=== PATIENT | female | born 1940 | race Caucasian/White ===

== ENCOUNTER 2016-05-04 08:08 | Inpatient (IN) | payer MEDICARE, OTHER ==
[~2016-05-04] VITALS: Ht 144.8 cm; Wt 52.2 kg
[2016-05-04] VITALS (53 sets, daily range): BP systolic 83–153; BP diastolic 35–79; PULSE 70–95; RESP 11–23; TEMP 98–99.8; Ht 144.8 cm; Wt 52.2 kg
[2016-05-04] MEDS ORDERED: SOD CHLORIDE 0.9% 1,000 ML IV STA (08:15)
[2016-05-04] MEDS ORDERED: morphine 4 MG/ML VIAL IV STA (08:15)
[2016-05-04] MEDS ORDERED: ONDANSETRON 4 MG INJ IV STA (08:15)
[2016-05-04 08:22] LABS: ADD SCAN DIFF NO
[2016-05-04] MEDS ORDERED: ASPIRIN 81 MG TAB PO ONE (08:30)
[2016-05-04] MEDS ORDERED: TICAGRELOR 90 MG TABLET PO ONE (08:30)
[2016-05-04] MEDS ORDERED: HEPARIN 1000 UNITS/ML 10 ML INJ IV STA (08:30)
[2016-05-04] MEDS ORDERED: NITROGLYCERIN (SL) 0.4 MG TAB SL ONE (08:30)
[2016-05-04 08:31] LABS: BASOPHIL # 0.1 10^3/ul (0.0-0.1); BASOPHILS % 0.5 % (0.0-2.0); EOSINOPHILS # 0.2 10^3/ul (0.0-0.5); EOSINOPHILS % 1.4 % (0.0-7.0); HEMATOCRIT 44.6 % (37.0-47.0); HEMOGLOBIN 15.4 g/dl (12.0-16.0); LYMPHOCYTES # 3.8 10^3/ul (0.8-2.9); LYMPHOCYTES % 35.8 % (15.0-51.0); MEAN CORPUSCULAR HEMOGLOBIN 31.2 pg (29.0-33.0); MEAN CORPUSCULAR HGB CONC 34.5 g/dl (32.0-37.0); MEAN CORPUSCULAR VOLUME 90.3 fl (82.0-101.0); MEAN PLATELET VOLUME 10.1 fl (7.4-10.4); MONOCYTE # 0.8 10^3/ul (0.3-0.9); MONOCYTES % 7.8 % (0.0-11.0); NEUTROPHIL # 5.7 10^3/ul (1.6-7.5); NEUTROPHILS % 54.2 % (39.0-77.0); PLATELET COUNT 287 10^3/UL (140-415); RED BLOOD COUNT 4.94 10^6/ul (4.20-5.40); RED CELL DISTRIBUTION WIDTH 12.5 % (11.5-14.5); WHITE BLOOD COUNT 10.6 10^3/ul (4.8-10.8)
[2016-05-04 08:35] LABS: ALBUMIN 4.6 g/dl (3.3-4.9)
[2016-05-04 08:36] LABS: INR 0.89; POTASSIUM 4.1 mmol/L (3.5-5.1); PT RATIO 0.9
[2016-05-04 08:37] LABS: CREATININE 0.76 mg/dl (0.44-1.00)
[2016-05-04 08:38] LABS: ALBUMIN/GLOBULIN RATIO 1.15; BILIRUBIN,INDIRECT 0.3 mg/dl (0-1.1); BILIRUBIN,TOTAL 0.3 mg/dl (0.2-1.3); CALCIUM 9.8 mg/dl (8.4-10.2); TOTAL PROTEIN 8.6 g/dl (6.1-8.1)
[2016-05-04 08:53] LABS: TROPONIN-I 0.286 ng/ml (0.00-0.12)
[2016-05-04] MEDS ORDERED: LIDOCAINE 1% (MDV) 20 ML INJ ONE (08:56)
[2016-05-04] MEDS ORDERED: IODIXANOL LOCM 100 ML BTL ONE (08:56)
[2016-05-04] MEDS ORDERED: HEPARIN 1000 UNITS/ML 10 ML INJ ONE (08:56)
[2016-05-04] MEDS ORDERED: MIDAZOLAM 1 MG/ML 2 ML INJ ONE (08:56)
[2016-05-04] MEDS ORDERED: IODIXANOL LOCM 50 ML BTL ONE (08:56)
--- NOTE | 2016-05-04 09:02 | CONS ---
Date/Time of Note Date/Time of Note DATE: 05/04/16 TIME: 08:59 Assessment/Plan Assessment/Plan Chief Complaint/Hosp Course Impression: STEMI Abnormal EKG Chest pain Hyperlipidemia Recommendation/plan: proceed emergently with cardiac cath; further recs pending results of angiogram. Problems: Consultation Date/Type/Reason Admit Date/Time Date of Consultation: May 04, 2016 Reason for Consultation STEMI Hx of Present Illness The patient is a 75 y/o F who presents with chest pain; found to have inferior STEMI; patient taken emergently to cardiac laboratory monitor per [facility]I protocol. History of hyperlipidemia. Not taking any medications. Social History Smoking Status: Never smoker Exam/Review of Systems Vital Signs Vitals Vital Signs Date Time Temp Pulse Resp B/P Pulse Ox O2 Delivery O2 Flow Rate FiO2 05/04/16 08:23 90 18 172/93 99 Nasal Cannula 2.0 05/04/16 08:17 98.5 Exam Constitutional: alert, oriented, well developed Psych: nl mood/affect, no complaints Head: atraumatic, normocephalic Eyes: EOMI, PERRL, nl conjunctiva, nl lids, nl sclera ENMT: nl external ears & nose, nl lips & teeth, nl nasal mucosa & septum Neck: non-tender, supple Respiratory: clear to auscultation, normal air movement Cardiovascular: nl pulses, regular rate and rhythm Gastrointestinal: nl liver, spleen, non-tender, soft Musculoskeletal: nl extremities to inspection, nl gait and stance Extremities: normal pulses Neurological: TWISTER IN II-XII intact, nl mental status, nl speech, nl strength Skin: nl turgor, No rash or lesions Lymph: nl lymph nodes Results Result Diagram: 05/04/16 0816 05/04/16 0816 Results 24 hrs Laboratory Tests Test 05/04/16 08:16 Alanine Aminotransferase (ALT/SGPT) 43 Albumin 4.6 Albumin/Globulin Ratio 1.15 Alkaline Phosphatase 113 Anion Gap 20 H Aspartate Amino Transf (AST/SGOT) 28 Basophils # 0.1 Basophils % 0.5 Blood Urea Nitrogen 21 H Calcium Level 9.8 Carbon Dioxide Level 24 Chloride Level 102 Creatinine 0.76 Direct Bilirubin 0.00 Eosinophils # 0.2 Eosinophils % 1.4 Globulin 4.00 H Glucose Level 254 H Hematocrit 44.6 Hemoglobin 15.4 INR International Normalized Ratio 0.89 Indirect Bilirubin 0.3 Lipase 138 Lymphocytes # 3.8 H Lymphocytes % 35.8 Mean Corpuscular Hemoglobin 31.2 Mean Corpuscular Hemoglobin Concent 34.5 Mean Corpuscular Volume 90.3 Mean Platelet Volume 10.1 Monocytes # 0.8 Monocytes % 7.8 Neutrophils # 5.7 Neutrophils % 54.2 Nucleated Red Blood Cells # 0.0 Nucleated Red Blood Cells % 0.0 Platelet Count 287 Potassium Level 4.1 Prothrombin Time 12.0 L Prothrombin Time Ratio 0.9 Red Blood Count 4.94 Red Cell Distribution Width 12.5 Sodium Level 142 Total Bilirubin 0.3 Total Protein 8.6 H Troponin I 0.286 *H White Blood Count 10.6 KELSISAMIRADAMON May 04, 2016 09:01
[2016-05-04] MEDS ORDERED: NITROGLYCERIN (IC) 100 MCG/ML INJ ONE (09:04)
[2016-05-04] MEDS ORDERED: VERAPAMIL 5 MG INJ ONE (09:04)
[2016-05-04] MEDS ORDERED: FENTAnyl 50 MCG/ML VIAL ONE (09:06)
[2016-05-04] MEDS ORDERED: SOD CHLORIDE 0.9% 500 ML ONE (09:06)
[2016-05-04] MEDS ORDERED: ONDANSETRON 4 MG INJ ONE (09:08)
[2016-05-04] MEDS ORDERED: HEPARIN 25000 UNITS/250 ML 250 ML ONE (09:26)
[2016-05-04] MEDS ORDERED: NITROGLYCERIN 50 MG/D5W (PMX) 250 ML ONE (09:26)
[2016-05-04] MEDS ORDERED: NACL 0.9% 3 ML SYG IV SCH (10:00)
[2016-05-04] MEDS ORDERED: ONDANSETRON 4 MG INJ IV PRN (10:00)
[2016-05-04] MEDS ORDERED: HYDROCODONE/APAP (5/325) TAB PO PRN (10:00)
[2016-05-04] MEDS ORDERED: BISACODYL 10 MG SUPP PR PRN (10:00)
[2016-05-04] MEDS ORDERED: ACETAMINOPHEN 325 MG TAB PO PRN (10:00)
[2016-05-04] MEDS ORDERED: NITROGLYCERIN (SL) 0.4 MG TAB SL PRN (10:00)
[2016-05-04] MEDS ORDERED: DOCUSATE SODIUM 100 MG CAP PO PRN (10:00)
[2016-05-04] MEDS ORDERED: MAGNESIUM HYDROXIDE 30ML CUP PO PRN (10:00)
--- NOTE | 2016-05-04 10:02 | EN ---
Date/Time of Note Date/Time of Note DATE: 05/04/16 TIME: 09:46 Event Note Cardiology Cardiology Event Note DATE OF PROCEDURE: 05/04/16 ON SITE COORDINATOR: Carlos Dolan MD PROCEDURES PERFORMED: 1. Left heart catheterization. 2. Intra-aortic balloon pump placement PREINTERVENTION DIAGNOSIS: 1. Acute ST elevation myocardial infarction. POSTINTERVENTION DIAGNOSES: 1. 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 SEDATION: Conscious sedation with fentanyl 50 mcg IV and Versed 1 mg IV. DESCRIPTION OF PROCEDURE: The patient placed on mill washer, pulse oximetry and supplemental oxygen as necessary. The right groin [] was prepped and draped in a sterile fashion and infiltrated with 1% lidocaine. Via the Seldinger technique, the right femoral artery was accessed. A 6-Honduran sheath was inserted and through this the right coronary catheter and left coronary catheter and pigtail were advanced into the right coronary artery and left coronary artery and the left ventricle. IABP was placed after exchange and upsize of R femoral sheath to 8 greenlandic. Placement confirmed by fluoroscopy and hemodynamics. CATHETERIZATION FINDINGS: 1. Left main: 90-95% distal disease 2. LAD: ostial to proximal long segment 90% disease 3. Ramus: medium caliber vessel with proximal 80% disease 4. Obtuse Marginal: no significant disease 3. Circumflex: ostial 95% disease 4. RCA: Proximal 95% stenosis with bridging collaterals TOTAL CONTRAST: 15cc FLUOROSCOPY TIME: 2.6 minutes. COMPLICATIONS: None. 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 RECOMMENDATIONS: 1. Continue IABP 2. Continue IV heparin 3. Continue IV Nitroglycerin 4. ASA 81mg daily 5. Lipitor 80mg daily 6. Coreg 3.125mg BID 7. Lisinopril 2.5mg daily 8. CABG Evaluation. Patient received Ticagrelor in ER. Discussed case with Dr. Kruse, will wait for Ticagrelor washout so long as patient clinically stable. CARLOS DOLAN May 04, 2016 10:02
[2016-05-04] MEDS ORDERED: LISINOPRIL 5 MG TAB PO ONE (10:30)
[2016-05-04] MEDS ORDERED: ATORVASTATIN 80 MG TAB PO ONE (10:30)
[2016-05-04] MEDS ORDERED: HEPARIN 1000 UNITS/ML 10 ML INJ IV ONE (11:30)
[2016-05-04] MEDS ORDERED: HEPARIN 25000 UNITS/250 ML 250 ML IV SCH (11:30)
[2016-05-04] MEDS ORDERED: HEPARIN 1000 UNITS/ML 10 ML INJ IV PRN (12:00)
[2016-05-04 12:05] LABS: TROPONIN-I 3.8 ng/ml (0.00-0.12)
[2016-05-04] MEDS: HEPARIN 25000 UNITS/250 ML 250 ML IV SCH ×2 (12:21→19:22)
[2016-05-04] MEDS: NITROGLYCERIN 50 MG/D5W (PMX) 250 ML IV SCH ×2 (12:22→17:23)
--- NOTE | 2016-05-04 13:57 | HP ---
DATE OF ADMISSION: 05/04/2016 CHIEF COMPLAINT: Chest pain. HISTORY OF PRESENT ILLNESS: A 75-year-old female with past medical history of high cholesterol, who was brought in by family because she was having worsening chest pain. The chest pain first began a bout 8 days ago. It had been "knocking the wind out of her." The patient also had been feeling hea vy pressures. She was able to tolerate it for the last 7 days, but this morning the chest pain idris me worse and she was feeling more fatigued, decreased ambulation, so she asked family to bring her i nto the ER. They were going to take her to her primary care doctor to get her cholesterol checked, but then the symptoms became more severe so they decided to bring her into the emergency room today. When she came in, she was found to have acute inferior ST elevation myocardial infarction and was admitted in to the [facility], where there she was found with multivessel coronary artery disease incl uding 90% to 95% distal left main blockage, LAD ostial to proximal long segment 90% blockage, and ra mus medium caliber vessel with about 80% blockage, and also the circumflex ostial by 95% blockage, a nd RCA had proximal 95% stenosis as well with bridging collaterals. The patient is now in the [facility] on a heparin drip, on a nitro drip and also is on intra-aortic balloon pump as well. The recommendations are for coronary artery bypass grafting surgery in the next couple of days. PAST MEDICAL HISTORY: As stated above. ALLERGIES: NO KNOWN DRUG ALLERGIES. HOME MEDICATIONS: Unknown. PAST SURGICAL HISTORY: None. SOCIAL HISTORY: Negative for smoking, drinking, or IV drug abuse. FAMILY HISTORY: Unknown. PHYSICAL EXAMINATION: VITAL SIGNS: Temperature max 98.5, pulse is 85 to 90, respirations 18 to 20, blood pressure is 172 to 180 systolic/93 to 105 diastolic, saturating at 99% on 2 liters nasal cannula. GENERAL: The patient is lying in bed. Multiple family members are at the bedside. She is alert, b ut weak. HEENT: Pupils are equal, round, react to light. Extraocular muscles intact. NECK: Supple, no thyromegaly. LUNGS: Distant breath sounds bilaterally, no wheezes. CARDIOVASCULAR: S1 and S2 are heard. No rubs or gallops. ABDOMEN: Soft, nontender, nondistended. Normal bowel sounds. No rebound or guarding. MUSCULOSKELETAL: No lower extremity edema bilaterally noted. NEUROLOGIC: No signs of any focal deficits. LABORATORY DATA: CBC shows a WBC 10.6, hemoglobin 15.4, hematocrit 44.6, platelets 287. Sodium 142 , potassium 4.1, chloride 102, CO2 of 24, BUN 21, creatinine 0.76, glucose 254. LFTs are normal. C reatinine kinase is 663, it is elevated. CK-MB is elevated at 39. First troponin 0.286, second tro ponin was 3.8. Lipase is normal. ASSESSMENT AND PLAN: A 75-year-old female with chest pain with inferior ST elevation myocardial inf arction and multivessel coronary artery disease with recommendations for coronary artery bypass berkley t. 1. Chest pain, again secondary to ST elevation myocardial infarction, given the results of the left heart catheterization as mentioned above in the HPI. Per cardiology recommendations, continue nitr o drip, continue heparin drip, continue intra-aortic balloon pump. Monitor vital signs very careful ly and labs in the morning. Follow up TSH, A1c, lipid panel. Per discussion with cardiology team, the patient would benefit from a CABG procedure, so cardiothoracic surgery team will be consulted as well. Continue pain control medications, including [place] and Tylenol. Continue Coreg p.o. blood p ressure medicine as well and nitroglycerin p.r.n. sublingual. 2. Gastrointestinal prophylaxis, proton pump inhibitor. 3. Deep venous thrombosis prophylaxis. She is on heparin drip. We will continue to follow very closely. Dictated By: JOLEEN LAIRD Conf#: [id number] DID#: [id number]
--- NOTE | 2016-05-04 14:10 | ERA ---
ER Documentation Chief Complaint Date/Time DATE: 05/04/16 TIME: 13:56 Chief Complaint STEMI chest pain started this morning HPI 75-year-old woman brought in by EMS from home as code STEMI. Patient had complaints of pressure-like chest pain beginning last night and getting worse this morning. She also complained of dizziness, nausea, shortness of breath. Patient denies previous episodes. She denies palpitations, no cough, no fevers or chills, no calf or leg swelling, no headache or blurry vision. ROS All systems reviewed and are negative except as per history of present illness. Allergies Allergies: Coded Allergies: No Known Allergy (Unverified , 05/04/16) PMhx/Soc Hypertension History of Surgery: No Anesthesia Reaction: No Hx Neurological Disorder: No Hx Respiratory Disorders: No Hx Cardiac Disorders: No Hx Psychiatric Problems: No Hx Alcohol Use: No Hx Substance Use: No Hx Tobacco Use: No Smoking Status: Never smoker FmHx Family History: No diabetes Physical Exam Vitals Vital Signs Date Time Temp Pulse Resp B/P Pulse Ox O2 Delivery O2 Flow Rate FiO2 05/04/16 10:30 98.0 82 15 132/58 100 05/04/16 08:23 90 18 172/93 99 Nasal Cannula 2.0 05/04/16 08:17 98.5 85 20 180/105 99 Physical Exam GENERAL: Well-developed, well-nourished, well-hydrated, in no apparent distress , looks nontoxic in appearance HEENT: Moist mucous membranes, pink conjunctiva, no cervical spine tenderness or step-off deformities, no goiter, no jaundice or icterus, extraocular movements intact without pain. No submandibular induration, and no pharyngeal erythema NEURO: Alert and oriented 3, cranial nerves II through XII intact bilaterally, pupils equal round reactive to light, no focal deficits or facial asymmetry, sensation intact distally Strength 5/5 in upper and lower extremities bilaterally CARDIAC: Regular rate and rhythm, no murmurs rubs or gallops LUNGS: Clear bilaterally no wheezing crackles or stridor ABDOMEN: Soft nontender, no guarding, no rigidity, no rebound, no psoas sign no obturator sign. Normoactive bowel sounds SKIN: Warm and dry to touch, no abrasions, contusions, or hematomas, no lacerations, no ecchymosis, no target lesions, and without ulcers EXTREMITIES: No clubbing cyanosis or edema, calves are bilaterally symmetrical, no Homans sign, no popliteal cord sign. Distal pulses equal and bilateral PSYCH: Normal affect without agitation or irritability Result Diagram: 05/04/1616 05/04/16 0816 Results 24 hrs Laboratory Tests Test 05/04/16 08:16 Alanine Aminotransferase (ALT/SGPT) 43IU/L Albumin 4.6g/dl Albumin/Globulin Ratio 1.15 Alkaline Phosphatase 113IU/L Anion Gap 20 Aspartate Amino Transf (AST/SGOT) 28IU/L Basophils # 0.110^3/ul Basophils % 0.5% Blood Urea Nitrogen 21mg/dl Calcium Level 9.8mg/dl Carbon Dioxide Level 24mmol/L Chloride Level 102mmol/L Creatinine 0.76mg/dl Direct Bilirubin 0.00mg/dl Eosinophils # 0.210^3/ul Eosinophils % 1.4% Globulin 4.00g/dl Glucose Level 254mg/dl Hematocrit 44.6% Hemoglobin 15.4g/dl INR International Normalized Ratio 0.89 Indirect Bilirubin 0.3mg/dl Lipase 138U/L Lymphocytes # 3.810^3/ul Lymphocytes % 35.8% Mean Corpuscular Hemoglobin 31.2pg Mean Corpuscular Hemoglobin Concent 34.5g/dl Mean Corpuscular Volume 90.3fl Mean Platelet Volume 10.1fl Monocytes # 0.810^3/ul Monocytes % 7.8% Neutrophils # 5.710^3/ul Neutrophils % 54.2% Nucleated Red Blood Cells # 0.010^3/ul Nucleated Red Blood Cells % 0.0/100WBC Platelet Count 31535^3/UL Potassium Level 4.1mmol/L Prothrombin Time 12.0Sec Prothrombin Time Ratio 0.9 Red Blood Count 4.9410^6/ul Red Cell Distribution Width 12.5% Sodium Level 142mmol/L Total Bilirubin 0.3mg/dl Total Protein 8.6g/dl Troponin I 0.286ng/ml White Blood Count 10.610^3/ul Current Medications Medications (Trade) Dose Ordered Sig/Arnoldo Route PRN Reason Start Time Stop Time Status Last Admin Dose Admin Aspirin (Aspirin) 162 mg ONCE ONCE PO 05/04/16 08:30 05/04/16 08:31 DC 05/04/16 08:19 Nitroglycerin 1 tab 1 tab ONCE ONCE SL 05/04/16 08:30 05/04/16 08:31 DC 05/04/16 08:19 Sodium Chloride (NS) 1,000 ml @ 1,000 mls/hr Q1H STAT IV 05/04/16 08:15 05/04/16 09:14 DC 05/04/16 08:20 Morphine Sulfate (morphine) 4 mg ONCE STAT IV 05/04/16 08:15 05/04/16 08:17 DC 05/04/16 08:19 Ondansetron HCl (Zofran Inj) 4 mg ONCE STAT IV 05/04/16 08:15 05/04/16 08:17 DC 05/04/16 08:19 Ticagrelor (Brilinta) 180 mg ONCE ONCE PO 05/04/16 08:30 05/04/16 08:32 DC 05/04/16 08:36 Heparin Sodium (Porcine) (Heparin (1000 Units/ml)) 5,000 unit ONCE STAT IV 05/04/16 08:30 05/04/16 08:32 DC 05/04/16 08:36 IV Flush (NS 3 ml) 3 ml PER PROTOCOL IV 05/04/16 10:00 Ondansetron HCl (Zofran Inj) 4 mg Q6H PRN IV NAUSEA AND/OR VOMITING 05/04/16 10:00 Acetaminophen (Tylenol Tab) 650 mg Q6H PRN PO PAIN LEVEL 1-3 OR FEVER 05/04/16 10:00 Acetaminophen (Tylenol Supp) 650 mg Q6H PRN [place] PAIN LEVEL 1-3 OR FEVER 05/04/16 10:00 Acetaminophen/ Hydrocodone Bitart ([place] (5/325)) 1 tab Q6H PRN PO MODERATE PAIN LEVEL 4-6 05/04/16 10:00 Acetaminophen/ Hydrocodone Bitart ([place] (5/325)) 2 tab Q6H PRN PO SEVERE PAIN LEVEL 7-10 05/04/16 10:00 Morphine Sulfate (morphine) 2 mg Q4H PRN IV SEVERE PAIN LEVEL 7-10 05/04/16 10:00 Docusate Sodium (Colace) 100 mg Q12H PRN PO CONSTIPATION 05/04/16 10:00 Magnesium Hydroxide (Milk Of Mag) 30 ml DAILY PRN PO CONSTIPATION 05/04/16 10:00 Bisacodyl (Dulcolax Supp) 10 mg DAILY PRN [place] CONSTIPATION 05/04/16 10:00 Nitroglycerin (Nitroglycerin (Sl Tab) 0.4 Mg) 1 tab Q5M PRN SL CHEST PAIN 05/04/16 10:00 Miscellaneous Information (* Miscellaneous Pharmacy Order) HOLD all METFORMIN ... ONCE XX 05/04/16 10:30 05/06/16 10:29 Carvedilol (Coreg) 6.25 mg ONCE ONCE PO 05/04/16 10:30 05/04/16 10:31 DC 05/04/16 10:56 Lisinopril (Zestril) 5 mg ONCE ONCE PO 05/04/16 10:30 05/04/16 10:31 DC 05/04/16 10:56 Atorvastatin Calcium (Lipitor) 80 mg ONCE ONCE PO 05/04/16 10:30 05/04/16 10:31 DC 05/04/16 10:56 Procedures/MDM IV line was established patient was placed on computer science instructor rhythm strip revealed a sinus rhythm at about 80 bpm with upright P and T waves. Patient was afebrile. Code STEMI was called immediately after reviewing EMS EKG. EKG #1 performed here, read by me revealed a normal sinus rhythm 86 bpm, normal axis, narrow QRS complex with 0.[address] elevations in leads III and aVF as well as lead V3 and V4. I administered 1 L normal saline intravenously, aspirin 162 mg p.o., morphine 4 mg IV 1 and Zofran 4 mg IV, and nitroglycerin 0.4 mg sublingual. After speaking to the senior lead developer I also administered ticagrelor 180 mg p.o. and heparin bolus 5000 units IV One AP view of the chest performed, read by me reveals no acute infiltrates, normal mediastinum, sharp costophrenic and cardiac borders, no air under the diaphragm. Otherwise unremarkable chest x-ray. CBC and electrolytes were normal, liver function tests were normal, troponin was positive at 0.29, troponin #2 equals 3.8. Cardiac Critical Care: Time: 35 minutes, this was time separate from other procedures Treatments/Evaluations: Close monitoring for dangerous arrhythmia and cardiovascular collapse, while treating with advance cardiac medications and techniques. Patient admitted to the intensive care unit under the hospitalist. Departure Diagnosis: Primary Impression: ST elevation myocardial infarction (STEMI) Qualified Code: I21.02 - ST elevation myocardial infarction involving left anterior descending (LAD) coronary artery Condition: Serious MARY BAXTER MD May 04, 2016 14:10
--- NOTE | 2016-05-04 14:22 | RADRPT ---
PROCEDURE: XR Chest. CLINICAL INDICATION: Chest pain. Code STEMI. TECHNIQUE: Single frontal view. COMPARISON: None. FINDINGS: The lungs are clear. The heart size is normal. There is calcification in the aorta consistent with atherosclerosis. The re is a intra-aortic balloon with the superior tip at the level of the superior aortic arch. This s hould be withdrawn approximately 1 cm. There is no pleural effusion. There is no pneumothorax. IMPRESSION: 1. Clear lungs. 2. Atherosclerosis. 3. Intra-aortic balloon which should be withdrawn approximately 1 cm. 4. Otherwise unremarkable study. RPTAT: QQ .Fei Santana MD, MD Date Time Electronically viewed and signed by .Fei Santana MD, MD on 05/04/2016 14:22 .R/
[2016-05-04] MEDS ORDERED: LISINOPRIL 10 MG TAB PO ONE (15:00)
[2016-05-04 16:38] LABS: CK-MB 97.5 ng/ml (0.0-2.4)
[2016-05-04 16:56] LABS: TROPONIN-I 22.2 ng/ml (0.00-0.12)
[2016-05-04] MEDS ORDERED: GLUCOSE GEL 15 GRAM TUBE PO PRN ×2 (18:30)
[2016-05-04] MEDS ORDERED: GLUCOSE GEL 15 GRAM TUBE BUCCAL PRN (18:30)
[2016-05-04] MEDS ORDERED: DEXTROSE 50% 50 ML SYRINGE IV PRN ×2 (18:30)
[2016-05-04] MEDS ORDERED: GLUCAGON 1 MG INJ IM PRN (18:30)
[2016-05-04 18:42] LABS: INR 1.02; PROTIME 13.4 Sec (12.2-14.2)
[2016-05-04] MEDS: LISINOPRIL 10 MG TAB PO SCH (21:05)
[2016-05-04] MEDS: INSULIN ASPART [NOVOLOG] 3 ML PEN SC SCH (21:06)
[2016-05-05] VITALS (96 sets, daily range): BP systolic 54–112; BP diastolic 33–66; PULSE 72–95; RESP 10–30
[2016-05-05] MEDS: HEPARIN 25000 UNITS/250 ML 250 ML IV SCH (01:53)
[2016-05-05] MEDS: ACCUCHECK XX SCH (02:00)
[2016-05-05] MEDS: PANTOPRAZOLE 40 MG INJ IV SCH (05:32)
[2016-05-05] MEDS: morphine 2 MG INJ IV PRN ×2 (06:15→12:11)
--- NOTE | 2016-05-05 07:20 | PN ---
Date/Time of Note Date/Time of Note DATE: 05/05/16 TIME: 07:16 Assessment/Plan VTE Prophylaxis VTE Prophylaxis Intervention: heparin Lines/Catheters IV Catheter Type (from Nrs): Saline Lock Urinary Cath still in place: Yes Reason Cath still needed: terminal illness/intractable pain Assessment/Plan Assessment/Plan IMPRESSION 1. Acute ST elevation myocardial infarction. 2. 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 3. Intra-aortic balloon pump placement 4. Diabetes: A1c: 8.7 5. Hx of Dyslipidemia PLAN Awaiting CT Surgery Evaluation for CABG Cont current medical mgmt Insulin for diabetes Subjective 24 Hr Interval Summary Free Text/Dictation No acute events Overnight Exam/Review of Systems Vital Signs Vitals Vital Signs Date Time Temp Pulse Resp B/P Pulse Ox O2 Delivery O2 Flow Rate FiO2 05/05/16 06:45 83 17 81/42 97 Nasal Cannula 2.0 05/05/16 04:00 100.1 Intake and Output 05/04/16 05/04/16 05/05/16 15:00 23:00 07:00 Intake Total 356.0 ml 425.2 ml 138.0 ml Output Total 146 ml 352 ml 415 ml Balance 210.0 ml 73.2 ml -277.0 ml Exam Constitutional: other (No acute Distress) Head: atraumatic, normocephalic Eyes: EOMI, PERRL Respiratory: clear to auscultation, normal air movement Cardiovascular: nl pulses, regular rate and rhythm Gastrointestinal: non-tender, soft Extremities: normal pulses Results Result Diagram: 05/04/16 0816 05/04/16 0816 Results 24 hrs Laboratory Tests Test 05/04/16 08:16 05/04/16 11:05 05/04/16 11:57 05/04/16 15:40 Alanine Aminotransferase (ALT/SGPT) 43 Albumin 4.6 Albumin/Globulin Ratio 1.15 Alkaline Phosphatase 113 Anion Gap 20 H Aspartate Amino Transf (AST/SGOT) 28 Basophils # 0.1 Basophils % 0.5 Blood Urea Nitrogen 21 H Calcium Level 9.8 Carbon Dioxide Level 24 Chloride Level 102 Creatinine 0.76 Direct Bilirubin 0.00 Eosinophils # 0.2 Eosinophils % 1.4 Globulin 4.00 H Glucose Level 254 H Hematocrit 44.6 Hemoglobin 15.4 INR International Normalized Ratio 0.89 Indirect Bilirubin 0.3 Lipase 138 Lymphocytes # 3.8 H Lymphocytes % 35.8 Mean Corpuscular Hemoglobin 31.2 Mean Corpuscular Hemoglobin Concent 34.5 Mean Corpuscular Volume 90.3 Mean Platelet Volume 10.1 Monocytes # 0.8 Monocytes % 7.8 Neutrophils # 5.7 Neutrophils % 54.2 Nucleated Red Blood Cells # 0.0 Nucleated Red Blood Cells % 0.0 Platelet Count 287 Potassium Level 4.1 Prothrombin Time 12.0 L Prothrombin Time Ratio 0.9 Red Blood Count 4.94 Red Cell Distribution Width 12.5 Sodium Level 142 Total Bilirubin 0.3 Total Protein 8.6 H Troponin I 0.286 *H 3.800 *H 22.200 *H White Blood Count 10.6 Creatine Kinase 663 H 1389 #H Creatine Kinase Index 5.9 7.0 Creatinine Kinase MB (Mass) 39.00 H 97.50 H Activated Partial Thromboplast Time 143.6 *H Test 05/04/16 17:37 05/04/16 18:10 05/04/16 21:00 05/05/16 00:44 Bedside Glucose 170 231 H Activated Partial Thromboplast Time 35.0 72.3 *H INR International Normalized Ratio 1.02 Prothrombin Time 13.4 Prothrombin Time Ratio 1.0 Test 05/05/16 02:01 05/05/16 04:50 Bedside Glucose 193 Activated Partial Thromboplast Time 51.3 H Hemoglobin A1c 8.7 H Medications Medications Current Medications Ondansetron HCl (Zofran Inj) 4 mg Q6H PRN IV NAUSEA AND/OR VOMITING; Start 05/04 at 10:00 Acetaminophen (Tylenol Tab) 650 mg Q6H PRN PO PAIN LEVEL 1-3 OR FEVER; Start at 10:00 Acetaminophen (Tylenol Supp) 650 mg Q6H PRN [place] PAIN LEVEL 1-3 OR FEVER; Start 05/04/16 at 10:00 Acetaminophen/ Hydrocodone Bitart ([place] (5/325)) 1 tab Q6H PRN PO MODERATE PAIN LEVEL 4-6; Start 05/04/16 at 10:00 Acetaminophen/ Hydrocodone Bitart ([place] (5/325)) 2 tab Q6H PRN PO SEVERE PAIN LEVEL 7-10; Start 05/04/16 at 10:00 Morphine Sulfate (morphine) 2 mg Q4H PRN IV SEVERE PAIN LEVEL 7-10 Last administered on 05/05/16 06:15; Admin Dose 2 MG; Start 05/04/16 at 10:00 Docusate Sodium (Colace) 100 mg Q12H PRN PO CONSTIPATION Last administered on 06:14; Admin Dose 100 MG; Start 05/04/16 at 10:00 Magnesium Hydroxide (Milk Of Mag) 30 ml DAILY PRN PO CONSTIPATION; Start at 10:00 Bisacodyl (Dulcolax Supp) 10 mg DAILY PRN [place] CONSTIPATION; Start 05/04/16 at 10: 00 Pantoprazole (Protonix Iv) 40 mg DAILY@06 IV Last administered on 05/05/16 05: 32; Admin Dose 40 MG; Start 05/05/16 at 06:00 Aspirin (Aspirin) 81 mg DAILY PO ; Start 05/06/16 at 09:00 Carvedilol (Coreg) 3.125 mg BID PO Last administered on 05/04/16 21:04; Admin Dose 3.125 MG; Start 05/04/16 at 21:00 Nitroglycerin (Nitroglycerin (Sl Tab) 0.4 Mg) 1 tab Q5M PRN SL CHEST PAIN; Start 05/04/16 at 10:00 Miscellaneous Information HOLD all METFORMIN ... ONCE XX ; Start 05/04/16 at 10: 30; Stop 05/06/16 at 10:29 Nitroglycerin/ Dextrose (Nitroglycerin 50 Mg/D5W (Pmx)) 250 ml @ 15 mls/hr TITRATE IV Last administered on 05/04/16 17:23; Admin Dose 15 MLS/HR; Start 05/04/16 at 11:30 Heparin Sodium (Porcine) (Heparin (1000 Units/ml)) 3,180 unit PRN PRN IV PENDING LAB VALUE Last administered on 05/04/16 19:20; Admin Dose 3,180 UNIT; Start 05/04/16 at 12:00 Lisinopril (Zestril) 10 mg BID PO Last administered on 05/04/16 21:05; Admin Dose 10 MG; Start 05/04/16 at 21:00 Diagnostic Test (Pha) (Accucheck) 1 ea 02 XX ; Start 05/05/16 at 02:00 Miscellaneous Information 1 ea NOTE XX ; Start 05/04/16 at 18:30 Glucose (Glutose) 15 gm Q15M PRN PO DECREASED GLUCOSE; Start 05/04/16 at 18:30 Glucose (Glutose) 22.5 gm Q15M PRN PO DECREASED GLUCOSE; Start 05/04/16 at 18:30 Dextrose (D50w Syringe) 25 ml Q15M PRN IV DECREASED GLUCOSE; Start 05/04/16 at 18:30 Dextrose (D50w Syringe) 50 ml Q15M PRN IV DECREASED GLUCOSE; Start 05/04/16 at 18:30 Glucagon (Glucagen) 1 mg Q15M PRN IM DECREASED GLUCOSE; Start 05/04/16 at 18:30 Glucose (Glutose) 15 gm Q15M PRN [place] DECREASED GLUCOSE; Start 05/04/16 at 18: 30 AVA LARSEN MD May 05, 2016 07:20
[2016-05-05] MEDS: INSULIN ASPART [NOVOLOG] 3 ML PEN SC SCH ×4 (07:46→21:08)
[2016-05-05 08:31] LABS: ALBUMIN 3.2 g/dl (3.3-4.9)
[2016-05-05 08:32] LABS: POTASSIUM 4.1 mmol/L (3.5-5.1)
[2016-05-05 08:34] LABS: ALBUMIN/GLOBULIN RATIO 1.28; BILIRUBIN,INDIRECT 0.4 mg/dl (0-1.1); BILIRUBIN,TOTAL 0.4 mg/dl (0.2-1.3); CREATININE 0.66 mg/dl (0.44-1.00); TOTAL PROTEIN 5.7 g/dl (6.1-8.1)
[2016-05-05 08:35] LABS: CALCIUM 8.8 mg/dl (8.4-10.2); CHOL/HDL RATIO 5.9 RATIO; MAGNESIUM 1.7 mg/dl (1.7-2.5); PHOSPHORUS 4.1 mg/dl (2.5-4.9)
[2016-05-05] MEDS: LISINOPRIL 10 MG TAB PO SCH (08:37)
--- NOTE | 2016-05-05 08:37 | RADRPT ---
Echocardiogram Report Patient Name: EVITA VASQUEZ Gender: Female Date: 1940 Study Date: 04-May-2016 Cooking Instructor: NARDA Location: I Ref. Physician: CHRISTEN SALINAS Quality: Technically Difficult Study Procedures: Transthoracic echocardiogram examination. Indications: STEMI. 2D/M Mode Doppler Measurement Value Normal Range Measurement Value Normal Range IVSd 2D 1.3 0.6 - 1.1 cm AV Peak Bud 1.1 m/sec LA Dimen 2D 3.2 2.3 - 4.0 cm AV Peak PG 4.8 mmHg LVOT Peak Bud 1.0 m/sec MV E Peak Bud 0.4 m/sec MV A Peak Bud 0.7 m/sec MV E/A 0.5 MV Decel Time 203 msec MV Decel [place] 2 MV E/A 0.5 Findings Left Ventricle: Normal left ventricular cavity size. Mild left ventricular systolic dysfunction. Tissue Doppler/Mitral Doppler indices are consistent with impaired relaxation (Stage I diastolic dysfunction). The left ventricular ejection fraction is visually estimated at 50 %. These segments of the LV are akinetic: anterior apex segment, lateral apex segment and inferior apex segment. Right Ventricle: Normal right ventricular size. Normal right ventricular systolic function. Left Atrium: The left atrium is normal in size and appearance. Right Atrium: The right atrium is normal in size and appearance. Atrial Septum: Normal atrial septum. Mitral Valve: Normal appearance and function of the mitral valve with trace physiologic regurgitation. Aortic Valve: Normal appearance and function of the aortic valve as seen from apical images only. No significant aortic stenosis or insufficiency. Tricuspid Valve: Normal appearance of the tricuspid valve. No evidence of tricuspid regurgitation. Pulmonic Valve: The pulmonic valve is not well visualized. Pericardium: Normal pericardium with no significant pericardial effusion. Aorta: The aorta is not well visualized. IVC: Normal inferior vena cava appearance. Pulmonary Artery: Pulmonary artery is not well visualized. Conclusions 1.Techincally very difficult study. 2.Aortic valve not well visualized. 3.Normal left ventricular cavity size. Mild left ventricular systolic dysfunction. Tissue Doppler/Mitral Doppler indices are consistent with impaired relaxation (Stage I diastolic dysfunction). The left ventricular ejection fraction is visually estimated at 50 %. These segments of the LV are akinetic: anterior apex segment, lateral apex segment and inferior apex segment. 4.Normal appearance and function of the mitral valve with trace physiologic regurgitation. 5.Normal appearance of the tricuspid valve. No evidence of tricuspid regurgitation. Electronically Signed By: Carlos Goodwin 05-May-2016 08:35:50 -0800 Patient Name: EVITA VASQUEZ Study Date: 04-May-2016 [id number]
--- NOTE | 2016-05-05 08:46 | CONS ---
Date/Time of Note Date/Time of Note DATE: 05/05/16 TIME: 08:44 Assessment/Plan Assessment/Plan Chief Complaint/Hosp Course Impression: STEMI Multi-vessel coronary artery disease with left main involvement Abnormal EKG Chest pain Hyperlipidemia Recommendation/plan: ASA 81mg daily Lipitor 80mg daily Increase coreg 6.25mg BID Increase lisinopril 20mg BID NTG gtt Heparin gtt Timing of CABG per cardiac surgery (patient received Ticagrelor 05/04/16 as part of Acute [place] protocol) Problems: Consultation Date/Type/Reason Admit Date/Time May 04, 2016 at 10:47 Initial Consult Date 05/04/16 24 HR Interval Summary Free Text/Dictation no chest pain or palpitations IABP with Aug diastolic > 160mmHg Exam/Review of Systems Vital Signs Vitals Vital Signs Date Time Temp Pulse Resp B/P Pulse Ox O2 Delivery O2 Flow Rate FiO2 05/05/16 08:00 Nasal Cannula 2.0 05/05/16 06:45 83 17 81/42 97 05/05/16 04:00 100.1 Intake and Output 05/04/16 05/04/16 05/05/16 15:00 23:00 07:00 Intake Total 356.0 ml 425.2 ml 138.0 ml Output Total 146 ml 352 ml 415 ml Balance 210.0 ml 73.2 ml -277.0 ml Exam Constitutional: alert, oriented, well developed Psych: nl mood/affect, no complaints Head: atraumatic, normocephalic Eyes: EOMI, PERRL, nl conjunctiva, nl lids, nl sclera ENMT: nl external ears & nose, nl lips & teeth, nl nasal mucosa & septum Neck: non-tender, supple Respiratory: clear to auscultation, normal air movement Cardiovascular: nl pulses, regular rate and rhythm Gastrointestinal: nl liver, spleen, non-tender, soft Musculoskeletal: nl extremities to inspection, nl gait and stance Extremities: normal pulses Neurological: [employer]LE[employer]ERK II-XII intact, nl mental status, nl speech, nl strength Skin: nl turgor, No rash or lesions Lymph: nl lymph nodes Results Result Diagram: 05/04/16 0816 05/05/16 0450 Results 24 hrs Laboratory Tests Test 05/04/16 11:05 05/04/16 11:57 05/04/16 15:40 05/04/16 17:37 Creatine Kinase 663 H 1389 #H Creatine Kinase Index 5.9 7.0 Creatinine Kinase MB (Mass) 39.00 H 97.50 H Troponin I 3.800 *H 22.200 *H Activated Partial Thromboplast Time 143.6 *H Bedside Glucose 170 Test 05/04/16 18:10 05/04/16 21:00 05/05/16 00:44 05/05/16 02:01 Activated Partial Thromboplast Time 35.0 72.3 *H INR International Normalized Ratio 1.02 Prothrombin Time 13.4 Prothrombin Time Ratio 1.0 Bedside Glucose 231 H 193 Test 05/05/16 04:50 05/05/16 07:39 Activated Partial Thromboplast Time 51.3 H Alanine Aminotransferase (ALT/SGPT) 52 Albumin 3.2 #L Albumin/Globulin Ratio 1.28 Alkaline Phosphatase 87 Anion Gap 14 Aspartate Amino Transf (AST/SGOT) 125 H Blood Urea Nitrogen 14 Calcium Level 8.8 Carbon Dioxide Level 23 Chloride Level 103 Cholesterol Level 279 H Cholesterol/HDL Ratio 5.9 Creatinine 0.66 Direct Bilirubin 0.00 Free Thyroxine Index Pending Globulin 2.50 Glucose Level 200 HDL Cholesterol 47 Hemoglobin A1c 8.7 H Indirect Bilirubin 0.4 LDL Cholesterol, Calculated 159 Magnesium Level 1.7 Phosphorus Level 4.1 Potassium Level 4.1 Sodium Level 136 Thyroid Stimulating Hormone (TSH) Pending Thyroxine (T4) Pending Total Bilirubin 0.4 Total Protein 5.7 #L Triglycerides Level 364 H Triiodothyronine (T3) Uptake Pending Bedside Glucose 213 Medications Medications Current Medications Ondansetron HCl (Zofran Inj) 4 mg Q6H PRN IV NAUSEA AND/OR VOMITING; Start 05/04 at 10:00 Acetaminophen (Tylenol Tab) 650 mg Q6H PRN PO PAIN LEVEL 1-3 OR FEVER; Start at 10:00 Acetaminophen (Tylenol Supp) 650 mg Q6H PRN [place] PAIN LEVEL 1-3 OR FEVER; Start 05/04/16 at 10:00 Acetaminophen/ Hydrocodone Bitart ([place] (5/325)) 1 tab Q6H PRN PO MODERATE PAIN LEVEL 4-6; Start 05/04/16 at 10:00 Acetaminophen/ Hydrocodone Bitart ([place] (5/325)) 2 tab Q6H PRN PO SEVERE PAIN LEVEL 7-10; Start 05/04/16 at 10:00 Morphine Sulfate (morphine) 2 mg Q4H PRN IV SEVERE PAIN LEVEL 7-10 Last administered on 05/05/16 06:15; Admin Dose 2 MG; Start 05/04/16 at 10:00 Docusate Sodium (Colace) 100 mg Q12H PRN PO CONSTIPATION Last administered on 06:14; Admin Dose 100 MG; Start 05/04/16 at 10:00 Magnesium Hydroxide (Milk Of Mag) 30 ml DAILY PRN PO CONSTIPATION; Start at 10:00 Bisacodyl (Dulcolax Supp) 10 mg DAILY PRN [place] CONSTIPATION; Start 05/04/16 at 10: 00 Pantoprazole (Protonix Iv) 40 mg DAILY@06 IV Last administered on 05/05/16 05: 32; Admin Dose 40 MG; Start 05/05/16 at 06:00 Aspirin (Aspirin) 81 mg DAILY PO ; Start 05/06/16 at 09:00 Carvedilol (Coreg) 3.125 mg BID PO Last administered on 05/05/16 08:38; Admin Dose 3.125 MG; Start 05/04/16 at 21:00 Nitroglycerin (Nitroglycerin (Sl Tab) 0.4 Mg) 1 tab Q5M PRN SL CHEST PAIN; Start 05/04/16 at 10:00 Miscellaneous Information HOLD all METFORMIN ... ONCE XX ; Start 05/04/16 at 10: 30; Stop 05/06/16 at 10:29 Nitroglycerin/ Dextrose (Nitroglycerin 50 Mg/D5W (Pmx)) 250 ml @ 15 mls/hr TITRATE IV Last administered on 05/04/16 17:23; Admin Dose 15 MLS/HR; Start 05/04/16 at 11:30 Heparin Sodium (Porcine) (Heparin (1000 Units/ml)) 3,180 unit PRN PRN IV PENDING LAB VALUE Last administered on 05/04/16 19:20; Admin Dose 3,180 UNIT; Start 05/04/16 at 12:00 Lisinopril (Zestril) 10 mg BID PO Last administered on 05/05/16 08:37; Admin Dose 10 MG; Start 05/04/16 at 21:00 Diagnostic Test (Pha) (Accucheck) 1 ea 02 XX ; Start 05/05/16 at 02:00 Miscellaneous Information 1 ea NOTE XX ; Start 05/04/16 at 18:30 Glucose (Glutose) 15 gm Q15M PRN PO DECREASED GLUCOSE; Start 05/04/16 at 18:30 Glucose (Glutose) 22.5 gm Q15M PRN PO DECREASED GLUCOSE; Start 05/04/16 at 18:30 Dextrose (D50w Syringe) 25 ml Q15M PRN IV DECREASED GLUCOSE; Start 05/04/16 at 18:30 Dextrose (D50w Syringe) 50 ml Q15M PRN IV DECREASED GLUCOSE; Start 05/04/16 at 18:30 Glucagon (Glucagen) 1 mg Q15M PRN IM DECREASED GLUCOSE; Start 05/04/16 at 18:30 Glucose (Glutose) 15 gm Q15M PRN BUCCAL DECREASED GLUCOSE; Start 05/04/16 at 18: 30 DAMON DOLAN 5, 2017 08:46
[2016-05-05 08:49] LABS: T3 UPTAKE 45.8 % (23.5-40.5)
[2016-05-05] MEDS: LISINOPRIL 20 MG TAB PO SCH ×2 (08:59→21:02)
[2016-05-05] MEDS ORDERED: LISINOPRIL 10 MG TAB PO SCH (09:00)
[2016-05-05 09:03] LABS: THYROID STIMULATING HORMONE 2.78 MIU/L (0.465-4.680)
--- NOTE | 2016-05-05 09:58 | RADRPT ---
PROCEDURE: XR Chest. CLINICAL INDICATION: Shortness of breath. TECHNIQUE: Single frontal view. COMPARISON: 05/04/2016. FINDINGS: The lungs are clear. The heart size is normal. There is calcification in the aorta consistent with atherosclerosis. The re is an intra-aortic balloon with the superior tip now in satisfactory position approximately 1 cm inferior to the superior aortic arch. There is no pleural effusion. There is no pneumothorax. IMPRESSION: 1. Clear lungs. 2. Intra-aortic balloon pump in satisfactory position. 3. Otherwise unremarkable study. RPTAT: QQ .Fei Santana MD, MD Date Time Electronically viewed and signed by .Fei Santana MD, MD on 05/05/2016 09:57 .R/
--- NOTE | 2016-05-05 11:53 | PN ---
Date/Time of Note Date/Time of Note DATE: 05/05/16 TIME: 11:51 Assessment/Plan Lines/Catheters IV Catheter Type (from Nrsg): Peripheral IV Michael in Place (from Nrsg): Yes Assessment/Plan Chief Complaint/Hosp Course Impression: STEMI Multi-vessel coronary artery disease with left main involvement Chest pain resolved after IABP Hyperlipidemia Recommendation/plan: ncrease lisinopril 20mg BID CABGTomorrow Risk and benefits explained Ticagrelor 05/04/16 as part of Acute [place] protocol) Problems: Subjective 24 Hr Interval Summary Constitutional: improved Pain Control: mild Exam/Review of Systems Vital Signs Vitals Vital Signs Date Time Temp Pulse Resp B/P Pulse Ox O2 Delivery O2 Flow Rate FiO2 05/05/16 11:30 77 18 82/66 99 05/05/16 11:00 Nasal Cannula 2.0 05/05/16 08:00 98.1 Intake and Output 05/04/16 05/04/16 05/05/16 15:00 23:00 07:00 Intake Total 356.0 ml 425.2 ml 156.0 ml Output Total 146 ml 352 ml 415 ml Balance 210.0 ml 73.2 ml -259.0 ml Exam Neck: non-tender, supple Respiratory: clear to auscultation, normal air movement Cardiovascular: nl pulses, regular rate and rhythm Gastrointestinal: nl liver, spleen, non-tender, soft Results Result Diagram: 05/04/16 0816 05/05/16 0450 BEVERLEY NEGRETE MD May 05, 2016 11:53
[2016-05-05] MEDS: NITROGLYCERIN 50 MG/D5W (PMX) 250 ML IV SCH ×2 (13:10→21:04)
[2016-05-06] VITALS (68 sets, daily range): BP systolic 54–176; BP diastolic 30–90; PULSE 72–111; RESP 11–24; TEMP 98–102.4
[2016-05-06] MEDS: ACCUCHECK XX SCH ×6 (02:00→23:04)
[2016-05-06 06:25] LABS: ADD SCAN DIFF NO
[2016-05-06 06:29] LABS: BASOPHILS % 0.3 % (0.0-2.0); EOSINOPHILS # 0.3 10^3/ul (0.0-0.5); EOSINOPHILS % 2.5 % (0.0-7.0); HEMOGLOBIN 11.2 g/dl (12.0-16.0); LYMPHOCYTES # 3.2 10^3/ul (0.8-2.9); LYMPHOCYTES % 24.8 % (15.0-51.0); MEAN CORPUSCULAR HEMOGLOBIN 30.9 pg (29.0-33.0); MEAN CORPUSCULAR HGB CONC 33.9 g/dl (32.0-37.0); MEAN CORPUSCULAR VOLUME 91.2 fl (82.0-101.0); MONOCYTE # 1.3 10^3/ul (0.3-0.9); MONOCYTES % 9.6 % (0.0-11.0); NEUTROPHIL # 8.1 10^3/ul (1.6-7.5); NEUTROPHILS % 62.1 % (39.0-77.0); PLATELET COUNT 200 10^3/UL (140-415); RED BLOOD COUNT 3.62 10^6/ul (4.20-5.40); RED CELL DISTRIBUTION WIDTH 12.6 % (11.5-14.5)
[2016-05-06] MEDS: PANTOPRAZOLE 40 MG INJ IV SCH (06:42)
[2016-05-06 06:49] LABS: PROTIME 13.2 Sec (12.2-14.2)
[2016-05-06 06:51] LABS: PARTIAL THROMBOPLASTIN TIME 65.9 Sec (25.0-35.0)
[2016-05-06] MEDS ORDERED: DOPamine-D5W 1.6 MG/ML 250 ML ONE (07:00)
[2016-05-06] MEDS ORDERED: NA BICARBONATE 8.4% 50 ML SYG ONE ×2 (07:00→09:36)
[2016-05-06] MEDS ORDERED: NITROGLYCERIN 50 MG/D5W 250 ML BTL ONE (07:00)
--- NOTE | 2016-05-06 07:15 | CONS ---
DATE OF ADMISSION: 05/04/2016 DATE OF CONSULTATION: 05/04/2016 REASON FOR CONSULTATION: Evaluation for coronary artery bypass grafting. Thank you, Dr. Goodwin, for asking me to see this patient. This is a pleasant A 74-year-old female admitted with chest pain with inferior STEMI. Patient was taken emergently to the cardiac catheteri zation lab. The patient was given Brilinta before going to cath lab____ In the emergency room, The procedure was done, which was positive for 3-vessel coronary artery disease, about 85% to 90% stenos is in the distal left main. LAD had about 85% to 90% stenosis. Proximal ramus had an 80% stenosis and the right coronary artery was ____with left to right collaterals. A balloon pump was put in. T he patient was started on nitroglycerin and heparin drip, currently transferred to the intensive car e unit, has not had any chest pain since the catheterization lab procedure. PAST MEDICAL HISTORY: Hypertension, hyperlipidemia, diabetes. PAST SURGICAL HISTORY: None. ALLERGIES: NONE. SOCIAL HISTORY: No smoking, drinking or drug use. PHYSICAL EXAMINATION: GENERAL: The patient is awake and alert, responds appropriately. No chest pain. VITAL SIGNS: Blood pressure is 110/60, pulse is 89 and sinus, respirations 18, saturations 100% on 2 liters of oxygen. HEENT: Normocephalic, atraumatic. PERRLA. NECK: Supple. No JVD, no carotid bruits. CARDIOVASCULAR: Normal S1, S2. LUNGS: Clear. ABDOMEN: Soft. EXTREMITIES: Warm. LABORATORY VALUES: Hemoglobin 15.4, platelet count 267. INR is 0.89, with a PTT of 143 and a creat inine level of 0.76. IMPRESSION: 1. ST elevation myocardial infarction. 2. Status post Brilinta. RECOMMENDATIONS: Will hold off on Brilinta and continue heparin for now. Plan for surgery in 2 to 3 days after the patient's Brilinta has been washed out. Risks, benefits, complications, alternati ve therapies explained to the patient's family. All questions answered. Dictated By: BEVERLEY PAN/ROLF Conf#: [id number] DID#: [id number]
[2016-05-06] MEDS: INSULIN ASPART [NOVOLOG] 3 ML PEN SC SCH ×2 (07:35→11:30)
[2016-05-06 07:44] LABS: CREATININE 0.82 mg/dl (0.44-1.00)
[2016-05-06 07:45] LABS: CALCIUM 8.5 mg/dl (8.4-10.2)
--- NOTE | 2016-05-06 08:40 | HPN ---
Date/Time of Note Date/Time of Note DATE: 05/06/16 TIME: 08:40 Interval H&P Admission Note Pt. seen H&P reviewed: No system changes BEVERLEY NEGRETE MD May 06, 2016 08:40
[2016-05-06] MEDS: LISINOPRIL 20 MG TAB PO SCH ×2 (08:54→21:00)
[2016-05-06] MEDS ORDERED: VANCOMYCIN 1 GM INJ IRR ONE (09:00)
[2016-05-06] MEDS ORDERED: HEPARIN 1000 UNITS/ML 10 ML INJ IRR ONE (09:00)
[2016-05-06] MEDS ORDERED: PAPAVERINE 60 MG INJ IRR ONE (09:00)
[2016-05-06] MEDS ORDERED: ASPIRIN 81 MG TAB PO SCH (09:00)
[2016-05-06] MEDS: INSULIN REGULAR, HUMAN 100 UNIT in SOD CHLORIDE 0.9% 99 ML IV SCH ×2 (09:11)
[2016-05-06] MEDS ORDERED: MIDAZOLAM 5 ML ONE ×3 (09:25→12:11)
[2016-05-06] MEDS ORDERED: PHENYLephrine (100 MCG/ML) 5ML SYG ONE ×3 (09:28→13:40)
[2016-05-06] MEDS ORDERED: ALBUMIN HUMAN 25% 300 ML ONE (09:29)
[2016-05-06] MEDS ORDERED: AMINOCAPROIC ACID 5 GM INJ ONE ×4 (09:30→13:41)
[2016-05-06] MEDS ORDERED: PHENYLephrine 20MG IN 250 ML 250 ML IV SCH (09:30)
[2016-05-06] MEDS ORDERED: EPINEPHrine 4 MG in DEXTROSE 5% 246 ML IV SCH (09:30)
[2016-05-06] MEDS ORDERED: INSULIN REGULAR, HUMAN 100 UNIT in SOD CHLORIDE 0.9% 99 ML IV SCH ×4 (09:30→19:00)
[2016-05-06] MEDS ORDERED: HEPARIN 1000 UNITS/ML 10 ML INJ ONE ×3 (09:31→10:50)
[2016-05-06] MEDS ORDERED: CA CHLORIDE 10% 10 ML SYRINGE ONE (09:31)
[2016-05-06] MEDS ORDERED: LIDOCAINE 100 MG SYRINGE ONE (09:32)
[2016-05-06] MEDS ORDERED: POTASSIUM CHLORIDE 40 MEQ INJ ONE (09:32)
[2016-05-06] MEDS ORDERED: MAGNESIUM SULFATE (MG) 50% 10 ML INJ ONE (09:33)
[2016-05-06] MEDS ORDERED: MANNITOL 25% 150 ML ONE (09:35)
--- NOTE | 2016-05-06 10:34 | PN ---
Date/Time of Note Date/Time of Note DATE: 05/06/16 TIME: 10:28 Assessment/Plan VTE Prophylaxis VTE Prophylaxis Intervention: SCD's Lines/Catheters IV [facility]from [facility] Peripheral IV Urinary Cath still in place: Yes Assessment/Plan Assessment/Plan IMPRESSION 1. Acute ST elevation myocardial infarction s/p emergent Cath. 2. 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 3. Intra-aortic balloon pump placement 4. Uncontrolled Diabetes: A1c: 8.7 5. Dyslipidemia 6. Normocytic anemia 7. Reactive Leucocytosis PLAN CABG planned for today or tomorrow / continue to hold brillinta Continue balloon pump per cardiology / Heparin drip on hold for surgery Appreciate cardiology and CTS input Continue Insulin drip for diabetes Statin therapy when appropriate Cont current medical mgmt and supportive care PROPHYLAXIS: SCDs / heparin / IV protonix CRITICAL CARE TIME: >35 mins Subjective 24 Hr Interval Summary Free Text/Dictation Patient remains stable Nursing reports no acute overnight events. planned for CABG possibly today Exam/Review of Systems Vital Signs Vitals Vital Signs Date Time Temp Pulse Resp B/P Pulse Ox O2 Delivery O2 Flow Rate FiO2 05/06/16 08:30 78 19 146/90 99 05/06/16 08:00 Nasal Cannula 2.0 05/06/16 08:00 98.1 Intake and Output 05/05/16 05/05/16 05/06/16 15:00 23:00 07:00 Intake Total 216 ml 484.0 ml 156 ml Output Total 850 ml 624 ml 513 ml Balance -634 ml -140.0 ml -357 ml Exam Constitutional: other (No acute Distress) Head: atraumatic, normocephalic Eyes: EOMI, PERRL Respiratory: clear to auscultation, normal air movement Cardiovascular: nl pulses, regular rate and rhythm Gastrointestinal: non-tender, soft Extremities: normal pulses Results Result Diagram: 05/06/16 0505 05/06/16 0505 Results 24 hrs Laboratory Tests Test 05/05/16 11:22 05/05/16 15:45 05/05/16 16:30 05/05/16 20:58 Bedside Glucose 269 H 219 275 H Activated Partial Thromboplast Time 60.8 H Test 05/05/16 22:16 05/06/16 03:28 05/06/16 05:05 05/06/16 07:42 Activated Partial Thromboplast Time 53.7 H 65.9 H Bedside Glucose 214 203 Anion Gap 14 Basophils # 0.0 Basophils % 0.3 Blood Urea Nitrogen 16 Calcium Level 8.5 Carbon Dioxide Level 24 Chloride Level 102 Creatinine 0.82 Eosinophils # 0.3 Eosinophils % 2.5 Glucose Level 222 H Hematocrit 33.0 #L Hemoglobin 11.2 #L INR International Normalized Ratio 1.00 Lymphocytes # 3.2 H Lymphocytes % 24.8 Mean Corpuscular Hemoglobin 30.9 Mean Corpuscular Hemoglobin Concent 33.9 Mean Corpuscular Volume 91.2 Mean Platelet Volume 11.0 H Monocytes # 1.3 H Monocytes % 9.6 Neutrophils # 8.1 H Neutrophils % 62.1 Nucleated Red Blood Cells # 0.0 Nucleated Red Blood Cells % 0.0 Platelet Count 200 # Potassium Level 4.0 Prothrombin Time 13.2 Prothrombin Time Ratio 1.0 Red Blood Count 3.62 #L Red Cell Distribution Width 12.6 Sodium Level 136 White Blood Count 13.0 #H Test 05/06/16 08:44 Bedside Glucose 218 Medications Medications Current Medications Ondansetron HCl (Zofran Inj) 4 mg Q6H PRN IV NAUSEA AND/OR VOMITING; Start 05/04 at 10:00 Acetaminophen (Tylenol Tab) 650 mg Q6H PRN PO PAIN LEVEL 1-3 OR FEVER; Start at 10:00 Acetaminophen (Tylenol Supp) 650 mg Q6H PRN [place] PAIN LEVEL 1-3 OR FEVER; Start 05/04/16 at 10:00 Acetaminophen/ Hydrocodone Bitart ([place] (5/325)) 1 tab Q6H PRN PO MODERATE PAIN LEVEL 4-6; Start 05/04/16 at 10:00 Acetaminophen/ Hydrocodone Bitart ([place] (5/325)) 2 tab Q6H PRN PO SEVERE PAIN LEVEL 7-10; Start 05/04/16 at 10:00 Morphine Sulfate (morphine) 2 mg Q4H PRN IV SEVERE PAIN LEVEL 7-10 Last administered on 05/05/16 12:11; Admin Dose 2 MG; Start 05/04/16 at 10:00 Docusate Sodium (Colace) 100 mg Q12H PRN PO CONSTIPATION Last administered on 06:14; Admin Dose 100 MG; Start 05/04/16 at 10:00 Magnesium Hydroxide (Milk Of Mag) 30 ml DAILY PRN PO CONSTIPATION; Start at 10:00 Bisacodyl (Dulcolax Supp) 10 mg DAILY PRN [place] CONSTIPATION; Start 05/04/16 at 10: 00 Pantoprazole (Protonix Iv) 40 mg DAILY@06 IV Last administered on 05/06/16 06: 42; Admin Dose 40 MG; Start 05/05/16 at 06:00 Aspirin (Aspirin) 81 mg DAILY PO ; Start 05/06/16 at 09:00 Nitroglycerin (Nitroglycerin (Sl Tab) 0.4 Mg) 1 tab Q5M PRN SL CHEST PAIN; Start 05/04/16 at 10:00 Miscellaneous Information (* Miscellaneous Pharmacy Order) HOLD all METFORMIN ... ONCE XX ; Start 05/04/16 at 10:30; Stop 05/06/16 at 10:29 Heparin Sodium (Porcine) (Heparin (1000 Units/ml)) 3,180 unit PRN PRN IV PENDING LAB VALUE Last administered on 05/04/16 19:20; Admin Dose 3,180 UNIT; Start 05/04/16 at 12:00 Diagnostic Test (Pha) (Accucheck) 1 ea 02 XX Last administered on 05/06/16 02: 00; Admin Dose 1 EA; Start 05/05/16 at 02:00 Miscellaneous Information 1 ea NOTE XX ; Start 05/04/16 at 18:30 Glucose (Glutose) 15 gm Q15M PRN PO DECREASED GLUCOSE; Start 05/04/16 at 18:30 Glucose (Glutose) 22.5 gm Q15M PRN PO DECREASED GLUCOSE; Start 05/04/16 at 18:30 Dextrose (D50w Syringe) 25 ml Q15M PRN IV DECREASED GLUCOSE; Start 05/04/16 at 18:30 Dextrose (D50w Syringe) 50 ml Q15M PRN IV DECREASED GLUCOSE; Start 05/04/16 at 18:30 Glucagon (Glucagen) 1 mg Q15M PRN IM DECREASED GLUCOSE; Start 05/04/16 at 18:30 Glucose (Glutose) 15 gm Q15M PRN BUCCAL DECREASED GLUCOSE; Start 05/04/16 at 18: 30 Lisinopril 20 mg 20 mg BID PO Last administered on 05/05/16 21:02; Admin Dose 20 MG; Start 05/05/16 at 09:00 Nitroglycerin/ Dextrose (Nitroglycerin 50 Mg/D5W (Pmx)) 250 ml @ 1.5 mls/hr TITRATE IV Last administered on 05/05/16 21:04; Admin Dose 24 MLS/HR; Start 05/05/16 at 12:00 Carvedilol 12.5 mg 12.5 mg BID PO Last administered on 05/05/16 21:01; Admin Dose 12.5 MG; Start 05/05/16 at 21:00 Insulin Human Regular/Sodium Chloride (Humulin R/NS) 100 ml @ 0 mls/hr INTRA-OP IV ; Start 05/06/16 at 09:30 Procedures Procedures PROCEDURE: XR Chest. CLINICAL INDICATION: Shortness of breath. TECHNIQUE: Single frontal view. COMPARISON: 05/04/2016. FINDINGS: The lungs are clear. The heart size is normal. There is calcification in the aorta consistent with atherosclerosis. There is an intra-aortic balloon with the superior tip now in satisfactory position approximately 1 cm inferior to the superior aortic arch. There is no pleural effusion. There is no pneumothorax. IMPRESSION: 1. Clear lungs. 2. Intra-aortic balloon pump in satisfactory position. 3. Otherwise unremarkable study. RPTAT: QQ .Fei Santana MD, Date Time Electronically viewed and signed by .Fei Santana MD, MD on 05/05/2016 09:57 .R/ CC: JOLEEN MALDONADO BOLATITO M. May 06, 2016 10:34
[2016-05-06] MEDS ORDERED: CEFAZOLIN 1 GM INJ ONE ×2 (10:46→13:41)
[2016-05-06] MEDS ORDERED: PAPAVERINE 60 MG INJ ONE (11:22)
[2016-05-06] MEDS ORDERED: FUROSEMIDE 20 MG INJ ONE (14:48)
[2016-05-06] MEDS ORDERED: PROTAMINE 250 MG INJ ONE (14:50)
[2016-05-06] MEDS ORDERED: FUROSEMIDE 10 ML ONE (14:51)
[2016-05-06] MEDS ORDERED: GELATIN SIZE 100 SPONGE TOP ONE (15:05)
[2016-05-06] MEDS ORDERED: THROMBIN 5000 UNIT VIAL TOP ONE (15:05)
[2016-05-06] MEDS ORDERED: ETOMIDATE 20 MG INJ ONE (15:45)
[2016-05-06] MEDS ORDERED: ROCURONIUM 50 MG INJ ONE (15:45)
[2016-05-06] MEDS ORDERED: LIDOCAINE 2% (SDV) 5 ML INJ ONE (15:45)
--- NOTE | 2016-05-06 16:44 | RADRPT ---
PROCEDURE: US carotid arteries. CLINICAL INDICATION: Dizziness. TECHNIQUE: Multiple sonographic images of the carotid arteries and vertebral arteries were obtaine d utilizing kang scale, duplex, and color-flow imaging. The images were reviewed on a PACS workstati on. COMPARISON: No prior studies are available for comparison. FINDINGS: Evaluation of the right carotid bifurcation region reveals mild atherosclerotic disease. Evaluation of the left carotid bifurcation region reveals moderate atherosclerotic disease. There is antegrade flow within the vertebral arteries bilaterally. RIGHT CAROTID MEASUREMENTS: Common Carotid [id number] (cm/sec) Internal Carotid Artery 91 (cm/sec) External Carotid Artery 127 (cm/sec) Vertebral Artery 93 (cm/sec) Internal Carotid/Common Carotid0.9 LEFT CAROTID MEASUREMENTS: Common Carotid [id number] (cm/sec) Internal Carotid Artery 177 (cm/sec) External Carotid Artery 223 (cm/sec) Vertebral Artery 178 (cm/sec) Internal Carotid/Common Carotid1.5 Validated velocity measurements with angiographic measurements. Velocity criteria are extrapolated f rom diameter data as defined by the Society of Radiologists in Ultrasound Consensus Conference. Radi ology 2003; 229;340-346. This study does indirectly reference the measurement of the distal ICA rashard meter as the denominator for stenosis measurement. IMPRESSION: 1. Less than 50% stenosis in the right internal carotid artery. 2. A 50-69% stenosis of the left internal carotid artery. Correlation with CT angiogram should be c onsidered. 3. Normal antegrade flow in the vertebral arteries bilaterally. RPTAT: QQ SRU Consensus Conference Criteria for the Diagnosis of Carotid Artery Stenosis* Degree of Stenosis, % ICA PSV, cm/sec Plaque Estimate, % ICA/CCA PSV Ratio Normal <125 None <2.0 <50 <125 <50 <2.0 50 69 125-230 >50 2.0-4.0 >70 but less than near occlusion >230 >50 <4.0 Near occlusion High, low, or undetectable Visible Variable Total occlusion Undetectable Visible, no detectable lumen Not applicable *Cartoid artery stenosis: kang-scale and Doppler US diagnosis. Society of Radiologists in Ultrasound Consensus Conference. Radiology 2003; 229: 340-346 .Fei Santana MD, MD Date Time Electronically viewed and signed by .Fei Santana MD, on 05/06/2016 16:44 .R/
--- NOTE | 2016-05-06 16:58 | RADRPT ---
PROCEDURE: XR Chest. CLINICAL INDICATION: Shortness of breath. TECHNIQUE: Single frontal view. COMPARISON: 05/05/2016. FINDINGS: The intra-aortic balloon pump remains in satisfactory position. There are is new endotracheal tube, nasogastric tube, and right internal jugular vein [place]-Brian catheter in satisfactory position. The re are new sternal wires and mediastinal clips. A left chest tube and mediastinal drain are also no nathaly. The heart size is normal. There is mild atelectasis in the right mid and lower lung zones. The lisa gs are otherwise clear. There is no pleural effusion. There is no pneumothorax. IMPRESSION: 1. Interval cardiac surgery. 2. Mild atelectasis in the right mid and lower lung zones. 3. Tubes and lines in satisfactory position. RPTAT: QQ .Fei Santana MD, Date Time Electronically viewed and signed by .Fei Santana MD, on 05/06/2016 16:58 .R/
--- NOTE | 2016-05-06 16:59 | OPPN ---
Date/Time of Note Date/Time of Note DATE: 05/06/16 TIME: 16:58 Operative/Procedure Note Pre-Operative Diagnosis CAD Post-Operative Diagnosis CAD Procedure CABG Surgeon: BEVERLEY NEGRETE MD Clinical Educator: SHIRA ZAMUDIO MD Anesthesiologist: RATNA PARISI MD Implants/Grafts: Not applicable Drains: Not applicable Specimens: Not Applicable Complications: None Anesthesia type: general BEVERLEY NEGRETE MD May 06, 2016 16:59
[2016-05-06] MEDS ORDERED: hydrALAzine 20 MG INJ ONE (17:05)
[2016-05-06] MEDS ORDERED: hydrALAzine 20 MG INJ IV ONE (17:30)
[2016-05-06 17:35] LABS: ADD SCAN DIFF NO
[2016-05-06 17:40] LABS: BASOPHILS % 0.2 % (0.0-2.0); EOSINOPHILS # 0.1 10^3/ul (0.0-0.5); EOSINOPHILS % 0.5 % (0.0-7.0); HEMATOCRIT 34.6 % (37.0-47.0); HEMOGLOBIN 12.4 g/dl (12.0-16.0); LYMPHOCYTES # 2.8 10^3/ul (0.8-2.9); LYMPHOCYTES % 21.8 % (15.0-51.0); MEAN CORPUSCULAR HEMOGLOBIN 30.8 pg (29.0-33.0); MEAN CORPUSCULAR HGB CONC 35.8 g/dl (32.0-37.0); MEAN CORPUSCULAR VOLUME 86.1 fl (82.0-101.0); MEAN PLATELET VOLUME 9.4 fl (7.4-10.4); MONOCYTE # 1.2 10^3/ul (0.3-0.9); MONOCYTES % 9.2 % (0.0-11.0); NEUTROPHIL # 8.7 10^3/ul (1.6-7.5); NEUTROPHILS % 67.5 % (39.0-77.0); PLATELET COUNT 111 10^3/UL (140-415); RED BLOOD COUNT 4.02 10^6/ul (4.20-5.40); RED CELL DISTRIBUTION WIDTH 13.1 % (11.5-14.5); WHITE BLOOD COUNT 12.9 10^3/ul (4.8-10.8)
[2016-05-06 17:47] LABS: INR 1.19; PARTIAL THROMBOPLASTIN TIME 29.8 Sec (25.0-35.0); PROTIME 15.2 Sec (12.2-14.2); PT RATIO 1.2
[2016-05-06 17:54] LABS: CALCIUM 9.4 mg/dl (8.4-10.2); CREATININE 0.88 mg/dl (0.44-1.00)
[2016-05-06] MEDS ORDERED: POTASSIUM CHLORIDE 50 ML ONE ×2 (18:06→19:08)
[2016-05-06 18:15] LABS: AADO2 Arterial 619.8 mmHg (7.0-24.0); Arterial Base Excess 2.4 mmol/L (-3.0-3); Arterial COHb 0.3 % (0.0-3.0); Arterial Fraction of Oxyhgb 91.9 % (93.0-99.0); Arterial HCO3 25.5 mmol/L (22.0-26.0); Arterial MetHb 0.5 % (0.0-1.5); Arterial Total Hemglobin 13.1 g/dl (12.0-18.0); MODE VENT - AC
[2016-05-06 18:19] LABS: MODE VENT - AC; MetHgb Mixed Venous 0.5 %; Mixed Venous COHb 0 %; Mixed Venous Fraction OxyHgb 70.5 %; Mixed Venous Oxygen Sat 70.9 mmHG (65.0-75.0); Mixed Venous Total Hemglobin 12.9 g/dl; Sample Type BLMV
[2016-05-06 18:32] LABS: MAGNESIUM 2.7 mg/dl (1.7-2.5)
[2016-05-06] MEDS ORDERED: ALBUMIN HUMAN 5% 250 ML IV PRN (19:00)
[2016-05-06] MEDS ORDERED: ONDANSETRON 4 MG INJ IV PRN (19:00)
[2016-05-06] MEDS ORDERED: OXYCODONE/ACETAMINOPHEN (5/325) TAB PO PRN ×2 (19:00)
[2016-05-06] MEDS ORDERED: morphine 2 MG INJ IV PRN ×2 (19:00)
[2016-05-06] MEDS ORDERED: HYDROmorphONE 1 MG/ML SYG IV PRN ×3 (19:00)
[2016-05-06] MEDS ORDERED: ACETAMINOPHEN 325 MG TAB PO PRN (19:00)
[2016-05-06] MEDS ORDERED: DEXTROSE 50% 50 ML SYRINGE IV PRN ×2 (19:00)
[2016-05-06] MEDS ORDERED: NITROGLYCERIN 50 MG/D5W (PMX) 250 ML IV SCH (19:00)
[2016-05-06] MEDS ORDERED: MAGNESIUM SULFATE 1 GM/D5W 100 ML IVPB PRN (19:00)
[2016-05-06] MEDS: POTASSIUM CHLORIDE 40 MEQ, CALCIUM CHLORIDE 10% 1 GM in DEXTROSE 5%-0.225% NACL 1,000 ML IV SCH (19:50)
[2016-05-06] MEDS: ACETAMINOPHEN 650 MG SUPP PR PRN (19:51)
[2016-05-06] MEDS: FAMOTIDINE 20 MG INJ IV SCH (20:00)
[2016-05-06] MEDS: CEFAZOLIN 1 GM/50 ML (PMX) 50 ML IVPB SCH (20:06)
[2016-05-06] MEDS: POTASSIUM CHLORIDE 50 ML IVPB SCH ×2 (20:11→22:12)
[2016-05-06] MEDS ORDERED: FAMOTIDINE 20 MG TAB PO SCH (21:00)
[2016-05-06] MEDS: POTASSIUM CHLORIDE 50 ML IVPB PRN ×2 (22:35→23:35)
[2016-05-06] MEDS: ASPIRIN 325 MG TAB PO SCH (23:30)
--- NOTE | 2016-05-06 23:54 | OPR ---
DATE OF OPERATION: PREOPERATIVE DIAGNOSIS: Coronary artery disease. POSTOPERATIVE DIAGNOSIS: Coronary artery disease. OPERATION PERFORMED: 1. Coronary artery bypass grafting, GARCIA to LAD. 2. Saphenous vein graft to ramus intermedius branch of the left system. 3. Saphenous vein graft to the distal obtuse marginal in sequential fashion. 4. Saphenous vein graft to the PDA. 5. Saphenous vein graft to the CINDY in a complex fashion after endarterectomy. 6. Right coronary endarterectomy. 7. LAD endarterectomy. 8. Saphenous vein harvest endoscopically from the left lower extremity. 9. Thymectomy. SURGEON: Beverley Kruse MD CERTIFIED DIETARY MANAGER: ____ SECOND CERTIFIED DIETARY MANAGER: Eusebia Villegas PA-C INFORMED CONSENT: Risks, benefits, complications, alternative therapies, high-risk nature of the op eration were fully explained to the patient and the family, consent obtained. OPERATIVE TECHNIQUE: The patient was placed in supine position, prepped and draped in usual sterile fashion. Lidocaine 1% was used throughout the operation for local anesthesia. Time-out was called , antibiotics were given, and I started. A sternal incision was made from the sternal notch down to the xiphoid process. Saphenous vein was harvested using endoscopic techniques from the left lower extremity from the ankle all the way down to the groin. The sternum was opened in the mid aspect of the sternum. Left internal mammary was h arvested using electrocautery and titanium clips. Thymectomy was done. Aorta was visualized. Noris cardium opened. Cannulation sutures of 3-0 Prolene with pledgets were applied to the distal ascendi ng aorta, mid ascending aorta, body of the right atrium, and right atrial appendage. The patient wa s fully heparinized. After adequate documentation of ACT, the aorta was cannulated, followed by 2-s tage venous cannula, antegrade and retrograde cardioplegic cannula. The heart was placed on cardiop ulmonary bypass. Cross clamp applied to the soft part of the aorta. Heart was arrested using anter ior and retrograde cardioplegia given every 15 to 20 minutes supplemented by topical slush to the stanton rface of the heart and cardioplegia given through the vein grafts as they were being constructed. The first 2 anastomoses were done to the origin of the CNIDY and PDA at the distal right coronary kiki ry after an endarterectomy. The vein graft was used for this anastomosis, which was done in end-to- side fashion with 7-0 Prolene in continuous suture technique. The third anastomosis and the fourth were done to the ramus and the distal circumflex in an end-to-s gerson fashion in sequential manner, 8 mm longitudinal arteriotomy, 7-0 Prolene in continuous suture te chnique, end-to-side manner. The last anastomosis was done from the LAD to the mammary to the mid a spect of the LAD 8 mm longitudinal arteriotomy after coronary artery endarterectomy in 2 sites sutur e technique, 7-0 Prolene. The proximal 2 anastomoses were done. Two 4.5 mm punches, 6-0 Prolene in continuous suture techniqu e, end-to-side manner. Head was placed in steep Trendelenburg position. Crossclamp removed. The h eart and the grafts de-aired. Two ventricular pacing wires, 2 mediastinal chest tubes, left pleural catheter brought out through a lower stab wound, secured to skin using 2-0 silk sutures. The heart came off cardiopulmonary bypass with minimal support. Protamine given. Cannulas removed. Sutures tied. No bleeding was noted. The sternum was closed using cable system x4. The linea alba and de ep tissues were irrigated using antibiotic solution and closed in 2 layers of #1 Vicryl suture for t he deep, 2-0 Vicryl suture for subcutaneous, and 4-0 Monocryl suture for running subcuticular skin c losure. The leg was closed in a similar fashion. The patient tolerated procedure well. Dictated By: BEVERLEY PAN/ROLF Conf#: [id number] DID#: [id number] CC: JOLEEN MALDONADO;*EndCC*
[2016-05-07] VITALS (102 sets, daily range): BP systolic 88–154; BP diastolic 23–35; PULSE 71–88; RESP 11–21; TEMP 99.4–100.7
[2016-05-07 00:40] LABS: AADO2 Arterial 419.8 mmHg (7.0-24.0); Arterial Base Excess -1.3 mmol/L (-3.0-3); Arterial COHb 0.3 % (0.0-3.0); Arterial Fraction of Oxyhgb 97.9 % (93.0-99.0); Arterial HCO3 21.8 mmol/L (22.0-26.0); Arterial MetHb 0.6 % (0.0-1.5); Arterial Total Hemglobin 12.4 g/dl (12.0-18.0); MODE VENT - AC
[2016-05-07] MEDS: ACETAMINOPHEN 650 MG SUPP PR PRN ×2 (00:50→00:51)
[2016-05-07] MEDS: ACCUCHECK XX SCH ×25 (01:00→23:49)
[2016-05-07 01:10] LABS: ADD SCAN DIFF NO
[2016-05-07 01:13] LABS: ABNORMAL IP MESSAGE 1; HEMOGLOBIN 11.3 g/dl (12.0-16.0); MEAN CORPUSCULAR HEMOGLOBIN 30.5 pg (29.0-33.0); MEAN CORPUSCULAR HGB CONC 35.3 g/dl (32.0-37.0); MEAN CORPUSCULAR VOLUME 86.5 fl (82.0-101.0); MEAN PLATELET VOLUME 10.7 fl (7.4-10.4); PLATELET COUNT 98 10^3/UL (140-415); RED CELL DISTRIBUTION WIDTH 13.9 % (11.5-14.5); WHITE BLOOD COUNT 13.2 10^3/ul (4.8-10.8)
[2016-05-07] MEDS ORDERED: CALCIUM CHLORIDE IV SCH ×2 (02:30→03:00)
[2016-05-07] MEDS ORDERED: SOD CHLORIDE 0.9% IV SCH ×2 (02:30→03:00)
[2016-05-07] MEDS: CEFAZOLIN 1 GM/50 ML (PMX) 50 ML IVPB SCH ×2 (03:07→11:11)
[2016-05-07] MEDS: INSULIN REGULAR, HUMAN 100 UNIT in SOD CHLORIDE 0.9% 99 ML IV SCH ×4 (04:30→17:36)
[2016-05-07 04:47] LABS: LYMPHOCYTES # 0.7 10^3/ul (0.8-2.9); MONOCYTE # 0.1 10^3/ul (0.3-0.9); NEUTROPHIL # 7.5 10^3/ul (1.6-7.5)
[2016-05-07 04:53] LABS: ADD SCAN DIFF NO
[2016-05-07 05:05] LABS: AADO2 Arterial 191.2 mmHg (7.0-24.0); Allen Test ACCEPTAB; Arterial Base Excess -5.2 mmol/L (-3.0-3); Arterial COHb 0.3 % (0.0-3.0); Arterial Fraction of Oxyhgb 96.2 % (93.0-99.0); Arterial HCO3 18.2 mmol/L (22.0-26.0); Arterial MetHb 0.3 % (0.0-1.5); Arterial Total Hemglobin 11.8 g/dl (12.0-18.0); MODE VENT - AC
[2016-05-07 05:07] LABS: ABNORMAL IP MESSAGE 1; BASOPHILS % 0.1 % (0.0-2.0); HEMATOCRIT 31.5 % (37.0-47.0); HEMOGLOBIN 10.8 g/dl (12.0-16.0); LYMPHOCYTES # 1.1 10^3/ul (0.8-2.9); LYMPHOCYTES % 10.5 % (15.0-51.0); MEAN CORPUSCULAR HEMOGLOBIN 30.3 pg (29.0-33.0); MEAN CORPUSCULAR HGB CONC 34.3 g/dl (32.0-37.0); MEAN CORPUSCULAR VOLUME 88.2 fl (82.0-101.0); MEAN PLATELET VOLUME 10.9 fl (7.4-10.4); MONOCYTE # 0.3 10^3/ul (0.3-0.9); MONOCYTES % 2.5 % (0.0-11.0); NEUTROPHIL # 9.2 10^3/ul (1.6-7.5); NEUTROPHILS % 86.2 % (39.0-77.0); PLATELET COUNT 85 10^3/UL (140-415); RED BLOOD COUNT 3.57 10^6/ul (4.20-5.40); RED CELL DISTRIBUTION WIDTH 14.1 % (11.5-14.5); WHITE BLOOD COUNT 10.7 10^3/ul (4.8-10.8)
[2016-05-07 05:10] LABS: INR 1.43; PARTIAL THROMBOPLASTIN TIME 36.3 Sec (25.0-35.0); PROTIME 17.5 Sec (12.2-14.2); PT RATIO 1.4
[2016-05-07 05:40] LABS: POTASSIUM 3.9 mmol/L (3.5-5.1)
[2016-05-07 05:43] LABS: CALCIUM 9.1 mg/dl (8.4-10.2); CREATININE 1.57 mg/dl (0.44-1.00)
[2016-05-07 05:44] LABS: MAGNESIUM 2.2 mg/dl (1.7-2.5)
[2016-05-07] MEDS: SUCRALFATE (100 MG/ML) 10ML CUP PO SCH ×5 (06:00→23:49)
[2016-05-07] MEDS: PANTOPRAZOLE 40 MG INJ IV SCH (06:01)
[2016-05-07] MEDS: POTASSIUM CHLORIDE 50 ML IVPB PRN ×3 (06:53→16:07)
[2016-05-07] MEDS: FAMOTIDINE 20 MG INJ IV SCH (08:09)
--- NOTE | 2016-05-07 08:24 | CONS ---
Date/Time of Note Date/Time of Note DATE: 05/07/16 TIME: 08:20 Assessment/Plan Assessment/Plan Additional Assessment/Plan Ventilator settings; AC of 12, tidal volume of 450, PEEP of 5, 30% FiO2. Chest x-ray was reviewed from yesterday which is essentially unremarkable endotracheal tube is at an adequate level, there is minimum right lower lobe segmental atelectasis present. Patient is currently on intra-aortic balloon pump and one-to-one augmentation. Assessment recommendations; 1. Patient admitted with acute inferior STEMI underwent CABG surgery yesterday currently doing fairly well however still requiring balloon PEG tube one-to-one augmentation. 2. Mild right lower lobe segmental atelectasis. 3. Thrombocytopenia. 4. History of hypertension, diabetes. Patient currently maintained on insulin drip. Continue current supportive care. Use sedation sparingly. Obtain follow-up chest x-ray in 24 hours. She will be weaned from ventilator once she is off intra-aortic balloon pump. I did have a detailed discussion the patient's daughter at bedside and answered all her questions. Consultation Date/Type/Reason Admit Date/Time May 04, 2016 at 10:47 Date of Consultation: May 07, 2016 Type of Consultation: Pulmonary/critical care Reason for Consultation Pulmonary/critical care consult obtained for management of respiratory failure, patient status post CABG surgery. Next History of present illness; patient is a 75-year-old lady who was admitted to the hospital on the fourth of this month where she presented with chest pain patient underwent cardiac catheterization which revealed triple-vessel disease which was not amenable to nonsurgical intervention patient also required a balloon pump insertion the patient underwent CABG surgery yesterday which was uneventful and has been maintained on ventilator since then. I saw the patient the patient is or intubated, awake and alert. Commands and moves all 4 extremities. Past medical history; next 1. History of hypertension. 2. History of diabetes. 3. History of hyperlipidemia. Medications; were reviewed. Allergies; are none. Social history; patient never smoked. Family history; patient is , has 3 children. Various family members of diabetes hypertension in the family. 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 Review of systems; limited review of systems could be obtained. Patient denies any chest pain, any shortness of breath. Any abdominal pain. General examination; elderly lady, awake alert on ventilator via endotracheal tube currently in no distress. Psychological: nl mood/affect, no complaints Social History Smoking Status: Never smoker Exam/Review of Systems Vital Signs Vitals Vital Signs Date Time Temp Pulse Resp B/P Pulse Ox O2 Delivery O2 Flow Rate FiO2 05/07/16 07:00 99.8 83 15 112/28 98 05/07/16 06:00 35 05/06/16 08:00 Nasal Cannula 2.0 Intake and Output 05/06/16 05/06/16 05/07/16 15:00 23:00 07:00 Intake Total 1790 ml 561.5 ml 1118.8 ml Output Total 250 ml 3221 ml 627 ml Balance 1540 ml -2659.5 ml 491.8 ml Exam HEENT examination; supple neck, no JVD. No lymphadenopathy. Midline trachea. No thyromegaly. Patient has bilateral cataracts. Pupils are small bilaterally. Dentition is fair. Orally intubated. No neck masses, no thyromegaly. Chest examination; diminished but clear breath sounds bilaterally. There is a dressing applied over the sternum. 2 chest tubes are in place. S1-S2 audible, no murmurs. Regular rhythm. Abdomen examination; soft, nondistended. No organomegaly. Nontender. Bowel sounds audible. Extremity examination; no peripheral edema. 1+ bilaterally. [employer]THLET[employer] EVENTS [employer] examination; patient is awake alert follows commands moves all 4 extremities. Results Result Diagram: 05/07/16 0430 05/07/16 0430 Results 24 hrs Laboratory Tests Test 05/06/16 08:44 05/06/16 16:42 05/06/16 17:15 05/06/16 18:04 Bedside Glucose 218 70 175 Activated Partial Thromboplast Time 29.8 Anion Gap 19 H Basophils # 0.0 Basophils % 0.2 Blood Urea Nitrogen 16 Calcium Level 9.4 Carbon Dioxide Level 28 Chloride Level 103 Creatinine 0.88 Eosinophils # 0.1 Eosinophils % 0.5 Glucose Level 91 # Hematocrit 34.6 L Hemoglobin 12.4 INR International Normalized Ratio 1.19 Lymphocytes # 2.8 Lymphocytes % 21.8 Magnesium Level 2.7 #H Mean Corpuscular Hemoglobin 30.8 Mean Corpuscular Hemoglobin Concent 35.8 Mean Corpuscular Volume 86.1 Mean Platelet Volume 9.4 Monocytes # 1.2 H Monocytes % 9.2 Neutrophils # 8.7 H Neutrophils % 67.5 Nucleated Red Blood Cells # 0.0 Nucleated Red Blood Cells % 0.0 Platelet Count 111 #L Potassium Level 3.0 L Prothrombin Time 15.2 H Prothrombin Time Ratio 1.2 Red Blood Count 4.02 L Red Cell Distribution Width 13.1 Sodium Level 147 H White Blood Count 12.9 H Test 05/06/16 18:09 05/06/16 18:11 05/06/16 19:07 05/06/16 20:04 Arterial Blood HCO3 25.5 Arterial Blood Base Excess 2.4 Arterial Blood Oxygen Saturation 92.6 L Shahram Test N/A N/A Arterial Blood Gas Puncture Site A-Line PUL ART LINE Arterial Blood Carboxyhemoglobin 0.3 Arterial Blood Date Drawn 05/06/2016 5:50:29 PM 05/06/2016 5:55:48 PM Arterial Blood Methemoglobin 0.5 Arterial Blood pCO2 (Temp correct) 34.6 L Arterial Blood pH (Temp corrected) 7.485 H Arterial Blood pO2 (Temp corrected) 58.6 L Blood Gas A-a O2 Differential 619.8 H Blood Gas Actual Respiration Rate 12 12 Blood Gas Low PEEP Setting 5.0 5.0 Blood Gas Modality VENT - AC VENT - AC Blood Gas Notified Time 05/06/2016 6:15:11 PM 05/06/2016 6:19:29 PM Blood Gas Notified Whom TRE [place] Blood Gas Respiration Rate 12.0 12.0 Blood Gas Specimen Source Blood arterial BLMV Blood Gas Temperature 37.0 37.0 Blood Gas Tidal Volume 500.0 500.0 FiO2 100.0 100.0 Oxyhemoglobin Percent 91.9 L Total Hemoglobin 13.1 Mixed Venous Bld Carboxyhemoglobin 0 Mixed Venous Blood Methemoglobin 0.5 Mixed Venous Blood O2 Saturation 70.9 Mixed Venous Blood Oxyhemoglobin 70.5 Mixed Venous Blood PO2 31.8 Mixed Venous Blood Total Hemoglobin 12.9 Bedside Glucose 166 243 H Test 05/06/16 20:54 05/06/16 21:16 05/06/16 21:59 05/06/16 23:02 Bedside Glucose 311 H 330 H 358 H Potassium Level 3.9 Test 05/06/16 23:54 05/07/16 00:32 05/07/16 00:48 05/07/16 00:58 Bedside Glucose 346 H 358 H Arterial Blood HCO3 21.8 L Arterial Blood Base Excess -1.3 Arterial Blood Oxygen Saturation 98.8 Shahram Test N/A Arterial Blood Gas Puncture Site A-Line Arterial Blood Carboxyhemoglobin 0.3 Arterial Blood Date Drawn 05/07/2016 12:30:44 AM Arterial Blood Methemoglobin 0.6 Arterial Blood pCO2 (Temp correct) 31.6 L Arterial Blood pH (Temp corrected) 7.457 H Arterial Blood pO2 (Temp corrected) 261.6 H Blood Gas A-a O2 Differential 419.8 H Blood Gas Actual Respiration Rate 12 Blood Gas Inspiratory Pressure 24.0 Blood Gas Low PEEP Setting 5.0 Blood Gas Modality VENT - AC Blood Gas Notified Time 05/07/2016 12:39:54 AM Blood Gas Notified Whom KM Blood Gas Respiration Rate 12.0 Blood Gas Specimen Source Blood arterial Blood Gas Temperature 37.0 Blood Gas Tidal Volume 500.0 FiO2 100.0 Oxyhemoglobin Percent 97.9 Total Hemoglobin 12.4 Basophils # Basophils % Eosinophils # Eosinophils % Hematocrit 32.0 L Hemoglobin 11.3 L Lymphocytes # 0.7 L Lymphocytes % 5.0 L Magnesium Level 2.2 Mean Corpuscular Hemoglobin 30.5 Mean Corpuscular Hemoglobin Concent 35.3 Mean Corpuscular Volume 86.5 Mean Platelet Volume 10.7 H Monocytes # 0.1 L Monocytes % 1.0 Neutrophils # 7.5 Neutrophils % 57.0 Nucleated Red Blood Cells # 0.0 Nucleated Red Blood Cells % 0.0 Platelet Count 98 L Potassium Level 5.4 H Red Blood Count 3.70 L Red Cell Distribution Width 13.9 White Blood Count 13.2 H Test 05/07/16 01:51 05/07/16 02:56 05/07/16 03:49 05/07/16 04:13 Bedside Glucose 363 H 365 H 371 H 367 H Test 05/07/16 04:29 05/07/16 04:30 05/07/16 04:46 05/07/16 05:00 Bedside Glucose 366 H 348 H Activated Partial Thromboplast Time 36.3 H Anion Gap 20 H Basophils # 0.0 Basophils % 0.1 Blood Urea Nitrogen 21 H Calcium Level 9.1 Carbon Dioxide Level 22 Chloride Level 107 Creatinine 1.57 H Eosinophils # 0.0 Eosinophils % 0.0 Glucose Level 348 #H Hematocrit 31.5 L Hemoglobin 10.8 L INR International Normalized Ratio 1.43 Lymphocytes # 1.1 Lymphocytes % 10.5 L Magnesium Level 2.2 Mean Corpuscular Hemoglobin 30.3 Mean Corpuscular Hemoglobin Concent 34.3 Mean Corpuscular Volume 88.2 Mean Platelet Volume 10.9 H Monocytes # 0.3 Monocytes % 2.5 Neutrophils # 9.2 H Neutrophils % 86.2 H Nucleated Red Blood Cells # 0.0 Nucleated Red Blood Cells % 0.0 Phosphorus Level 3.4 Platelet Count 85 L Potassium Level 3.9 Prothrombin Time 17.5 H Prothrombin Time Ratio 1.4 Red Blood Count 3.57 L Red Cell Distribution Width 14.1 Sodium Level 145 H White Blood Count 10.7 Arterial Blood HCO3 18.2 L Arterial Blood Base Excess -5.2 L Arterial Blood Oxygen Saturation 96.8 Shahram Test ACCEPTAB Arterial Blood Gas Puncture Site A-Line Arterial Blood Carboxyhemoglobin 0.3 Arterial Blood Date Drawn 05/07/2016 4:55:58 AM Arterial Blood Methemoglobin 0.3 Arterial Blood pCO2 (Temp correct) 29.2 L Arterial Blood pH (Temp corrected) 7.413 Arterial Blood pO2 (Temp corrected) 96.4 H Blood Gas A-a O2 Differential 191.2 H Blood Gas Actual Respiration Rate 13 Blood Gas Inspiratory Pressure 23.0 Blood Gas Low PEEP Setting 5.0 Blood Gas Modality VENT - AC Blood Gas Notified Time 05/07/2016 5:05:03 AM Blood Gas Notified Whom KM Blood Gas Respiration Rate 12.0 Blood Gas Specimen Source Blood arterial Blood Gas Temperature 37.0 Blood Gas Tidal Volume 500.0 FiO2 45.0 Oxyhemoglobin Percent 96.2 Total Hemoglobin 11.8 L Test 05/07/16 05:56 05/07/16 07:03 Bedside Glucose 288 H 190 Medications Medications Current Medications Acetaminophen (Tylenol Supp) 650 mg Q6H PRN [place] PAIN LEVEL 1-3 OR FEVER Last administered on 05/07/16t 00:51; Admin Dose 650 MG; Start 05/04/16 at 10:00 Acetaminophen/ Hydrocodone Bitart ([place] (5/325)) 1 tab Q6H PRN PO MODERATE PAIN LEVEL 4-6; Start 05/04/16 at 10:00 Acetaminophen/ Hydrocodone Bitart ([place] (5/325)) 2 tab Q6H PRN PO SEVERE PAIN LEVEL 7-10; Start 05/04/16 at 10:00 Morphine Sulfate (morphine) 2 mg Q4H PRN IV SEVERE PAIN LEVEL 7-10 Last administered on 05/05/16 12:11; Admin Dose 2 MG; Start 05/04/16 at 10:00 Docusate Sodium (Colace) 100 mg Q12H PRN PO CONSTIPATION Last administered on 06:14; Admin Dose 100 MG; Start 05/04/16 at 10:00 Magnesium Hydroxide (Milk Of Mag) 30 ml DAILY PRN PO CONSTIPATION; Start at 10:00 Bisacodyl (Dulcolax Supp) 10 mg DAILY PRN [place] CONSTIPATION; Start 05/04/16 at 10: 00 Pantoprazole (Protonix Iv) 40 mg DAILY@06 IV Last administered on 05/07/16 06: 01; Admin Dose 40 MG; Start 05/05/16 at 06:00 Nitroglycerin (Nitroglycerin (Sl Tab) 0.4 Mg) 1 tab Q5M PRN SL CHEST PAIN; Start 05/04/16 at 10:00 Heparin Sodium (Porcine) (Heparin (1000 Units/ml)) 3,180 unit PRN PRN IV PENDING LAB VALUE Last administered on 05/04/16 19:20; Admin Dose 3,180 UNIT; Start 05/04/16 at 12:00 Miscellaneous Information 1 ea NOTE XX ; Start 05/04/16 at 18:30 Glucose (Glutose) 15 gm Q15M PRN PO DECREASED GLUCOSE; Start 05/04/16 at 18:30 Glucose (Glutose) 22.5 gm Q15M PRN PO DECREASED GLUCOSE; Start 05/04/16 at 18:30 Glucagon (Glucagen) 1 mg Q15M PRN IM DECREASED GLUCOSE; Start 05/04/16 at 18:30 Glucose (Glutose) 15 gm Q15M PRN BUCCAL DECREASED GLUCOSE; Start 05/04/16 at 18: 30 Lisinopril (Zestril) 20 mg BID PO Last administered on 05/05/16 21:02; Admin Dose 20 MG; Start 05/05/16 at 09:00 Carvedilol 12.5 mg 12.5 mg BID PO Last administered on 05/05/16 21:01; Admin Dose 12.5 MG; Start 05/05/16 at 21:00 Potassium Chloride 40 meq/ Calcium Chloride 1 gm/Dextrose/ Sodium Chloride 1, 030 ml @ 60 mls/hr [id number] IV Last administered on 05/06/16 19:50; Admin Dose 60 MLS/HR; Start 05/06/16 at 18:36 Albumin Human 250 ml @ 500 mls/hr PRN PRN IV CVP< 8, OR SBP<90 Last administered on 05/07/16 02:12; Admin Dose 500 MLS/HR; Start 05/06/16 at 19:00 Cefazolin Sodium (Ancef 1 Gm/50 ml (Pmx)) 50 ml @ 100 mls/hr Q8H IVPB Last administered on 05/07/16 03:07; Admin Dose 100 MLS/HR; Start 05/06/16 at 19:00; Stop 05/07/16 at 11:29 Cephalexin (Keflex) 500 mg Q6H PO ; Start 05/07/16 at 19:00; Stop 05/08/16 at 13: 01 Hydromorphone HCl (Dilaudid) 0.2 mg Q15M PRN IV PAIN LEVEL 1-5; Start 05/06/16 at 19:00 Hydromorphone HCl (Dilaudid) 0.4 mg Q15M PRN IV PAIN LEVEL 6-10; Start 05/06/16 at 19:00 Hydromorphone HCl (Dilaudid) 0.2 mg Q1H PRN IV PAIN LEVEL 1-5; Start 05/06/16 at 19:00 Hydromorphone HCl (Dilaudid) 0.4 mg Q1H PRN IV PAIN LEVEL 6-10; Start 05/06/16 at 19:00 Morphine Sulfate (morphine) 0.5 mg Q4H PRN IV PAIN LEVEL 1-5; Start 05/06/16 at 19:00 Morphine Sulfate (morphine) 1 mg Q4 PRN IV PAIN LEVEL 6-10; Start 05/06/16 at 19 :00 Oxycodone/ Acetaminophen (Percocet (5/ 325)) 1 tab Q3H PRN PO PAIN LEVEL 1-5; Start 05/06/16 at 19:00 Oxycodone/ Acetaminophen (Percocet (5/ 325)) 2 tab Q3H PRN PO PAIN LEVEL 6-10; Start 05/06/16 at 19:00 Ondansetron HCl (Zofran Inj) 4 mg Q6H PRN IV NAUSEA AND/OR VOMITING; Start 05/06 at 19:00 Famotidine (Pepcid Iv) 20 mg BID@08,20 IV Last administered on 05/07/16 08:09; Admin Dose 20 MG; Start 05/06/16 at 20:00 Famotidine (Pepcid) 20 mg BID PO ; Start 05/06/16 at 21:00 Sucralfate (Carafate Susp) 1 gm Q6 PO ; Start 05/07/16 at 00:00 Aspirin (Aspirin) 325 mg DAILY PO ; Start 05/06/16 at 23:30 Acetaminophen 650 mg 650 mg Q3H PRN PO ELEVATED TEMPERATURE; Start 05/06/16 at 19:00 Magnesium Sulfate/ Dextrose (Magnesium Sulfate 1 Gm/D5W) 100 ml @ 100 mls/hr PRN PRN IVPB PENDING LAB VALUE; Start 05/06/16 at 19:00 Diagnostic Test (Pha) (Accucheck) 1 ea Q1H XX Last administered on 05/07/16 07: 04; Admin Dose 1 EA; Start 05/06/16 at 19:00 Dextrose (D50w Syringe) 25 ml Q15M PRN IV Till BS 80 mg/dL or above x2; Start 05/06/16 at 19:00 Dextrose 50 ml 50 ml Q15M PRN IV Till BS 80 mg/dL or above x2; Start 05/06/16 at 19:00 Calcium Chloride/ Sodium Chloride (Ca Chloride/NS) 1,010 ml @ 60 mls/hr [id number] IV Last administered on 05/07/16 03:05; Admin Dose 60 MLS/HR; Start 05/07/16 at 03:00 JENNIFER BECERRIL May 07, 2016 08:24
[2016-05-07] MEDS: LISINOPRIL 20 MG TAB PO SCH ×2 (09:00→20:33)
[2016-05-07] MEDS: ASPIRIN 325 MG TAB PO SCH ×2 (09:00→11:12)
--- NOTE | 2016-05-07 09:28 | RADRPT ---
PROCEDURE: XR Chest. CLINICAL INDICATION: 75 real female status post CABG. TECHNIQUE: Single frontal view of the chest was obtained COMPARISON: Chest x-ray 05/06/2016 04:24 p.m. FINDINGS: The soft tissues are normal. A mediastinotomy was performed for coronary artery bypass surgery. Th e left ventricle is upper limits of normal for size. The cardiomediastinal silhouette, pulmonary va sculature and hilar structures are normal. There is a left-sided aorta. there is a poor inspiration with consolidative infiltrate in the right lower lobe and right middle lobe associated with a right pleural effusion. The left costophrenic angle is clear. An endotracheal tube is positioned at T4. An NG tube is positioned distal to the GE junction. There are various monitoring electrodes and l samir projecting across the chest and upper abdomen. A Sterling-Brian catheter is identified in place wit h its tip in the main pulmonary artery outflow tract. The intra-aortic balloon tip breast 1 cm infe rior to the aortic arch. There is no evidence of a pneumothorax. IMPRESSION: 1. There is a right pleural effusion with consolidative infiltrate and atelectasis involving portion s of the right middle lobe and right lower lobe. 2. Intra-aortic balloon pump in satisfactory position unchanged. 3. Status post median sternotomy for coronary artery bypass surgery. 4. Endotracheal tube position 2.5 cm superior to the tejal. 5. Sterling-Brian catheter in the main pulmonary artery outflow tract. 6. Suspected position of an NG tube distal to the GE junction. RPTAT:AAJJ Physician Paolo Date Time Electronically viewed and signed by Physician Paolo on 05/07/2016 09:27 MITCH/
--- NOTE | 2016-05-07 10:21 | PN ---
Date/Time of Note Date/Time of Note DATE: 05/07/16 TIME: 10:10 Assessment/Plan VTE Prophylaxis VTE Prophylaxis Intervention: SCD's Lines/Catheters IV Catheter Type (from Nrs): [place] Urinary Cath still in place: Yes Reason Cath still needed: other (indicate) Assessment/Plan Assessment/Plan IMPRESSION 1. Acute ST elevation myocardial infarction s/p unsuccessful emergent Cath. 2. 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 Acute resp failure , vent dependent (post op) 4. Uncontrolled Diabetes: A1c: 8.7: improved 5. Dyslipidemia 6. Normocytic anemia 7. Mild acute renal insufficiency 8. Intra-aortic balloon pump Placement PLAN Continue ICU post op care and support Continue vent mgt / appreciate pulm input Intraaortic balloon pump mgt per CTS Appreciate cardiology and CTS input Continue Insulin drip for diabetes Statin therapy when appropriate Cont current medical mgmt and supportive care PROPHYLAXIS: SCDs / heparin / IV protonix CRITICAL CARE TIME: >35 mins Subjective 24 Hr Interval Summary Free Text/Dictation Patient seen and examined. Intubated and sedated for comfort, but no pressor support. Subjective hx not possible: pt non-verbal, pt critical status Exam/Review of Systems Vital Signs Vitals Vital Signs Date Time Temp Pulse Resp B/P Pulse Ox O2 Delivery O2 Flow Rate FiO2 05/07/16 08:15 81 12 102/31 98 05/07/16 08:00 99.7 05/07/16 08:00 35 05/06/16 08:00 Nasal Cannula 2.0 Intake and Output 05/06/16 05/06/16 05/07/16 15:00 23:00 07:00 Intake Total 1790 ml 561.5 ml 1118.8 ml Output Total 250 ml 3221 ml 627 ml Balance 1540 ml -2659.5 ml 491.8 ml Exam Constitutional: alert, oriented, No distress Head: normocephalic Eyes: PERRL ENMT: intubated Respiratory: clear to auscultation, diminished breath sounds, other (chest tubes noted) Cardiovascular: regular rate and rhythm, No murmurs/extra sounds Gastrointestinal: non-tender, soft Extremities: No edema Neurological: lethargic Results Result Diagram: 05/07/1642905/07/16 043 Results 24 hrs Laboratory Tests Test 05/06/16 16:42 05/06/16 17:15 05/06/16 18:04 05/06/16 18:09 Bedside Glucose 70 175 Activated Partial Thromboplast Time 29.8 Anion Gap 19 H Basophils # 0.0 Basophils % 0.2 Blood Urea Nitrogen 16 Calcium Level 9.4 Carbon Dioxide Level 28 Chloride Level 103 Creatinine 0.88 Eosinophils # 0.1 Eosinophils % 0.5 Glucose Level 91 # Hematocrit 34.6 L Hemoglobin 12.4 INR International Normalized Ratio 1.19 Lymphocytes # 2.8 Lymphocytes % 21.8 Magnesium Level 2.7 #H Mean Corpuscular Hemoglobin 30.8 Mean Corpuscular Hemoglobin Concent 35.8 Mean Corpuscular Volume 86.1 Mean Platelet Volume 9.4 Monocytes # 1.2 H Monocytes % 9.2 Neutrophils # 8.7 H Neutrophils % 67.5 Nucleated Red Blood Cells # 0.0 Nucleated Red Blood Cells % 0.0 Platelet Count 111 #L Potassium Level 3.0 L Prothrombin Time 15.2 H Prothrombin Time Ratio 1.2 Red Blood Count 4.02 L Red Cell Distribution Width 13.1 Sodium Level 147 H White Blood Count 12.9 H Arterial Blood HCO3 25.5 Arterial Blood Base Excess 2.4 Arterial Blood Oxygen Saturation 92.6 L Shahram Test N/A Arterial Blood Gas Puncture Site A-Line Arterial Blood Carboxyhemoglobin 0.3 Arterial Blood Date Drawn 05/06/2016 5:50:29 PM Arterial Blood Methemoglobin 0.5 Arterial Blood pCO2 (Temp correct) 34.6 L Arterial Blood pH (Temp corrected) 7.485 H Arterial Blood pO2 (Temp corrected) 58.6 L Blood Gas A-a O2 Differential 619.8 H Blood Gas Actual Respiration Rate 12 Blood Gas Low PEEP Setting 5.0 Blood Gas Modality VENT - AC Blood Gas Notified Time 05/06/2016 6:15:11 PM Blood Gas Notified Whom JLD Blood Gas Respiration Rate 12.0 Blood Gas Specimen Source Blood arterial Blood Gas Temperature 37.0 Blood Gas Tidal Volume 500.0 FiO2 100.0 Oxyhemoglobin Percent 91.9 L Total Hemoglobin 13.1 Test 05/06/16 18:11 05/06/16 19:07 05/06/16 20:04 05/06/16 20:54 Shahram Test N/A Arterial Blood Date Drawn 05/06/2016 5:55:48 PM Arterial Blood Gas Puncture Site PUL ART LINE Blood Gas Actual Respiration Rate 12 Blood Gas Low PEEP Setting 5.0 Blood Gas Modality VENT - AC Blood Gas Notified Time 05/06/2016 6:19:29 PM Blood Gas Notified Whom JLD Blood Gas Respiration Rate 12.0 Blood Gas Specimen Source BLMV Blood Gas Temperature 37.0 Blood Gas Tidal Volume 500.0 FiO2 100.0 Mixed Venous Bld Carboxyhemoglobin 0 Mixed Venous Blood Methemoglobin 0.5 Mixed Venous Blood O2 Saturation 70.9 Mixed Venous Blood Oxyhemoglobin 70.5 Mixed Venous Blood PO2 31.8 Mixed Venous Blood Total Hemoglobin 12.9 Bedside Glucose 166 243 H 311 H Test 05/06/16 21:16 05/06/16 21:59 05/06/16 23:02 05/06/16 23:54 Potassium Level 3.9 Bedside Glucose 330 H 358 H 346 H Test 05/07/16 00:32 05/07/16 00:48 05/07/16 00:58 05/07/16 01:51 Arterial Blood HCO3 21.8 L Arterial Blood Base Excess -1.3 Arterial Blood Oxygen Saturation 98.8 Shahram Test N/A Arterial Blood Gas Puncture Site A-Line Arterial Blood Carboxyhemoglobin 0.3 Arterial Blood Date Drawn 05/07/2016 12:30:44 AM Arterial Blood Methemoglobin 0.6 Arterial Blood pCO2 (Temp correct) 31.6 L Arterial Blood pH (Temp corrected) 7.457 H Arterial Blood pO2 (Temp corrected) 261.6 H Blood Gas A-a O2 Differential 419.8 H Blood Gas Actual Respiration Rate 12 Blood Gas Inspiratory Pressure 24.0 Blood Gas Low PEEP Setting 5.0 Blood Gas Modality VENT - AC Blood Gas Notified Time 05/07/2016 12:39:54 AM Blood Gas Notified Whom KM Blood Gas Respiration Rate 12.0 Blood Gas Specimen Source Blood arterial Blood Gas Temperature 37.0 Blood Gas Tidal Volume 500.0 FiO2 100.0 Oxyhemoglobin Percent 97.9 Total Hemoglobin 12.4 Basophils # Basophils % Eosinophils # Eosinophils % Hematocrit 32.0 L Hemoglobin 11.3 L Lymphocytes # 0.7 L Lymphocytes % 5.0 L Magnesium Level 2.2 Mean Corpuscular Hemoglobin 30.5 Mean Corpuscular Hemoglobin Concent 35.3 Mean Corpuscular Volume 86.5 Mean Platelet Volume 10.7 H Monocytes # 0.1 L Monocytes % 1.0 Neutrophils # 7.5 Neutrophils % 57.0 Nucleated Red Blood Cells # 0.0 Nucleated Red Blood Cells % 0.0 Platelet Count 98 L Potassium Level 5.4 H Red Blood Count 3.70 L Red Cell Distribution Width 13.9 White Blood Count 13.2 H Bedside Glucose 358 H 363 H Test 05/07/16 02:56 05/07/16 03:49 05/07/16 04:13 05/07/16 04:29 Bedside Glucose 365 H 371 H 367 H 366 H Test 05/07/16 04:30 05/07/16 04:46 05/07/16 05:00 05/07/16 05:56 Activated Partial Thromboplast Time 36.3 H Anion Gap 20 H Basophils # 0.0 Basophils % 0.1 Blood Urea Nitrogen 21 H Calcium Level 9.1 Carbon Dioxide Level 22 Chloride Level 107 Creatinine 1.57 H Eosinophils # 0.0 Eosinophils % 0.0 Glucose Level 348 #H Hematocrit 31.5 L Hemoglobin 10.8 L INR International Normalized Ratio 1.43 Lymphocytes # 1.1 Lymphocytes % 10.5 L Magnesium Level 2.2 Mean Corpuscular Hemoglobin 30.3 Mean Corpuscular Hemoglobin Concent 34.3 Mean Corpuscular Volume 88.2 Mean Platelet Volume 10.9 H Monocytes # 0.3 Monocytes % 2.5 Neutrophils # 9.2 H Neutrophils % 86.2 H Nucleated Red Blood Cells # 0.0 Nucleated Red Blood Cells % 0.0 Phosphorus Level 3.4 Platelet Count 85 L Potassium Level 3.9 Prothrombin Time 17.5 H Prothrombin Time Ratio 1.4 Red Blood Count 3.57 L Red Cell Distribution Width 14.1 Sodium Level 145 H White Blood Count 10.7 Bedside Glucose 348 H 288 H Arterial Blood HCO3 18.2 L Arterial Blood Base Excess -5.2 L Arterial Blood Oxygen Saturation 96.8 Shahram Test ACCEPTAB Arterial Blood Gas Puncture Site A-Line Arterial Blood Carboxyhemoglobin 0.3 Arterial Blood Date Drawn 05/07/2016 4:55:58 AM Arterial Blood Methemoglobin 0.3 Arterial Blood pCO2 (Temp correct) 29.2 L Arterial Blood pH (Temp corrected) 7.413 Arterial Blood pO2 (Temp corrected) 96.4 H Blood Gas A-a O2 Differential 191.2 H Blood Gas Actual Respiration Rate 13 Blood Gas Inspiratory Pressure 23.0 Blood Gas Low PEEP Setting 5.0 Blood Gas Modality VENT - AC Blood Gas Notified Time 05/07/2016 5:05:03 AM Blood Gas Notified Whom KM Blood Gas Respiration Rate 12.0 Blood Gas Specimen Source Blood arterial Blood Gas Temperature 37.0 Blood Gas Tidal Volume 500.0 FiO2 45.0 Oxyhemoglobin Percent 96.2 Total Hemoglobin 11.8 L Test 05/07/16 07:03 05/07/16 08:12 05/07/16 09:14 Bedside Glucose 190 148 127 Medications Medications Current Medications Acetaminophen (Tylenol Supp) 650 mg Q6H PRN [place] PAIN LEVEL 1-3 OR FEVER Last administered on 05/07/16 00:51; Admin Dose 650 MG; Start 05/04/16 at 10:00 Acetaminophen/ Hydrocodone Bitart ([place] (5/325)) 1 tab Q6H PRN PO MODERATE PAIN LEVEL 4-6; Start 05/04/16 at 10:00 Acetaminophen/ Hydrocodone Bitart ([place] (5/325)) 2 tab Q6H PRN PO SEVERE PAIN LEVEL 7-10; Start 05/04/16 at 10:00 Morphine Sulfate (morphine) 2 mg Q4H PRN IV SEVERE PAIN LEVEL 7-10 Last administered on 05/05/16 12:11; Admin Dose 2 MG; Start 05/04/16 at 10:00 Docusate Sodium (Colace) 100 mg Q12H PRN PO CONSTIPATION Last administered on 06:14; Admin Dose 100 MG; Start 05/04/16 at 10:00 Magnesium Hydroxide (Milk Of Mag) 30 ml DAILY PRN PO CONSTIPATION; Start at 10:00 Bisacodyl (Dulcolax Supp) 10 mg DAILY PRN [place] CONSTIPATION; Start 05/04/16 at 10: 00 Pantoprazole (Protonix Iv) 40 mg DAILY@06 IV Last administered on 05/07/16 06: 01; Admin Dose 40 MG; Start 05/05/16 at 06:00 Nitroglycerin (Nitroglycerin (Sl Tab) 0.4 Mg) 1 tab Q5M PRN SL CHEST PAIN; Start 05/04/16 at 10:00 Heparin Sodium (Porcine) (Heparin (1000 Units/ml)) 3,180 unit PRN PRN IV PENDING LAB VALUE Last administered on 05/04/16 19:20; Admin Dose 3,180 UNIT; Start 05/04/16 at 12:00 Miscellaneous Information 1 ea NOTE XX ; Start 05/04/16 at 18:30 Glucose (Glutose) 15 gm Q15M PRN PO DECREASED GLUCOSE; Start 05/04/16 at 18:30 Glucose (Glutose) 22.5 gm Q15M PRN PO DECREASED GLUCOSE; Start 05/04/16 at 18:30 Glucagon (Glucagen) 1 mg Q15M PRN IM DECREASED GLUCOSE; Start 05/04/16 at 18:30 Glucose (Glutose) 15 gm Q15M PRN BUCCAL DECREASED GLUCOSE; Start 05/04/16 at 18: 30 Lisinopril (Zestril) 20 mg BID PO Last administered on 05/05/16 21:02; Admin Dose 20 MG; Start 05/05/16 at 09:00 Carvedilol 12.5 mg 12.5 mg BID PO Last administered on 05/05/16 21:01; Admin Dose 12.5 MG; Start 05/05/16 at 21:00 Potassium Chloride 40 meq/ Calcium Chloride 1 gm/Dextrose/ Sodium Chloride 1, 030 ml @ 60 mls/hr [id number] IV Last administered on 05/06/16 19:50; Admin Dose 60 MLS/HR; Start 05/06/16 at 18:36 Albumin Human 250 ml @ 500 mls/hr PRN PRN IV CVP< 8, OR SBP<90 Last administered on 05/07/16 02:12; Admin Dose 500 MLS/HR; Start 05/06/16 at 19:00 Cefazolin Sodium (Ancef 1 Gm/50 ml (Pmx)) 50 ml @ 100 mls/hr Q8H IVPB Last administered on 05/07/16 03:07; Admin Dose 100 MLS/HR; Start 05/06/16 at 19:00; Stop 05/07/16 at 11:29 Cephalexin (Keflex) 500 mg Q6H PO ; Start 05/07/16 at 19:00; Stop 05/08/16 at 13: 01 Hydromorphone HCl (Dilaudid) 0.2 mg Q15M PRN IV PAIN LEVEL 1-5; Start 05/06/16 at 19:00 Hydromorphone HCl (Dilaudid) 0.4 mg Q15M PRN IV PAIN LEVEL 6-10; Start 05/06/16 at 19:00 Hydromorphone HCl (Dilaudid) 0.2 mg Q1H PRN IV PAIN LEVEL 1-5; Start 05/06/16 at 19:00 Hydromorphone HCl (Dilaudid) 0.4 mg Q1H PRN IV PAIN LEVEL 6-10; Start 05/06/16 at 19:00 Morphine Sulfate (morphine) 0.5 mg Q4H PRN IV PAIN LEVEL 1-5; Start 05/06/16 at 19:00 Morphine Sulfate (morphine) 1 mg Q4 PRN IV PAIN LEVEL 6-10; Start 05/06/16 at 19 :00 Oxycodone/ Acetaminophen (Percocet (5/ 325)) 1 tab Q3H PRN PO PAIN LEVEL 1-5; Start 05/06/16 at 19:00 Oxycodone/ Acetaminophen (Percocet (5/ 325)) 2 tab Q3H PRN PO PAIN LEVEL 6-10; Start 05/06/16 at 19:00 Ondansetron HCl (Zofran Inj) 4 mg Q6H PRN IV NAUSEA AND/OR VOMITING; Start 05/06 at 19:00 Famotidine (Pepcid Iv) 20 mg BID@08,20 IV Last administered on 05/07/16 08:09; Admin Dose 20 MG; Start 05/06/16 at 20:00 Famotidine (Pepcid) 20 mg BID PO ; Start 05/06/16 at 21:00 Sucralfate (Carafate Susp) 1 gm Q6 PO ; Start 05/07/16 at 00:00 Aspirin (Aspirin) 325 mg DAILY PO ; Start 05/06/16 at 23:30 Acetaminophen 650 mg 650 mg Q3H PRN PO ELEVATED TEMPERATURE; Start 05/06/16 at 19:00 Magnesium Sulfate/ Dextrose (Magnesium Sulfate 1 Gm/D5W) 100 ml @ 100 mls/hr PRN PRN IVPB PENDING LAB VALUE; Start 05/06/16 at 19:00 Diagnostic Test (Pha) (Accucheck) 1 ea Q1H XX Last administered on 05/07/16 08: 00; Admin Dose 1 EA; Start 05/06/16 at 19:00 Dextrose (D50w Syringe) 25 ml Q15M PRN IV Till BS 80 mg/dL or above x2; Start 05/06/16 at 19:00 Dextrose 50 ml 50 ml Q15M PRN IV Till BS 80 mg/dL or above x2; Start 05/06/16 at 19:00 Calcium Chloride/ Sodium Chloride (Ca Chloride/NS) 1,010 ml @ 60 mls/hr [id number] IV Last administered on 05/07/16 03:05; Admin Dose 60 MLS/HR; Start 05/07/16 at 03:00 Procedures Procedures PROCEDURE: XR Chest. CLINICAL INDICATION: 75 real female status post CABG. TECHNIQUE: Single frontal view of the chest was obtained COMPARISON: Chest x-ray 05/06/2016 04:24 p.m. FINDINGS: The soft tissues are normal. A mediastinotomy was performed for coronary artery bypass surgery. The left ventricle is upper limits of normal for size. The cardiomediastinal silhouette, pulmonary vasculature and hilar structures are normal. There is a left-sided aorta. there is a poor inspiration with consolidative infiltrate in the right lower lobe and right middle lobe associated with a right pleural effusion. The left costophrenic angle is clear. An endotracheal tube is positioned at T4. An NG tube is positioned distal to the GE junction. There are various monitoring electrodes and lines projecting across the chest and upper abdomen. A [place]Brian catheter is identified in place with its tip in the main pulmonary artery outflow tract. The intra-aortic balloon tip breast 1 cm inferior to the aortic arch. There is no evidence of a pneumothorax. IMPRESSION: 1. There is a right pleural effusion with consolidative infiltrate and atelectasis involving portions of the right middle lobe and right lower lobe. 2. Intra-aortic balloon pump in satisfactory position unchanged. 3. Status post median sternotomy for coronary artery bypass surgery. 4. Endotracheal tube position 2.5 cm superior to the tejal. 5. [place]Brian catheter in the main pulmonary artery outflow tract. 6. Suspected position of an NG tube distal to the GE junction. RPTAT:AAJJ Physician Paolo Date Time Electronically viewed and signed by Ag Nabil, Physician on 05/07/2016 09:27 JM/ CC: BEVERLEY NEGRETE MD, BOLATITO M. May 07, 2016 10:21
[2016-05-07] MEDS: POTASSIUM CHLORIDE 40 MEQ, CALCIUM CHLORIDE 10% 1 GM in DEXTROSE 5%-0.225% NACL 1,000 ML IV SCH (12:23)
--- NOTE | 2016-05-07 13:18 | PN ---
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 Chest pain resolved after IABP Hyperlipidemia Recommendation/plan: ncrease lisinopril 20mg BID SP CABG wean for extubation DC Lines Problems: Subjective 24 Hr Interval Summary Genitourinary: no complaints Musculoskeletal: no complaints Skin: no complaints Neurologic: no complaints Exam/Review of Systems Vital Signs Vitals Vital Signs Date Time Temp Pulse Resp B/P Pulse Ox O2 Delivery O2 Flow Rate FiO2 05/07/16 12:30 78 13 126/25 96 05/07/16 12:00 99.8 05/07/16 08:00 35 05/06/16 08:00 Nasal Cannula 2.0 Intake and Output 05/06/16 05/06/16 05/07/16 15:00 23:00 07:00 Intake Total 1790 ml 561.5 ml 1118.8 ml Output Total 250 ml 3221 ml 627 ml Balance 1540 ml -2659.5 ml 491.8 ml Results Result Diagram: 05/07/16 0430 05/07/16 0430 Results 24 hrs Laboratory Tests Test 05/06/16 16:42 05/06/16 17:15 05/06/16 18:04 05/06/16 18:09 Bedside Glucose 70 175 Activated Partial Thromboplast Time 29.8 Anion Gap 19 H Basophils # 0.0 Basophils % 0.2 Blood Urea Nitrogen 16 Calcium Level 9.4 Carbon Dioxide Level 28 Chloride Level 103 Creatinine 0.88 Eosinophils # 0.1 Eosinophils % 0.5 Glucose Level 91 # Hematocrit 34.6 L Hemoglobin 12.4 INR International Normalized Ratio 1.19 Lymphocytes # 2.8 Lymphocytes % 21.8 Magnesium Level 2.7 #H Mean Corpuscular Hemoglobin 30.8 Mean Corpuscular Hemoglobin Concent 35.8 Mean Corpuscular Volume 86.1 Mean Platelet Volume 9.4 Monocytes # 1.2 H Monocytes % 9.2 Neutrophils # 8.7 H Neutrophils % 67.5 Nucleated Red Blood Cells # 0.0 Nucleated Red Blood Cells % 0.0 Platelet Count 111 #L Potassium Level 3.0 L Prothrombin Time 15.2 H Prothrombin Time Ratio 1.2 Red Blood Count 4.02 L Red Cell Distribution Width 13.1 Sodium Level 147 H White Blood Count 12.9 H Arterial Blood HCO3 25.5 Arterial Blood Base Excess 2.4 Arterial Blood Oxygen Saturation 92.6 L Shahram Test N/A Arterial Blood Gas Puncture Site A-Line Arterial Blood Carboxyhemoglobin 0.3 Arterial Blood Date Drawn 05/06/2016 5:50:29 PM Arterial Blood Methemoglobin 0.5 Arterial Blood pCO2 (Temp correct) 34.6 L Arterial Blood pH (Temp corrected) 7.485 H Arterial Blood pO2 (Temp corrected) 58.6 L Blood Gas A-a O2 Differential 619.8 H Blood Gas Actual Respiration Rate 12 Blood Gas Low PEEP Setting 5.0 Blood Gas Modality VENT - AC Blood Gas Notified Time 05/06/2016 6:15:11 PM Blood Gas Notified Whom JLD Blood Gas Respiration Rate 12.0 Blood Gas Specimen Source Blood arterial Blood Gas Temperature 37.0 Blood Gas Tidal Volume 500.0 FiO2 100.0 Oxyhemoglobin Percent 91.9 L Total Hemoglobin 13.1 Test 05/06/16 18:11 05/06/16 19:07 05/06/16 20:04 05/06/16 20:54 Shahram Test N/A Arterial Blood Date Drawn 05/06/2016 5:55:48 PM Arterial Blood Gas Puncture Site PUL ART LINE Blood Gas Actual Respiration Rate 12 Blood Gas Low PEEP Setting 5.0 Blood Gas Modality VENT - AC Blood Gas Notified Time 05/06/2016 6:19:29 PM Blood Gas Notified Whom JLD Blood Gas Respiration Rate 12.0 Blood Gas Specimen Source BLMV Blood Gas Temperature 37.0 Blood Gas Tidal Volume 500.0 FiO2 100.0 Mixed Venous Bld Carboxyhemoglobin 0 Mixed Venous Blood Methemoglobin 0.5 Mixed Venous Blood O2 Saturation 70.9 Mixed Venous Blood Oxyhemoglobin 70.5 Mixed Venous Blood PO2 31.8 Mixed Venous Blood Total Hemoglobin 12.9 Bedside Glucose 166 243 H 311 H Test 05/06/16 21:16 05/06/16 21:59 05/06/16 23:02 05/06/16 23:54 Potassium Level 3.9 Bedside Glucose 330 H 358 H 346 H Test 05/07/16 00:32 05/07/16 00:48 05/07/16 00:58 05/07/16 01:51 Arterial Blood HCO3 21.8 L Arterial Blood Base Excess -1.3 Arterial Blood Oxygen Saturation 98.8 Shahram Test N/A Arterial Blood Gas Puncture Site A-Line Arterial Blood Carboxyhemoglobin 0.3 Arterial Blood Date Drawn 05/07/2016 12:30:44 AM Arterial Blood Methemoglobin 0.6 Arterial Blood pCO2 (Temp correct) 31.6 L Arterial Blood pH (Temp corrected) 7.457 H Arterial Blood pO2 (Temp corrected) 261.6 H Blood Gas A-a O2 Differential 419.8 H Blood Gas Actual Respiration Rate 12 Blood Gas Inspiratory Pressure 24.0 Blood Gas Low PEEP Setting 5.0 Blood Gas Modality VENT - AC Blood Gas Notified Time 05/07/2016 12:39:54 AM Blood Gas Notified Whom KM Blood Gas Respiration Rate 12.0 Blood Gas Specimen Source Blood arterial Blood Gas Temperature 37.0 Blood Gas Tidal Volume 500.0 FiO2 100.0 Oxyhemoglobin Percent 97.9 Total Hemoglobin 12.4 Basophils # Basophils % Eosinophils # Eosinophils % Hematocrit 32.0 L Hemoglobin 11.3 L Lymphocytes # 0.7 L Lymphocytes % 5.0 L Magnesium Level 2.2 Mean Corpuscular Hemoglobin 30.5 Mean Corpuscular Hemoglobin Concent 35.3 Mean Corpuscular Volume 86.5 Mean Platelet Volume 10.7 H Monocytes # 0.1 L Monocytes % 1.0 Neutrophils # 7.5 Neutrophils % 57.0 Nucleated Red Blood Cells # 0.0 Nucleated Red Blood Cells % 0.0 Platelet Count 98 L Potassium Level 5.4 H Red Blood Count 3.70 L Red Cell Distribution Width 13.9 White Blood Count 13.2 H Bedside Glucose 358 H 363 H Test 05/07/16 02:56 05/07/16 03:49 05/07/16 04:13 05/07/16 04:29 Bedside Glucose 365 H 371 H 367 H 366 H Test 05/07/16 04:30 05/07/16 04:46 05/07/16 05:00 05/07/16 05:56 Activated Partial Thromboplast Time 36.3 H Anion Gap 20 H Basophils # 0.0 Basophils % 0.1 Blood Urea Nitrogen 21 H Calcium Level 9.1 Carbon Dioxide Level 22 Chloride Level 107 Creatinine 1.57 H Eosinophils # 0.0 Eosinophils % 0.0 Glucose Level 348 #H Hematocrit 31.5 L Hemoglobin 10.8 L INR International Normalized Ratio 1.43 Lymphocytes # 1.1 Lymphocytes % 10.5 L Magnesium Level 2.2 Mean Corpuscular Hemoglobin 30.3 Mean Corpuscular Hemoglobin Concent 34.3 Mean Corpuscular Volume 88.2 Mean Platelet Volume 10.9 H Monocytes # 0.3 Monocytes % 2.5 Neutrophils # 9.2 H Neutrophils % 86.2 H Nucleated Red Blood Cells # 0.0 Nucleated Red Blood Cells % 0.0 Phosphorus Level 3.4 Platelet Count 85 L Potassium Level 3.9 Prothrombin Time 17.5 H Prothrombin Time Ratio 1.4 Red Blood Count 3.57 L Red Cell Distribution Width 14.1 Sodium Level 145 H White Blood Count 10.7 Bedside Glucose 348 H 288 H Arterial Blood HCO3 18.2 L Arterial Blood Base Excess -5.2 L Arterial Blood Oxygen Saturation 96.8 Shahram Test ACCEPTAB Arterial Blood Gas Puncture Site A-Line Arterial Blood Carboxyhemoglobin 0.3 Arterial Blood Date Drawn 05/07/2016 4:55:58 AM Arterial Blood Methemoglobin 0.3 Arterial Blood pCO2 (Temp correct) 29.2 L Arterial Blood pH (Temp corrected) 7.413 Arterial Blood pO2 (Temp corrected) 96.4 H Blood Gas A-a O2 Differential 191.2 H Blood Gas Actual Respiration Rate 13 Blood Gas Inspiratory Pressure 23.0 Blood Gas Low PEEP Setting 5.0 Blood Gas Modality VENT - AC Blood Gas Notified Time 05/07/2016 5:05:03 AM Blood Gas Notified Whom KM Blood Gas Respiration Rate 12.0 Blood Gas Specimen Source Blood arterial Blood Gas Temperature 37.0 Blood Gas Tidal Volume 500.0 FiO2 45.0 Oxyhemoglobin Percent 96.2 Total Hemoglobin 11.8 L Test 05/07/16 07:03 05/07/16 08:12 05/07/16 09:14 05/07/16 10:07 Bedside Glucose 190 148 127 121 Test 05/07/16 11:24 05/07/16 12:20 Bedside Glucose 122 115 Medications Medications Current Medications Acetaminophen (Tylenol Supp) 650 mg Q6H PRN [place] PAIN LEVEL 1-3 OR FEVER Last administered on 05/07/16t 00:51; Admin Dose 650 MG; Start 05/04/16 at 10:00 Acetaminophen/ Hydrocodone Bitart ([place] (5/325)) 1 tab Q6H PRN PO MODERATE PAIN LEVEL 4-6; Start 05/04/16 at 10:00 Acetaminophen/ Hydrocodone Bitart ([place] (5/325)) 2 tab Q6H PRN PO SEVERE PAIN LEVEL 7-10; Start 05/04/16 at 10:00 Morphine Sulfate (morphine) 2 mg Q4H PRN IV SEVERE PAIN LEVEL 7-10 Last administered on 05/05/16 12:11; Admin Dose 2 MG; Start 05/04/16 at 10:00 Magnesium Hydroxide (Milk Of Mag) 30 ml DAILY PRN PO CONSTIPATION; Start at 10:00 Bisacodyl (Dulcolax Supp) 10 mg DAILY PRN [place] CONSTIPATION; Start 05/04/16 at 10: 00 Pantoprazole (Protonix Iv) 40 mg DAILY@06 IV Last administered on 05/07/16 06: 01; Admin Dose 40 MG; Start 05/05/16 at 06:00 Nitroglycerin (Nitroglycerin (Sl Tab) 0.4 Mg) 1 tab Q5M PRN SL CHEST PAIN; Start 05/04/16 at 10:00 Heparin Sodium (Porcine) (Heparin (1000 Units/ml)) 3,180 unit PRN PRN IV PENDING LAB VALUE Last administered on 05/04/16 19:20; Admin Dose 3,180 UNIT; Start 05/04/16 at 12:00 Miscellaneous Information 1 ea NOTE XX ; Start 05/04/16 at 18:30 Glucose (Glutose) 15 gm Q15M PRN PO DECREASED GLUCOSE; Start 05/04/16 at 18:30 Glucose (Glutose) 22.5 gm Q15M PRN PO DECREASED GLUCOSE; Start 05/04/16 at 18:30 Glucagon (Glucagen) 1 mg Q15M PRN IM DECREASED GLUCOSE; Start 05/04/16 at 18:30 Glucose (Glutose) 15 gm Q15M PRN BUCCAL DECREASED GLUCOSE; Start 05/04/16 at 18: 30 Lisinopril (Zestril) 20 mg BID PO Last administered on 05/05/16 21:02; Admin Dose 20 MG; Start 05/05/16 at 09:00 Carvedilol 12.5 mg 12.5 mg BID PO Last administered on 05/05/16 21:01; Admin Dose 12.5 MG; Start 05/05/16 at 21:00 Potassium Chloride 40 meq/ Calcium Chloride 1 gm/Dextrose/ Sodium Chloride 1, 030 ml @ 60 mls/hr [id number] IV Last administered on 05/07/16 12:23; Admin Dose 60 MLS/HR; Start 05/06/16 at 18:36 Albumin Human 250 ml @ 500 mls/hr PRN PRN IV CVP< 8, OR SBP<90 Last administered on 05/07/16 02:12; Admin Dose 500 MLS/HR; Start 05/06/16 at 19:00 Hydromorphone HCl (Dilaudid) 0.2 mg Q15M PRN IV PAIN LEVEL 1-5; Start 05/06/16 at 19:00 Hydromorphone HCl (Dilaudid) 0.4 mg Q15M PRN IV PAIN LEVEL 6-10; Start 05/06/16 at 19:00 Hydromorphone HCl (Dilaudid) 0.2 mg Q1H PRN IV PAIN LEVEL 1-5; Start 05/06/16 at 19:00 Hydromorphone HCl (Dilaudid) 0.4 mg Q1H PRN IV PAIN LEVEL 6-10; Start 05/06/16 at 19:00 Oxycodone/ Acetaminophen (Percocet (5/ 325)) 1 tab Q3H PRN PO PAIN LEVEL 1-5; Start 05/06/16 at 19:00 Oxycodone/ Acetaminophen (Percocet (5/ 325)) 2 tab Q3H PRN PO PAIN LEVEL 6-10; Start 05/06/16 at 19:00 Ondansetron HCl (Zofran Inj) 4 mg Q6H PRN IV NAUSEA AND/OR VOMITING; Start 05/06 at 19:00 Sucralfate (Carafate Susp) 1 gm Q6 PO Last administered on 05/07/16 12:24; Admin Dose 1 GM; Start 05/07/16 at 00:00 Aspirin (Aspirin) 325 mg DAILY PO Last administered on 05/07/16 11:12; Admin Dose 325 MG; Start 05/06/16 at 23:30 Acetaminophen 650 mg 650 mg Q3H PRN PO ELEVATED TEMPERATURE; Start 05/06/16 at 19:00 Magnesium Sulfate/ Dextrose (Magnesium Sulfate 1 Gm/D5W) 100 ml @ 100 mls/hr PRN PRN IVPB PENDING LAB VALUE; Start 05/06/16 at 19:00 Diagnostic Test (Pha) (Accucheck) 1 ea Q1H XX Last administered on 05/07/16 12: 24; Admin Dose 1 EA; Start 05/06/16 at 19:00 Dextrose (D50w Syringe) 25 ml Q15M PRN IV Till BS 80 mg/dL or above x2; Start 05/06/16 at 19:00 Dextrose 50 ml 50 ml Q15M PRN IV Till BS 80 mg/dL or above x2; Start 05/06/16 at 19:00 Calcium Chloride/ Sodium Chloride (Ca Chloride/NS) 1,010 ml @ 60 mls/hr [id number] IV Last administered on 05/07/16 03:05; Admin Dose 60 MLS/HR; Start 05/07/16 at 03:00 Docusate Sodium (Colace) 100 mg Q12 PO ; Start 05/07/16 at 21:00 Cephalexin (Keflex) 250 mg Q8 PO ; Start 05/07/16 at 20:00; Stop 05/08/16 at 14:01 BEVERLEY NEGRETE MD May 07, 2016 13:18
[2016-05-07] MEDS: morphine 2 MG INJ IV PRN (14:18)
[2016-05-07] MEDS ORDERED: SOD CHLORIDE 0.9% 500 ML IV ONE (17:30)
[2016-05-07] MEDS: D5W-0.45 NACL + KCL 20 MEQ 1,000 ML IV SCH (17:34)
[2016-05-07] MEDS ORDERED: FUROSEMIDE 20 MG INJ IV ONE (19:00)
[2016-05-07] MEDS ORDERED: CEPHALEXIN 500 MG CAP PO SCH (19:00)
[2016-05-07] MEDS ORDERED: ALBUMIN HUMAN 5% 250 ML IV ONE (19:00)
--- NOTE | 2016-05-07 20:25 | RADRPT ---
Vent Rate: 105 bpm RR Interval: 0 msec SD Interval: 142 msec QRS Duration: 90 msec QT Interval: 374 msec QTC Interval: 494 msec P-R-T [place]: 72 - 56 - 0 degrees Sinus tachycardia T wave abnormality, consider inferior ischemia T wave abnormality, consider anterolateral ischemia Abnormal ECG Electronically Signed By: Franklin Shultz [id number]
--- NOTE | 2016-05-07 20:28 | RADRPT ---
Vent Rate: 81 bpm RR Interval: 0 msec [place] Interval: 136 msec QRS Duration: 92 msec QT Interval: 382 msec QTC Interval: 443 msec P-R-T [place]: 70 - 59 - 64 degrees Normal sinus rhythm Inferior infarct , age undetermined Lateral injury pattern ACUTE OK Abnormal ECG Electronically Signed By: Franklin Shultz [id number]
[2016-05-07] MEDS: DOCUSATE SODIUM 100 MG CAP PO SCH (20:34)
[2016-05-07] MEDS: CEPHALEXIN 250 MG CAP PO SCH (20:38)
[2016-05-07] MEDS: HYDROCODONE/APAP (5/325) TAB PO PRN (23:20)
[2016-05-08] VITALS (74 sets, daily range): BP systolic 91–163; BP diastolic 19–47; PULSE 67–85; RESP 0–18; TEMP 98.3–99.9
[2016-05-08] MEDS: ACCUCHECK XX SCH ×22 (01:14→23:08)
[2016-05-08] MEDS: morphine 2 MG INJ IV PRN (02:45)
[2016-05-08] MEDS ORDERED: SOD CHLORIDE 0.9% 500 ML IV ONE ×3 (03:00→21:00)
[2016-05-08] MEDS ORDERED: FUROSEMIDE 40 MG INJ IV ONE ×2 (04:00→21:00)
[2016-05-08 05:33] LABS: ADD SCAN DIFF NO
[2016-05-08 05:39] LABS: ABNORMAL IP MESSAGE 1; BASOPHILS % 0.3 % (0.0-2.0); EOSINOPHILS # 0.1 10^3/ul (0.0-0.5); EOSINOPHILS % 0.8 % (0.0-7.0); HEMATOCRIT 29.6 % (37.0-47.0); HEMOGLOBIN 9.9 g/dl (12.0-16.0); LYMPHOCYTES # 2.8 10^3/ul (0.8-2.9); LYMPHOCYTES % 17.4 % (15.0-51.0); MEAN CORPUSCULAR HEMOGLOBIN 30.2 pg (29.0-33.0); MEAN CORPUSCULAR HGB CONC 33.4 g/dl (32.0-37.0); MEAN CORPUSCULAR VOLUME 90.2 fl (82.0-101.0); MEAN PLATELET VOLUME 12.6 fl (7.4-10.4); MONOCYTE # 1.2 10^3/ul (0.3-0.9); MONOCYTES % 7.3 % (0.0-11.0); NEUTROPHIL # 11.7 10^3/ul (1.6-7.5); NEUTROPHILS % 73.7 % (39.0-77.0); NUCLEATED RED BLOOD CELLS% 0.1 /100WBC (0.0-0.0); PLATELET COUNT 73 10^3/UL (140-415); RED BLOOD COUNT 3.28 10^6/ul (4.20-5.40); RED CELL DISTRIBUTION WIDTH 14.9 % (11.5-14.5); WHITE BLOOD COUNT 15.9 10^3/ul (4.8-10.8)
[2016-05-08 05:51] LABS: ALBUMIN 2.5 g/dl (3.3-4.9)
[2016-05-08 05:52] LABS: POTASSIUM 4.3 mmol/L (3.5-5.1)
[2016-05-08 05:54] LABS: BILIRUBIN,INDIRECT 0.6 mg/dl (0-1.1); BILIRUBIN,TOTAL 0.6 mg/dl (0.2-1.3); MAGNESIUM 2.1 mg/dl (1.7-2.5); PHOSPHORUS 4.3 mg/dl (2.5-4.9); TOTAL PROTEIN 4.4 g/dl (6.1-8.1)
[2016-05-08 05:55] LABS: CALCIUM 8.6 mg/dl (8.4-10.2); CREATININE 2.29 mg/dl (0.44-1.00)
[2016-05-08] MEDS: CEPHALEXIN 250 MG CAP PO SCH ×2 (06:20→06:21)
[2016-05-08] MEDS: SUCRALFATE (100 MG/ML) 10ML CUP PO SCH ×3 (06:20→17:59)
[2016-05-08] MEDS: PANTOPRAZOLE 40 MG INJ IV SCH (06:20)
[2016-05-08] MEDS: HYDROCODONE/APAP (5/325) TAB PO PRN ×2 (06:21→18:00)
--- NOTE | 2016-05-08 07:17 | RADRPT ---
PROCEDURE: XR Chest. CLINICAL INDICATION: Respiratory failure TECHNIQUE: A single AP view of the chest was obtained. COMPARISON: Chest x-ray dated 05/07/2016 FINDINGS: There are postoperative changes with sternotomy wires. The endotracheal tube tip is approximately 2 .1 cm above the tejal. There is a [place]-Brian catheter from a right internal jugular approach with ti p in the region of the right ventricular outflow tract. The tip of the enteric tube extends below th e left diaphragm. There is a left chest tube and mediastinal drain in place. There is an intra-aor tic balloon pump with radiopaque marker within the proximal portion of the descending thoracic aorta . Lung volumes are low. There is diffuse prominence of the interstitial markings. There is a small ri ght pleural effusion. No pneumothorax is seen. The cardiomediastinal silhouette is mildly enlarged. Calcifications are seen within the aortic arch. The osseous structures are unremarkable. IMPRESSION: 1. Low lung volumes with mild interstitial edema and small right pleural effusion. Overall, no sig nificant interval change. 2. Expected post cardiac surgery changes. 3. Mild cardiomegaly and aortic atherosclerosis. 4. Tubes and lines, as described above. RPTAT: HH .Salome Finch MD, MD Date Time Electronically viewed and signed by .Salome Finch MD, on 05/08/2016 07:17 .G/
--- NOTE | 2016-05-08 07:24 | CONS ---
Date/Time of Note Date/Time of Note DATE: 05/08/16 TIME: 07:20 Assessment/Plan Assessment/Plan Additional Assessment/Plan Ventilator settings; AC of 14, tidal volume 500, PEEP of 5, 30% FiO2. Chest x-ray from today is pending. Next Labs were reviewed from today patient has increase in serum creatinine as well as further drop in platelet count. With increasing leukocytosis. Next Assessment recommendations; 1. Patient admitted with STEMI subsequently requiring coronary artery bypass surgery. 2. Worsening renal function, patient getting fluid boluses. 3. History of hypertension diabetes. Patient maintained on insulin drip. 4. Leukocytosis. 5. Hypotension requiring intra-aortic balloon pump. However augmentation ratio had been decreased to 1 : 2. Switch the patient to SIMV with a rate of 12, pressure support of 10. Obtain a chest x-ray. Discontinue Keflex. Start the patient on cefepime 1 g IV every 12 hours. Monitor serum creatinine. The patient may need to have a nephrology consult if there is no downward trend in serum creatinine level. Once the chest x-ray is done, I will reviewed and make further recommendations. I did have a detailed discussion the patient's daughter at bedside and answered all her questions. Consultation Date/Type/Reason Admit Date/Time May 04, 2016 at 08:40 Initial Consult Date 05/07/16 Type of Consultation: Pulmonary/critical care 24 HR Interval Summary Free Text/Dictation Patient's condition remains critical. Still requiring full ventilator support. She has been off sedation. Intra-aortic balloon pump has been on one is to to augmentation. Urine output is declining. Patient has been receiving fluid boluses. General examination; elderly lady, orally intubated, awake and alert. Currently in no distress. Exam/Review of Systems Vital Signs Vitals Vital Signs Date Time Temp Pulse Resp B/P Pulse Ox O2 Delivery O2 Flow Rate FiO2 05/08/16 07:00 99.8 71 11 144/21 100 05/08/16 05:22 30 05/06/16 08:00 Nasal Cannula 2.0 Intake and Output 05/07/16 05/07/16 05/08/16 15:00 23:00 07:00 Intake Total 661 ml 1284 ml 1053.0 ml Output Total 340 ml 547 ml 319 ml Balance 321 ml 737 ml 734.0 ml Exam H EENT examination; supple neck, positive JVD. No lymphadenopathy. Midline trachea. Orally intubated. Pupils are small bilaterally. Chest examination; clear to auscultation. S1-S2 audible, no murmurs. Regular rhythm. There is a dressing applied over the sternum. Chest tubes are in place. Abdomen examination; soft, nontender. No organomegaly. Bowel sounds audible. Extremity examination; no peripheral edema. Pulses 1+ bilaterally. RECYCLING TECHNICIAN examination; no focal deficit. Results Result Diagram: 05/08/1639905/08/16399 Results 24 hrs Laboratory Tests Test 05/07/16 08:12 05/07/16 09:14 05/07/16 10:07 05/07/16 11:24 Bedside Glucose 148 127 121 122 Test 05/07/16 12:20 05/07/16 13:36 05/07/16 14:52 05/07/16 15:30 Bedside Glucose 115 104 139 Potassium Level 4.3 Test 05/07/16 15:35 05/07/16 16:33 05/07/16 17:42 05/07/16 18:19 Bedside Glucose 148 128 131 130 Test 05/07/16 19:42 05/07/16 20:08 05/07/16 20:58 05/07/16 21:47 Bedside Glucose 131 134 123 Potassium Level 4.5 Test 05/07/16 23:02 05/07/16 23:44 05/08/16 01:02 05/08/16 02:14 Bedside Glucose 124 138 136 136 Test 05/08/16 02:50 05/08/16 04:00 05/08/16 04:11 05/08/16 05:19 Bedside Glucose 148 127 114 Alanine Aminotransferase (ALT/SGPT) 38 Albumin 2.5 L Alkaline Phosphatase 42 Anion Gap 16 Aspartate Amino Transf (AST/SGOT) 91 H Basophils # 0.0 Basophils % 0.3 Blood Urea Nitrogen 28 H Calcium Level 8.6 Carbon Dioxide Level 20 L Chloride Level 114 H Creatinine 2.29 H Direct Bilirubin 0.00 Eosinophils # 0.1 Eosinophils % 0.8 Glucose Level 125 # Hematocrit 29.6 L Hemoglobin 9.9 L Indirect Bilirubin 0.6 Lymphocytes # 2.8 Lymphocytes % 17.4 Magnesium Level 2.1 Mean Corpuscular Hemoglobin 30.2 Mean Corpuscular Hemoglobin Concent 33.4 Mean Corpuscular Volume 90.2 Mean Platelet Volume 12.6 H Monocytes # 1.2 H Monocytes % 7.3 Neutrophils # 11.7 H Neutrophils % 73.7 Nucleated Red Blood Cells # 0.0 Nucleated Red Blood Cells % 0.1 H Phosphorus Level 4.3 Platelet Count 73 L Potassium Level 4.3 Red Blood Count 3.28 L Red Cell Distribution Width 14.9 H Sodium Level 146 H Total Bilirubin 0.6 Total Protein 4.4 L White Blood Count 15.9 #H Test 05/08/16 06:14 05/08/16 06:52 Bedside Glucose 107 118 Medications Medications Current Medications Acetaminophen (Tylenol Supp) 650 mg Q6H PRN [place] PAIN LEVEL 1-3 OR FEVER Last administered on 05/07/16 00:51; Admin Dose 650 MG; Start 05/04/16 at 10:00 Acetaminophen/ Hydrocodone Bitart ([place] (5/325)) 1 tab Q6H PRN PO MODERATE PAIN LEVEL 4-6 Last administered on 05/08/16 06:21; Admin Dose 1 TAB; Start 05/04 at 10:00 Acetaminophen/ Hydrocodone Bitart ([place] (5/325)) 2 tab Q6H PRN PO SEVERE PAIN LEVEL 7-10; Start 05/04/16 at 10:00 Morphine Sulfate (morphine) 2 mg Q4H PRN IV SEVERE PAIN LEVEL 7-10 Last administered on 05/08/16 02:45; Admin Dose 2 MG; Start 05/04/16 at 10:00 Magnesium Hydroxide (Milk Of Mag) 30 ml DAILY PRN PO CONSTIPATION; Start at 10:00 Bisacodyl (Dulcolax Supp) 10 mg DAILY PRN [place] CONSTIPATION; Start 05/04/16 at 10: 00 Pantoprazole (Protonix Iv) 40 mg DAILY@06 IV Last administered on 05/08/16 06: 20; Admin Dose 40 MG; Start 05/05/16 at 06:00 Nitroglycerin (Nitroglycerin (Sl Tab) 0.4 Mg) 1 tab Q5M PRN SL CHEST PAIN; Start 05/04/16 at 10:00 Heparin Sodium (Porcine) (Heparin (1000 Units/ml)) 3,180 unit PRN PRN IV PENDING LAB VALUE Last administered on 05/04/16 19:20; Admin Dose 3,180 UNIT; Start 05/04/16 at 12:00 Miscellaneous Information 1 ea NOTE XX ; Start 05/04/16 at 18:30 Glucose (Glutose) 15 gm Q15M PRN PO DECREASED GLUCOSE; Start 05/04/16 at 18:30 Glucose (Glutose) 22.5 gm Q15M PRN PO DECREASED GLUCOSE; Start 05/04/16 at 18:30 Glucagon (Glucagen) 1 mg Q15M PRN IM DECREASED GLUCOSE; Start 05/04/16 at 18:30 Glucose (Glutose) 15 gm Q15M PRN BUCCAL DECREASED GLUCOSE; Start 05/04/16 at 18: 30 Lisinopril (Zestril) 20 mg BID PO Last administered on 05/07/16 20:33; Admin Dose 20 MG; Start 05/05/16 at 09:00 Carvedilol 12.5 mg 12.5 mg BID PO Last administered on 05/07/16 20:33; Admin Dose 12.5 MG; Start 05/05/16 at 21:00 Albumin Human 250 ml @ 500 mls/hr PRN PRN IV CVP< 8, OR SBP<90 Last administered on 05/07/16 02:12; Admin Dose 500 MLS/HR; Start 05/06/16 at 19:00 Hydromorphone HCl (Dilaudid) 0.2 mg Q15M PRN IV PAIN LEVEL 1-5; Start 05/06/16 at 19:00 Hydromorphone HCl (Dilaudid) 0.4 mg Q15M PRN IV PAIN LEVEL 6-10; Start 05/06/16 at 19:00 Hydromorphone HCl (Dilaudid) 0.2 mg Q1H PRN IV PAIN LEVEL 1-5; Start 05/06/16 at 19:00 Hydromorphone HCl (Dilaudid) 0.4 mg Q1H PRN IV PAIN LEVEL 6-10; Start 05/06/16 at 19:00 Oxycodone/ Acetaminophen (Percocet (5/ 325)) 1 tab Q3H PRN PO PAIN LEVEL 1-5; Start 05/06/16 at 19:00 Oxycodone/ Acetaminophen (Percocet (5/ 325)) 2 tab Q3H PRN PO PAIN LEVEL 6-10; Start 05/06/16 at 19:00 Ondansetron HCl (Zofran Inj) 4 mg Q6H PRN IV NAUSEA AND/OR VOMITING; Start 05/06 at 19:00 Sucralfate (Carafate Susp) 1 gm Q6 PO Last administered on 05/08/16 06:20; Admin Dose 1 GM; Start 05/07/16 at 00:00 Aspirin (Aspirin) 325 mg DAILY PO Last administered on 05/07/16 11:12; Admin Dose 325 MG; Start 05/06/16 at 23:30 Acetaminophen 650 mg 650 mg Q3H PRN PO ELEVATED TEMPERATURE; Start 05/06/16 at 19:00 Magnesium Sulfate/ Dextrose (Magnesium Sulfate 1 Gm/D5W) 100 ml @ 100 mls/hr PRN PRN IVPB PENDING LAB VALUE; Start 05/06/16 at 19:00 Diagnostic Test (Pha) (Accucheck) 1 ea Q1H XX Last administered on 05/08/16 06: 54; Admin Dose 1 EA; Start 05/06/16 at 19:00 Dextrose (D50w Syringe) 25 ml Q15M PRN IV Till BS 80 mg/dL or above x2; Start 05/06/16 at 19:00 Dextrose (D50w Syringe) 50 ml Q15M PRN IV Till BS 80 mg/dL or above x2; Start 05/06/16 at 19:00 Docusate Sodium (Colace) 100 mg Q12 PO ; Start 05/07/16 at 21:00 Cephalexin 250 mg 250 mg Q8 PO Last administered on 05/08/16 06:21; Admin Dose 250 MG; Start 05/07/16 at 20:00; Stop 05/08/16 at 14:01 Potassium Chloride/Dextrose/ Sod Cl (D5-1/2ns + KCl 20 Meq) 1,000 ml @ 60 mls/ hr [id number] IV Last administered on 05/07/16 17:34; Admin Dose 60 MLS/HR; Start 05/07/16 at 17:30 JENNIFER BECERRIL May 08, 2016 07:23
[2016-05-08] MEDS: LISINOPRIL 20 MG TAB PO SCH (08:24)
[2016-05-08] MEDS: ASPIRIN 325 MG TAB PO SCH (08:25)
[2016-05-08] MEDS: DOCUSATE SODIUM 100 MG CAP PO SCH ×2 (08:25→21:24)
[2016-05-08] MEDS ORDERED: CEFEPIME 1GM/50 ML (PMX) 50 ML IVPB SCH (09:00)
--- NOTE | 2016-05-08 09:41 | PN ---
Date/Time of Note Date/Time of Note DATE: 05/08/16 TIME: 09:40 Assessment/Plan VTE Prophylaxis VTE Prophylaxis Intervention: heparin Lines/Catheters IV Catheter Type (from Nrs): [place] Brian Urinary Cath still in place: Yes Reason Cath still needed: other (indicate) Assessment/Plan Assessment/Plan 1. Acute ST elevation myocardial infarction s/p unsuccessful emergent Cath. 2. 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 Acute resp failure , vent dependent (post op) 4. Uncontrolled Diabetes: A1c: 8.7: improved 5. Dyslipidemia 6. Normocytic anemia 7. ATN with acute renal insufficiency: worsening 8. s/p Intra-aortic balloon pump Placement 9. Low grade fever PLAN Continue ICU post op care and support Cruz cultures / empiric abx Pain control with oral and IV meds / stool softeners Continue vent mgt / appreciate pulm input Intraaortic balloon pump mgt per CTS Appreciate cardiology and CTS input Begin tube feeds / start SC lantus and wean off insulin drip Statin therapy when appropriate Nephrology consult / strict Is and Os Cont current medical mgmt and supportive care PROPHYLAXIS: SCDs / heparin / IV protonix CRITICAL CARE TIME: >35 mins Subjective 24 Hr Interval Summary Free Text/Dictation Patient seen and examined. Remains intubated and on balloon pump, but off sedation and off pressors Family thinks she might be in pain Exam/Review of Systems Vital Signs Vitals Vital Signs Date Time Temp Pulse Resp B/P Pulse Ox O2 Delivery O2 Flow Rate FiO2 05/08/16 09:15 72 12 151/33 98 05/08/16 09:00 99.2 05/08/16 05:22 30 05/06/16 08:00 Nasal Cannula 2.0 Intake and Output 05/07/16 05/07/16 05/08/16 15:00 23:00 07:00 Intake Total 661 ml 1284 ml 1053.0 ml Output Total 340 ml 547 ml 417 ml Balance 321 ml 737 ml 636.0 ml Exam Constitutional: alert, other (looks ) Head: normocephalic Eyes: PERRL ENMT: intubated Respiratory: diminished breath sounds, other (chest tubes to underwater seal, midline dressing clean and dry) Cardiovascular: regular rate and rhythm, No murmurs/extra sounds Gastrointestinal: bowel sounds, non-tender, soft Extremities: edema (non pitting in all 4 extremities) Neurological: lethargic Results Result Diagram: 05/08/16 0400 05/08/16 0400 Results 24 hrs Laboratory Tests Test 05/07/16 10:07 05/07/16 11:24 05/07/16 12:20 05/07/16 13:36 Bedside Glucose 121 122 115 104 Test 05/07/16 14:52 05/07/16 15:30 05/07/16 15:35 05/07/16 16:33 Bedside Glucose 139 148 128 Potassium Level 4.3 Test 05/07/16 17:42 05/07/16 18:19 05/07/16 19:42 05/07/16 20:08 Bedside Glucose 131 130 131 Potassium Level 4.5 Test 05/07/16 20:58 05/07/16 21:47 05/07/16 23:02 05/07/16 23:44 Bedside Glucose 134 123 124 138 Test 05/08/16 01:02 05/08/16 02:14 05/08/16 02:50 05/08/16 04:00 Bedside Glucose 136 136 148 Alanine Aminotransferase (ALT/SGPT) 38 Albumin 2.5 L Alkaline Phosphatase 42 Anion Gap 16 Aspartate Amino Transf (AST/SGOT) 91 H Basophils # 0.0 Basophils % 0.3 Blood Urea Nitrogen 28 H Calcium Level 8.6 Carbon Dioxide Level 20 L Chloride Level 114 H Creatinine 2.29 H Direct Bilirubin 0.00 Eosinophils # 0.1 Eosinophils % 0.8 Glucose Level 125 # Hematocrit 29.6 L Hemoglobin 9.9 L Indirect Bilirubin 0.6 Lymphocytes # 2.8 Lymphocytes % 17.4 Magnesium Level 2.1 Mean Corpuscular Hemoglobin 30.2 Mean Corpuscular Hemoglobin Concent 33.4 Mean Corpuscular Volume 90.2 Mean Platelet Volume 12.6 H Monocytes # 1.2 H Monocytes % 7.3 Neutrophils # 11.7 H Neutrophils % 73.7 Nucleated Red Blood Cells # 0.0 Nucleated Red Blood Cells % 0.1 H Phosphorus Level 4.3 Platelet Count 73 L Potassium Level 4.3 Red Blood Count 3.28 L Red Cell Distribution Width 14.9 H Sodium Level 146 H Total Bilirubin 0.6 Total Protein 4.4 L White Blood Count 15.9 #H Test 05/08/16 04:11 05/08/16 05:19 05/08/16 06:14 05/08/16 06:52 Bedside Glucose 127 114 107 118 Test 05/08/16 07:59 05/08/16 09:19 Bedside Glucose 129 119 Medications Medications Current Medications Acetaminophen (Tylenol Supp) 650 mg Q6H PRN [place] PAIN LEVEL 1-3 OR FEVER Last administered on 05/07/16 00:51; Admin Dose 650 MG; Start 05/04/16 at 10:00 Acetaminophen/ Hydrocodone Bitart ([place] (5/325)) 1 tab Q6H PRN PO MODERATE PAIN LEVEL 4-6 Last administered on 05/08/16 06:21; Admin Dose 1 TAB; Start 05/04 at 10:00 Acetaminophen/ Hydrocodone Bitart ([place] (5/325)) 2 tab Q6H PRN PO SEVERE PAIN LEVEL 7-10; Start 05/04/16 at 10:00 Morphine Sulfate (morphine) 2 mg Q4H PRN IV SEVERE PAIN LEVEL 7-10 Last administered on 05/08/16 02:45; Admin Dose 2 MG; Start 05/04/16 at 10:00 Magnesium Hydroxide (Milk Of Mag) 30 ml DAILY PRN PO CONSTIPATION; Start at 10:00 Bisacodyl (Dulcolax Supp) 10 mg DAILY PRN [place] CONSTIPATION; Start 05/04/16 at 10: 00 Pantoprazole (Protonix Iv) 40 mg DAILY@06 IV Last administered on 05/08/16 06: 20; Admin Dose 40 MG; Start 05/05/16 at 06:00 Nitroglycerin (Nitroglycerin (Sl Tab) 0.4 Mg) 1 tab Q5M PRN SL CHEST PAIN; Start 05/04/16 at 10:00 Miscellaneous Information 1 ea NOTE XX ; Start 05/04/16 at 18:30 Glucose (Glutose) 15 gm Q15M PRN PO DECREASED GLUCOSE; Start 05/04/16 at 18:30 Glucose (Glutose) 22.5 gm Q15M PRN PO DECREASED GLUCOSE; Start 05/04/16 at 18:30 Glucagon (Glucagen) 1 mg Q15M PRN IM DECREASED GLUCOSE; Start 05/04/16 at 18:30 Glucose (Glutose) 15 gm Q15M PRN BUCCAL DECREASED GLUCOSE; Start 05/04/16 at 18: 30 Carvedilol 12.5 mg 12.5 mg BID PO Last administered on 05/08/16 08:24; Admin Dose 12.5 MG; Start 05/05/16 at 21:00 Albumin Human 250 ml @ 500 mls/hr PRN PRN IV CVP< 8, OR SBP<90 Last administered on 05/07/16 02:12; Admin Dose 500 MLS/HR; Start 05/06/16 at 19:00 Hydromorphone HCl (Dilaudid) 0.2 mg Q15M PRN IV PAIN LEVEL 1-5; Start 05/06/16 at 19:00 Hydromorphone HCl (Dilaudid) 0.4 mg Q15M PRN IV PAIN LEVEL 6-10; Start 05/06/16 at 19:00 Hydromorphone HCl (Dilaudid) 0.2 mg Q1H PRN IV PAIN LEVEL 1-5; Start 05/06/16 at 19:00 Hydromorphone HCl (Dilaudid) 0.4 mg Q1H PRN IV PAIN LEVEL 6-10; Start 05/06/16 at 19:00 Oxycodone/ Acetaminophen (Percocet (5/ 325)) 1 tab Q3H PRN PO PAIN LEVEL 1-5; Start 05/06/16 at 19:00 Oxycodone/ Acetaminophen (Percocet (5/ 325)) 2 tab Q3H PRN PO PAIN LEVEL 6-10; Start 05/06/16 at 19:00 Ondansetron HCl (Zofran Inj) 4 mg Q6H PRN IV NAUSEA AND/OR VOMITING; Start 05/06 at 19:00 Sucralfate (Carafate Susp) 1 gm Q6 PO Last administered on 05/08/16 06:20; Admin Dose 1 GM; Start 05/07/16 at 00:00 Acetaminophen 650 mg 650 mg Q3H PRN PO ELEVATED TEMPERATURE; Start 05/06/16 at 19:00 Magnesium Sulfate/ Dextrose (Magnesium Sulfate 1 Gm/D5W) 100 ml @ 100 mls/hr PRN PRN IVPB PENDING LAB VALUE; Start 05/06/16 at 19:00 Diagnostic Test (Pha) (Accucheck) 1 ea Q1H XX Last administered on 3/8/17at 08: 00; Admin Dose 1 EA; Start 05/06/16 at 19:00 Dextrose (D50w Syringe) 25 ml Q15M PRN IV Till BS 80 mg/dL or above x2; Start 05/06/16 at 19:00 Dextrose (D50w Syringe) 50 ml Q15M PRN IV Till BS 80 mg/dL or above x2; Start 05/06/16 at 19:00 Docusate Sodium 100 mg 100 mg Q12 PO Last administered on 05/08/16 08:25; Admin Dose 100 MG; Start 05/07/16 at 21:00 Potassium Chloride/Dextrose/ Sod Cl 1,000 ml @ 60 mls/hr [id number] IV Last administered on 05/07/16 17:34; Admin Dose 60 MLS/HR; Start 05/07/16 at 17:30 Cefepime HCl (Maxipime 1gm/50 ml (Pmx)) 50 ml @ 100 mls/hr Q12 IVPB ; Start 05/08/16 at 09:00 Aspirin (Aspirin) 81 mg DAILY PO ; Start 05/09/16 at 09:00 Procedures Procedures PROCEDURE: Retroperitoneal US. CLINICAL INDICATION: Renal insufficiency TECHNIQUE: Multiple sonographic images of the kidneys and retroperitoneum were obtained. The images were reviewed on a PACS workstation. COMPARISON: No prior studies are available for comparison. FINDINGS: The kidneys are normal in size, contour, cortical thickness and cortical echogenicity. The right kidney measures 9.9 cm. The left kidney measures 9.2 cm. No kidney stones are visualized. There is no evidence for hydronephrosis. The urinary bladder is decompressed by a Michael catheter. RPTAT: AA IMPRESSION: Unremarkable retroperitoneal ultrasound. .Robel Karimi MD, MD Date Time Electronically viewed and signed by .Robel Karimi MD, MD on 05/08/2016 11: 35 .S/ PROCEDURE: XR Chest. CLINICAL INDICATION: Respiratory failure TECHNIQUE: A single AP view of the chest was obtained. COMPARISON: Chest x-ray dated 05/07/2016 FINDINGS: There are postoperative changes with sternotomy wires. The endotracheal tube tip is approximately 2.1 cm above the tejal. There is a Sheridan-Brian catheter from a right internal jugular approach with tip in the region of the right ventricular outflow tract. The tip of the enteric tube extends below the left diaphragm. There is a left chest tube and mediastinal drain in place. There is an intra-aortic balloon pump with radiopaque marker within the proximal portion of the descending thoracic aorta. Lung volumes are low. There is diffuse prominence of the interstitial markings. There is a small right pleural effusion. No pneumothorax is seen. The cardiomediastinal silhouette is mildly enlarged. Calcifications are seen within the aortic arch. The osseous structures are unremarkable. IMPRESSION: 1. Low lung volumes with mild interstitial edema and small right pleural effusion. Overall, no significant interval change. 2. Expected post cardiac surgery changes. 3. Mild cardiomegaly and aortic atherosclerosis. 4. Tubes and lines, as described above. RPTAT: .Salome Finch MD, Date Time Electronically viewed and signed by .Salome Finch MD, on 05/08/2016 07 :17 .JANICE FAYE May 08, 2016 09:40
[2016-05-08] MEDS: D5W-0.45 NACL + KCL 20 MEQ 1,000 ML IV SCH (09:58)
--- NOTE | 2016-05-08 11:35 | RADRPT ---
PROCEDURE: Retroperitoneal US. CLINICAL INDICATION: Renal insufficiency TECHNIQUE: Multiple sonographic images of the kidneys and retroperitoneum were obtained. The imag es were reviewed on a PACS workstation. COMPARISON: No prior studies are available for comparison. FINDINGS: The kidneys are normal in size, contour, cortical thickness and cortical echogenicity. The right kidney measures 9.9 cm. The left kidney measures 9.2 cm. No kidney stones are visualized. There is no evidence for hydronephrosis. The urinary bladder is decompressed by a Michael catheter. RPTAT: AA IMPRESSION: Unremarkable retroperitoneal ultrasound. .Robel Karimi MD, MD Date Time Electronically viewed and signed by .Robel Karimi MD, on 05/08/2016 11:35 .S/
[2016-05-08] MEDS: HYDROmorphONE 1 MG/ML SYG IV PRN ×2 (13:04→15:13)
[2016-05-08 15:34] LABS: PROTEIN URINE 32.7 mg/dl (0.0-9.9); PROTEIN/CREAT RATIO 0.56 RATIO
[2016-05-08] MEDS ORDERED: HYDROCODONE/APAP (5/325) TAB PO PRN (16:00)
[2016-05-08] MEDS: ACETAMINOPHEN 325 MG TAB PO SCH ×2 (16:11→21:29)
--- NOTE | 2016-05-08 16:51 | RADRPT ---
PROCEDURE: XR Chest. CLINICAL INDICATION: Shortness of breath. Chest pain. TECHNIQUE: Single frontal view. COMPARISON: 05/08/2016. 0553 hours. FINDINGS: The endotracheal tube, nasogastric tube, right internal jugular vein [place]-Brian catheter, intra-aorti c balloon pump, left chest tube, sternal wires, mediastinal clips, and mediastinal drains are all on ce again noted and appears satisfactory. Low lung volumes and pulmonary edema are unchanged. The heart is mildly enlarged. There is a small right pleural effusion, unchanged. There is no left pleural effusion. There is no pneumothorax. IMPRESSION: 1. No change from the prior study done earlier the same day. RPTAT: QQ .Fei Santana MD, MD Date Time Electronically viewed and signed by .Fei Santana MD, MD on 05/08/2016 16:51 .R/
[2016-05-08] MEDS ORDERED: ALBUMIN HUMAN 25% 100 ML ONE (18:53)
[2016-05-08] MEDS ORDERED: ALBUMIN HUMAN 25% 100 ML IV ONE (19:00)
[2016-05-08] MEDS ORDERED: DOPamine-D5W 1.6 MG/ML 250 ML ONE (19:29)
[2016-05-08] MEDS ORDERED: MILRINONE LACTATE 100 ML ONE (19:45)
[2016-05-08] MEDS ORDERED: CALCIUM GLUCONATE 10% 2 GM in SOD CHLORIDE 0.9% 100 ML IVPB ONE (20:00)
[2016-05-08] MEDS ORDERED: MAGNESIUM SULFATE 2 GM/50 ML 50 ML IVPB ONE (20:00)
[2016-05-08] MEDS: MILRINONE LACTATE 100 ML IV SCH (20:00)
[2016-05-08] MEDS ORDERED: DOPamine-D5W 1.6 MG/ML 250 ML IV SCH (20:00)
--- NOTE | 2016-05-08 20:24 | PN ---
Date/Time of Note Date/Time of Note DATE: 05/08/16 TIME: 20:13 Assessment/Plan Lines/Catheters IV Catheter Type (from Nrsg): [place] Brian Michael in Place (from Nrsg): Yes Assessment/Plan Chief Complaint/Hosp Course Impression: STEMI Multi-vessel coronary artery disease with left main involvement Chest pain resolved after IABP SP Urgent CABG Pt fully awake, follows command well moves all extremity to command CT with minimal output pt with low CI, SVO2 Dopamine and Milrinone started will check 2D Echo to RO Tamponade will supplement Mg and Ca pt with low UO and elevated Cr Levels will follow nephrology recc Family at tghe bedside above explained to them Problems: Subjective 24 Hr Interval Summary Awake , Intubated Subjective hx not possible: pt critical status Constitutional: no complaints Feeding: NPO Pain Control: mild Exam/Review of Systems Vital Signs Vitals Vital Signs Date Time Temp Pulse Resp B/P Pulse Ox O2 Delivery O2 Flow Rate FiO2 05/08/16 18:00 99.7 67 13 123/26 98 05/08/16 17:00 30 05/06/16 08:00 Nasal Cannula 2.0 Intake and Output 05/07/16 05/07/16 05/08/16 14:59 22:59 06:59 Intake Total 663 ml 1284 ml 1116.0 ml Output Total 353 ml 565 ml 319 ml Balance 310 ml 719 ml 797.0 ml Exam Neck: non-tender, supple Respiratory: clear to auscultation, normal air movement Cardiovascular: nl pulses, regular rate and rhythm Extremities: normal pulses Results Result Diagram: 05/08/1639905/08/16399 BEVERLEY NEGRETE MD May 08, 2016 20:24
[2016-05-08 20:47] LABS: ADD SCAN DIFF NO
[2016-05-08 20:48] LABS: ABNORMAL IP MESSAGE 1; BASOPHILS % 0.2 % (0.0-2.0); EOSINOPHILS # 0.2 10^3/ul (0.0-0.5); EOSINOPHILS % 1.1 % (0.0-7.0); HEMATOCRIT 27.3 % (37.0-47.0); HEMOGLOBIN 9.2 g/dl (12.0-16.0); LYMPHOCYTES # 2.8 10^3/ul (0.8-2.9); LYMPHOCYTES % 16.2 % (15.0-51.0); MEAN CORPUSCULAR HEMOGLOBIN 30.6 pg (29.0-33.0); MEAN CORPUSCULAR HGB CONC 33.7 g/dl (32.0-37.0); MEAN CORPUSCULAR VOLUME 90.7 fl (82.0-101.0); MEAN PLATELET VOLUME 12.7 fl (7.4-10.4); MONOCYTE # 1.3 10^3/ul (0.3-0.9); MONOCYTES % 7.5 % (0.0-11.0); NEUTROPHIL # 12.8 10^3/ul (1.6-7.5); NEUTROPHILS % 74.1 % (39.0-77.0); NUCLEATED RED BLOOD CELLS% 0.2 /100WBC (0.0-0.0); PLATELET COUNT 65 10^3/UL (140-415); RED BLOOD COUNT 3.01 10^6/ul (4.20-5.40); RED CELL DISTRIBUTION WIDTH 14.8 % (11.5-14.5); WHITE BLOOD COUNT 17.3 10^3/ul (4.8-10.8)
[2016-05-08] MEDS: INSULIN GLARGINE [LANtus] 3 ML PEN SC SCH (21:27)
[2016-05-08 22:07] LABS: POTASSIUM 3.9 mmol/L (3.5-5.1)
[2016-05-08 22:09] LABS: CREATININE 2.58 mg/dl (0.44-1.00)
[2016-05-08 22:10] LABS: CALCIUM 7.9 mg/dl (8.4-10.2); PHOSPHORUS 4.2 mg/dl (2.5-4.9)
--- NOTE | 2016-05-08 22:46 | CONS ---
DATE OF ADMISSION: 05/04/2016 DATE OF CONSULTATION: 05/08/2016 TYPE OF CONSULTATION: Nephrology. REFERRING PHYSICIAN: Mary Kay Rao MD REASON FOR CONSULTATION: Acute kidney injury. HISTORY OF PRESENT ILLNESS: This is a 75-year-old female who has a past medical history of uncontro lled diabetes mellitus, history of dyslipidemia, history of normocytic anemia who presented with an acute ST elevation myocardial infarction, status post unsuccessful emergent catheterization. The pa darren had multivessel obstructive coronary artery disease with left main involvement. She underwent emergent coronary artery bypass graft on 05/06/2016. Postoperatively, the patient remained intubat ed for acute respiratory failure. Thus she got admitted to the ICU, where slowly and gradually her creatinine has been improved to ____ today from an admission creatinine of 0.76. The patient's urin e output has also dropped. She went into acute tubular necrosis, and Renal has been consulted for a cute kidney injury and further workup of renal failure. At the time of my evaluation, the patient still remains intubated, on a ventilator. Her vital signs show blood pressure has been stable with multiple pressures. The patient is not able to provide an y detailed history due to the sedation, intubation. REVIEW OF SYSTEMS: Unable to obtain from the patient. Currently she is on ventilator, intubated an d sedated. PAST MEDICAL HISTORY: Notable for hypertension, hyperlipidemia, history of chronic anemia. Possibl e history of chronic kidney disease. PAST SURGICAL HISTORY: Not available. SOCIAL HISTORY: As per the nursing chart and the other chart review, no smoking, alcohol, recreatio nal drug use. FAMILY HISTORY: Noncontributory. PHYSICAL EXAMINATION: VITAL SIGNS: Temperature 99.7, heart rate 67, respirations 13, blood pressure 123/26, saturation is 98% on FIO2 of 50%. GENERAL: The patient is currently sedated, unresponsive. HEENT: ET tube in place. NECK: No jugular venous distention. LUNGS: Bilateral coarse breath sounds. HEART: S1, S2, tachycardia. No murmur. ABDOMEN: Soft, nontender, nondistended. EXTREMITIES: 1+ to 2+ pitting edema. Michael catheter in place. NEUROLOGICAL: Uncooperative due to the sedation. PSYCHIATRIC: Not able to assess. SKIN: No rash. LABORATORY DATA AND DIAGNOSTIC IMAGIN. Sodium 146, potassium 4.3, chloride 114, bicarbonate 20, BUN 28, creatinine 2.2, glucose 125, ca lcium 8.6. LFTs are normal. Albumin 2.5. Prothrombin time 17.5, PTT 36.3, INR 1.43. 2. WBC 17.3, hemoglobin 9.2, platelet count is 65. Urinalysis shows urine total protein is 32.7. 3. ABGs: pH 7.41, pCO2 29, pO2 96, bicarbonate 18.2. 4. Chest x-ray, 1 view portable, done today a.m. shows small right pleural effusions. Heart is mil dly enlarged. No left pleural effusions. Low lung volumes and pulmonary edema. IMPRESSION: This is a 75-year-old female who presented with acute ST myocardial infarctions, now st atus post emergent coronary artery bypass graft on 05/06/2016. The patient presented with a normal creatinine of 0.6, and her creatinine bumped up to 2.2 with a drop in her urine outputs. Renal has been consulted for: 1. Acute kidney injury, oliguric, likely secondary to acute tubular necrosis from ischemic acute tu bular necrosis in the setting of ST elevation myocardial infarction. 2. Acute ST elevation myocardial infarction, status post unsuccessful emergent catheterization whic h shows multivessel obstructive coronary artery disease with left main involvement, status post sami nary artery bypass graft on 05/06/2016, postoperative day 2. 3. Acute respiratory failure, ventilator dependent. 4. Uncontrolled diabetes mellitus with hemoglobin A1c 8.7. 5. Dyslipidemia. 6. Normocytic anemia. 7. Status post intra-aortic balloon pump placement. Plan: Thank you, Dr. Rao, for this consultation. I will give the patient's albumin with NS bolus f ollowed by Lasix 40 mg IV x1 due to significant drop in the urine output. The patient's bicarbonate level is also 18. She remains intubated. I will order some urine studies including a urine sodium , urine protein/creatinine ratio, urine eosinophils, CK total, uric acid. Renal ultrasound also has been ordered to assess kidney size and to rule out hydronephrosis. Continue the current care as per Cardiology and Cardiothoracic Surgery. I will continue to follow t his patient for her acute renal failure, and we will decide for further plan for depending on the allie banks's course in the hospital and depending on her response to the fluid challenge followed by Lasi x today. Once again, thank you, Dr. Rao, for this consultation. Total time spent in this patient's evaluatio ns, making assessment and plan, communicating with patient/family at bedside and communicating with the nursing staff took more than 90 minutes. Dictated By: JIM WHITE MD, KP/ROLF Conf#: [id number] DID#: [id number]
[2016-05-08 23:10] LABS: INR 1.57; PROTIME 18.9 Sec (12.2-14.2); PT RATIO 1.5
[2016-05-08 23:11] LABS: PARTIAL THROMBOPLASTIN TIME 45.2 Sec (25.0-35.0)
[2016-05-09] VITALS (105 sets, daily range): BP systolic 72–119; BP diastolic 27–54; PULSE 71–87; RESP 0–30; TEMP 98.4–100
[2016-05-09] MEDS: ACCUCHECK XX SCH ×24 (00:13→22:58)
[2016-05-09] MEDS: SUCRALFATE (100 MG/ML) 10ML CUP PO SCH ×4 (00:15→18:02)
[2016-05-09] MEDS: HYDROCODONE/APAP (5/325) TAB PO PRN (00:39)
[2016-05-09] MEDS: D5W-0.45 NACL + KCL 20 MEQ 1,000 ML IV SCH (02:40)
[2016-05-09] MEDS: ACETAMINOPHEN 325 MG TAB PO SCH ×4 (03:46→21:33)
[2016-05-09] MEDS: PANTOPRAZOLE 40 MG INJ IV SCH (05:51)
[2016-05-09 05:52] LABS: ADD SCAN DIFF NO
[2016-05-09 05:58] LABS: ABNORMAL IP MESSAGE 1; BASOPHILS % 0.2 % (0.0-2.0); EOSINOPHILS # 0.1 10^3/ul (0.0-0.5); EOSINOPHILS % 0.8 % (0.0-7.0); HEMATOCRIT 27.3 % (37.0-47.0); HEMOGLOBIN 9.1 g/dl (12.0-16.0); LYMPHOCYTES # 2.2 10^3/ul (0.8-2.9); LYMPHOCYTES % 12.8 % (15.0-51.0); MEAN CORPUSCULAR HEMOGLOBIN 30.7 pg (29.0-33.0); MEAN CORPUSCULAR HGB CONC 33.3 g/dl (32.0-37.0); MEAN CORPUSCULAR VOLUME 92.2 fl (82.0-101.0); MEAN PLATELET VOLUME 12.6 fl (7.4-10.4); MONOCYTE # 0.9 10^3/ul (0.3-0.9); MONOCYTES % 5.4 % (0.0-11.0); NEUTROPHIL # 13.6 10^3/ul (1.6-7.5); NUCLEATED RED BLOOD CELLS% 0.1 /100WBC (0.0-0.0); PLATELET COUNT 66 10^3/UL (140-415); RED BLOOD COUNT 2.96 10^6/ul (4.20-5.40); RED CELL DISTRIBUTION WIDTH 14.6 % (11.5-14.5)
[2016-05-09] MEDS: INSULIN REGULAR, HUMAN 100 UNIT in SOD CHLORIDE 0.9% 99 ML IV SCH ×2 (06:14)
[2016-05-09] MEDS: MILRINONE LACTATE 100 ML IV SCH ×2 (06:15→22:52)
[2016-05-09 06:50] LABS: POTASSIUM 3.7 mmol/L (3.5-5.1)
[2016-05-09 06:53] LABS: CALCIUM 8.3 mg/dl (8.4-10.2); CREATININE 2.77 mg/dl (0.44-1.00)
--- NOTE | 2016-05-09 07:18 | PN ---
DATE: 05/08/2016 Cardiology followup progress note on behalf of SUBJECTIVE: The patient remains intubated on the vent, balloon pump. . Blo od pressure has remained stable. PA pressure has remained stable. Discussed with the daughter franci reis, discussed with the staff in the ICU. MEDICATIONS: Reviewed, which include: 1. Cefepime 2. Docusate 3. Aspirin. 4. Coreg. 5. Lisinopril. 6. has been given p.r.n. PHYSICAL EXAMINATION: VITAL SIGNS: Temperature 99.9, heart rate of 72, blood pressure 148/ respiratory rate of 15. HEENT: Normocephalic, atraumatic. Status post intubation on the vent. CHEST: Status post sternotomy, status post chest tube in place. CARDIOVASCULAR: Regular rate and rhythm, systolic murmur. PULMONARY: With no wheezes anteriorly. GASTROINTESTINAL: Soft. EXTREMITIES: Status post balloon pump in place, otherwise no significant edema. NEUROLOGIC: Awake, responds appropriately. PSYCHIATRIC: Appeared to be calm and pleasant. DIAGNOSTIC DATA: Chest x-ray shows low lung volume, edema. LABORATORY: Showed WBC of 15.9, hemoglobin 9.9, platelets of 73,000. Sodium 146, potassium 4.3, BU N of 28, creatinine 2.29, glucose of 125. ASSESSMENT AND PLAN: 1. ST elevation myocardial infarction. 2. Status post coronary artery bypass graft. 3. Acute renal failure. 4. Hypoxemic respiratory failure, status post intubation, on the vent. 5. Diabetes, on insulin drip. 6. Hypertension, under control. 7. Dyslipidemia. RECOMMENDATIONS: Diabetic management as per internal medicine. Because of her thrombocytopenia, I will decrease the dose of aspirin to only 81 mg. I would also discontinue the JESICA inhibitor, given her acute renal failure. Intraaortic balloon pump to be removed today if okay with CT surgery. Con tinue with the ICU care. More than 40 minutes of critical care time was spent managing this patient, excluding any procedures . Dictated By: NENA LIND/ROLF Conf#: [id number] DID#: [id number] CC: JANICE RIVERA MD;*[facility]*
--- NOTE | 2016-05-09 07:57 | RADRPT ---
Echocardiogram Report Patient Name: EVITA VASQUEZ Gender: Female Date: 1940 Study Date: 08-May-2016 Acoustical Carpenter: Andrez Jade RDCS Location: 103 Ref. Physician: BEVERLEY NEGRETE Quality: Adequate Procedures: Transthoracic echocardiogram with complete 2D, M-Mode, and doppler examination. Indications: Pericardial Effusion. 2D/M Mode Doppler Measurement Value Normal Ranges Measurement Value Normal Ranges LVIDd 2D 4.2 3.5 - 5.6 cm AV Peak Bud 1.5 m/sec LVIDs 2D 2.1 2.1 - 4.1 cm AV Peak PG 9.0 mmHg FS 2D 50.6 % LVOT Peak Bud 1.2 m/sec LVPWd 2D 1.0 0.6 - 1.1 cm LVOT Peak PG 6.0 mmHg IVSd 2D 1.0 0.6 - 1.1 cm MV E Peak Bud 0.7 m/sec IVS/LVPW 2D 1.0 MV A Peak Bud 0.8 m/sec AoR Diam 2D 2.2 2.0 - 3.7 cm MV E/A 0.9 LA/Ao 2D 1 0 - 1 MV Decel Time 173 msec EDV 2D 74.6 cm3 MV E/A 0.9 ESV 2D 9.0 cm3 TR Peak Bud 1.6 m/sec LA Dimen 2D 2.8 2.3 - 4.0 cm TR Peak PG 10.0 mmHg RVSP 18.0 mmHg Findings Left Ventricle: Normal left ventricular systolic function. Normal left ventricular cavity size. Ejection fraction is visually estimated at 55 - 60 %. Tissue Doppler/Mitral Doppler indices are consistent with impaired relaxation (Stage I diastolic dysfunction). Right Ventricle: Normal right ventricular size. Normal right ventricular systolic function. Left Atrium: The left atrium is normal in size. Right Atrium: The right atrium is normal in size. Mitral Valve: Normal appearance of the mitral valve. Mild mitral annular calcification. Trace mitral regurgitation. Aortic Valve: Normal appearance of the aortic valve. No significant aortic stenosis or insufficiency. Tricuspid Valve: Normal appearance of the tricuspid valve. Estimated peak PA systolic pressure 18 mmHg. There is trace tricuspid regurgitation. Pulmonic Valve: Pulmonic valve not well visualized. Pericardium: Trivial pericardial effusion. Aorta: Normal aortic root. IVC: Inferior vena cava without respiratory collapse, however, patient on ventilator. Conclusions 1.Normal left ventricular systolic function. Normal left ventricular cavity size. Ejection fraction is visually estimated at 55 - 60 % with IABP. Tissue Doppler/Mitral Doppler indices are consistent with impaired relaxation (Stage I diastolic dysfunction). 2.Normal appearance of the mitral valve. Mild mitral annular calcification. Trace mitral regurgitation. 3.Normal appearance of the aortic valve. No significant aortic stenosis or insufficiency. 4.Normal appearance of the tricuspid valve. Estimated peak PA systolic pressure 18 mmHg. There is trace tricuspid regurgitation. 5.Inferior vena cava without respiratory collapse, however, patient on ventilator. 6.Trivial pericardial effusion. Electronically Signed By: Hood Giron 09-May-2016 07:57:24 -0800 Patient Name: EVITA VASQUEZ Study Date: 08-May-2016 [id number]
[2016-05-09] MEDS ORDERED: ASPIRIN 325 MG TAB PO SCH (09:00)
--- NOTE | 2016-05-09 09:03 | CONS ---
Date/Time of Note Date/Time of Note DATE: 05/09/16 TIME: 09:00 Assessment/Plan Assessment/Plan Additional Assessment/Plan Chest x-ray from today is pending. Ventilator settings; AC of 12, tidal volume 500, PEEP of 5, 50% FiO2. Assessment and recommendations; 1. Patient admitted with acute IA underwent CABG surgery. 2. Hypotension due to CHF. 3. Worsening renal function. Likely from renal hypoperfusion. 4. Leukocytosis, possibly superimposed pneumonia. 5. Hypotension, requiring dopamine drip. 6. Poor urine output. 7. Thrombocytopenia without any further drop in reticulocyte count, no overt bleed noted. Patient maintaining stable hematocrit. Continue current supportive care. Chest x-ray is pending moderate is done I will review it and make further recommendations. Prognosis is guarded. I did have a detailed discussion the patient's daughter at bedside and answered all her questions. Consultation Date/Type/Reason Admit Date/Time May 04, 2016 at 08:40 Initial Consult Date 05/07/16 Type of Consultation: Pulmonary/critical care 24 HR Interval Summary Free Text/Dictation Patient's condition remains critical. Still requiring full ventilator support, intra-aortic balloon pump. Patient also became hypotensive last night and had to be given a fluid bolus and started on dopamine drip. General exam; elderly woman, orally intubated, awake and alert. Currently in no distress. Exam/Review of Systems Vital Signs Vitals Vital Signs Date Time Temp Pulse Resp B/P Pulse Ox O2 Delivery O2 Flow Rate FiO2 05/09/16 08:30 75 15 99/35 98 05/09/16 08:00 98.6 05/09/16 05:25 50 05/06/16 08:00 Nasal Cannula 2.0 Intake and Output 05/08/16 05/08/16 05/09/16 15:00 23:00 07:00 Intake Total 704 ml 2074.6 ml 718.3 ml Output Total 305 ml 308 ml 387 ml Balance 399 ml 1766.6 ml 331.3 ml Exam HEENT examination; supple neck, positive JVD. No lymphadenopathy. Midline trachea. No thyromegaly. Pupils are small bilaterally. No neck masses. Orally intubated. Chest examination; diminished breath sound bilaterally. S1-S2 audible, no murmurs. Regular rhythm. Abdomen examination; soft, nondistended. No organomegaly. Bowel sounds audible. Nontender. Extremity examination; no peripheral edema. Pulses 1+ bilaterally. [employer] examination; no focal deficit. Results Result Diagram: 05/09/16 0500 05/09/16 0500 Results 24 hrs Laboratory Tests Test 05/08/16 09:19 05/08/16 10:15 05/08/16 11:15 05/08/16 11:30 Bedside Glucose 119 122 124 Urine Eosinophils % 0.0 Urine Protein/Creatinine Ratio 0.56 Urine Random Creatinine 58.11 Urine Random Sodium 47 Urine Total Protein 32.7 H Test 05/08/16 11:59 05/08/16 13:59 05/08/16 16:00 05/08/16 17:20 Bedside Glucose 111 120 148 129 Test 05/08/16 18:05 05/08/16 19:05 05/08/16 19:54 05/08/16 20:42 Bedside Glucose 123 154 122 Activated Partial Thromboplast Time 45.2 H Anion Gap 16 Basophils # 0.0 Basophils % 0.2 Blood Urea Nitrogen 34 H Calcium Level 7.9 L Carbon Dioxide Level 17 L Chloride Level 111 H Creatinine 2.58 H Eosinophils # 0.2 Eosinophils % 1.1 Glucose Level 134 Hematocrit 27.3 L Hemoglobin 9.2 L INR International Normalized Ratio 1.57 Lymphocytes # 2.8 Lymphocytes % 16.2 Magnesium Level 2.0 Mean Corpuscular Hemoglobin 30.6 Mean Corpuscular Hemoglobin Concent 33.7 Mean Corpuscular Volume 90.7 Mean Platelet Volume 12.7 H Monocytes # 1.3 H Monocytes % 7.5 Neutrophils # 12.8 H Neutrophils % 74.1 Nucleated Red Blood Cells # 0.0 Nucleated Red Blood Cells % 0.2 H Phosphorus Level 4.2 Platelet Count 65 L Potassium Level 3.9 Prothrombin Time 18.9 H Prothrombin Time Ratio 1.5 Red Blood Count 3.01 L Red Cell Distribution Width 14.8 H Sodium Level 140 White Blood Count 17.3 H Test 05/08/16 21:06 05/08/16 22:14 05/08/16 23:07 05/09/16 00:13 Bedside Glucose 129 144 137 166 Test 05/09/16 01:20 05/09/16 02:05 05/09/16 03:27 05/09/16 04:10 Bedside Glucose 160 148 183 208 Test 05/09/16 05:00 05/09/16 05:02 05/09/16 05:55 05/09/16 07:00 Anion Gap 17 H Basophils # 0.0 Basophils % 0.2 Blood Urea Nitrogen 36 H Calcium Level 8.3 L Carbon Dioxide Level 17 L Chloride Level 111 H Creatinine 2.77 H Eosinophils # 0.1 Eosinophils % 0.8 Glucose Level 171 Hematocrit 27.3 L Hemoglobin 9.1 L Lymphocytes # 2.2 Lymphocytes % 12.8 L Magnesium Level 2.8 H Mean Corpuscular Hemoglobin 30.7 Mean Corpuscular Hemoglobin Concent 33.3 Mean Corpuscular Volume 92.2 Mean Platelet Volume 12.6 H Monocytes # 0.9 Monocytes % 5.4 Neutrophils # 13.6 H Neutrophils % 80.0 H Nucleated Red Blood Cells # 0.0 Nucleated Red Blood Cells % 0.1 H Platelet Count 66 L Potassium Level 3.7 Red Blood Count 2.96 L Red Cell Distribution Width 14.6 H Sodium Level 141 White Blood Count 17.0 H Bedside Glucose 174 162 147 Test 05/09/16 08:02 Bedside Glucose 138 Medications Medications Current Medications Acetaminophen (Tylenol Supp) 650 mg Q6H PRN [place] PAIN LEVEL 1-3 OR FEVER Last administered on 05/07/16 00:51; Admin Dose 650 MG; Start 05/04/16 at 10:00 Acetaminophen/ Hydrocodone Bitart ([place] (5/325)) 1 tab Q6H PRN PO MODERATE PAIN LEVEL 4-6 Last administered on 05/09/16 00:39; Admin Dose 1 TAB; Start 05/04 at 10:00 Acetaminophen/ Hydrocodone Bitart ([place] (5/325)) 2 tab Q6H PRN PO SEVERE PAIN LEVEL 7-10; Start 05/04/16 at 10:00 Morphine Sulfate (morphine) 2 mg Q4H PRN IV SEVERE PAIN LEVEL 7-10 Last administered on 05/08/16 02:45; Admin Dose 2 MG; Start 05/04/16 at 10:00 Magnesium Hydroxide (Milk Of Mag) 30 ml DAILY PRN PO CONSTIPATION; Start at 10:00 Bisacodyl (Dulcolax Supp) 10 mg DAILY PRN [place] CONSTIPATION; Start 05/04/16 at 10: 00 Pantoprazole (Protonix Iv) 40 mg DAILY@06 IV Last administered on 05/09/16 05: 51; Admin Dose 40 MG; Start 05/05/16 at 06:00 Nitroglycerin (Nitroglycerin (Sl Tab) 0.4 Mg) 1 tab Q5M PRN SL CHEST PAIN; Start 05/04/16 at 10:00 Miscellaneous Information 1 ea NOTE XX ; Start 05/04/16 at 18:30 Glucose (Glutose) 15 gm Q15M PRN PO DECREASED GLUCOSE; Start 05/04/16 at 18:30 Glucose (Glutose) 22.5 gm Q15M PRN PO DECREASED GLUCOSE; Start 05/04/16 at 18:30 Glucagon (Glucagen) 1 mg Q15M PRN IM DECREASED GLUCOSE; Start 05/04/16 at 18:30 Glucose (Glutose) 15 gm Q15M PRN BUCCAL DECREASED GLUCOSE; Start 05/04/16 at 18: 30 Carvedilol 12.5 mg 12.5 mg BID PO Last administered on 05/08/16 08:24; Admin Dose 12.5 MG; Start 05/05/16 at 21:00 Albumin Human 250 ml @ 500 mls/hr PRN PRN IV CVP< 8, OR SBP<90 Last administered on 05/07/16 02:12; Admin Dose 500 MLS/HR; Start 05/06/16 at 19:00 Hydromorphone HCl (Dilaudid) 0.2 mg Q15M PRN IV PAIN LEVEL 1-5 Last administered on 05/08/16 15:13; Admin Dose 0.2 MG; Start 05/06/16 at 19:00 Hydromorphone HCl (Dilaudid) 0.4 mg Q15M PRN IV PAIN LEVEL 6-10; Start 05/06/16 at 19:00 Hydromorphone HCl (Dilaudid) 0.2 mg Q1H PRN IV PAIN LEVEL 1-5; Start 05/06/16 at 19:00 Hydromorphone HCl (Dilaudid) 0.4 mg Q1H PRN IV PAIN LEVEL 6-10; Start 05/06/16 at 19:00 Oxycodone/ Acetaminophen (Percocet (5/ 325)) 1 tab Q3H PRN PO PAIN LEVEL 1-5; Start 05/06/16 at 19:00 Oxycodone/ Acetaminophen (Percocet (5/ 325)) 2 tab Q3H PRN PO PAIN LEVEL 6-10; Start 05/06/16 at 19:00 Ondansetron HCl (Zofran Inj) 4 mg Q6H PRN IV NAUSEA AND/OR VOMITING; Start 05/06 at 19:00 Sucralfate (Carafate Susp) 1 gm Q6 PO Last administered on 05/09/16 05:51; Admin Dose 1 GM; Start 05/07/16 at 00:00 Acetaminophen 650 mg 650 mg Q3H PRN PO ELEVATED TEMPERATURE; Start 05/06/16 at 19:00 Magnesium Sulfate/ Dextrose (Magnesium Sulfate 1 Gm/D5W) 100 ml @ 100 mls/hr PRN PRN IVPB PENDING LAB VALUE; Start 05/06/16 at 19:00 Diagnostic Test (Pha) (Accucheck) 1 ea Q1H XX Last administered on 05/09/16 08: 03; Admin Dose 1 EA; Start 05/06/16 at 19:00 Dextrose (D50w Syringe) 25 ml Q15M PRN IV Till BS 80 mg/dL or above x2; Start 05/06/16 at 19:00 Dextrose (D50w Syringe) 50 ml Q15M PRN IV Till BS 80 mg/dL or above x2; Start 05/06/16 at 19:00 Docusate Sodium 100 mg 100 mg Q12 PO Last administered on 05/08/16 21:24; Admin Dose 100 MG; Start 05/07/16 at 21:00 Potassium Chloride/Dextrose/ Sod Cl (D5-1/2ns + KCl 20 Meq) 1,000 ml @ 60 mls/ hr [id number] IV Last administered on 05/09/16 02:40; Admin Dose 60 MLS/HR; Start 05/07/16 at 17:30 Aspirin 81 mg 81 mg DAILY PO ; Start 05/09/16 at 09:00 Cefepime HCl (Maxipime 1gm/50 ml (Pmx)) 50 ml @ 100 mls/hr Q24H IVPB ; Start at 09:00 Insulin Glargine (Lantus) 20 unit DAILY@20 SC Last administered on 05/08/16 21: 27; Admin Dose 20 UNIT; Start 05/08/16 at 20:00 Acetaminophen/ Hydrocodone Bitart ([place] (5/325)) 1 tab Q4H PRN PO pain; Start 05/08/16 at 16:00 Acetaminophen (Tylenol Tab) 650 mg Q6H PRN PO PAIN AND OR ELEVATED TEMP; Start 05/09/16 at 16:00 Acetaminophen 650 mg 650 mg Q6H PO Last administered on 05/09/16 03:46; Admin Dose 650 MG; Start 05/08/16 at 16:00 Milrinone Lactate 100 ml @ 5.873 mls/ hr TITRATE IV Last administered on 06:15; Admin Dose 7.83 MLS/HR; Start 05/08/16 at 20:00 Dopamine HCl/ Dextrose 250 ml @ 3.915 mls/ hr TITRATE IV Last administered on 05/08/16 19:30; Admin Dose 9.788 MLS/HR; Start 05/08/16 at 20:00 JENNIFER BECERRIL May 09, 2016 09:03
[2016-05-09 09:22] LABS: Allen Test ACCEPTAB; Arterial Base Excess -9.2 mmol/L (-3.0-3); Arterial COHb 0.2 % (0.0-3.0); Arterial Fraction of Oxyhgb 94.5 % (93.0-99.0); Arterial HCO3 14.1 mmol/L (22.0-26.0); Arterial MetHb 0.5 % (0.0-1.5); Arterial Total Hemglobin 9.6 g/dl (12.0-18.0); MODE VENT - AC
--- NOTE | 2016-05-09 09:23 | PN ---
Date/Time of Note Date/Time of Note DATE: 05/09/16 TIME: 09:19 Assessment/Plan VTE Prophylaxis VTE Prophylaxis Intervention: heparin Lines/Catheters IV [facility] Brian Urinary Cath still in place: Yes Assessment/Plan Assessment/Plan 1. Acute ST elevation myocardial infarction s/p unsuccessful emergent Cath 2. 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 Acute resp failure , vent dependent (post op) 4. Uncontrolled Diabetes: A1c: 8.7: improved 5. Dyslipidemia 6. Normocytic anemia 7. ATN with acute renal insufficiency: still in injury phase 8. s/p Intra-aortic balloon pump Placement 9. Low grade fever PLAN Continue ICU post op care and support F/u Cruz cultures / empiric abx Pain control with oral and IV meds / stool softeners Continue vent mgt / appreciate pulm input Intraaortic balloon pump mgt per CTS Appreciate cardiology and CTS input Continue tube feeds / SC lantus / wean insulin drip Statin therapy when appropriate Appreciate Nephrology consult / strict Is and Os Cont current medical mgmt and supportive care PROPHYLAXIS: SCDs / heparin / IV protonix CRITICAL CARE TIME: >35 mins Subjective 24 Hr Interval Summary Free Text/Dictation * Patient seen and examined. * Intubated * failed balloon pump weaning yesterday Exam/Review of Systems Vital Signs Vitals Vital Signs Date Time Temp Pulse Resp B/P Pulse Ox O2 Delivery O2 Flow Rate FiO2 05/09/16 08:30 75 15 99/35 98 05/09/16 08:00 98.6 05/09/16 05:25 50 05/06/16 08:00 Nasal Cannula 2.0 Intake and Output 05/08/16 05/08/16 05/09/16 15:00 23:00 07:00 Intake Total 704 ml 2074.6 ml 718.3 ml Output Total 305 ml 308 ml 387 ml Balance 399 ml 1766.6 ml 331.3 ml Exam Constitutional: alert, other (looks comfortable ) Head: normocephalic Eyes: PERRL ENMT: intubated Respiratory: diminished breath sounds, other (chest tubes to underwater seal, midline dressing clean and dry) Cardiovascular: regular rate and rhythm, No murmurs/extra sounds Gastrointestinal: bowel sounds, non-tender, soft Extremities: edema (non pitting in all 4 extremities) Neurological: lethargic Results Result Diagram: 05/09/16 0500 05/09/16 0500 Results 24 hrs Laboratory Tests Test 05/08/16 10:15 05/08/16 11:15 05/08/16 11:30 05/08/16 11:59 Bedside Glucose 122 124 111 Urine Eosinophils % 0.0 Urine Protein/Creatinine Ratio 0.56 Urine Random Creatinine 58.11 Urine Random Sodium 47 Urine Total Protein 32.7 H Test 05/08/16 13:59 05/08/16 16:00 05/08/16 17:20 05/08/16 18:05 Bedside Glucose 120 148 129 123 Test 05/08/16 19:05 05/08/16 19:54 05/08/16 20:42 05/08/16 21:06 Bedside Glucose 154 122 129 Activated Partial Thromboplast Time 45.2 H Anion Gap 16 Basophils # 0.0 Basophils % 0.2 Blood Urea Nitrogen 34 H Calcium Level 7.9 L Carbon Dioxide Level 17 L Chloride Level 111 H Creatinine 2.58 H Eosinophils # 0.2 Eosinophils % 1.1 Glucose Level 134 Hematocrit 27.3 L Hemoglobin 9.2 L INR International Normalized Ratio 1.57 Lymphocytes # 2.8 Lymphocytes % 16.2 Magnesium Level 2.0 Mean Corpuscular Hemoglobin 30.6 Mean Corpuscular Hemoglobin Concent 33.7 Mean Corpuscular Volume 90.7 Mean Platelet Volume 12.7 H Monocytes # 1.3 H Monocytes % 7.5 Neutrophils # 12.8 H Neutrophils % 74.1 Nucleated Red Blood Cells # 0.0 Nucleated Red Blood Cells % 0.2 H Phosphorus Level 4.2 Platelet Count 65 L Potassium Level 3.9 Prothrombin Time 18.9 H Prothrombin Time Ratio 1.5 Red Blood Count 3.01 L Red Cell Distribution Width 14.8 H Sodium Level 140 White Blood Count 17.3 H Test 05/08/16 22:14 05/08/16 23:07 05/09/16 00:13 05/09/16 01:20 Bedside Glucose 144 137 166 160 Test 05/09/16 02:05 05/09/16 03:27 05/09/16 04:10 05/09/16 05:00 Bedside Glucose 148 183 208 Anion Gap 17 H Basophils # 0.0 Basophils % 0.2 Blood Urea Nitrogen 36 H Calcium Level 8.3 L Carbon Dioxide Level 17 L Chloride Level 111 H Creatinine 2.77 H Eosinophils # 0.1 Eosinophils % 0.8 Glucose Level 171 Hematocrit 27.3 L Hemoglobin 9.1 L Lymphocytes # 2.2 Lymphocytes % 12.8 L Magnesium Level 2.8 H Mean Corpuscular Hemoglobin 30.7 Mean Corpuscular Hemoglobin Concent 33.3 Mean Corpuscular Volume 92.2 Mean Platelet Volume 12.6 H Monocytes # 0.9 Monocytes % 5.4 Neutrophils # 13.6 H Neutrophils % 80.0 H Nucleated Red Blood Cells # 0.0 Nucleated Red Blood Cells % 0.1 H Platelet Count 66 L Potassium Level 3.7 Red Blood Count 2.96 L Red Cell Distribution Width 14.6 H Sodium Level 141 White Blood Count 17.0 H Test 05/09/16 05:02 05/09/16 05:55 05/09/16 07:00 05/09/16 08:02 Bedside Glucose 174 162 147 138 Medications Medications Current Medications Acetaminophen (Tylenol Supp) 650 mg Q6H PRN [place] PAIN LEVEL 1-3 OR FEVER Last administered on 05/07/16 00:51; Admin Dose 650 MG; Start 05/04/16 at 10:00 Acetaminophen/ Hydrocodone Bitart ([place] (5/325)) 1 tab Q6H PRN PO MODERATE PAIN LEVEL 4-6 Last administered on 05/09/16 00:39; Admin Dose 1 TAB; Start 05/04 at 10:00 Acetaminophen/ Hydrocodone Bitart ([place] (5/325)) 2 tab Q6H PRN PO SEVERE PAIN LEVEL 7-10; Start 05/04/16 at 10:00 Morphine Sulfate (morphine) 2 mg Q4H PRN IV SEVERE PAIN LEVEL 7-10 Last administered on 05/08/16 02:45; Admin Dose 2 MG; Start 05/04/16 at 10:00 Magnesium Hydroxide (Milk Of Mag) 30 ml DAILY PRN PO CONSTIPATION; Start at 10:00 Bisacodyl (Dulcolax Supp) 10 mg DAILY PRN [place] CONSTIPATION; Start 05/04/16 at 10: 00 Pantoprazole (Protonix Iv) 40 mg DAILY@06 IV Last administered on 05/09/16 05: 51; Admin Dose 40 MG; Start 05/05/16 at 06:00 Nitroglycerin (Nitroglycerin (Sl Tab) 0.4 Mg) 1 tab Q5M PRN SL CHEST PAIN; Start 05/04/16 at 10:00 Miscellaneous Information 1 ea NOTE XX ; Start 05/04/16 at 18:30 Glucose (Glutose) 15 gm Q15M PRN PO DECREASED GLUCOSE; Start 05/04/16 at 18:30 Glucose (Glutose) 22.5 gm Q15M PRN PO DECREASED GLUCOSE; Start 05/04/16 at 18:30 Glucagon (Glucagen) 1 mg Q15M PRN IM DECREASED GLUCOSE; Start 05/04/16 at 18:30 Glucose (Glutose) 15 gm Q15M PRN BUCCAL DECREASED GLUCOSE; Start 05/04/16 at 18: 30 Carvedilol 12.5 mg 12.5 mg BID PO Last administered on 05/08/16 08:24; Admin Dose 12.5 MG; Start 05/05/16 at 21:00 Albumin Human 250 ml @ 500 mls/hr PRN PRN IV CVP< 8, OR SBP<90 Last administered on 05/07/16 02:12; Admin Dose 500 MLS/HR; Start 05/06/16 at 19:00 Hydromorphone HCl (Dilaudid) 0.2 mg Q15M PRN IV PAIN LEVEL 1-5 Last administered on 05/08/16 15:13; Admin Dose 0.2 MG; Start 05/06/16 at 19:00 Hydromorphone HCl (Dilaudid) 0.4 mg Q15M PRN IV PAIN LEVEL 6-10; Start 05/06/16 at 19:00 Hydromorphone HCl (Dilaudid) 0.2 mg Q1H PRN IV PAIN LEVEL 1-5; Start 05/06/16 at 19:00 Hydromorphone HCl (Dilaudid) 0.4 mg Q1H PRN IV PAIN LEVEL 6-10; Start 05/06/16 at 19:00 Oxycodone/ Acetaminophen (Percocet (5/ 325)) 1 tab Q3H PRN PO PAIN LEVEL 1-5; Start 05/06/16 at 19:00 Oxycodone/ Acetaminophen (Perc[place]et (5/ 325)) 2 tab Q3H PRN PO PAIN LEVEL 6-10; Start 05/06/16 at 19:00 Ondansetron HCl (Zofran Inj) 4 mg Q6H PRN IV NAUSEA AND/OR VOMITING; Start 05/06 at 19:00 Sucralfate (Carafate Susp) 1 gm Q6 PO Last administered on 05/09/16 05:51; Admin Dose 1 GM; Start 05/07/16 at 00:00 Acetaminophen 650 mg 650 mg Q3H PRN PO ELEVATED TEMPERATURE; Start 05/06/16 at 19:00 Magnesium Sulfate/ Dextrose (Magnesium Sulfate 1 Gm/D5W) 100 ml @ 100 mls/hr PRN PRN IVPB PENDING LAB VALUE; Start 05/06/16 at 19:00 Diagnostic Test (Pha) (Accucheck) 1 ea Q1H XX Last administered on 05/09/16 08: 03; Admin Dose 1 EA; Start 05/06/16 at 19:00 Dextrose (D50w Syringe) 25 ml Q15M PRN IV Till BS 80 mg/dL or above x2; Start 05/06/16 at 19:00 Dextrose (D50w Syringe) 50 ml Q15M PRN IV Till BS 80 mg/dL or above x2; Start 05/06/16 at 19:00 Docusate Sodium 100 mg 100 mg Q12 PO Last administered on 05/08/16 21:24; Admin Dose 100 MG; Start 05/07/16 at 21:00 Potassium Chloride/Dextrose/ Sod Cl (D5-1/2ns + KCl 20 Meq) 1,000 ml @ 60 mls/ hr [id number] IV Last administered on 05/09/16 02:40; Admin Dose 60 MLS/HR; Start 05/07/16 at 17:30 Aspirin 81 mg 81 mg DAILY PO ; Start 05/09/16 at 09:00 Cefepime HCl (Maxipime 1gm/50 ml (Pmx)) 50 ml @ 100 mls/hr Q24H IVPB ; Start at 09:00 Insulin Glargine (Lantus) 20 unit DAILY@20 SC Last administered on 05/08/16 21: 27; Admin Dose 20 UNIT; Start 05/08/16 at 20:00 Acetaminophen/ Hydrocodone Bitart ([place] (5/325)) 1 tab Q4H PRN PO pain; Start 05/08/16 at 16:00 Acetaminophen (Tylenol Tab) 650 mg Q6H PRN PO PAIN AND OR ELEVATED TEMP; Start 05/09/16 at 16:00 Acetaminophen 650 mg 650 mg Q6H PO Last administered on 05/09/16 03:46; Admin Dose 650 MG; Start 05/08/16 at 16:00 Milrinone Lactate 100 ml @ 5.873 mls/ hr TITRATE IV Last administered on 06:15; Admin Dose 7.83 MLS/HR; Start 05/08/16 at 20:00 Dopamine HCl/ Dextrose 250 ml @ 3.915 mls/ hr TITRATE IV Last administered on 05/08/16 19:30; Admin Dose 9.788 MLS/HR; Start 05/08/16 at 20:00 JANICE RIVERA May 09, 2016 09:23
[2016-05-09] MEDS: DOCUSATE SODIUM 100 MG CAP PO SCH ×2 (09:33→20:34)
[2016-05-09] MEDS: CEFEPIME 1GM/50 ML (PMX) 50 ML IVPB SCH (09:33)
--- NOTE | 2016-05-09 09:43 | RADRPT ---
PROCEDURE: XR Chest. CLINICAL INDICATION: Postoperative evaluation. TECHNIQUE: Single frontal chest x-ray. COMPARISON: Exam dated 05/08/2016. FINDINGS: There is a well-positioned tracheostomy 3.6 cm above the tejal, an NG tube tip overlying the stomac h, and a [place]-Brian catheter tip overlying the RPA. An IABP overlies the mid descending thoracic aort a. A left-sided thoracostomy tube remains in place. There has been prior median sternotomy. The card iomediastinal silhouette remains enlarged. A layering right effusion and patchy parenchymal disease at the right lung base is mildly increased. There is no pneumothorax. There are no acute osseous abnormalities. IMPRESSION: 1. Increasing layering right effusion and patchy parenchymal disease at the right lung base. Cardi omegaly, unchanged. 2. Tubes and lines as above. RPTAT: GG .Francisco Javier Torres MD, Date Time Electronically viewed and signed by .Francisco Javier Torres MD, on 05/09/2016 09:40 .P/
--- NOTE | 2016-05-09 09:43 | PN ---
DATE: 05/09/2016 CARDIOLOGY FOLLOWUP PROGRESS NOTE SUBJECTIVE: Discussed with the staff in the ICU. Discussed with the physician ____ yesterday. Dis cussed with the family at the bedside as well ____. The patient's intraaortic balloon could not be removed. The patient became hypotensive yesterday night, required to have the balloon pump in place . Still intubated on the vent. Currently back on dopamine drip, amiodarone. Blood pressure medica tions on hold as well. MEDICATIONS: Reviewed as per medical reconciliation, personally reviewed. PHYSICAL EXAMINATION: VITAL SIGNS: Temperature 98.5, heart rate of 79, blood pressure of 93/35, respiratory rate of 16, s aturating 96%. HEENT: Normocephalic, atraumatic. Status post intubation on the vent. CHEST: Status post sternotomy, status post chest tube in place. CARDIOVASCULAR: Regular rate and rhythm, systolic murmur. PULMONARY: Anteriorly with no wheezes. GASTROINTESTINAL: Soft, nontender. VASCULAR: Right femoral balloon pump with no ____ hematoma. EXTREMITIES: With no significant edema. NEUROLOGIC: Sedated at this moment. PA pressure was about 33/23. LABORATORY: Showed WBC of 17, hemoglobin of 9.1, platelets of 66. Sodium 141, potassium 3.7, BUN o f 36, creatinine 2.77, glucose of 171. Magnesium is 2.8. Chest x-ray showed no significant change. Renal ultrasound shows unremarkable retroperitoneal ultrasound. ASSESSMENT AND PLAN: 1. ST-elevation myocardial infarction. 2. Status post coronary bypass graft. 3. Hypoxemic respiratory failure, status post intubation on the vent. 4. Shock, cardiogenic, currently intraaortic balloon pump in place. 5. Acute renal failure. 6. Diabetes. 7. History of dyslipidemia. 8. Anemia. 9. Thrombocytopenia. 10. Fever, questionable sepsis. RECOMMENDATIONS: Follow up with renal recommendations regarding fluid management. Intraaortic ball oon pump has been still kept in place to be removed once felt comfortable by CT surgery. We will co ntinue with the low dose aspirin, monitor platelet numbers. Vent support will be continued. Weanin g as tolerated. Continue with the ICU care. 38 minutes of critical care time was spent in management of this patient excluding any procedures. Dictated By: NENA GORMAN MD AV/ROLF Conf#: [id number] DID#: [id number] CC: DAMON DOLAN MD;*[facility]*
--- NOTE | 2016-05-09 11:27 | PN ---
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 Chest pain resolved after IABP SP Urgent CABG Pt fully awake, follows command well moves all extremity to command CT with minimal output Improved CI, SVO2 Dopamine and Milrinone started 2D Echo with Tamponade, good fxn will supplement Mg and Ca monitor UO and Cr Levels will follow nephrology recc Family at tghe bedside above explained to them DC IABP Problems: Subjective 24 Hr Interval Summary Gastrointestinal: no complaints Genitourinary: no complaints Musculoskeletal: no complaints Exam/Review of Systems Vital Signs Vitals Vital Signs Date Time Temp Pulse Resp B/P Pulse Ox O2 Delivery O2 Flow Rate FiO2 05/09/16 09:45 76 15 111/35 98 05/09/16 09:00 98.7 05/09/16 05:25 50 05/06/16 08:00 Nasal Cannula 2.0 Intake and Output 05/08/16 05/08/16 05/09/16 15:00 23:00 07:00 Intake Total 704 ml 2074.6 ml 718.3 ml Output Total 305 ml 308 ml 387 ml Balance 399 ml 1766.6 ml 331.3 ml Exam Neck: non-tender, supple Respiratory: clear to auscultation, normal air movement Cardiovascular: nl pulses, regular rate and rhythm Results Result Diagram: 05/09/16 0500 05/09/16 0500 Results 24 hrs Laboratory Tests Test 05/08/16 11:30 05/08/16 11:59 05/08/16 13:59 05/08/16 16:00 Urine Eosinophils % 0.0 Urine Protein/Creatinine Ratio 0.56 Urine Random Creatinine 58.11 Urine Random Sodium 47 Urine Total Protein 32.7 H Bedside Glucose 111 120 148 Test 05/08/16 17:20 05/08/16 18:05 05/08/16 19:05 05/08/16 19:54 Bedside Glucose 129 123 154 122 Test 05/08/16 20:42 05/08/16 21:06 05/08/16 22:14 05/08/16 23:07 Activated Partial Thromboplast Time 45.2 H Anion Gap 16 Basophils # 0.0 Basophils % 0.2 Blood Urea Nitrogen 34 H Calcium Level 7.9 L Carbon Dioxide Level 17 L Chloride Level 111 H Creatinine 2.58 H Eosinophils # 0.2 Eosinophils % 1.1 Glucose Level 134 Hematocrit 27.3 L Hemoglobin 9.2 L INR International Normalized Ratio 1.57 Lymphocytes # 2.8 Lymphocytes % 16.2 Magnesium Level 2.0 Mean Corpuscular Hemoglobin 30.6 Mean Corpuscular Hemoglobin Concent 33.7 Mean Corpuscular Volume 90.7 Mean Platelet Volume 12.7 H Monocytes # 1.3 H Monocytes % 7.5 Neutrophils # 12.8 H Neutrophils % 74.1 Nucleated Red Blood Cells # 0.0 Nucleated Red Blood Cells % 0.2 H Phosphorus Level 4.2 Platelet Count 65 L Potassium Level 3.9 Prothrombin Time 18.9 H Prothrombin Time Ratio 1.5 Red Blood Count 3.01 L Red Cell Distribution Width 14.8 H Sodium Level 140 White Blood Count 17.3 H Bedside Glucose 129 144 137 Test 05/09/16 00:13 05/09/16 01:20 05/09/16 02:05 05/09/16 03:27 Bedside Glucose 166 160 148 183 Test 05/09/16 04:10 05/09/16 05:00 05/09/16 05:02 05/09/16 05:55 Bedside Glucose 208 174 162 Anion Gap 17 H Basophils # 0.0 Basophils % 0.2 Blood Urea Nitrogen 36 H Calcium Level 8.3 L Carbon Dioxide Level 17 L Chloride Level 111 H Creatinine 2.77 H Eosinophils # 0.1 Eosinophils % 0.8 Glucose Level 171 Hematocrit 27.3 L Hemoglobin 9.1 L Lymphocytes # 2.2 Lymphocytes % 12.8 L Magnesium Level 2.8 H Mean Corpuscular Hemoglobin 30.7 Mean Corpuscular Hemoglobin Concent 33.3 Mean Corpuscular Volume 92.2 Mean Platelet Volume 12.6 H Monocytes # 0.9 Monocytes % 5.4 Neutrophils # 13.6 H Neutrophils % 80.0 H Nucleated Red Blood Cells # 0.0 Nucleated Red Blood Cells % 0.1 H Platelet Count 66 L Potassium Level 3.7 Red Blood Count 2.96 L Red Cell Distribution Width 14.6 H Sodium Level 141 White Blood Count 17.0 H Test 05/09/16 07:00 05/09/16 08:02 05/09/16 09:00 05/09/16 09:15 Bedside Glucose 147 138 116 Arterial Blood HCO3 14.1 L Arterial Blood Base Excess -9.2 L Arterial Blood Oxygen Saturation 95.2 Shahram Test ACCEPTAB Arterial Blood Gas Puncture Site Right Radial Arterial Blood Carboxyhemoglobin 0.2 Arterial Blood Date Drawn 05/09/2016 9:13:18 AM Arterial Blood Methemoglobin 0.5 Arterial Blood pCO2 (Temp correct) 23.0 L Arterial Blood pH (Temp corrected) 7.404 Arterial Blood pO2 (Temp corrected) 84.6 Blood Gas A-a O2 Differential 246.0 H Blood Gas Actual Respiration Rate 13 Blood Gas Low PEEP Setting 5.0 Blood Gas Modality VENT - AC Blood Gas Notified Time 05/09/2016 9:22:17 AM Blood Gas Notified Whom JLD Blood Gas Respiration Rate 12.0 Blood Gas Specimen Source Blood arterial Blood Gas Temperature 37.0 Blood Gas Tidal Volume 500.0 FiO2 50.0 Oxyhemoglobin Percent 94.5 Total Hemoglobin 9.6 L Test 05/09/16 10:21 Bedside Glucose 115 Medications Medications Current Medications Acetaminophen (Tylenol Supp) 650 mg Q6H PRN NM PAIN LEVEL 1-3 OR FEVER Last administered on 05/07/16 00:51; Admin Dose 650 MG; Start 05/04/16 at 10:00 Acetaminophen/ Hydrocodone Bitart ([place] (5/325)) 1 tab Q6H PRN PO MODERATE PAIN LEVEL 4-6 Last administered on 05/09/16 00:39; Admin Dose 1 TAB; Start 05/04 at 10:00 Acetaminophen/ Hydrocodone Bitart ([place] (5/325)) 2 tab Q6H PRN PO SEVERE PAIN LEVEL 7-10; Start 05/04/16 at 10:00 Morphine Sulfate (morphine) 2 mg Q4H PRN IV SEVERE PAIN LEVEL 7-10 Last administered on 05/08/16 02:45; Admin Dose 2 MG; Start 05/04/16 at 10:00 Magnesium Hydroxide (Milk Of Mag) 30 ml DAILY PRN PO CONSTIPATION; Start at 10:00 Bisacodyl (Dulcolax Supp) 10 mg DAILY PRN NM CONSTIPATION; Start 05/04/16 at 10: 00 Pantoprazole (Protonix Iv) 40 mg DAILY@06 IV Last administered on 05/09/16 05: 51; Admin Dose 40 MG; Start 05/05/16 at 06:00 Nitroglycerin (Nitroglycerin (Sl Tab) 0.4 Mg) 1 tab Q5M PRN SL CHEST PAIN; Start 05/04/16 at 10:00 Miscellaneous Information 1 ea NOTE XX ; Start 05/04/16 at 18:30 Glucose (Glutose) 15 gm Q15M PRN PO DECREASED GLUCOSE; Start 05/04/16 at 18:30 Glucose (Glutose) 22.5 gm Q15M PRN PO DECREASED GLUCOSE; Start 05/04/16 at 18:30 Glucagon (Glucagen) 1 mg Q15M PRN IM DECREASED GLUCOSE; Start 05/04/16 at 18:30 Glucose (Glutose) 15 gm Q15M PRN BUCCAL DECREASED GLUCOSE; Start 05/04/16 at 18: 30 Carvedilol 12.5 mg 12.5 mg BID PO Last administered on 05/08/16 08:24; Admin Dose 12.5 MG; Start 05/05/16 at 21:00 Albumin Human 250 ml @ 500 mls/hr PRN PRN IV CVP< 8, OR SBP<90 Last administered on 05/07/16 02:12; Admin Dose 500 MLS/HR; Start 05/06/16 at 19:00 Hydromorphone HCl (Dilaudid) 0.2 mg Q15M PRN IV PAIN LEVEL 1-5 Last administered on 05/08/16 15:13; Admin Dose 0.2 MG; Start 05/06/16 at 19:00 Hydromorphone HCl (Dilaudid) 0.4 mg Q15M PRN IV PAIN LEVEL 6-10; Start 05/06/16 at 19:00 Hydromorphone HCl (Dilaudid) 0.2 mg Q1H PRN IV PAIN LEVEL 1-5; Start 05/06/16 at 19:00 Hydromorphone HCl (Dilaudid) 0.4 mg Q1H PRN IV PAIN LEVEL 6-10; Start 05/06/16 at 19:00 Oxycodone/ Acetaminophen (Percocet (5/ 325)) 1 tab Q3H PRN PO PAIN LEVEL 1-5; Start 05/06/16 at 19:00 Oxycodone/ Acetaminophen (Percocet (5/ 325)) 2 tab Q3H PRN PO PAIN LEVEL 6-10; Start 05/06/16 at 19:00 Ondansetron HCl (Zofran Inj) 4 mg Q6H PRN IV NAUSEA AND/OR VOMITING; Start 05/06 at 19:00 Sucralfate (Carafate Susp) 1 gm Q6 PO Last administered on 05/09/16 05:51; Admin Dose 1 GM; Start 05/07/16 at 00:00 Acetaminophen 650 mg 650 mg Q3H PRN PO ELEVATED TEMPERATURE; Start 05/06/16 at 19:00 Magnesium Sulfate/ Dextrose (Magnesium Sulfate 1 Gm/D5W) 100 ml @ 100 mls/hr PRN PRN IVPB PENDING LAB VALUE; Start 05/06/16 at 19:00 Diagnostic Test (Pha) (Accucheck) 1 ea Q1H XX Last administered on 05/09/16 10: 00; Admin Dose 1 EA; Start 05/06/16 at 19:00 Dextrose (D50w Syringe) 25 ml Q15M PRN IV Till BS 80 mg/dL or above x2; Start 05/06/16 at 19:00 Dextrose (D50w Syringe) 50 ml Q15M PRN IV Till BS 80 mg/dL or above x2; Start 05/06/16 at 19:00 Docusate Sodium 100 mg 100 mg Q12 PO Last administered on 05/09/16 09:33; Admin Dose 100 MG; Start 05/07/16 at 21:00 Potassium Chloride/Dextrose/ Sod Cl 1,000 ml @ 60 mls/hr [id number] IV Last administered on 05/09/16 02:40; Admin Dose 60 MLS/HR; Start 05/07/16 at 17:30 Cefepime HCl (Maxipime 1gm/50 ml (Pmx)) 50 ml @ 100 mls/hr Q24H IVPB Last administered on 05/09/16 09:33; Admin Dose 100 MLS/HR; Start 05/09/16 at 09:00 Insulin Glargine (Lantus) 20 unit DAILY@20 SC Last administered on 05/08/16 21: 27; Admin Dose 20 UNIT; Start 05/08/16 at 20:00 Acetaminophen/ Hydrocodone Bitart ([place] (5/325)) 1 tab Q4H PRN PO pain; Start 05/08/16 at 16:00 Acetaminophen (Tylenol Tab) 650 mg Q6H PRN PO PAIN AND OR ELEVATED TEMP; Start 05/09/16 at 16:00 Acetaminophen 650 mg 650 mg Q6H PO Last administered on 05/09/16 10:52; Admin Dose 650 MG; Start 05/08/16 at 16:00 Milrinone Lactate 100 ml @ 5.873 mls/ hr TITRATE IV Last administered on 06:15; Admin Dose 7.83 MLS/HR; Start 05/08/16 at 20:00 Dopamine HCl/ Dextrose 250 ml @ 3.915 mls/ hr TITRATE IV Last administered on 05/08/16 19:30; Admin Dose 9.788 MLS/HR; Start 05/08/16 at 20:00 Aspirin (Aspirin) 81 mg DAILY PO ; Start 05/10/16 at 09:00 BEVERLEY NEGRETE MD May 09, 2016 11:26
[2016-05-09] MEDS ORDERED: POTASSIUM CHLORIDE 50 ML IVPB ONE (13:00)
[2016-05-09] MEDS: SODIUM BICARBONATE (IV ADD) 150 MEQ in DEXTROSE 5% 1,000 ML IV SCH (13:30)
[2016-05-09] MEDS ORDERED: ACETAMINOPHEN 325 MG TAB PO PRN (16:00)
[2016-05-09 17:50] LABS: POTASSIUM 4.4 mmol/L (3.5-5.1)
[2016-05-09 17:52] LABS: CREATININE 2.71 mg/dl (0.44-1.00)
[2016-05-09] MEDS: POTASSIUM CHLORIDE 50 ML IVPB PRN (18:16)
[2016-05-09 19:46] LABS: AADO2 Arterial 175.5 mmHg (7.0-24.0); Arterial Base Excess -5.3 mmol/L (-3.0-3); Arterial COHb 0.3 % (0.0-3.0); Arterial Fraction of Oxyhgb 94.4 % (93.0-99.0); Arterial HCO3 17.7 mmol/L (22.0-26.0); Arterial MetHb 0.3 % (0.0-1.5); Arterial Total Hemglobin 11.1 g/dl (12.0-18.0); Blood Gas PS 10; MODE VENT - AC
[2016-05-09] MEDS: INSULIN GLARGINE [LANtus] 3 ML PEN SC SCH (20:36)
--- NOTE | 2016-05-09 21:22 | CONS ---
Date/Time of Note Date/Time of Note DATE: 05/09/16 TIME: 21:18 Assessment/Plan Assessment/Plan Additional Assessment/Plan 1. Acute kidney injury, oliguric, likely secondary to acute tubular necrosis from ischemic acute tubular necrosis in the setting of ST elevation myocardial infarction. 2. 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 Acute respiratory failure, ventilator dependent. 4. Uncontrolled diabetes mellitus with hemoglobin A1c 8.7. 5. Dyslipidemia. 6. Normocytic anemia. 7. Status post intra-aortic balloon pump placement. Plan: will given albumin with lasix 20mg IV x after IV albumin I had a discussion with pt family at bedside and explained about nature of renal failure, and possible need of HD They understood it and they want to wait until tomorrow d/c current IVF and start bicarbonate drip will follow up Consultation Date/Type/Reason Admit Date/Time May 04, 2016 at 08:40 Initial Consult Date 05/08/16 Type of Consultation: NEPHROLOGY Reason for Consultation acute kidney injury, metabolic acidosis, S/p CABG Referring Provider: JANICE RIVERA 24 HR Interval Summary Free Text/Dictation pt has marginal urine output, still on multiple pressors Exam/Review of Systems Vital Signs Vitals Vital Signs Date Time Temp Pulse Resp B/P Pulse Ox O2 Delivery O2 Flow Rate FiO2 05/09/16 19:15 82 106/49 96 05/09/16 19:13 29 40 05/09/16 19:00 99.2 05/06/16 08:00 Nasal Cannula 2.0 Intake and Output 05/08/16 05/08/16 05/09/16 15:00 23:00 07:00 Intake Total 704 ml 2074.6 ml 718.3 ml Output Total 305 ml 308 ml 387 ml Balance 399 ml 1766.6 ml 331.3 ml Exam GENERAL: The patient is currently sedated, unresponsive. HEENT: ET tube in place. NECK: No jugular venous distention. LUNGS: Bilateral coarse breath sounds. HEART: S1, S2, tachycardia. No murmur. ABDOMEN: Soft, nontender, nondistended. EXTREMITIES: 1+ to 2+ pitting edema. Michael catheter in place. NEUROLOGICAL: Uncooperative due to the sedation. PSYCHIATRIC: Not able to assess. SKIN: No rash. Results Result Diagram: 05/09/16 0500 05/09/16 1715 Results 24 hrs Laboratory Tests Test 05/08/16 22:14 05/08/16 23:07 05/09/16 00:13 05/09/16 01:20 Bedside Glucose 144 137 166 160 Test 05/09/16 02:05 05/09/16 03:27 05/09/16 04:10 05/09/16 05:00 Bedside Glucose 148 183 208 Anion Gap 17 H Basophils # 0.0 Basophils % 0.2 Blood Urea Nitrogen 36 H Calcium Level 8.3 L Carbon Dioxide Level 17 L Chloride Level 111 H Creatinine 2.77 H Eosinophils # 0.1 Eosinophils % 0.8 Glucose Level 171 Hematocrit 27.3 L Hemoglobin 9.1 L Lymphocytes # 2.2 Lymphocytes % 12.8 L Magnesium Level 2.8 H Mean Corpuscular Hemoglobin 30.7 Mean Corpuscular Hemoglobin Concent 33.3 Mean Corpuscular Volume 92.2 Mean Platelet Volume 12.6 H Monocytes # 0.9 Monocytes % 5.4 Neutrophils # 13.6 H Neutrophils % 80.0 H Nucleated Red Blood Cells # 0.0 Nucleated Red Blood Cells % 0.1 H Platelet Count 66 L Potassium Level 3.7 Red Blood Count 2.96 L Red Cell Distribution Width 14.6 H Sodium Level 141 White Blood Count 17.0 H Test 05/09/16 05:02 05/09/16 05:55 05/09/16 07:00 05/09/16 08:02 Bedside Glucose 174 162 147 138 Test 05/09/16 09:00 05/09/16 09:15 05/09/16 10:21 05/09/16 11:34 Arterial Blood HCO3 14.1 L Arterial Blood Base Excess -9.2 L Arterial Blood Oxygen Saturation 95.2 Shahram Test ACCEPTAB Arterial Blood Gas Puncture Site Right Radial Arterial Blood Carboxyhemoglobin 0.2 Arterial Blood Date Drawn 05/09/2016 9:13:18 AM Arterial Blood Methemoglobin 0.5 Arterial Blood pCO2 (Temp correct) 23.0 L Arterial Blood pH (Temp corrected) 7.404 Arterial Blood pO2 (Temp corrected) 84.6 Blood Gas A-a O2 Differential 246.0 H Blood Gas Actual Respiration Rate 13 Blood Gas Low PEEP Setting 5.0 Blood Gas Modality VENT - AC Blood Gas Notified Time 05/09/2016 9:22:17 AM Blood Gas Notified Whom JLD Blood Gas Respiration Rate 12.0 Blood Gas Specimen Source Blood arterial Blood Gas Temperature 37.0 Blood Gas Tidal Volume 500.0 FiO2 50.0 Oxyhemoglobin Percent 94.5 Total Hemoglobin 9.6 L Bedside Glucose 116 115 115 Test 05/09/16 13:54 05/09/16 15:08 05/09/16 16:31 05/09/16 17:09 Bedside Glucose 115 111 106 106 Test 05/09/16 17:15 05/09/16 18:09 05/09/16 19:01 05/09/16 19:30 Anion Gap 14 Blood Urea Nitrogen 37 H Calcium Level 8.0 L Carbon Dioxide Level 19 L Chloride Level 109 Creatinine 2.71 H Glucose Level 112 # Potassium Level 4.4 Sodium Level 138 Bedside Glucose 111 107 Arterial Blood HCO3 17.7 L Arterial Blood Base Excess -5.3 L Arterial Blood Oxygen Saturation 95.0 Shahram Test N/A Arterial Blood Gas Puncture Site A-Line Arterial Blood Carboxyhemoglobin 0.3 Arterial Blood Date Drawn 05/09/2016 7:30:04 PM Arterial Blood Methemoglobin 0.3 Arterial Blood pCO2 (Temp correct) 27.0 L Arterial Blood pH (Temp corrected) 7.435 Arterial Blood pO2 (Temp corrected) 78.7 L Blood Gas A-a O2 Differential 175.5 H Blood Gas Actual Respiration Rate 29 Blood Gas Low PEEP Setting 5.0 Blood Gas Modality VENT - AC Blood Gas Notified Time 05/09/2016 7:44:25 PM Blood Gas Notified Whom MA Blood Gas Pressure Support 10 Blood Gas Specimen Source Blood arterial Blood Gas Temperature 37.0 FiO2 40.0 Oxyhemoglobin Percent 94.4 Total Hemoglobin 11.1 L Test 05/09/16 20:06 Bedside Glucose 125 Medications Medications Current Medications Acetaminophen (Tylenol Supp) [address] PAIN LEVEL 1-3 OR FEVER Last administered on 05/07/16 00:51; Admin Dose 650 MG; Start 05/04/16 at 10:00 Acetaminophen/ Hydrocodone Bitart ([place] (5/325)) 1 tab Q6H PRN PO MODERATE PAIN LEVEL 4-6 Last administered on 05/09/16 00:39; Admin Dose 1 TAB; Start 05/04 at 10:00 Acetaminophen/ Hydrocodone Bitart ([place] (5/325)) 2 tab Q6H PRN PO SEVERE PAIN LEVEL 7-10; Start 05/04/16 at 10:00 Morphine Sulfate (morphine) 2 mg Q4H PRN IV SEVERE PAIN LEVEL 7-10 Last administered on 05/08/16 02:45; Admin Dose 2 MG; Start 05/04/16 at 10:00 Magnesium Hydroxide (Milk Of Mag) 30 ml DAILY PRN PO CONSTIPATION; Start at 10:00 Bisacodyl (Dulcolax Supp) [address] CONSTIPATION; Start 05/04/16 at 10: 00 Pantoprazole (Protonix Iv) 40 mg DAILY@06 IV Last administered on 05/09/16 05: 51; Admin Dose 40 MG; Start 05/05/16 at 06:00 Nitroglycerin (Nitroglycerin (Sl Tab) 0.4 Mg) 1 tab Q5M PRN SL CHEST PAIN; Start 05/04/16 at 10:00 Miscellaneous Information 1 ea NOTE XX ; Start 05/04/16 at 18:30 Glucose (Glutose) 15 gm Q15M PRN PO DECREASED GLUCOSE; Start 05/04/16 at 18:30 Glucose (Glutose) 22.5 gm Q15M PRN PO DECREASED GLUCOSE; Start 05/04/16 at 18:30 Glucagon (Glucagen) 1 mg Q15M PRN IM DECREASED GLUCOSE; Start 05/04/16 at 18:30 Glucose (Glutose) 15 gm Q15M PRN BUCCAL DECREASED GLUCOSE; Start 05/04/16 at 18: 30 Carvedilol 12.5 mg 12.5 mg BID PO Last administered on 05/08/16 08:24; Admin Dose 12.5 MG; Start 05/05/16 at 21:00 Albumin Human 250 ml @ 500 mls/hr PRN PRN IV CVP< 8, OR SBP<90 Last administered on 05/07/16 02:12; Admin Dose 500 MLS/HR; Start 05/06/16 at 19:00 Hydromorphone HCl (Dilaudid) 0.2 mg Q15M PRN IV PAIN LEVEL 1-5 Last administered on 05/08/16 15:13; Admin Dose 0.2 MG; Start 05/06/16 at 19:00 Hydromorphone HCl (Dilaudid) 0.4 mg Q15M PRN IV PAIN LEVEL 6-10; Start 05/06/16 at 19:00 Hydromorphone HCl (Dilaudid) 0.2 mg Q1H PRN IV PAIN LEVEL 1-5; Start 05/06/16 at 19:00 Hydromorphone HCl (Dilaudid) 0.4 mg Q1H PRN IV PAIN LEVEL 6-10; Start 05/06/16 at 19:00 Oxycodone/ Acetaminophen (Percocet (5/ 325)) 1 tab Q3H PRN PO PAIN LEVEL 1-5; Start 05/06/16 at 19:00 Oxycodone/ Acetaminophen (Percocet (5/ 325)) 2 tab Q3H PRN PO PAIN LEVEL 6-10; Start 05/06/16 at 19:00 Ondansetron HCl (Zofran Inj) 4 mg Q6H PRN IV NAUSEA AND/OR VOMITING; Start 05/06 at 19:00 Sucralfate (Carafate Susp) 1 gm Q6 PO Last administered on 05/09/16 18:02; Admin Dose 1 GM; Start 05/07/16 at 00:00 Acetaminophen 650 mg 650 mg Q3H PRN PO ELEVATED TEMPERATURE; Start 05/06/16 at 19:00 Magnesium Sulfate/ Dextrose (Magnesium Sulfate 1 Gm/D5W) 100 ml @ 100 mls/hr PRN PRN IVPB PENDING LAB VALUE; Start 05/06/16 at 19:00 Diagnostic Test (Pha) (Accucheck) 1 ea Q1H XX Last administered on 05/09/16 20: 07; Admin Dose 1 EA; Start 05/06/16 at 19:00 Dextrose (D50w Syringe) 25 ml Q15M PRN IV Till BS 80 mg/dL or above x2; Start 05/06/16 at 19:00 Dextrose (D50w Syringe) 50 ml Q15M PRN IV Till BS 80 mg/dL or above x2; Start 05/06/16 at 19:00 Docusate Sodium 100 mg 100 mg Q12 PO Last administered on 05/09/16 20:34; Admin Dose 100 MG; Start 05/07/16 at 21:00 Cefepime HCl (Maxipime 1gm/50 ml (Pmx)) 50 ml @ 100 mls/hr Q24H IVPB Last administered on 05/09/16 09:33; Admin Dose 100 MLS/HR; Start 05/09/16 at 09:00 Insulin Glargine (Lantus) 20 unit DAILY@20 SC Last administered on 05/09/16 20: 36; Admin Dose 20 UNIT; Start 05/08/16 at 20:00 Acetaminophen/ Hydrocodone Bitart ([place] (5/325)) 1 tab Q4H PRN PO pain; Start 05/08/16 at 16:00 Acetaminophen (Tylenol Tab) 650 mg Q6H PRN PO PAIN AND OR ELEVATED TEMP; Start 05/09/16 at 16:00 Acetaminophen 650 mg 650 mg Q6H PO Last administered on 05/09/16 16:00; Admin Dose 650 MG; Start 05/08/16 at 16:00 Milrinone Lactate 100 ml @ 5.873 mls/ hr TITRATE IV Last administered on 06:15; Admin Dose 7.83 MLS/HR; Start 05/08/16 at 20:00 Dopamine HCl/ Dextrose 250 ml @ 3.915 mls/ hr TITRATE IV Last administered on 05/08/16 19:30; Admin Dose 9.788 MLS/HR; Start 05/08/16 at 20:00 Aspirin 81 mg 81 mg DAILY PO ; Start 05/10/16 at 09:00 Sodium Bicarbonate/ Dextrose (Na Bicarb/D5W) 1,150 ml @ 80 mls/hr [id number] IV Last administered on 05/09/16 13:30; Admin Dose 80 MLS/HR; Start 05/09/16 at 13: 15 JIM WHITE MD May 09, 2016 21:22
[2016-05-09] MEDS ORDERED: FUROSEMIDE 20 MG INJ IV ONE (21:30)
[2016-05-09] MEDS ORDERED: ALBUMIN HUMAN 25% 100 ML IV ONE (21:30)
[2016-05-10] VITALS (50 sets, daily range): BP systolic 77–143; BP diastolic 40–113; PULSE 69–90; RESP 14–28; TEMP 98.6–99.6
[2016-05-10] MEDS: ACCUCHECK XX SCH ×3 (00:28→23:47)
[2016-05-10] MEDS: SUCRALFATE (100 MG/ML) 10ML CUP PO SCH ×4 (00:33→17:26)
[2016-05-10] MEDS: HYDROCODONE/APAP (5/325) TAB PO PRN (00:34)
[2016-05-10] MEDS: INSULIN ASPART [NOVOLOG] 3 ML PEN SC SCH ×5 (01:00→20:36)
[2016-05-10] MEDS: SODIUM BICARBONATE (IV ADD) 150 MEQ in DEXTROSE 5% 1,000 ML IV SCH ×2 (03:54→18:16)
[2016-05-10] MEDS: ACETAMINOPHEN 325 MG TAB PO SCH ×3 (04:51→16:22)
[2016-05-10 05:00] LABS: ADD SCAN DIFF NO
[2016-05-10] MEDS: PANTOPRAZOLE 40 MG INJ IV SCH (05:00)
[2016-05-10 05:07] LABS: ABNORMAL IP MESSAGE 1; BASOPHILS % 0.2 % (0.0-2.0); EOSINOPHILS # 0.2 10^3/ul (0.0-0.5); HEMATOCRIT 28.2 % (37.0-47.0); HEMOGLOBIN 9.3 g/dl (12.0-16.0); LYMPHOCYTES # 2.6 10^3/ul (0.8-2.9); LYMPHOCYTES % 14.7 % (15.0-51.0); MEAN CORPUSCULAR HEMOGLOBIN 30.2 pg (29.0-33.0); MEAN CORPUSCULAR VOLUME 91.6 fl (82.0-101.0); MEAN PLATELET VOLUME 11.6 fl (7.4-10.4); MONOCYTE # 1.2 10^3/ul (0.3-0.9); MONOCYTES % 6.8 % (0.0-11.0); NEUTROPHIL # 13.7 10^3/ul (1.6-7.5); NEUTROPHILS % 76.4 % (39.0-77.0); NUCLEATED RED BLOOD CELLS% 0.2 /100WBC (0.0-0.0); PLATELET COUNT 98 10^3/UL (140-415); RED BLOOD COUNT 3.08 10^6/ul (4.20-5.40); RED CELL DISTRIBUTION WIDTH 14.5 % (11.5-14.5)
[2016-05-10 05:30] LABS: POTASSIUM 3.9 mmol/L (3.5-5.1)
[2016-05-10 05:33] LABS: CALCIUM 7.8 mg/dl (8.4-10.2); CREATININE 2.47 mg/dl (0.44-1.00); MAGNESIUM 2.6 mg/dl (1.7-2.5); PHOSPHORUS 3.9 mg/dl (2.5-4.9)
[2016-05-10] MEDS: POTASSIUM CHLORIDE 50 ML IVPB PRN (06:12)
--- NOTE | 2016-05-10 08:22 | PN ---
DATE: 05/09/2016 CARDIOLOGY FOLLOWUP SUBJECTIVE: Discussed with the staff, discussed with the patient's daughter. Rhythm strip was revi ewed. The patient remains in sinus rhythm. Intraaortic balloon pump was able to be successfully re moved. The patient is also extubated now. He complains of mild chest wall tenderness with all the incisions. Still has a chest tube in place, still has the PA catheter in place. Blood pressure is on the low side, but remains stable now. MEDICATIONS: Reviewed as per medical reconciliation, personally reviewed. PHYSICAL EXAMINATION: VITAL SIGNS: Temperature 98.9, heart rate of 83, blood pressure 94/44, respiratory rate of 22. Sat ting 106%. GENERAL: Status post G tube in place. HEENT: Normocephalic, atraumatic. CARDIOVASCULAR: Regular rate and rhythm, systolic murmur. PULMONARY: With rhonchi on the right side mostly. GASTROINTESTINAL: Soft, nontender. CHEST: Status post sternotomy. Status post chest tube. EXTREMITIES: Positive edema. NEUROLOGIC: Awake, responds appropriately. PSYCHIATRIC: Appeared to be calm and pleasant. LABORATORY: WBC of 18, hemoglobin 9.3, platelets of 98. Sodium 138, potassium 3.9, BUN of 39, crea tinine 2.47, glucose of 75. Chest x-ray shows increase in layers in the right effusion. Echocardio gram shows ejection fraction 55% to 60%. Tedious study, but trivial pericardial effusion noted, rashard stolic dysfunction. ASSESSMENT AND PLAN: 1. ST-elevation myocardial infarction. 2. Status post urgent coronary artery bypass graft. 3. Status post respiratory failure, currently extubated now. 4. Shock, currently blood pressure is improved and off of ____. 5. Acute renal failure. 6. Diabetes. 7. Dyslipidemia. 8. Anemia. 9. Thrombocytopenia. 10. Postop fever. RECOMMENDATIONS: We will continue with the aspirin. Coreg is on hold due to blood pressure issues. I will discontinue it and resume the carvedilol once the patient is able to tolerate it. Will sta rt the patient on statin. Continue with the ICU care. More than 36 minutes of critical care time was spent in management of this patient excluding any pro cedures. Dictated By: NENA LIND/ROLF Conf#: [id number] DID#: [id number] CC: JANICE RIVERA MD;*[facility]*
[2016-05-10] MEDS: DOCUSATE SODIUM 100 MG CAP PO SCH ×2 (09:00→21:00)
[2016-05-10] MEDS: CEFEPIME 1GM/50 ML (PMX) 50 ML IVPB SCH (09:38)
[2016-05-10] MEDS: ASPIRIN 81 MG TAB PO SCH (09:39)
--- NOTE | 2016-05-10 09:58 | CONS ---
Date/Time of Note Date/Time of Note DATE: 05/10/16 TIME: 09:55 Assessment/Plan Assessment/Plan Additional Assessment/Plan Assessment recommendations; 1. Patient admitted for acute NC underwent coronary artery bypass surgery. Next 2. Extubated last night. Doing very well. Next 3. History of hypertension. Next 4. Leukocytosis possibly stress response. Patient on appropriate antibiotic coverage. 5. Renal insufficiency with improving serum creatinine. 6. Hypotension with interval resolution. Patient off dopamine. Next 7. Trauma cytopenia, with improving platelet count. Continue current treatment. Will obtain follow-up chest x-ray tomorrow morning. Consultation Date/Type/Reason Admit Date/Time May 04, 2016 at 08:40 Initial Consult Date 05/07/16 Type of Consultation: Pulmonary/critical care Referring Provider: JANICE RIVERA 24 HR Interval Summary Free Text/Dictation Patient condition is markedly improved. She was successfully intubated last night. Denies any shortness of breath, chest pain, abdominal pain, nausea vomiting. Urine output is improving. General exam; elderly lady, currently in no distress awake and alert. Exam/Review of Systems Vital Signs Vitals Vital Signs Date Time Temp Pulse Resp B/P Pulse Ox O2 Delivery O2 Flow Rate FiO2 05/10/16 09:00 80 27 132/64 99 05/10/16 08:00 99.0 05/10/16 01:11 6.0 05/10/16 00:00 Nasal Cannula 05/09/16 20:00 40 Intake and Output 05/09/16 05/09/16 05/10/16 15:00 23:00 07:00 Intake Total 870.810 ml 908.9 ml 975 ml Output Total 174 ml 551 ml 433 ml Balance 696.810 ml 357.9 ml 542 ml Exam HEENT exam is; supple neck, no JVD. No lymphadenopathy. Midline trachea. No thyromegaly. Pharynx is clear. Chest examination; clear to auscultation bilaterally. There is a sternal dressing in place. Chest tubes are in place. S1-S2 audible no murmurs. Regular rhythm. Abdomen examination; soft, nontender. No organomegaly. Bowel sounds audible. Extremity examination; no peripheral edema. Pulses 1+ bilaterally. [employer] examination; no focal deficit. Results Result Diagram: 05/10/16 0345 05/10/16 0345 Results 24 hrs Laboratory Tests Test 05/09/16 10:21 05/09/16 11:34 05/09/16 13:54 05/09/16 15:08 Bedside Glucose 115 115 115 111 Test 05/09/16 16:31 05/09/16 17:09 05/09/16 17:15 05/09/16 18:09 Bedside Glucose 106 106 111 Anion Gap 14 Blood Urea Nitrogen 37 H Calcium Level 8.0 L Carbon Dioxide Level 19 L Chloride Level 109 Creatinine 2.71 H Glucose Level 112 # Potassium Level 4.4 Sodium Level 138 Test 05/09/16 19:01 05/09/16 19:30 05/09/16 20:06 05/09/16 22:03 Bedside Glucose 107 125 120 Arterial Blood HCO3 17.7 L Arterial Blood Base Excess -5.3 L Arterial Blood Oxygen Saturation 95.0 Shahram Test N/A Arterial Blood Gas Puncture Site A-Line Arterial Blood Carboxyhemoglobin 0.3 Arterial Blood Date Drawn 05/09/2016 7:30:04 PM Arterial Blood Methemoglobin 0.3 Arterial Blood pCO2 (Temp correct) 27.0 L Arterial Blood pH (Temp corrected) 7.435 Arterial Blood pO2 (Temp corrected) 78.7 L Blood Gas A-a O2 Differential 175.5 H Blood Gas Actual Respiration Rate 29 Blood Gas Low PEEP Setting 5.0 Blood Gas Modality VENT - AC Blood Gas Notified Time 05/09/2016 7:44:25 PM Blood Gas Notified Whom MA Blood Gas Pressure Support 10 Blood Gas Specimen Source Blood arterial Blood Gas Temperature 37.0 FiO2 40.0 Oxyhemoglobin Percent 94.4 Total Hemoglobin 11.1 L Test 05/10/16 00:25 05/10/16 03:45 05/10/16 04:50 05/10/16 09:41 Bedside Glucose 96 78 106 Albumin 3.0 L Anion Gap 17 H Basophils # 0.0 Basophils % 0.2 Blood Urea Nitrogen 39 H Calcium Level 7.8 L Carbon Dioxide Level 21 Chloride Level 104 Creatinine 2.47 H Eosinophils # 0.2 Eosinophils % 1.0 Glucose Level 75 Hematocrit 28.2 L Hemoglobin 9.3 L Lymphocytes # 2.6 Lymphocytes % 14.7 L Magnesium Level 2.6 H Mean Corpuscular Hemoglobin 30.2 Mean Corpuscular Hemoglobin Concent 33.0 Mean Corpuscular Volume 91.6 Mean Platelet Volume 11.6 H Monocytes # 1.2 H Monocytes % 6.8 Neutrophils # 13.7 H Neutrophils % 76.4 Nucleated Red Blood Cells # 0.0 Nucleated Red Blood Cells % 0.2 H Phosphorus Level 3.9 Platelet Count 98 #L Potassium Level 3.9 Red Blood Count 3.08 L Red Cell Distribution Width 14.5 Sodium Level 138 White Blood Count 18.0 H Medications Medications Current Medications Acetaminophen (Tylenol Supp) 650 mg Q6H PRN [place] PAIN LEVEL 1-3 OR FEVER Last administered on 05/07/16 00:51; Admin Dose 650 MG; Start 05/04/16 at 10:00 Acetaminophen/ Hydrocodone Bitart ([place] (5/325)) 1 tab Q6H PRN PO MODERATE PAIN LEVEL 4-6 Last administered on 05/10/16 00:34; Admin Dose 1 TAB; Start 05/04/16 at 10:00 Acetaminophen/ Hydrocodone Bitart ([place] (5/325)) 2 tab Q6H PRN PO SEVERE PAIN LEVEL 7-10; Start 05/04/16 at 10:00 Morphine Sulfate (morphine) 2 mg Q4H PRN IV SEVERE PAIN LEVEL 7-10 Last administered on 05/08/16 02:45; Admin Dose 2 MG; Start 05/04/16 at 10:00 Magnesium Hydroxide (Milk Of Mag) 30 ml DAILY PRN PO CONSTIPATION; Start at 10:00 Bisacodyl (Dulcolax Supp) 10 mg DAILY PRN [place] CONSTIPATION; Start 05/04/16 at 10: 00 Pantoprazole (Protonix Iv) 40 mg DAILY@06 IV Last administered on 05/10/16 05: 00; Admin Dose 40 MG; Start 05/05/16 at 06:00 Nitroglycerin (Nitroglycerin (Sl Tab) 0.4 Mg) 1 tab Q5M PRN SL CHEST PAIN; Start 05/04/16 at 10:00 Miscellaneous Information 1 ea NOTE XX ; Start 05/04/16 at 18:30 Glucose (Glutose) 15 gm Q15M PRN PO DECREASED GLUCOSE; Start 05/04/16 at 18:30 Glucose (Glutose) 22.5 gm Q15M PRN PO DECREASED GLUCOSE; Start 05/04/16 at 18:30 Glucagon (Glucagen) 1 mg Q15M PRN IM DECREASED GLUCOSE; Start 05/04/16 at 18:30 Glucose 15 gm 15 gm Q15M PRN BUCCAL DECREASED GLUCOSE; Start 05/04/16 at 18:30 Albumin Human 250 ml @ 500 mls/hr PRN PRN IV CVP< 8, OR SBP<90 Last administered on 05/07/16 02:12; Admin Dose 500 MLS/HR; Start 05/06/16 at 19:00 Hydromorphone HCl (Dilaudid) 0.2 mg Q15M PRN IV PAIN LEVEL 1-5 Last administered on 05/08/16 15:13; Admin Dose 0.2 MG; Start 05/06/16 at 19:00 Hydromorphone HCl (Dilaudid) 0.4 mg Q15M PRN IV PAIN LEVEL 6-10; Start 05/06/16 at 19:00 Hydromorphone HCl (Dilaudid) 0.2 mg Q1H PRN IV PAIN LEVEL 1-5; Start 05/06/16 at 19:00 Hydromorphone HCl (Dilaudid) 0.4 mg Q1H PRN IV PAIN LEVEL 6-10; Start 05/06/16 at 19:00 Oxycodone/ Acetaminophen (Percocet (5/ 325)) 1 tab Q3H PRN PO PAIN LEVEL 1-5; Start 05/06/16 at 19:00 Oxycodone/ Acetaminophen (Percocet (5/ 325)) 2 tab Q3H PRN PO PAIN LEVEL 6-10; Start 05/06/16 at 19:00 Ondansetron HCl (Zofran Inj) 4 mg Q6H PRN IV NAUSEA AND/OR VOMITING; Start 05/06 at 19:00 Sucralfate (Carafate Susp) 1 gm Q6 PO Last administered on 05/10/16 05:00; Admin Dose 1 GM; Start 05/07/16 at 00:00 Acetaminophen 650 mg 650 mg Q3H PRN PO ELEVATED TEMPERATURE; Start 05/06/16 at 19:00 Magnesium Sulfate/ Dextrose (Magnesium Sulfate 1 Gm/D5W) 100 ml @ 100 mls/hr PRN PRN IVPB PENDING LAB VALUE; Start 05/06/16 at 19:00 Dextrose (D50w Syringe) 25 ml Q15M PRN IV Till BS 80 mg/dL or above x2; Start 05/06/16 at 19:00 Dextrose (D50w Syringe) 50 ml Q15M PRN IV Till BS 80 mg/dL or above x2; Start 05/06/16 at 19:00 Docusate Sodium 100 mg 100 mg Q12 PO Last administered on 05/09/16 20:34; Admin Dose 100 MG; Start 05/07/16 at 21:00 Cefepime HCl (Maxipime 1gm/50 ml (Pmx)) 50 ml @ 100 mls/hr Q24H IVPB Last administered on 05/10/16 09:38; Admin Dose 100 MLS/HR; Start 05/09/16 at 09:00 Insulin Glargine (Lantus) 20 unit DAILY@20 SC Last administered on 05/09/16 20: 36; Admin Dose 20 UNIT; Start 05/08/16 at 20:00 Acetaminophen/ Hydrocodone Bitart ([place] (5/325)) 1 tab Q4H PRN PO pain; Start 05/08/16 at 16:00 Acetaminophen (Tylenol Tab) 650 mg Q6H PRN PO PAIN AND OR ELEVATED TEMP; Start 05/09/16 at 16:00 Acetaminophen 650 mg 650 mg Q6H PO Last administered on 05/10/16 04:51; Admin Dose 650 MG; Start 05/08/16 at 16:00 Dopamine HCl/ Dextrose 250 ml @ 3.915 mls/ hr TITRATE IV Last administered on 05/08/16 19:30; Admin Dose 9.788 MLS/HR; Start 05/08/16 at 20:00 Aspirin 81 mg 81 mg DAILY PO Last administered on 05/10/16 09:39; Admin Dose 81 MG; Start 05/10/16 at 09:00 Sodium Bicarbonate/ Dextrose (Na Bicarb/D5W) 1,150 ml @ 80 mls/hr [id number] IV Last administered on 05/10/16 03:54; Admin Dose 80 MLS/HR; Start 05/09/16 at 13: 15 Insulin Aspart (Novolog Insulin Pen) NOVOLOG *MILD* ALGORI... Q4 SC ; Start 12/17 at 01:00 Atorvastatin Calcium (Lipitor) 80 mg HS NGT ; Start 05/10/16 at 21:00 QARNI,JENNIFER May 10, 2016 09:58
--- NOTE | 2016-05-10 10:34 | PN ---
Date/Time of Note Date/Time of Note DATE: 05/10/16 TIME: 10:29 Assessment/Plan VTE Prophylaxis VTE Prophylaxis Intervention: heparin Lines/Catheters IV Catheter Type (from Nrs): [place] Urinary Cath still in place: Yes Reason Cath still needed: other (indicate) Assessment/Plan Assessment/Plan 1. Acute ST elevation myocardial infarction s/p unsuccessful emergent Cath 2. 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 Acute resp failure : improved / extubated 4. Uncontrolled Diabetes: A1c: 8.7: improved 5. Dyslipidemia 6. Normocytic anemia 7. ATN with acute renal insufficiency: improving (recovery) 8. s/p Intra-aortic balloon pump Placement PLAN Continue ICU post op care and support Continue empiric abx and f/u urine culture Pain control with oral and IV meds / stool softeners Appreciate cardiology and CTS input F/u speech therapist recommendations and closely monitor blood glucose levels while on lantus Appreciate Nephrology consult / strict Is and Os Cont current medical mgmt and supportive care PROPHYLAXIS: SCDs / heparin / IV protonix CRITICAL CARE TIME: >35 mins Subjective 24 Hr Interval Summary Free Text/Dictation Patient seen and examined. got extubated yesterday Balloon pump also off Exam/Review of Systems Vital Signs Vitals Vital Signs Date Time Temp Pulse Resp B/P Pulse Ox O2 Delivery O2 Flow Rate FiO2 05/10/16 10:00 81 25 119/72 100 Nasal Cannula 2.0 05/10/16 09:00 99.0 05/09/16 20:00 40 Intake and Output 05/09/16 05/09/16 05/10/16 15:00 23:00 07:00 Intake Total 870.810 ml 908.9 ml 975 ml Output Total 174 ml 551 ml 433 ml Balance 696.810 ml 357.9 ml 542 ml Exam Constitutional: alert, No distress Head: normocephalic Eyes: PERRL ENMT: No mucosa pink and moist (dry ) Respiratory: crackles/rales, diminished breath sounds, other (midsternal Chest tube and drain) Cardiovascular: regular rate and rhythm, No murmurs/extra sounds Gastrointestinal: bowel sounds, distended (mildly), soft Genitourinary - Female: other (arrington draining clear urone) Neurological: lethargic, nl mental status, No focal weakness Results Result Diagram: 05/10/16 0345 05/10/16 0345 Results 24 hrs Laboratory Tests Test 05/09/16 11:34 05/09/16 13:54 05/09/16 15:08 05/09/16 16:31 Bedside Glucose 115 115 111 106 Test 05/09/16 17:09 05/09/16 17:15 05/09/16 18:09 05/09/16 19:01 Bedside Glucose 106 111 107 Anion Gap 14 Blood Urea Nitrogen 37 H Calcium Level 8.0 L Carbon Dioxide Level 19 L Chloride Level 109 Creatinine 2.71 H Glucose Level 112 # Potassium Level 4.4 Sodium Level 138 Test 05/09/16 19:30 05/09/16 20:06 05/09/16 22:03 05/10/16 00:25 Arterial Blood HCO3 17.7 L Arterial Blood Base Excess -5.3 L Arterial Blood Oxygen Saturation 95.0 Shahram Test N/A Arterial Blood Gas Puncture Site A-Line Arterial Blood Carboxyhemoglobin 0.3 Arterial Blood Date Drawn 05/09/2016 7:30:04 PM Arterial Blood Methemoglobin 0.3 Arterial Blood pCO2 (Temp correct) 27.0 L Arterial Blood pH (Temp corrected) 7.435 Arterial Blood pO2 (Temp corrected) 78.7 L Blood Gas A-a O2 Differential 175.5 H Blood Gas Actual Respiration Rate 29 Blood Gas Low PEEP Setting 5.0 Blood Gas Modality VENT - AC Blood Gas Notified Time 05/09/2016 7:44:25 PM Blood Gas Notified Whom MA Blood Gas Pressure Support 10 Blood Gas Specimen Source Blood arterial Blood Gas Temperature 37.0 FiO2 40.0 Oxyhemoglobin Percent 94.4 Total Hemoglobin 11.1 L Bedside Glucose 125 120 96 Test 05/10/16 03:45 05/10/16 04:50 05/10/16 09:41 Albumin 3.0 L Anion Gap 17 H Basophils # 0.0 Basophils % 0.2 Blood Urea Nitrogen 39 H Calcium Level 7.8 L Carbon Dioxide Level 21 Chloride Level 104 Creatinine 2.47 H Eosinophils # 0.2 Eosinophils % 1.0 Glucose Level 75 Hematocrit 28.2 L Hemoglobin 9.3 L Lymphocytes # 2.6 Lymphocytes % 14.7 L Magnesium Level 2.6 H Mean Corpuscular Hemoglobin 30.2 Mean Corpuscular Hemoglobin Concent 33.0 Mean Corpuscular Volume 91.6 Mean Platelet Volume 11.6 H Monocytes # 1.2 H Monocytes % 6.8 Neutrophils # 13.7 H Neutrophils % 76.4 Nucleated Red Blood Cells # 0.0 Nucleated Red Blood Cells % 0.2 H Phosphorus Level 3.9 Platelet Count 98 #L Potassium Level 3.9 Red Blood Count 3.08 L Red Cell Distribution Width 14.5 Sodium Level 138 White Blood Count 18.0 H Bedside Glucose 78 106 Medications Medications Current Medications Acetaminophen (Tylenol Supp) 650 mg Q6H PRN [place] PAIN LEVEL 1-3 OR FEVER Last administered on 05/07/16 00:51; Admin Dose 650 MG; Start 05/04/16 at 10:00 Acetaminophen/ Hydrocodone Bitart ([place] (5/325)) 1 tab Q6H PRN PO MODERATE PAIN LEVEL 4-6 Last administered on 05/10/16 00:34; Admin Dose 1 TAB; Start 05/04/16 at 10:00 Acetaminophen/ Hydrocodone Bitart ([place] (5/325)) 2 tab Q6H PRN PO SEVERE PAIN LEVEL 7-10; Start 05/04/16 at 10:00 Morphine Sulfate (morphine) 2 mg Q4H PRN IV SEVERE PAIN LEVEL 7-10 Last administered on 05/08/16 02:45; Admin Dose 2 MG; Start 05/04/16 at 10:00 Magnesium Hydroxide (Milk Of Mag) 30 ml DAILY PRN PO CONSTIPATION; Start at 10:00 Bisacodyl (Dulcolax Supp) 10 mg DAILY PRN [place] CONSTIPATION; Start 05/04/16 at 10: 00 Pantoprazole (Protonix Iv) 40 mg DAILY@06 IV Last administered on 05/10/16 05: 00; Admin Dose 40 MG; Start 05/05/16 at 06:00 Nitroglycerin (Nitroglycerin (Sl Tab) 0.4 Mg) 1 tab Q5M PRN SL CHEST PAIN; Start 05/04/16 at 10:00 Miscellaneous Information 1 ea NOTE XX ; Start 05/04/16 at 18:30 Glucose (Glutose) 15 gm Q15M PRN PO DECREASED GLUCOSE; Start 05/04/16 at 18:30 Glucose (Glutose) 22.5 gm Q15M PRN PO DECREASED GLUCOSE; Start 05/04/16 at 18:30 Glucagon (Glucagen) 1 mg Q15M PRN IM DECREASED GLUCOSE; Start 05/04/16 at 18:30 Glucose 15 gm 15 gm Q15M PRN BUCCAL DECREASED GLUCOSE; Start 05/04/16 at 18:30 Albumin Human 250 ml @ 500 mls/hr PRN PRN IV CVP< 8, OR SBP<90 Last administered on 05/07/16 02:12; Admin Dose 500 MLS/HR; Start 05/06/16 at 19:00 Hydromorphone HCl (Dilaudid) 0.2 mg Q15M PRN IV PAIN LEVEL 1-5 Last administered on 05/08/16 15:13; Admin Dose 0.2 MG; Start 05/06/16 at 19:00 Hydromorphone HCl (Dilaudid) 0.4 mg Q15M PRN IV PAIN LEVEL 6-10; Start 05/06/16 at 19:00 Hydromorphone HCl (Dilaudid) 0.2 mg Q1H PRN IV PAIN LEVEL 1-5; Start 05/06/16 at 19:00 Hydromorphone HCl (Dilaudid) 0.4 mg Q1H PRN IV PAIN LEVEL 6-10; Start 05/06/16 at 19:00 Oxycodone/ Acetaminophen (Percocet (5/ 325)) 1 tab Q3H PRN PO PAIN LEVEL 1-5; Start 05/06/16 at 19:00 Oxycodone/ Acetaminophen (Percocet (5/ 325)) 2 tab Q3H PRN PO PAIN LEVEL 6-10; Start 05/06/16 at 19:00 Ondansetron HCl (Zofran Inj) 4 mg Q6H PRN IV NAUSEA AND/OR VOMITING; Start 05/06 at 19:00 Sucralfate (Carafate Susp) 1 gm Q6 PO Last administered on 05/10/16 05:00; Admin Dose 1 GM; Start 05/07/16 at 00:00 Acetaminophen 650 mg 650 mg Q3H PRN PO ELEVATED TEMPERATURE; Start 05/06/16 at 19:00 Magnesium Sulfate/ Dextrose (Magnesium Sulfate 1 Gm/D5W) 100 ml @ 100 mls/hr PRN PRN IVPB PENDING LAB VALUE; Start 05/06/16 at 19:00 Dextrose (D50w Syringe) 25 ml Q15M PRN IV Till BS 80 mg/dL or above x2; Start 05/06/16 at 19:00 Dextrose (D50w Syringe) 50 ml Q15M PRN IV Till BS 80 mg/dL or above x2; Start 05/06/16 at 19:00 Docusate Sodium 100 mg 100 mg Q12 PO Last administered on 05/09/16 20:34; Admin Dose 100 MG; Start 05/07/16 at 21:00 Cefepime HCl (Maxipime 1gm/50 ml (Pmx)) 50 ml @ 100 mls/hr Q24H IVPB Last administered on 05/10/16 09:38; Admin Dose 100 MLS/HR; Start 05/09/16 at 09:00 Insulin Glargine (Lantus) 20 unit DAILY@20 SC Last administered on 05/09/16 20: 36; Admin Dose 20 UNIT; Start 05/08/16 at 20:00 Acetaminophen/ Hydrocodone Bitart ([place] (5/325)) 1 tab Q4H PRN PO pain; Start 05/08/16 at 16:00 Acetaminophen (Tylenol Tab) 650 mg Q6H PRN PO PAIN AND OR ELEVATED TEMP; Start 05/09/16 at 16:00 Acetaminophen 650 mg 650 mg Q6H PO Last administered on 05/10/16 04:51; Admin Dose 650 MG; Start 05/08/16 at 16:00 Dopamine HCl/ Dextrose 250 ml @ 3.915 mls/ hr TITRATE IV Last administered on 05/08/16 19:30; Admin Dose 9.788 MLS/HR; Start 05/08/16 at 20:00 Aspirin 81 mg 81 mg DAILY PO Last administered on 05/10/16 09:39; Admin Dose 81 MG; Start 05/10/16 at 09:00 Sodium Bicarbonate/ Dextrose (Na Bicarb/D5W) 1,150 ml @ 80 mls/hr [id number] IV Last administered on 05/10/16 03:54; Admin Dose 80 MLS/HR; Start 05/09/16 at 13: 15 Insulin Aspart (Novolog Insulin Pen) NOVOLOG *MILD* ALGORI... Q4 SC ; Start 12/17 at 01:00 Atorvastatin Calcium (Lipitor) 80 mg HS NGT ; Start 05/10/16 at 21:00 Procedures Procedures PROCEDURE: XR Chest. CLINICAL INDICATION: Postoperative evaluation. TECHNIQUE: Single frontal chest x-ray. COMPARISON: Exam dated 05/08/2016. FINDINGS: There is a well-positioned tracheostomy 3.6 cm above the tejal, an NG tube tip overlying the stomach, and a [place]-Brian catheter tip overlying the RPA. An IABP overlies the mid descending thoracic aorta. A left-sided thoracostomy tube remains in place. There has been prior median sternotomy. The cardiomediastinal silhouette remains enlarged. A layering right effusion and patchy parenchymal disease at the right lung base is mildly increased. There is no pneumothorax. There are no acute osseous abnormalities. IMPRESSION: 1. Increasing layering right effusion and patchy parenchymal disease at the right lung base. Cardiomegaly, unchanged. 2. Tubes and lines as above. RPTAT: GG .Francisco Javier Torres MD, MD Date Time Electronically viewed and signed by .Francisco Javier Torres MD, on 05/09/2016 09:40 .P/ CC: JENNIFER BECERRIL BOLATITO M. May 10, 2016 10:34
--- NOTE | 2016-05-10 10:50 | RADRPT ---
PROCEDURE: XR Chest 1 view. CLINICAL INDICATION: Shortness of breath TECHNIQUE: AP views of the chest were obtained. COMPARISON: Yesterday FINDINGS: The heart is large. Calcified atherosclerosis is noted in the aorta. Endotracheal tube has been rem anthony. Nasogastric tube is stable. [place]-Brian catheter is unchanged. Mediastinal drain is stable. Median sternotomy wires overlie the heart. [id number] right pleural effusion with associated infiltrates at the right lung are unchanged. Retrocardiac opacity is stable. The osseous structur es are unchanged. IMPRESSION: Cardiomegaly with calcified atherosclerosis in the aorta. Interval extubation. The remaining support lines and tubes appear stable. Stable moderate to large right pleural effusion with associated patchy infiltrates throughout the ri ght lung. Stable retrocardiac opacity that may reflect left lower lobe atelectasis or infiltrate combined with small pleural effusion. RPTAT: AA .Denys Huerta MD, MD Date Time Electronically viewed and signed by .Denys Huerta MD, MD on 05/10/2016 10:50 .P/
[2016-05-10] MEDS ORDERED: FUROSEMIDE 20 MG INJ IV ONE (12:00)
[2016-05-10] MEDS ORDERED: ALBUMIN HUMAN 25% 100 ML IV ONE (12:00)
[2016-05-10 16:25] LABS: POTASSIUM 3.9 mmol/L (3.5-5.1)
[2016-05-10 16:28] LABS: CREATININE 2.24 mg/dl (0.44-1.00)
[2016-05-10 16:29] LABS: CALCIUM 7.8 mg/dl (8.4-10.2)
--- NOTE | 2016-05-10 16:34 | PN ---
Date/Time of Note Date/Time of Note DATE: 05/10/16 TIME: 16:31 Assessment/Plan Lines/Catheters IV Catheter Type (from Nrsg): [place] Brian Michael in Place (from Nrsg): Yes Assessment/Plan Chief Complaint/Hosp Course Impression: STEMI Multi-vessel coronary artery disease with left main involvement Chest pain resolved after IABP SP Urgent CABG Pt fully awake, follows command well moves all extremity to command 2D Echo with Tamponade, good fxn monitor UO and Cr Levels will follow nephrology recc Continue CT Sxn above explained to them Problems: Subjective 24 Hr Interval Summary Constitutional: improved Pain Control: mild Exam/Review of Systems Vital Signs Vitals Vital Signs Date Time Temp Pulse Resp B/P Pulse Ox O2 Delivery O2 Flow Rate FiO2 05/10/16 16:00 72 05/10/16 16:00 98.6 24 127/61 100 Nasal Cannula 05/10/16 15:00 2.0 05/09/16 20:00 40 Intake and Output 05/09/16 05/09/16 05/10/16 15:00 23:00 07:00 Intake Total 870.810 ml 908.9 ml 975 ml Output Total 174 ml 551 ml 433 ml Balance 696.810 ml 357.9 ml 542 ml Exam ENMT: mucosa pink and moist, nl external ears & nose, nl lips & teeth, nl nasal mucosa & septum Neck: non-tender, supple Respiratory: clear to auscultation, normal air movement Cardiovascular: nl pulses, regular rate and rhythm Results Result Diagram: 05/10/16 0345 05/10/16 0345 BEVERLEY NEGRETE MD May 10, 2016 16:34
[2016-05-10] MEDS ORDERED: INSULIN ASPART [NOVOLOG] 3 ML PEN SC SCH (17:05)
--- NOTE | 2016-05-10 20:11 | CONS ---
Date/Time of Note Date/Time of Note DATE: 05/10/16 TIME: 20:08 Assessment/Plan Assessment/Plan Additional Assessment/Plan 1. Acute kidney injury, oliguric, likely secondary to acute tubular necrosis from ischemic acute tubular necrosis in the setting of ST elevation myocardial infarction. 2. 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 Acute respiratory failure, ventilator dependent. 4. Uncontrolled diabetes mellitus with hemoglobin A1c 8.7. 5. Dyslipidemia. 6. Normocytic anemia. 7. Status post intra-aortic balloon pump placement. Plan: will given albumin with lasix 20mg IV x after IV albumin no need for HD today continue bicarbonate drip will follow up Consultation Date/Type/Reason Admit Date/Time May 04, 2016 at 08:40 Initial Consult Date 05/08/16 Type of Consultation: NEPHROLOGY Reason for Consultation acute kidney injury Referring Provider: JANICE RIVERA 24 HR Interval Summary Free Text/Dictation Cr remained stable, pt extubated, BP still labile, Urine output 800 cc Exam/Review of Systems Vital Signs Vitals Vital Signs Date Time Temp Pulse Resp B/P Pulse Ox O2 Delivery O2 Flow Rate FiO2 05/10/16 16:15 Nasal Cannula 2.0 05/10/16 16:00 72 05/10/16 16:00 98.6 24 127/61 100 05/09/16 20:00 40 Intake and Output 05/09/16 05/09/16 05/10/16 15:00 23:00 07:00 Intake Total 870.810 ml 908.9 ml 975 ml Output Total 174 ml 551 ml 433 ml Balance 696.810 ml 357.9 ml 542 ml Exam Extubated NECK: No jugular venous distention. LUNGS: Bilateral coarse breath sounds. HEART: S1, S2, tachycardia. No murmur. ABDOMEN: Soft, nontender, nondistended. EXTREMITIES: 1+ to 2+ pitting edema. Michael catheter in place. NEUROLOGICAL: Uncooperative due to the sedation. PSYCHIATRIC: Not able to assess. SKIN: No rash. Results Result Diagram: 05/10/16 0345 05/10/16 1547 Results 24 hrs Laboratory Tests Test 05/09/16 22:03 05/10/16 00:25 05/10/16 03:45 05/10/16 04:50 Bedside Glucose 120 96 78 Albumin 3.0 L Anion Gap 17 H Basophils # 0.0 Basophils % 0.2 Blood Urea Nitrogen 39 H Calcium Level 7.8 L Carbon Dioxide Level 21 Chloride Level 104 Creatinine 2.47 H Eosinophils # 0.2 Eosinophils % 1.0 Glucose Level 75 Hematocrit 28.2 L Hemoglobin 9.3 L Lymphocytes # 2.6 Lymphocytes % 14.7 L Magnesium Level 2.6 H Mean Corpuscular Hemoglobin 30.2 Mean Corpuscular Hemoglobin Concent 33.0 Mean Corpuscular Volume 91.6 Mean Platelet Volume 11.6 H Monocytes # 1.2 H Monocytes % 6.8 Neutrophils # 13.7 H Neutrophils % 76.4 Nucleated Red Blood Cells # 0.0 Nucleated Red Blood Cells % 0.2 H Phosphorus Level 3.9 Platelet Count 98 #L Potassium Level 3.9 Red Blood Count 3.08 L Red Cell Distribution Width 14.5 Sodium Level 138 White Blood Count 18.0 H Test 05/10/16 09:41 05/10/16 13:30 05/10/16 15:47 05/10/16 18:27 Bedside Glucose 106 103 118 Anion Gap 16 Blood Urea Nitrogen 43 H Calcium Level 7.8 L Carbon Dioxide Level 26 Chloride Level 99 Creatinine 2.24 H Glucose Level 109 Potassium Level 3.9 Sodium Level 137 Medications Medications Current Medications Acetaminophen (Tylenol Supp) 650 mg Q6H PRN [place] PAIN LEVEL 1-3 OR FEVER Last administered on 05/07/16 00:51; Admin Dose 650 MG; Start 05/04/16 at 10:00 Acetaminophen/ Hydrocodone Bitart ([place] (5/325)) 1 tab Q6H PRN PO MODERATE PAIN LEVEL 4-6 Last administered on 05/10/16 00:34; Admin Dose 1 TAB; Start 05/04/16 at 10:00 Acetaminophen/ Hydrocodone Bitart ([place] (5/325)) 2 tab Q6H PRN PO SEVERE PAIN LEVEL 7-10; Start 05/04/16 at 10:00 Morphine Sulfate (morphine) 2 mg Q4H PRN IV SEVERE PAIN LEVEL 7-10 Last administered on 05/08/16 02:45; Admin Dose 2 MG; Start 05/04/16 at 10:00 Magnesium Hydroxide (Milk Of Mag) 30 ml DAILY PRN PO CONSTIPATION; Start at 10:00 Bisacodyl (Dulcolax Supp) 10 mg DAILY PRN [place] CONSTIPATION; Start 05/04/16 at 10: 00 Pantoprazole (Protonix Iv) 40 mg DAILY@06 IV Last administered on 05/10/16 05: 00; Admin Dose 40 MG; Start 05/05/16 at 06:00 Nitroglycerin (Nitroglycerin (Sl Tab) 0.4 Mg) 1 tab Q5M PRN SL CHEST PAIN; Start 05/04/16 at 10:00 Miscellaneous Information 1 ea NOTE XX ; Start 05/04/16 at 18:30 Glucose (Glutose) 15 gm Q15M PRN PO DECREASED GLUCOSE; Start 05/04/16 at 18:30 Glucose (Glutose) 22.5 gm Q15M PRN PO DECREASED GLUCOSE; Start 05/04/16 at 18:30 Glucagon (Glucagen) 1 mg Q15M PRN IM DECREASED GLUCOSE; Start 05/04/16 at 18:30 Glucose 15 gm 15 gm Q15M PRN BUCCAL DECREASED GLUCOSE; Start 05/04/16 at 18:30 Albumin Human 250 ml @ 500 mls/hr PRN PRN IV CVP< 8, OR SBP<90 Last administered on 05/07/16 02:12; Admin Dose 500 MLS/HR; Start 05/06/16 at 19:00 Hydromorphone HCl (Dilaudid) 0.2 mg Q15M PRN IV PAIN LEVEL 1-5 Last administered on 05/08/16 15:13; Admin Dose 0.2 MG; Start 05/06/16 at 19:00 Hydromorphone HCl (Dilaudid) 0.4 mg Q15M PRN IV PAIN LEVEL 6-10; Start 05/06/16 at 19:00 Hydromorphone HCl (Dilaudid) 0.2 mg Q1H PRN IV PAIN LEVEL 1-5; Start 05/06/16 at 19:00 Hydromorphone HCl (Dilaudid) 0.4 mg Q1H PRN IV PAIN LEVEL 6-10; Start 05/06/16 at 19:00 Oxycodone/ Acetaminophen (Percocet (5/ 325)) 1 tab Q3H PRN PO PAIN LEVEL 1-5; Start 05/06/16 at 19:00 Oxycodone/ Acetaminophen (Percocet (5/ 325)) 2 tab Q3H PRN PO PAIN LEVEL 6-10; Start 05/06/16 at 19:00 Ondansetron HCl (Zofran Inj) 4 mg Q6H PRN IV NAUSEA AND/OR VOMITING Last administered on 05/10/16 12:22; Admin Dose 4 MG; Start 05/06/16 at 19:00 Sucralfate 1 gm 1 gm Q6 PO Last administered on 05/10/16 17:26; Admin Dose 1 GM; Start 05/07/16 at 00:00 Magnesium Sulfate/ Dextrose (Magnesium Sulfate 1 Gm/D5W) 100 ml @ 100 mls/hr PRN PRN IVPB PENDING LAB VALUE; Start 05/06/16 at 19:00 Dextrose (D50w Syringe) 25 ml Q15M PRN IV Till BS 80 mg/dL or above x2; Start 05/06/16 at 19:00 Dextrose (D50w Syringe) 50 ml Q15M PRN IV Till BS 80 mg/dL or above x2; Start 05/06/16 at 19:00 Docusate Sodium 100 mg 100 mg Q12 PO Last administered on 05/09/16 20:34; Admin Dose 100 MG; Start 05/07/16 at 21:00 Cefepime HCl (Maxipime 1gm/50 ml (Pmx)) 50 ml @ 100 mls/hr Q24H IVPB Last administered on 05/10/16 09:38; Admin Dose 100 MLS/HR; Start 05/09/16 at 09:00 Insulin Glargine (Lantus) 20 unit DAILY@20 SC Last administered on 05/09/16 20: 36; Admin Dose 20 UNIT; Start 05/08/16 at 20:00 Acetaminophen/ Hydrocodone Bitart ([place] (5/325)) 1 tab Q4H PRN PO pain; Start 05/08/16 at 16:00 Acetaminophen 650 mg 650 mg Q6H PRN PO PAIN AND OR ELEVATED TEMP; Start at 16:00 Dopamine HCl/ Dextrose 250 ml @ 3.915 mls/ hr TITRATE IV Last administered on 05/08/16 19:30; Admin Dose 9.788 MLS/HR; Start 05/08/16 at 20:00 Aspirin 81 mg 81 mg DAILY PO Last administered on 05/10/16 09:39; Admin Dose 81 MG; Start 05/10/16 at 09:00 Sodium Bicarbonate/ Dextrose (Na Bicarb/D5W) 1,150 ml @ 80 mls/hr [id number] IV Last administered on 05/10/16 18:16; Admin Dose 80 MLS/HR; Start 05/09/16 at 13: 15 Atorvastatin Calcium (Lipitor) 80 mg HS NGT ; Start 05/10/16 at 21:00 Heparin Sodium (Porcine) (Heparin (5000 Units/0.5 ml)) 5,000 unit BID SC ; Start 05/10/16 at 21:00 Diagnostic Test (Pha) (Accucheck) 1 ea 02 XX ; Start 05/11/16 at 02:00 JIM WHITE MD May 10, 2016 20:11
[2016-05-10] MEDS: INSULIN GLARGINE [LANtus] 3 ML PEN SC SCH (20:23)
[2016-05-10] MEDS: ATORVASTATIN 80 MG TAB NGT SCH (20:31)
[2016-05-10] MEDS: HEPARIN 5,000 UNIT/0.5 ML SYG SC SCH (20:33)
[2016-05-11] VITALS (23 sets, daily range): BP systolic 82–138; BP diastolic 50–101; PULSE 71–83; RESP 14–29
[2016-05-11] MEDS: SUCRALFATE (100 MG/ML) 10ML CUP PO SCH ×4 (00:23→17:03)
[2016-05-11 04:33] LABS: ADD SCAN DIFF NO
[2016-05-11 04:40] LABS: BASOPHILS % 0.2 % (0.0-2.0); EOSINOPHILS # 0.3 10^3/ul (0.0-0.5); EOSINOPHILS % 1.9 % (0.0-7.0); HEMATOCRIT 29.6 % (37.0-47.0); HEMOGLOBIN 9.7 g/dl (12.0-16.0); LYMPHOCYTES # 2.1 10^3/ul (0.8-2.9); LYMPHOCYTES % 14.6 % (15.0-51.0); MEAN CORPUSCULAR HGB CONC 32.8 g/dl (32.0-37.0); MEAN CORPUSCULAR VOLUME 91.6 fl (82.0-101.0); MEAN PLATELET VOLUME 11.4 fl (7.4-10.4); MONOCYTE # 1.2 10^3/ul (0.3-0.9); MONOCYTES % 8.5 % (0.0-11.0); NEUTROPHIL # 10.5 10^3/ul (1.6-7.5); NEUTROPHILS % 74.2 % (39.0-77.0); NUCLEATED RED BLOOD CELLS% 0.3 /100WBC (0.0-0.0); PLATELET COUNT 131 10^3/UL (140-415); RED BLOOD COUNT 3.23 10^6/ul (4.20-5.40); RED CELL DISTRIBUTION WIDTH 14.4 % (11.5-14.5); WHITE BLOOD COUNT 14.1 10^3/ul (4.8-10.8)
[2016-05-11 04:48] LABS: ALBUMIN 2.5 g/dl (3.3-4.9); POTASSIUM 3.1 mmol/L (3.5-5.1)
[2016-05-11 04:51] LABS: CREATININE 1.98 mg/dl (0.44-1.00); PHOSPHORUS 3.7 mg/dl (2.5-4.9)
[2016-05-11] MEDS ORDERED: POTASSIUM CHLORIDE (SR) 20 MEQ TAB PO ONE (05:47)
[2016-05-11] MEDS: PANTOPRAZOLE 40 MG INJ IV SCH (05:54)
[2016-05-11] MEDS: INSULIN ASPART [NOVOLOG] 3 ML PEN SC SCH ×4 (07:35→20:59)
[2016-05-11 08:04] LABS: ADD UMIC YES; URINE BILIRUBIN (Dip) NEGATIVE (NEGATIVE); URINE BLOOD (Dip) 1+ (NEGATIVE); URINE COLOR LT. YELLOW (YELLOW); URINE GLUCOSE (Dip) NEGATIVE (NEGATIVE); URINE KETONES (Dip) NEGATIVE (NEGATIVE); URINE LEUKOCYTE ESTERASE (Dip) 1+ (NEGATIVE); URINE NITRITE (Dip) NEGATIVE (NEGATIVE); URINE TOTAL PROTEIN (Dip) 1+ (NEGATIVE); URINE UROBILINOGEN (Dip) 0.2 E.U./dL (0.1-1.0)
[2016-05-11] MEDS: CEFEPIME 1GM/50 ML (PMX) 50 ML IVPB SCH (08:05)
[2016-05-11] MEDS: ASPIRIN 81 MG TAB PO SCH (08:06)
[2016-05-11] MEDS: HEPARIN 5,000 UNIT/0.5 ML SYG SC SCH ×2 (08:10→20:45)
[2016-05-11] MEDS: HYDROCODONE/APAP (5/325) TAB PO PRN (08:10)
[2016-05-11] MEDS: DOCUSATE SODIUM 100 MG CAP PO SCH ×2 (08:11→20:59)
--- NOTE | 2016-05-11 08:33 | RADRPT ---
PROCEDURE: XR Chest. CLINICAL INDICATION: Shortness of breath. TECHNIQUE: Single frontal view. COMPARISON: 05/10/2016. FINDINGS: The [place]-Brian catheter has been removed leaving the right internal jugular vein sheath catheter in s atisfactory position. The nasogastric tube has also been removed. There are sternal wires, mediast inal clips, and mediastinal drains. There is mild atelectasis at the lung bases with improved aerat ion of the right lung. The heart is enlarged. There is calcification in the aorta consistent with atherosclerosis. There are small bilateral pleural effusions. There is no pneumothorax. IMPRESSION: 1. [place]-Brian catheter and nasogastric tube removed. 2. Improved aeration of the right lung. 3. Postoperative changes of the chest. 4. Small bilateral pleural effusions. RPTAT: QQ .Fei Santana MD, Date Time Electronically viewed and signed by .Fei Santana MD, on 05/11/2016 08:33 .R/
[2016-05-11 08:43] LABS: BACTERIA,URINE FEW
--- NOTE | 2016-05-11 09:22 | PN ---
Date/Time of Note Date/Time of Note DATE: 05/11/16 TIME: 09:18 Assessment/Plan VTE Prophylaxis VTE Prophylaxis Intervention: heparin, other (thrombocytopenia improved) Lines/Catheters IV Catheter Type (from Nrs): Peripheral IV Urinary Cath still in place: Yes Reason Cath still needed: other (indicate) Assessment/Plan Assessment/Plan 1. S/P Acute ST elevation myocardial infarction s/p unsuccessful emergent Cath 2. 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 Acute resp failure : improved / extubated / STABLE 4. Uncontrolled Diabetes: A1c: 8.7: improved 5. Dyslipidemia 6. Normocytic anemia 7. ATN with acute renal insufficiency: improving (recovery) 8. s/p Intra-aortic balloon pump Placement PLAN * Plan for aggressive PT and use incentive spirometer * Continue empiric abx and f/u urine culture / repeat blood cultures if fever persists. * ?culture from chest tube * Pain control with oral and IV meds / stool softeners * Appreciate cardiology and CTS input * Appreciate Nephrology consult / strict Is and Os * Cont current medical mgmt and supportive care Fluid/Nutrition and electrolytes: Puree diet / IVF per nephrology PROPHYLAXIS: SCDs / heparin / IV protonix CRITICAL CARE TIME: >35 mins Subjective 24 Hr Interval Summary Free Text/Dictation low grade fever yesterday Constitutional: improved Gastrointestinal: other (eatin), No no complaints Exam/Review of Systems Vital Signs Vitals Vital Signs Date Time Temp Pulse Resp B/P Pulse Ox O2 Delivery O2 Flow Rate FiO2 05/11/16 08:00 81 05/11/16 08:00 Nasal Cannula 4.0 05/11/16 08:00 97.6 29 116/62 100 05/09/16 20:00 40 Intake and Output 05/10/16 05/10/16 05/11/16 15:00 23:00 07:00 Intake Total 960 ml 665 ml 640 ml Output Total 800 ml 533 ml 420 ml Balance 160 ml 132 ml 220 ml Exam Constitutional: alert, frail, oriented Head: atraumatic, normocephalic Eyes: PERRL ENMT: mucosa pink and moist Neck: supple Respiratory: diminished breath sounds, other Cardiovascular: regular rate and rhythm, No murmurs/extra sounds Gastrointestinal: bowel sounds, non-tender, soft Extremities: edema Neurological: lethargic, No focal weakness Results Result Diagram: 05/11/16 0415 05/11/16 0415 Results 24 hrs Laboratory Tests Test 05/10/16 09:41 05/10/16 13:30 05/10/16 15:47 05/10/16 18:27 Bedside Glucose 106 103 118 Anion Gap 16 Blood Urea Nitrogen 43 H Calcium Level 7.8 L Carbon Dioxide Level 26 Chloride Level 99 Creatinine 2.24 H Glucose Level 109 Potassium Level 3.9 Sodium Level 137 Test 05/10/16 20:20 05/11/16 04:15 05/11/16 07:30 05/11/16 07:45 Bedside Glucose 153 77 Albumin 2.5 L Anion Gap 11 Basophils # 0.0 Basophils % 0.2 Blood Urea Nitrogen 42 H Calcium Level 7.0 L Carbon Dioxide Level 35 H Chloride Level 96 L Creatinine 1.98 H Eosinophils # 0.3 Eosinophils % 1.9 Glucose Level 167 Hematocrit 29.6 L Hemoglobin 9.7 L Lymphocytes # 2.1 Lymphocytes % 14.6 L Mean Corpuscular Hemoglobin 30.0 Mean Corpuscular Hemoglobin Concent 32.8 Mean Corpuscular Volume 91.6 Mean Platelet Volume 11.4 H Monocytes # 1.2 H Monocytes % 8.5 Neutrophils # 10.5 H Neutrophils % 74.2 Nucleated Red Blood Cells # 0.0 Nucleated Red Blood Cells % 0.3 H Phosphorus Level 3.7 Platelet Count 131 #L Potassium Level 3.1 L Red Blood Count 3.23 L Red Cell Distribution Width 14.4 Sodium Level 139 White Blood Count 14.1 #H Urine Bacteria FEW Urine Bilirubin NEGATIVE Urine Clarity SLIGHTLY CLOUDY Urine Coarse Granular Casts FEW Urine Color LT. YELLOW Urine Glucose NEGATIVE Urine Granular Casts RARE Urine Hemoglobin 1+ H Urine Hyaline Casts FEW Urine Ketones NEGATIVE Urine Leukocyte Esterase 1+ H Urine Microscopic RBC 2-5 Urine Microscopic WBC 2-5 Urine Nitrite NEGATIVE Urine Specific [place] 1.015 Urine Total Protein 1+ H Urine Urobilinogen 0.2 E.U./dL Urine pH 5.5 Medications Medications Current Medications Acetaminophen (Tylenol Supp) 650 mg Q6H PRN [place] PAIN LEVEL 1-3 OR FEVER Last administered on 05/07/16t 00:51; Admin Dose 650 MG; Start 05/04/16 at 10:00 Acetaminophen/ Hydrocodone Bitart ([place] (5/325)) 1 tab Q6H PRN PO MODERATE PAIN LEVEL 4-6 Last administered on 05/11/16 08:10; Admin Dose 1 TAB; Start 05/04/16 at 10:00 Acetaminophen/ Hydrocodone Bitart ([place] (5/325)) 2 tab Q6H PRN PO SEVERE PAIN LEVEL 7-10; Start 05/04/16 at 10:00 Morphine Sulfate (morphine) 2 mg Q4H PRN IV SEVERE PAIN LEVEL 7-10 Last administered on 05/08/16 02:45; Admin Dose 2 MG; Start 05/04/16 at 10:00 Magnesium Hydroxide (Milk Of Mag) 30 ml DAILY PRN PO CONSTIPATION; Start at 10:00 Bisacodyl (Dulcolax Supp) 10 mg DAILY PRN [place] CONSTIPATION; Start 05/04/16 at 10: 00 Pantoprazole (Protonix Iv) 40 mg DAILY@06 IV Last administered on 05/11/16 05: 54; Admin Dose 40 MG; Start 05/05/16 at 06:00 Nitroglycerin (Nitroglycerin (Sl Tab) 0.4 Mg) 1 tab Q5M PRN SL CHEST PAIN; Start 05/04/16 at 10:00 Miscellaneous Information 1 ea NOTE XX ; Start 05/04/16 at 18:30 Glucose (Glutose) 15 gm Q15M PRN PO DECREASED GLUCOSE; Start 05/04/16 at 18:30 Glucose (Glutose) 22.5 gm Q15M PRN PO DECREASED GLUCOSE; Start 05/04/16 at 18:30 Glucagon (Glucagen) 1 mg Q15M PRN IM DECREASED GLUCOSE; Start 05/04/16 at 18:30 Glucose 15 gm 15 gm Q15M PRN BUCCAL DECREASED GLUCOSE; Start 05/04/16 at 18:30 Albumin Human 250 ml @ 500 mls/hr PRN PRN IV CVP< 8, OR SBP<90 Last administered on 05/07/16 02:12; Admin Dose 500 MLS/HR; Start 05/06/16 at 19:00 Hydromorphone HCl (Dilaudid) 0.2 mg Q15M PRN IV PAIN LEVEL 1-5 Last administered on 05/08/16 15:13; Admin Dose 0.2 MG; Start 05/06/16 at 19:00 Hydromorphone HCl (Dilaudid) 0.4 mg Q15M PRN IV PAIN LEVEL 6-10; Start 05/06/16 at 19:00 Hydromorphone HCl (Dilaudid) 0.2 mg Q1H PRN IV PAIN LEVEL 1-5; Start 05/06/16 at 19:00 Hydromorphone HCl (Dilaudid) 0.4 mg Q1H PRN IV PAIN LEVEL 6-10; Start 05/06/16 at 19:00 Oxycodone/ Acetaminophen (Percocet (5/ 325)) 1 tab Q3H PRN PO PAIN LEVEL 1-5; Start 05/06/16 at 19:00 Oxycodone/ Acetaminophen (Percocet (5/ 325)) 2 tab Q3H PRN PO PAIN LEVEL 6-10; Start 05/06/16 at 19:00 Ondansetron HCl (Zofran Inj) 4 mg Q6H PRN IV NAUSEA AND/OR VOMITING Last administered on 05/10/16 12:22; Admin Dose 4 MG; Start 05/06/16 at 19:00 Sucralfate 1 gm 1 gm Q6 PO Last administered on 05/11/16 05:53; Admin Dose 1 GM; Start 05/07/16 at 00:00 Magnesium Sulfate/ Dextrose (Magnesium Sulfate 1 Gm/D5W) 100 ml @ 100 mls/hr PRN PRN IVPB PENDING LAB VALUE; Start 05/06/16 at 19:00 Dextrose (D50w Syringe) 25 ml Q15M PRN IV Till BS 80 mg/dL or above x2; Start 05/06/16 at 19:00 Dextrose (D50w Syringe) 50 ml Q15M PRN IV Till BS 80 mg/dL or above x2; Start 05/06/16 at 19:00 Docusate Sodium 100 mg 100 mg Q12 PO Last administered on 05/09/16 20:34; Admin Dose 100 MG; Start 05/07/16 at 21:00 Cefepime HCl (Maxipime 1gm/50 ml (Pmx)) 50 ml @ 100 mls/hr Q24H IVPB Last administered on 05/11/16 08:05; Admin Dose 100 MLS/HR; Start 05/09/16 at 09:00 Insulin Glargine (Lantus) 20 unit DAILY@20 SC Last administered on 05/10/16 20 :23; Admin Dose 20 UNIT; Start 05/08/16 at 20:00 Acetaminophen/ Hydrocodone Bitart ([place] (5/325)) 1 tab Q4H PRN PO pain; Start 05/08/16 at 16:00 Acetaminophen 650 mg 650 mg Q6H PRN PO PAIN AND OR ELEVATED TEMP; Start at 16:00 Dopamine HCl/ Dextrose 250 ml @ 3.915 mls/ hr TITRATE IV Last administered on 05/08/16 19:30; Admin Dose 9.788 MLS/HR; Start 05/08/16 at 20:00 Aspirin 81 mg 81 mg DAILY PO Last administered on 05/11/16 08:06; Admin Dose 81 MG; Start 05/10/16 at 09:00 Sodium Bicarbonate/ Dextrose (Na Bicarb/D5W) 1,150 ml @ 80 mls/hr [id number] IV Last administered on 05/10/16 18:16; Admin Dose 80 MLS/HR; Start 05/09/16 at 13: 15 Atorvastatin Calcium (Lipitor) 80 mg HS NGT Last administered on 05/10/16 20: 31; Admin Dose 80 MG; Start 05/10/16 at 21:00 Heparin Sodium (Porcine) (Heparin (5000 Units/0.5 ml)) 5,000 unit BID SC Last administered on 05/11/16 08:10; Admin Dose 5,000 UNIT; Start 05/10/16 at 21:00 Diagnostic Test (Pha) (Accucheck) 1 ea 02 XX ; Start 05/11/16 at 02:00 Procedures Procedures PROCEDURE: XR Chest. CLINICAL INDICATION: Shortness of breath. TECHNIQUE: Single frontal view. COMPARISON: 05/10/2016. FINDINGS: The [place]-Brian catheter has been removed leaving the right internal jugular vein sheath catheter in satisfactory position. The nasogastric tube has also been removed. There are sternal wires, mediastinal clips, and mediastinal drains. There is mild atelectasis at the lung bases with improved aeration of the right lung. The heart is enlarged. There is calcification in the aorta consistent with atherosclerosis. There are small bilateral pleural effusions. There is no pneumothorax. IMPRESSION: 1. [place]-Brian catheter and nasogastric tube removed. 2. Improved aeration of the right lung. 3. Postoperative changes of the chest. 4. Small bilateral pleural effusions. RPTAT: QQ .Fei Santana MD, MD Date Time Electronically viewed and signed by .Fei Santana MD, MD on 05/11/2016 08:33 .R/ CC: JENNIFER BECERRIL BOLATITO M. May 11, 2016 09:22
--- NOTE | 2016-05-11 09:43 | CONS ---
Date/Time of Note Date/Time of Note DATE: 05/11/16 TIME: 09:40 Assessment/Plan Assessment/Plan Additional Assessment/Plan 1. Acute kidney injury, oliguric, likely secondary to acute tubular necrosis from ischemic acute tubular necrosis in the setting of ST elevation myocardial infarction. 2. 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 Acute respiratory failure, ventilator dependent. 4. Uncontrolled diabetes mellitus with hemoglobin A1c 8.7. 5. Dyslipidemia. 6. Normocytic anemia. 7. Status post intra-aortic balloon pump placement. Plan: will given albumin with lasix 20mg IV x after IV albumin d/cbicarbonate drip give D51/2 NS at 40 cc/hr encourage po intake no need for HD today will follow up Consultation Date/Type/Reason Admit Date/Time May 04, 2016 at 08:40 Initial Consult Date 05/08/16 Type of Consultation: NEPHROLOGY Reason for Consultation acute kidney injury, Hyperkalemia Referring Provider: JANICE RIVERA 24 HR Interval Summary Free Text/Dictation cr improving, urine output 800 cc Exam/Review of Systems Vital Signs Vitals Vital Signs Date Time Temp Pulse Resp B/P Pulse Ox O2 Delivery O2 Flow Rate FiO2 05/11/16 08:00 81 05/11/16 08:00 Nasal Cannula 4.0 05/11/16 08:00 97.6 29 116/62 100 05/09/16 20:00 40 Intake and Output 05/10/16 05/10/16 05/11/16 15:00 23:00 07:00 Intake Total 960 ml 665 ml 640 ml Output Total 800 ml 533 ml 420 ml Balance 160 ml 132 ml 220 ml Exam Extubated NECK: No jugular venous distention. LUNGS: Bilateral coarse breath sounds. HEART: S1, S2, tachycardia. No murmur. ABDOMEN: Soft, nontender, nondistended. EXTREMITIES: 1+ to 2+ pitting edema. Michael catheter in place. NEUROLOGICAL: Uncooperative due to the sedation. PSYCHIATRIC: Not able to assess. SKIN: No rash. Results Result Diagram: 05/11/16 0415 05/11/16 0415 Results 24 hrs Laboratory Tests Test 05/10/16 09:41 05/10/16 13:30 05/10/16 15:47 05/10/16 18:27 Bedside Glucose 106 103 118 Anion Gap 16 Blood Urea Nitrogen 43 H Calcium Level 7.8 L Carbon Dioxide Level 26 Chloride Level 99 Creatinine 2.24 H Glucose Level 109 Potassium Level 3.9 Sodium Level 137 Test 05/10/16 20:20 05/11/16 04:15 05/11/16 07:30 05/11/16 07:45 Bedside Glucose 153 77 Albumin 2.5 L Anion Gap 11 Basophils # 0.0 Basophils % 0.2 Blood Urea Nitrogen 42 H Calcium Level 7.0 L Carbon Dioxide Level 35 H Chloride Level 96 L Creatinine 1.98 H Eosinophils # 0.3 Eosinophils % 1.9 Glucose Level 167 Hematocrit 29.6 L Hemoglobin 9.7 L Lymphocytes # 2.1 Lymphocytes % 14.6 L Mean Corpuscular Hemoglobin 30.0 Mean Corpuscular Hemoglobin Concent 32.8 Mean Corpuscular Volume 91.6 Mean Platelet Volume 11.4 H Monocytes # 1.2 H Monocytes % 8.5 Neutrophils # 10.5 H Neutrophils % 74.2 Nucleated Red Blood Cells # 0.0 Nucleated Red Blood Cells % 0.3 H Phosphorus Level 3.7 Platelet Count 131 #L Potassium Level 3.1 L Red Blood Count 3.23 L Red Cell Distribution Width 14.4 Sodium Level 139 White Blood Count 14.1 #H Urine Bacteria FEW Urine Bilirubin NEGATIVE Urine Clarity SLIGHTLY CLOUDY Urine Coarse Granular Casts FEW Urine Color LT. YELLOW Urine Glucose NEGATIVE Urine Granular Casts RARE Urine Hemoglobin 1+ H Urine Hyaline Casts FEW Urine Ketones NEGATIVE Urine Leukocyte Esterase 1+ H Urine Microscopic RBC 2-5 Urine Microscopic WBC 2-5 Urine Nitrite NEGATIVE Urine Specific [place] 1.015 Urine Total Protein 1+ H Urine Urobilinogen 0.2 E.U./dL Urine pH 5.5 Medications Medications Current Medications Acetaminophen (Tylenol Supp) 650 mg Q6H PRN [place] PAIN LEVEL 1-3 OR FEVER Last administered on 05/07/16 00:51; Admin Dose 650 MG; Start 05/04/16 at 10:00 Acetaminophen/ Hydrocodone Bitart ([place] (5/325)) 1 tab Q6H PRN PO MODERATE PAIN LEVEL 4-6 Last administered on 05/11/16 08:10; Admin Dose 1 TAB; Start 05/04/16 at 10:00 Acetaminophen/ Hydrocodone Bitart ([place] (5/325)) 2 tab Q6H PRN PO SEVERE PAIN LEVEL 7-10; Start 05/04/16 at 10:00 Morphine Sulfate (morphine) 2 mg Q4H PRN IV SEVERE PAIN LEVEL 7-10 Last administered on 05/08/16 02:45; Admin Dose 2 MG; Start 05/04/16 at 10:00 Magnesium Hydroxide (Milk Of Mag) 30 ml DAILY PRN PO CONSTIPATION; Start at 10:00 Bisacodyl (Dulcolax Supp) 10 mg DAILY PRN [place] CONSTIPATION; Start 05/04/16 at 10: 00 Pantoprazole (Protonix Iv) 40 mg DAILY@06 IV Last administered on 05/11/16 05: 54; Admin Dose 40 MG; Start 05/05/16 at 06:00 Nitroglycerin (Nitroglycerin (Sl Tab) 0.4 Mg) 1 tab Q5M PRN SL CHEST PAIN; Start 05/04/16 at 10:00 Miscellaneous Information 1 ea NOTE XX ; Start 05/04/16 at 18:30 Glucose (Glutose) 15 gm Q15M PRN PO DECREASED GLUCOSE; Start 05/04/16 at 18:30 Glucose (Glutose) 22.5 gm Q15M PRN PO DECREASED GLUCOSE; Start 05/04/16 at 18:30 Glucagon (Glucagen) 1 mg Q15M PRN IM DECREASED GLUCOSE; Start 05/04/16 at 18:30 Glucose 15 gm 15 gm Q15M PRN BUCCAL DECREASED GLUCOSE; Start 05/04/16 at 18:30 Albumin Human 250 ml @ 500 mls/hr PRN PRN IV CVP< 8, OR SBP<90 Last administered on 05/07/16 02:12; Admin Dose 500 MLS/HR; Start 05/06/16 at 19:00 Hydromorphone HCl (Dilaudid) 0.2 mg Q15M PRN IV PAIN LEVEL 1-5 Last administered on 05/08/16 15:13; Admin Dose 0.2 MG; Start 05/06/16 at 19:00 Hydromorphone HCl (Dilaudid) 0.4 mg Q15M PRN IV PAIN LEVEL 6-10; Start 05/06/16 at 19:00 Hydromorphone HCl (Dilaudid) 0.2 mg Q1H PRN IV PAIN LEVEL 1-5; Start 05/06/16 at 19:00 Hydromorphone HCl (Dilaudid) 0.4 mg Q1H PRN IV PAIN LEVEL 6-10; Start 05/06/16 at 19:00 Oxycodone/ Acetaminophen (Percocet (5/ 325)) 1 tab Q3H PRN PO PAIN LEVEL 1-5; Start 05/06/16 at 19:00 Oxycodone/ Acetaminophen (Percocet (5/ 325)) 2 tab Q3H PRN PO PAIN LEVEL 6-10; Start 05/06/16 at 19:00 Ondansetron HCl (Zofran Inj) 4 mg Q6H PRN IV NAUSEA AND/OR VOMITING Last administered on 05/10/16 12:22; Admin Dose 4 MG; Start 05/06/16 at 19:00 Sucralfate 1 gm 1 gm Q6 PO Last administered on 05/11/16 05:53; Admin Dose 1 GM; Start 05/07/16 at 00:00 Magnesium Sulfate/ Dextrose (Magnesium Sulfate 1 Gm/D5W) 100 ml @ 100 mls/hr PRN PRN IVPB PENDING LAB VALUE; Start 05/06/16 at 19:00 Dextrose (D50w Syringe) 25 ml Q15M PRN IV Till BS 80 mg/dL or above x2; Start 05/06/16 at 19:00 Dextrose (D50w Syringe) 50 ml Q15M PRN IV Till BS 80 mg/dL or above x2; Start 05/06/16 at 19:00 Docusate Sodium 100 mg 100 mg Q12 PO Last administered on 05/09/16 20:34; Admin Dose 100 MG; Start 05/07/16 at 21:00 Cefepime HCl (Maxipime 1gm/50 ml (Pmx)) 50 ml @ 100 mls/hr Q24H IVPB Last administered on 05/11/16 08:05; Admin Dose 100 MLS/HR; Start 05/09/16 at 09:00 Insulin Glargine (Lantus) 20 unit DAILY@20 SC Last administered on 05/10/16 20 :23; Admin Dose 20 UNIT; Start 05/08/16 at 20:00 Acetaminophen/ Hydrocodone Bitart ([place] (5/325)) 1 tab Q4H PRN PO pain; Start 05/08/16 at 16:00 Acetaminophen 650 mg 650 mg Q6H PRN PO PAIN AND OR ELEVATED TEMP; Start at 16:00 Dopamine HCl/ Dextrose 250 ml @ 3.915 mls/ hr TITRATE IV Last administered on 05/08/16 19:30; Admin Dose 9.788 MLS/HR; Start 05/08/16 at 20:00 Aspirin 81 mg 81 mg DAILY PO Last administered on 05/11/16 08:06; Admin Dose 81 MG; Start 05/10/16 at 09:00 Sodium Bicarbonate/ Dextrose (Na Bicarb/D5W) 1,150 ml @ 80 mls/hr [id number] IV Last administered on 05/10/16 18:16; Admin Dose 80 MLS/HR; Start 05/09/16 at 13: 15 Atorvastatin Calcium (Lipitor) 80 mg HS NGT Last administered on 05/10/16 20: 31; Admin Dose 80 MG; Start 05/10/16 at 21:00 Heparin Sodium (Porcine) (Heparin (5000 Units/0.5 ml)) 5,000 unit BID SC Last administered on 05/11/16 08:10; Admin Dose 5,000 UNIT; Start 05/10/16 at 21:00 Diagnostic Test (Pha) (Accucheck) 1 ea 02 XX ; Start 05/11/16 at 02:00 JIM WHITE MD May 11, 2016 09:43
[2016-05-11] MEDS: POTASSIUM CHLORIDE 50 ML IVPB PRN ×3 (09:45→12:41)
[2016-05-11] MEDS ORDERED: ALBUMIN HUMAN 25% 100 ML IV ONE (10:00)
--- NOTE | 2016-05-11 10:11 | CONS ---
Date/Time of Note Date/Time of Note DATE: 05/11/16 TIME: 10:08 Assessment/Plan Assessment/Plan Additional Assessment/Plan Chest x-ray was reviewed from today which is showing small bilateral pleural effusions. Next Assessment recommendations; next 1. Patient admitted with acute UT underwent CABG surgery. Extubated 36 hours ago with stable clinical status. 2. Acute renal insufficiency with improving serum creatinine. 3. History of hypertension. 4. Thrombocytopenia with continued improvement in platelet count. 5. Small bilateral pleural effusions. 6. Difficult to rule out superimposed mild aspiration pneumonia. Recommendation continue current treatment patient responding very well to current treatment regimen. Consultation Date/Type/Reason Admit Date/Time May 04, 2016 at 08:40 Initial Consult Date 05/07/16 Type of Consultation: Pulmonary/critical care Referring Provider: JANICE RIVERA 24 HR Interval Summary Free Text/Dictation Patient condition stable. Denies any shortness of breath, any orthopnea. Any chest pain, wheezing, cough or sputum production. General exam; elderly lady, currently in no distress. Awake and alert. Exam/Review of Systems Vital Signs Vitals Vital Signs Date Time Temp Pulse Resp B/P Pulse Ox O2 Delivery O2 Flow Rate FiO2 05/11/16 08:00 81 05/11/16 08:00 Nasal Cannula 4.0 05/11/16 08:00 97.6 29 116/62 100 05/09/16 20:00 40 Intake and Output 05/10/16 05/10/16 05/11/16 15:00 23:00 07:00 Intake Total 960 ml 665 ml 640 ml Output Total 800 ml 533 ml 420 ml Balance 160 ml 132 ml 220 ml Exam H EENT examination; supple neck, positive JVD. No lymphadenopathy. Midline trachea. No thyromegaly. Pharynx is clear. No neck masses. Chest examination; diminished breath on lung bases. Upper lobes are clear. S1- S2 audible, no murmurs. Regular rhythm. There is a dressing applied over sternum. Chest tubes are in place. Abdomen examination; soft, nontender, normal distended. Bowel sounds audible. No organomegaly. Extremity exam is; trace generalized edema. Pulses 1+ bilaterally. 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 Results Result Diagram: 05/11/16 0415 05/11/16 0415 Results 24 hrs Laboratory Tests Test 05/10/16 13:30 05/10/16 15:47 05/10/16 18:27 05/10/16 20:20 Bedside Glucose 103 118 153 Anion Gap 16 Blood Urea Nitrogen 43 H Calcium Level 7.8 L Carbon Dioxide Level 26 Chloride Level 99 Creatinine 2.24 H Glucose Level 109 Potassium Level 3.9 Sodium Level 137 Test 05/11/16 04:15 05/11/16 07:30 05/11/16 07:45 Albumin 2.5 L Anion Gap 11 Basophils # 0.0 Basophils % 0.2 Blood Urea Nitrogen 42 H Calcium Level 7.0 L Carbon Dioxide Level 35 H Chloride Level 96 L Creatinine 1.98 H Eosinophils # 0.3 Eosinophils % 1.9 Glucose Level 167 Hematocrit 29.6 L Hemoglobin 9.7 L Lymphocytes # 2.1 Lymphocytes % 14.6 L Mean Corpuscular Hemoglobin 30.0 Mean Corpuscular Hemoglobin Concent 32.8 Mean Corpuscular Volume 91.6 Mean Platelet Volume 11.4 H Monocytes # 1.2 H Monocytes % 8.5 Neutrophils # 10.5 H Neutrophils % 74.2 Nucleated Red Blood Cells # 0.0 Nucleated Red Blood Cells % 0.3 H Phosphorus Level 3.7 Platelet Count 131 #L Potassium Level 3.1 L Red Blood Count 3.23 L Red Cell Distribution Width 14.4 Sodium Level 139 White Blood Count 14.1 #H Urine Bacteria FEW Urine Bilirubin NEGATIVE Urine Clarity SLIGHTLY CLOUDY Urine Coarse Granular Casts FEW Urine Color LT. YELLOW Urine Glucose NEGATIVE Urine Granular Casts RARE Urine Hemoglobin 1+ H Urine Hyaline Casts FEW Urine Ketones NEGATIVE Urine Leukocyte Esterase 1+ H Urine Microscopic RBC 2-5 Urine Microscopic WBC 2-5 Urine Nitrite NEGATIVE Urine Specific [place] 1.015 Urine Total Protein 1+ H Urine Urobilinogen 0.2 E.U./dL Urine pH 5.5 Bedside Glucose 77 Medications Medications Current Medications Acetaminophen (Tylenol Supp) 650 mg Q6H PRN [place] PAIN LEVEL 1-3 OR FEVER Last administered on 05/07/16 00:51; Admin Dose 650 MG; Start 05/04/16 at 10:00 Acetaminophen/ Hydrocodone Bitart ([place] (5/325)) 1 tab Q6H PRN PO MODERATE PAIN LEVEL 4-6 Last administered on 05/11/16 08:10; Admin Dose 1 TAB; Start 05/04/16 at 10:00 Acetaminophen/ Hydrocodone Bitart ([place] (5/325)) 2 tab Q6H PRN PO SEVERE PAIN LEVEL 7-10; Start 05/04/16 at 10:00 Morphine Sulfate (morphine) 2 mg Q4H PRN IV SEVERE PAIN LEVEL 7-10 Last administered on 05/08/16 02:45; Admin Dose 2 MG; Start 05/04/16 at 10:00 Magnesium Hydroxide (Milk Of Mag) 30 ml DAILY PRN PO CONSTIPATION; Start at 10:00 Bisacodyl (Dulcolax Supp) 10 mg DAILY PRN [place] CONSTIPATION; Start 05/04/16 at 10: 00 Pantoprazole (Protonix Iv) 40 mg DAILY@06 IV Last administered on 05/11/16 05: 54; Admin Dose 40 MG; Start 05/05/16 at 06:00 Nitroglycerin (Nitroglycerin (Sl Tab) 0.4 Mg) 1 tab Q5M PRN SL CHEST PAIN; Start 05/04/16 at 10:00 Miscellaneous Information 1 ea NOTE XX ; Start 05/04/16 at 18:30 Glucose (Glutose) 15 gm Q15M PRN PO DECREASED GLUCOSE; Start 05/04/16 at 18:30 Glucose (Glutose) 22.5 gm Q15M PRN PO DECREASED GLUCOSE; Start 05/04/16 at 18:30 Glucagon (Glucagen) 1 mg Q15M PRN IM DECREASED GLUCOSE; Start 05/04/16 at 18:30 Glucose 15 gm 15 gm Q15M PRN BUCCAL DECREASED GLUCOSE; Start 05/04/16 at 18:30 Albumin Human 250 ml @ 500 mls/hr PRN PRN IV CVP< 8, OR SBP<90 Last administered on 05/07/16 02:12; Admin Dose 500 MLS/HR; Start 05/06/16 at 19:00 Hydromorphone HCl (Dilaudid) 0.2 mg Q15M PRN IV PAIN LEVEL 1-5 Last administered on 05/08/16 15:13; Admin Dose 0.2 MG; Start 05/06/16 at 19:00 Hydromorphone HCl (Dilaudid) 0.4 mg Q15M PRN IV PAIN LEVEL 6-10; Start 05/06/16 at 19:00 Hydromorphone HCl (Dilaudid) 0.2 mg Q1H PRN IV PAIN LEVEL 1-5; Start 05/06/16 at 19:00 Hydromorphone HCl (Dilaudid) 0.4 mg Q1H PRN IV PAIN LEVEL 6-10; Start 05/06/16 at 19:00 Oxycodone/ Acetaminophen (Percocet (5/ 325)) 1 tab Q3H PRN PO PAIN LEVEL 1-5; Start 05/06/16 at 19:00 Oxycodone/ Acetaminophen (Percocet (5/ 325)) 2 tab Q3H PRN PO PAIN LEVEL 6-10; Start 05/06/16 at 19:00 Ondansetron HCl (Zofran Inj) 4 mg Q6H PRN IV NAUSEA AND/OR VOMITING Last administered on 05/10/16 12:22; Admin Dose 4 MG; Start 05/06/16 at 19:00 Sucralfate 1 gm 1 gm Q6 PO Last administered on 05/11/16 05:53; Admin Dose 1 GM; Start 05/07/16 at 00:00 Magnesium Sulfate/ Dextrose (Magnesium Sulfate 1 Gm/D5W) 100 ml @ 100 mls/hr PRN PRN IVPB PENDING LAB VALUE; Start 05/06/16 at 19:00 Dextrose (D50w Syringe) 25 ml Q15M PRN IV Till BS 80 mg/dL or above x2; Start 05/06/16 at 19:00 Dextrose (D50w Syringe) 50 ml Q15M PRN IV Till BS 80 mg/dL or above x2; Start 05/06/16 at 19:00 Docusate Sodium 100 mg 100 mg Q12 PO Last administered on 05/09/16 20:34; Admin Dose 100 MG; Start 05/07/16 at 21:00 Cefepime HCl (Maxipime 1gm/50 ml (Pmx)) 50 ml @ 100 mls/hr Q24H IVPB Last administered on 05/11/16 08:05; Admin Dose 100 MLS/HR; Start 05/09/16 at 09:00 Insulin Glargine (Lantus) 20 unit DAILY@20 SC Last administered on 05/10/16 20 :23; Admin Dose 20 UNIT; Start 05/08/16 at 20:00 Acetaminophen/ Hydrocodone Bitart ([place] (5/325)) 1 tab Q4H PRN PO pain; Start 05/08/16 at 16:00 Acetaminophen 650 mg 650 mg Q6H PRN PO PAIN AND OR ELEVATED TEMP; Start at 16:00 Dopamine HCl/ Dextrose 250 ml @ 3.915 mls/ hr TITRATE IV Last administered on 05/08/16 19:30; Admin Dose 9.788 MLS/HR; Start 05/08/16 at 20:00 Aspirin (Aspirin) 81 mg DAILY PO Last administered on 05/11/16 08:06; Admin Dose 81 MG; Start 05/10/16 at 09:00 Atorvastatin Calcium (Lipitor) 80 mg HS NGT Last administered on 05/10/16 20: 31; Admin Dose 80 MG; Start 05/10/16 at 21:00 Heparin Sodium (Porcine) (Heparin (5000 Units/0.5 ml)) 5,000 unit BID SC Last administered on 05/11/16 08:10; Admin Dose 5,000 UNIT; Start 05/10/16 at 21:00 Diagnostic Test (Pha) 1 ea 1 ea 02 XX ; Start 05/11/16 at 02:00 Dextrose/Sodium Chloride 1,000 ml @ 40 mls/hr Q24H IV ; Start 05/11/16 at 10:00 Albumin Human (Albumin Human 25%) 100 ml @ 100 mls/hr ONCE ONCE IV ; Start 01/17 at 10:00; Stop 05/11/16 at 10:59 Furosemide (Lasix) 20 mg ONCE ONCE IV ; Start 05/11/16 at 11:00; Stop 05/11/16 at 11:01 JENNIFER BECERRIL May 11, 2016 10:11
[2016-05-11] MEDS ORDERED: FUROSEMIDE 20 MG INJ IV ONE (11:00)
[2016-05-11] MEDS: DEXTROSE 5%-0.45% NACL 1,000 ML IV SCH (11:35)
--- NOTE | 2016-05-11 15:20 | PN ---
DATE: 05/11/2016 CARDIOLOGY. Discussed with the staff. Rhythm strip reviewed. The patient is still in the ICU, extubated. Bloo d pressure on the low side but remained stable. ____chest wall tenderness. Discussed with the dasterling hter at the bedside, discussed with the staff. MEDICATIONS: Reviewed. PHYSICAL EXAMINATION: VITAL SIGNS: Temperature 97.5, heart rate of 72, blood pressure 94/52, respiratory rate of 16. Sat urating 100%. HEENT: Normocephalic, atraumatic. Pupils are equal. NECK: Status post sternotomy. CARDIOVASCULAR: Regular rate and rhythm, systolic murmur. CARDIOVASCULAR: Irregular. CHEST: Status post sternotomy, status post chest tube in place. PULMONARY: With no wheezes heard. GASTROINTESTINAL: Soft, nontender. EXTREMITIES: Positive lower extremity edema. NEUROLOGIC: Awake and alert. PSYCHIATRIC: Appeared to be calm. LABORATORY: WBC of 14.1, hemoglobin 9.7, platelets of 131, sodium 139, potassium 3.1, BUN of 42, cr eatinine 1.98, glucose 167. Chest x-ray showed improved aeration of the right lung. ASSESSMENT AND PLAN: 1. Status post ST elevation myocardial infarction. 2. Status post emergent coronary bypass graft. 3. Multivessel coronary artery disease. 4. Status post shock, currently blood pressure is improved, but still on the low side. 5. Renal failure, acute. 6. Diabetes. 7. Dyslipidemia. 8. Anemia. 9. Thrombocytopenia. 10. Postop fever improved. RECOMMENDATIONS: Diuresis will be given as needed. Potassium to be replaced and statin will be continued. ____ will be continued at a low dose. Beta alexandra will be added once the blood pressure stabilizes. Continue with the ICU care. More than 37 minutes of critical care time was spent managing this patient excluding any procedures. Dictated By: NENA LIND/ROLF Conf#: [id number] DID#: [id number]
[2016-05-11] MEDS: INSULIN GLARGINE [LANtus] 3 ML PEN SC SCH (20:42)
[2016-05-11] MEDS: ATORVASTATIN 80 MG TAB NGT SCH (20:46)
--- NOTE | 2016-05-11 20:52 | PN ---
Date/Time of Note Date/Time of Note DATE: 05/11/16 TIME: 20:51 Assessment/Plan Lines/Catheters IV Catheter Type (from Nrsg): Cordis Michael in Place (from Nrsg): Yes Assessment/Plan Chief Complaint/Hosp Course Impression: STEMI Multi-vessel coronary artery disease with left main involvement Chest pain resolved after IABP SP Urgent CABG Pt fully awake, follows command well moves all extremity to command 2D Echo with Tamponade, good fxn monitor UO and Cr Levels will follow nephrology recc DC Pleural tube and pacing wires Continue CT Sxn above explained to them Problems: Subjective 24 Hr Interval Summary Constitutional: improved Pain Control: mild Exam/Review of Systems Vital Signs Vitals Vital Signs Date Time Temp Pulse Resp B/P Pulse Ox O2 Delivery O2 Flow Rate FiO2 05/11/16 20:21 2.0 05/11/16 20:00 Nasal Cannula 05/11/16 18:00 71 22 127/62 100 05/11/16 16:00 98.0 05/09/16 20:00 40 Intake and Output 05/10/16 05/10/16 05/11/16 15:00 23:00 07:00 Intake Total 960 ml 665 ml 640 ml Output Total 800 ml 533 ml 420 ml Balance 160 ml 132 ml 220 ml Exam Neck: non-tender, supple Respiratory: clear to auscultation, normal air movement Cardiovascular: nl pulses, regular rate and rhythm Gastrointestinal: nl liver, spleen, non-tender, soft Results Result Diagram: 05/11/16 0415 05/11/16 0415 BEVERLEY NEGRETE MD May 11, 2016 20:52
[2016-05-11] MEDS: ACCUCHECK XX SCH (23:43)
[2016-05-12] VITALS (23 sets, daily range): BP systolic 96–164; BP diastolic 50–98; PULSE 69–91; RESP 11–30
[2016-05-12] MEDS: SUCRALFATE (100 MG/ML) 10ML CUP PO SCH ×4 (01:41→17:31)
[2016-05-12 04:35] LABS: ADD SCAN DIFF NO
[2016-05-12 05:01] LABS: BASOPHILS % 0.2 % (0.0-2.0); EOSINOPHILS # 0.2 10^3/ul (0.0-0.5); EOSINOPHILS % 1.6 % (0.0-7.0); HEMATOCRIT 29.9 % (37.0-47.0); HEMOGLOBIN 9.5 g/dl (12.0-16.0); LYMPHOCYTES # 2.3 10^3/ul (0.8-2.9); LYMPHOCYTES % 15.7 % (15.0-51.0); MEAN CORPUSCULAR HEMOGLOBIN 29.6 pg (29.0-33.0); MEAN CORPUSCULAR HGB CONC 31.8 g/dl (32.0-37.0); MEAN CORPUSCULAR VOLUME 93.1 fl (82.0-101.0); MEAN PLATELET VOLUME 10.6 fl (7.4-10.4); MONOCYTE # 1.5 10^3/ul (0.3-0.9); MONOCYTES % 10.3 % (0.0-11.0); NEUTROPHIL # 10.2 10^3/ul (1.6-7.5); NEUTROPHILS % 70.9 % (39.0-77.0); PLATELET COUNT 175 10^3/UL (140-415); RED BLOOD COUNT 3.21 10^6/ul (4.20-5.40); RED CELL DISTRIBUTION WIDTH 14.6 % (11.5-14.5); WHITE BLOOD COUNT 14.4 10^3/ul (4.8-10.8)
[2016-05-12 05:04] LABS: ALBUMIN 2.9 g/dl (3.3-4.9); POTASSIUM 3.6 mmol/L (3.5-5.1)
[2016-05-12 05:07] LABS: CREATININE 1.55 mg/dl (0.44-1.00)
[2016-05-12 05:08] LABS: CALCIUM 7.5 mg/dl (8.4-10.2); PHOSPHORUS 3.1 mg/dl (2.5-4.9)
[2016-05-12] MEDS: PANTOPRAZOLE 40 MG INJ IV SCH (05:55)
[2016-05-12] MEDS: INSULIN ASPART [NOVOLOG] 3 ML PEN SC SCH ×4 (07:35→21:00)
[2016-05-12] MEDS: ASPIRIN 81 MG TAB PO SCH (08:28)
[2016-05-12] MEDS: CEFEPIME 1GM/50 ML (PMX) 50 ML IVPB SCH (08:30)
[2016-05-12] MEDS: HYDROCODONE/APAP (5/325) TAB PO PRN (08:30)
[2016-05-12] MEDS: HEPARIN 5,000 UNIT/0.5 ML SYG SC SCH ×2 (08:47→22:50)
[2016-05-12] MEDS: DOCUSATE SODIUM 100 MG CAP PO SCH (08:47)
--- NOTE | 2016-05-12 09:57 | CONS ---
Date/Time of Note Date/Time of Note DATE: 05/12/16 TIME: 09:54 Assessment/Plan Assessment/Plan Additional Assessment/Plan Assessment and recommendations; 1. Patient admitted with acute [place] underwent emergent coronary artery bypass surgery with markedly improved clinical status now. Status post respiratory failure. 2. Possibly some element of pneumonia, patient currently on cefepime. 3. Renal insufficiency. With continually improving serum creatinine. 4. Thrombocytopenia with marked improvement in platelet count. Continue current treatment. Patient can be transferred to the medical unit. Continue cefepime for another 48 hours. We will sign off. Thanks for the referral. Please reconsult if needed. Consultation Date/Type/Reason Admit Date/Time May 04, 2016 at 08:40 Initial Consult Date 05/07/16 Type of Consultation: Pulmonary/critical care Referring Provider: JANICE RIVERA 24 HR Interval Summary Free Text/Dictation Patient's condition is continually improving. She is currently sitting in a chair by bedside. Denies any shortness of breath, chest pain. Denies any nausea vomiting. General exam; elderly lady, currently in no distress. Awake and alert. Exam/Review of Systems Vital Signs Vitals Vital Signs Date Time Temp Pulse Resp B/P Pulse Ox O2 Delivery O2 Flow Rate FiO2 05/12/16 08:00 98.2 84 23 128/60 96 Nasal Cannula 05/12/16 00:00 2.0 05/09/16 20:00 40 Intake and Output 05/11/16 05/11/16 05/12/16 15:00 23:00 07:00 Intake Total 862 ml 530 ml 460 ml Output Total 440 ml 987 ml 295 ml Balance 422 ml -457 ml 165 ml Exam HEENT exam; supple neck, no JVD. No lymphadenopathy. Midline trachea. No thyromegaly. Next Chest examination of [place] minimally decreased breath on lung bases bilaterally. Upper lobes are clear. S1-S2 audible, no murmurs. Regular rhythm. Chest tubes are in place. There is a dressing applied over the sternal area. Abdomen examination; is benign. Extremity examination of [place] on what trace peripheral edema. Pulses 1+ bilaterally. EQUIPMENT LEAD examination; no focal deficit. Results Result Diagram: 05/12/16 0400 05/12/16 0400 Results 24 hrs Laboratory Tests Test 05/11/16 12:25 05/11/16 17:02 05/11/16 20:39 05/12/16 04:00 Bedside Glucose 74 126 144 Albumin 2.9 L Anion Gap 12 Basophils # 0.0 Basophils % 0.2 Blood Urea Nitrogen 40 H Calcium Level 7.5 L Carbon Dioxide Level 30 Chloride Level 100 Creatinine 1.55 H Eosinophils # 0.2 Eosinophils % 1.6 Glucose Level 76 # Hematocrit 29.9 L Hemoglobin 9.5 L Lymphocytes # 2.3 Lymphocytes % 15.7 Mean Corpuscular Hemoglobin 29.6 Mean Corpuscular Hemoglobin Concent 31.8 L Mean Corpuscular Volume 93.1 Mean Platelet Volume 10.6 H Monocytes # 1.5 H Monocytes % 10.3 Neutrophils # 10.2 H Neutrophils % 70.9 Nucleated Red Blood Cells # 0.0 Nucleated Red Blood Cells % 0.0 Phosphorus Level 3.1 Platelet Count 175 # Potassium Level 3.6 Red Blood Count 3.21 L Red Cell Distribution Width 14.6 H Sodium Level 138 White Blood Count 14.4 H Test 05/12/16 08:02 Bedside Glucose 78 Medications Medications Current Medications Acetaminophen (Tylenol Supp) 650 mg Q6H PRN [place] PAIN LEVEL 1-3 OR FEVER Last administered on 05/07/16 00:51; Admin Dose 650 MG; Start 05/04/16 at 10:00 Acetaminophen/ Hydrocodone Bitart ([place] (5/325)) 1 tab Q6H PRN PO MODERATE PAIN LEVEL 4-6 Last administered on 05/12/16 08:30; Admin Dose 1 TAB; Start 05/04/16 at 10:00 Acetaminophen/ Hydrocodone Bitart ([place] (5/325)) 2 tab Q6H PRN PO SEVERE PAIN LEVEL 7-10; Start 05/04/16 at 10:00 Morphine Sulfate (morphine) 2 mg Q4H PRN IV SEVERE PAIN LEVEL 7-10 Last administered on 05/08/16 02:45; Admin Dose 2 MG; Start 05/04/16 at 10:00 Magnesium Hydroxide (Milk Of Mag) 30 ml DAILY PRN PO CONSTIPATION; Start at 10:00 Bisacodyl (Dulcolax Supp) 10 mg DAILY PRN [place] CONSTIPATION; Start 05/04/16 at 10: 00 Pantoprazole (Protonix Iv) 40 mg DAILY@06 IV Last administered on 05/12/16 05: 55; Admin Dose 40 MG; Start 05/05/16 at 06:00 Nitroglycerin (Nitroglycerin (Sl Tab) 0.4 Mg) 1 tab Q5M PRN SL CHEST PAIN; Start 05/04/16 at 10:00 Miscellaneous Information 1 ea NOTE XX ; Start 05/04/16 at 18:30 Glucose (Glutose) 15 gm Q15M PRN PO DECREASED GLUCOSE; Start 05/04/16 at 18:30 Glucose (Glutose) 22.5 gm Q15M PRN PO DECREASED GLUCOSE; Start 05/04/16 at 18:30 Glucagon (Glucagen) 1 mg Q15M PRN IM DECREASED GLUCOSE; Start 05/04/16 at 18:30 Glucose 15 gm 15 gm Q15M PRN BUCCAL DECREASED GLUCOSE; Start 05/04/16 at 18:30 Albumin Human 250 ml @ 500 mls/hr PRN PRN IV CVP< 8, OR SBP<90 Last administered on 05/07/16 02:12; Admin Dose 500 MLS/HR; Start 05/06/16 at 19:00 Hydromorphone HCl (Dilaudid) 0.2 mg Q15M PRN IV PAIN LEVEL 1-5 Last administered on 05/08/16 15:13; Admin Dose 0.2 MG; Start 05/06/16 at 19:00 Hydromorphone HCl (Dilaudid) 0.4 mg Q15M PRN IV PAIN LEVEL 6-10; Start 05/06/16 at 19:00 Hydromorphone HCl (Dilaudid) 0.2 mg Q1H PRN IV PAIN LEVEL 1-5; Start 05/06/16 at 19:00 Hydromorphone HCl (Dilaudid) 0.4 mg Q1H PRN IV PAIN LEVEL 6-10; Start 05/06/16 at 19:00 Oxycodone/ Acetaminophen (Percocet (5/ 325)) 1 tab Q3H PRN PO PAIN LEVEL 1-5; Start 05/06/16 at 19:00 Oxycodone/ Acetaminophen (Percocet (5/ 325)) 2 tab Q3H PRN PO PAIN LEVEL 6-10; Start 05/06/16 at 19:00 Ondansetron HCl (Zofran Inj) 4 mg Q6H PRN IV NAUSEA AND/OR VOMITING Last administered on 05/10/16 12:22; Admin Dose 4 MG; Start 05/06/16 at 19:00 Sucralfate 1 gm 1 gm Q6 PO Last administered on 05/12/16 05:55; Admin Dose 1 GM; Start 05/07/16 at 00:00 Magnesium Sulfate/ Dextrose (Magnesium Sulfate 1 Gm/D5W) 100 ml @ 100 mls/hr PRN PRN IVPB PENDING LAB VALUE; Start 05/06/16 at 19:00 Dextrose (D50w Syringe) 25 ml Q15M PRN IV Till BS 80 mg/dL or above x2; Start 05/06/16 at 19:00 Dextrose (D50w Syringe) 50 ml Q15M PRN IV Till BS 80 mg/dL or above x2; Start 05/06/16 at 19:00 Docusate Sodium 100 mg 100 mg Q12 PO Last administered on 05/09/16 20:34; Admin Dose 100 MG; Start 05/07/16 at 21:00 Cefepime HCl (Maxipime 1gm/50 ml (Pmx)) 50 ml @ 100 mls/hr Q24H IVPB Last administered on 05/12/16 08:30; Admin Dose 100 MLS/HR; Start 05/09/16 at 09:00 Insulin Glargine (Lantus) 20 unit DAILY@20 SC Last administered on 05/11/16 20 :42; Admin Dose 20 UNIT; Start 05/08/16 at 20:00 Acetaminophen/ Hydrocodone Bitart ([place] (5/325)) 1 tab Q4H PRN PO pain; Start 05/08/16 at 16:00 Acetaminophen 650 mg 650 mg Q6H PRN PO PAIN AND OR ELEVATED TEMP; Start at 16:00 Dopamine HCl/ Dextrose 250 ml @ 3.915 mls/ hr TITRATE IV Last administered on 05/08/16 19:30; Admin Dose 9.788 MLS/HR; Start 05/08/16 at 20:00 Atorvastatin Calcium (Lipitor) 80 mg HS NGT Last administered on 05/11/16 20: 46; Admin Dose 80 MG; Start 05/10/16 at 21:00 Heparin Sodium (Porcine) (Heparin (5000 Units/0.5 ml)) 5,000 unit BID SC Last administered on 05/12/16 08:47; Admin Dose 5,000 UNIT; Start 05/10/16 at 21:00 Diagnostic Test (Pha) 1 ea 1 ea 02 XX ; Start 05/11/16 at 02:00 Dextrose/Sodium Chloride (D5-1/2ns) 1,000 ml @ 40 mls/hr Q24H IV Last administered on 05/11/16 11:35; Admin Dose 40 MLS/HR; Start 05/11/16 at 10:00 Aspirin (Aspirin) 162 mg DAILY PO Last administered on 05/12/16 08:28; Admin Dose 162 MG; Start 05/12/16 at 09:00 Carvedilol (Coreg) 3.125 mg BID PO Last administered on 05/12/16 08:29; Admin Dose 3.125 MG; Start 05/12/16 at 09:00 JENNIFER BECERRIL May 12, 2016 09:57
[2016-05-12] MEDS: DEXTROSE 5%-0.45% NACL 1,000 ML IV SCH (11:21)
[2016-05-12] MEDS: POTASSIUM CHLORIDE 50 ML IVPB PRN ×3 (12:03→15:47)
--- NOTE | 2016-05-12 14:07 | PN ---
Date/Time of Note Date/Time of Note DATE: 05/12/16 TIME: 14:02 Assessment/Plan VTE Prophylaxis VTE Prophylaxis Intervention: heparin Lines/Catheters IV Catheter Type (from Nrs): Central Line Central line still needed: Yes Urinary Cath still in place: Yes Reason Cath still needed: other (indicate) Assessment/Plan Assessment/Plan 1. S/P Acute ST elevation myocardial infarction s/p unsuccessful emergent Cath 2. 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 Acute resp failure : improved / extubated / STABLE 4. Uncontrolled Diabetes: A1c: 8.7: improved 5. Dyslipidemia 6. Normocytic anemia 7. ATN with acute renal insufficiency: improving (recovery) 8. s/p Intra-aortic balloon pump Placement 9. C diff Colitis PLAN * Continue aggressive PT and use incentive spirometer * Still having low grade fevers/ Continue empiric abx + PO vanco for C-diff + probiotics * Send culture from chest tube and urine cultures as wel * d/c [place] as patient is more ambulantl * Pain control with oral and IV meds * Appreciate cardiology and CTS input * Appreciate Nephrology consult / strict Is and Os * Cont current medical mgmt and supportive care Fluid/Nutrition and electrolytes: Puree diet / IVF per nephrology PROPHYLAXIS: SCDs / heparin / IV protonix CRITICAL CARE TIME: >35 mins Subjective 24 Hr Interval Summary Free Text/Dictation Patient continues to improve daily sitting on a chair very communicative Exam/Review of Systems Vital Signs Vitals Vital Signs Date Time Temp Pulse Resp B/P Pulse Ox O2 Delivery O2 Flow Rate FiO2 05/12/16 12:00 69 05/12/16 12:00 98.2 11 114/64 96 Nasal Cannula 05/12/16 08:00 4.0 05/09/16 20:00 40 Intake and Output 05/11/16 05/11/16 05/12/16 15:00 23:00 07:00 Intake Total 862 ml 530 ml 460 ml Output Total 440 ml 987 ml 295 ml Balance 422 ml -457 ml 165 ml Exam Constitutional: alert, frail, oriented, No distress Head: normocephalic Eyes: PERRL ENMT: mucosa pink and moist Neck: supple Respiratory: clear to auscultation, diminished breath sounds, other (chest tube still in place) Cardiovascular: regular rate and rhythm, No murmurs/extra sounds Gastrointestinal: bowel sounds, non-tender, soft Extremities: edema Neurological: lethargic (mildly), nl mental status Results Result Diagram: 05/12/16 0400 05/12/16 0400 Results 24 hrs Laboratory Tests Test 05/11/16 17:02 05/11/16 20:39 05/12/16 04:00 05/12/16 08:02 Bedside Glucose 126 144 78 Albumin 2.9 L Anion Gap 12 Basophils # 0.0 Basophils % 0.2 Blood Urea Nitrogen 40 H Calcium Level 7.5 L Carbon Dioxide Level 30 Chloride Level 100 Creatinine 1.55 H Eosinophils # 0.2 Eosinophils % 1.6 Glucose Level 76 # Hematocrit 29.9 L Hemoglobin 9.5 L Lymphocytes # 2.3 Lymphocytes % 15.7 Mean Corpuscular Hemoglobin 29.6 Mean Corpuscular Hemoglobin Concent 31.8 L Mean Corpuscular Volume 93.1 Mean Platelet Volume 10.6 H Monocytes # 1.5 H Monocytes % 10.3 Neutrophils # 10.2 H Neutrophils % 70.9 Nucleated Red Blood Cells # 0.0 Nucleated Red Blood Cells % 0.0 Phosphorus Level 3.1 Platelet Count 175 # Potassium Level 3.6 Red Blood Count 3.21 L Red Cell Distribution Width 14.6 H Sodium Level 138 White Blood Count 14.4 H Test 05/12/16 11:23 Bedside Glucose 120 Medications Medications Current Medications Acetaminophen (Tylenol Supp) 650 mg Q6H PRN [place] PAIN LEVEL 1-3 OR FEVER Last administered on 05/07/16 00:51; Admin Dose 650 MG; Start 05/04/16 at 10:00 Acetaminophen/ Hydrocodone Bitart ([place] (5/325)) 1 tab Q6H PRN PO MODERATE PAIN LEVEL 4-6 Last administered on 05/12/16 08:30; Admin Dose 1 TAB; Start 05/04/16 at 10:00 Acetaminophen/ Hydrocodone Bitart ([place] (5/325)) 2 tab Q6H PRN PO SEVERE PAIN LEVEL 7-10; Start 05/04/16 at 10:00 Morphine Sulfate (morphine) 2 mg Q4H PRN IV SEVERE PAIN LEVEL 7-10 Last administered on 05/08/16 02:45; Admin Dose 2 MG; Start 05/04/16 at 10:00 Magnesium Hydroxide (Milk Of Mag) 30 ml DAILY PRN PO CONSTIPATION; Start at 10:00 Bisacodyl (Dulcolax Supp) 10 mg DAILY PRN OR CONSTIPATION; Start 05/04/16 at 10: 00 Pantoprazole (Protonix Iv) 40 mg DAILY@06 IV Last administered on 05/12/16 05: 55; Admin Dose 40 MG; Start 05/05/16 at 06:00 Nitroglycerin (Nitroglycerin (Sl Tab) 0.4 Mg) 1 tab Q5M PRN SL CHEST PAIN; Start 05/04/16 at 10:00 Miscellaneous Information 1 ea NOTE XX ; Start 05/04/16 at 18:30 Glucose (Glutose) 15 gm Q15M PRN PO DECREASED GLUCOSE; Start 05/04/16 at 18:30 Glucose (Glutose) 22.5 gm Q15M PRN PO DECREASED GLUCOSE; Start 05/04/16 at 18:30 Glucagon (Glucagen) 1 mg Q15M PRN IM DECREASED GLUCOSE; Start 05/04/16 at 18:30 Glucose 15 gm 15 gm Q15M PRN BUCCAL DECREASED GLUCOSE; Start 05/04/16 at 18:30 Albumin Human 250 ml @ 500 mls/hr PRN PRN IV CVP< 8, OR SBP<90 Last administered on 05/07/16 02:12; Admin Dose 500 MLS/HR; Start 05/06/16 at 19:00 Hydromorphone HCl (Dilaudid) 0.2 mg Q15M PRN IV PAIN LEVEL 1-5 Last administered on 05/08/16 15:13; Admin Dose 0.2 MG; Start 05/06/16 at 19:00 Hydromorphone HCl (Dilaudid) 0.4 mg Q15M PRN IV PAIN LEVEL 6-10; Start 05/06/16 at 19:00 Hydromorphone HCl (Dilaudid) 0.2 mg Q1H PRN IV PAIN LEVEL 1-5; Start 05/06/16 at 19:00 Hydromorphone HCl (Dilaudid) 0.4 mg Q1H PRN IV PAIN LEVEL 6-10; Start 05/06/16 at 19:00 Oxycodone/ Acetaminophen (Percocet (5/ 325)) 1 tab Q3H PRN PO PAIN LEVEL 1-5; Start 05/06/16 at 19:00 Oxycodone/ Acetaminophen (Percocet (5/ 325)) 2 tab Q3H PRN PO PAIN LEVEL 6-10; Start 05/06/16 at 19:00 Ondansetron HCl (Zofran Inj) 4 mg Q6H PRN IV NAUSEA AND/OR VOMITING Last administered on 05/10/16 12:22; Admin Dose 4 MG; Start 05/06/16 at 19:00 Sucralfate 1 gm 1 gm Q6 PO Last administered on 05/12/16 11:23; Admin Dose 1 GM; Start 05/07/16 at 00:00 Magnesium Sulfate/ Dextrose (Magnesium Sulfate 1 Gm/D5W) 100 ml @ 100 mls/hr PRN PRN IVPB PENDING LAB VALUE; Start 05/06/16 at 19:00 Dextrose (D50w Syringe) 25 ml Q15M PRN IV Till BS 80 mg/dL or above x2; Start 05/06/16 at 19:00 Dextrose (D50w Syringe) 50 ml Q15M PRN IV Till BS 80 mg/dL or above x2; Start 05/06/16 at 19:00 Docusate Sodium 100 mg 100 mg Q12 PO Last administered on 05/09/16 20:34; Admin Dose 100 MG; Start 05/07/16 at 21:00 Cefepime HCl (Maxipime 1gm/50 ml (Pmx)) 50 ml @ 100 mls/hr Q24H IVPB Last administered on 05/12/16 08:30; Admin Dose 100 MLS/HR; Start 05/09/16 at 09:00 Insulin Glargine (Lantus) 20 unit DAILY@20 SC Last administered on 05/11/16 20 :42; Admin Dose 20 UNIT; Start 05/08/16 at 20:00 Acetaminophen/ Hydrocodone Bitart ([place] (5/325)) 1 tab Q4H PRN PO pain; Start 05/08/16 at 16:00 Acetaminophen 650 mg 650 mg Q6H PRN PO PAIN AND OR ELEVATED TEMP; Start at 16:00 Dopamine HCl/ Dextrose 250 ml @ 3.915 mls/ hr TITRATE IV Last administered on 05/08/16 19:30; Admin Dose 9.788 MLS/HR; Start 05/08/16 at 20:00 Atorvastatin Calcium (Lipitor) 80 mg HS NGT Last administered on 05/11/16 20: 46; Admin Dose 80 MG; Start 05/10/16 at 21:00 Heparin Sodium (Porcine) (Heparin (5000 Units/0.5 ml)) 5,000 unit BID SC Last administered on 05/12/16 08:47; Admin Dose 5,000 UNIT; Start 05/10/16 at 21:00 Diagnostic Test (Pha) 1 ea 1 ea 02 XX ; Start 05/11/16 at 02:00 Dextrose/Sodium Chloride (D5-1/2ns) 1,000 ml @ 40 mls/hr Q24H IV Last administered on 05/12/16 11:21; Admin Dose 40 MLS/HR; Start 05/11/16 at 10:00 Aspirin (Aspirin) 162 mg DAILY PO Last administered on 05/12/16 08:28; Admin Dose 162 MG; Start 05/12/16 at 09:00 Carvedilol (Coreg) 3.125 mg BID PO Last administered on 05/12/16 08:29; Admin Dose 3.125 MG; Start 05/12/16 at 09:00 Vancomycin HCl (Vancomycin Oral Syringe) 250 mg Q6 PO ; Start 05/12/16 at 12:30 Procedures Procedures PROCEDURE: XR Chest. CLINICAL INDICATION: Shortness of breath. TECHNIQUE: Single frontal view. COMPARISON: 05/10/2016. FINDINGS: The Horatio-Brian catheter has been removed leaving the right internal jugular vein sheath catheter in satisfactory position. The nasogastric tube has also been removed. There are sternal wires, mediastinal clips, and mediastinal drains. There is mild atelectasis at the lung bases with improved aeration of the right lung. The heart is enlarged. There is calcification in the aorta consistent with atherosclerosis. There are small bilateral pleural effusions. There is no pneumothorax. IMPRESSION: 1. Horatio-Brian catheter and nasogastric tube removed. 2. Improved aeration of the right lung. 3. Postoperative changes of the chest. 4. Small bilateral pleural effusions. RPTAT: QQ .Fei Santana MD, Date Time Electronically viewed and signed by .Fei Santana MD, on 05/11/2016 08:33 .R/ CC: JENNIFER BECERRIL BOLATITO M. May 12, 2016 14:07
[2016-05-12] MEDS: VANCOMYCIN HCL 250 MG/5ML POSYG PO SCH ×2 (14:10→17:33)
--- NOTE | 2016-05-12 18:13 | PN ---
Date/Time of Note Date/Time of Note DATE: 05/12/16 TIME: 18:12 Assessment/Plan Lines/Catheters IV Catheter Type (from Nrsg): Central Line Michael in Place (from Nrsg): Yes Assessment/Plan Chief Complaint/Hosp Course Impression: STEMI Multi-vessel coronary artery disease with left main involvement Chest pain resolved after IABP SP Urgent CABG Pt fully awake, follows command well moves all extremity to command 2D Echo with Tamponade, good fxn monitor UO and Cr Levels will follow nephrology recc Pleural tube and pacing wires DCed Continue CT Sxn above explained to them Problems: Subjective 24 Hr Interval Summary Constitutional: improved Pain Control: mild Exam/Review of Systems Vital Signs Vitals Vital Signs Date Time Temp Pulse Resp B/P Pulse Ox O2 Delivery O2 Flow Rate FiO2 05/12/16 16:00 76 05/12/16 16:00 97.9 26 122/50 91 Nasal Cannula 05/12/16 08:00 4.0 05/09/16 20:00 40 Intake and Output 05/11/16 05/11/16 05/12/16 15:00 23:00 07:00 Intake Total 862 ml 530 ml 500 ml Output Total 440 ml 987 ml 295 ml Balance 422 ml -457 ml 205 ml Exam ENMT: mucosa pink and moist, nl external ears & nose, nl lips & teeth, nl nasal mucosa & septum Neck: non-tender, supple Respiratory: clear to auscultation, normal air movement Cardiovascular: nl pulses, regular rate and rhythm Results Result Diagram: 05/12/1639905/12/16399 BEVERLEY NEGRETE MD May 12, 2016 18:13
--- NOTE | 2016-05-12 21:26 | CONS ---
Date/Time of Note Date/Time of Note DATE: 05/12/16 TIME: 21:24 Assessment/Plan Assessment/Plan Additional Assessment/Plan 1. Acute kidney injury, oliguric, likely secondary to acute tubular necrosis from ischemic acute tubular necrosis in the setting of ST elevation myocardial infarction. 2. 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 Acute respiratory failure, ventilator dependent. 4. Uncontrolled diabetes mellitus with hemoglobin A1c 8.7. 5. Dyslipidemia. 6. Normocytic anemia. 7. Status post intra-aortic balloon pump placement. Plan: Cr improved to 1.55, good urine output encourage po intake no need for HD will follow up Consultation Date/Type/Reason Admit Date/Time May 04, 2016 at 08:40 Initial Consult Date 05/08/16 Type of Consultation: NEPHROLOGY Reason for Consultation acute kidney injury, Hyperkalemia Referring Provider: JANICE RIVERA 24 HR Interval Summary Free Text/Dictation Cr improved to 1.55, good urine output, Exam/Review of Systems Vital Signs Vitals Vital Signs Date Time Temp Pulse Resp B/P Pulse Ox O2 Delivery O2 Flow Rate FiO2 05/12/16 21:17 3.0 05/12/16 20:43 98.9 82 20 164/78 95 05/12/16 19:00 Nasal Cannula 05/09/16 20:00 40 Intake and Output 05/11/16 05/11/16 05/12/16 15:00 23:00 07:00 Intake Total 862 ml 530 ml 500 ml Output Total 440 ml 987 ml 295 ml Balance 422 ml -457 ml 205 ml Exam Extubated NECK: No jugular venous distention. LUNGS: Bilateral coarse breath sounds. HEART: S1, S2, tachycardia. No murmur. ABDOMEN: Soft, nontender, nondistended. EXTREMITIES: 1+ to 2+ pitting edema. Michael catheter in place. NEUROLOGICAL: Uncooperative due to the sedation. PSYCHIATRIC: Not able to assess. SKIN: No rash. Results Result Diagram: 05/12/16 0400 05/12/16 0400 Results 24 hrs Laboratory Tests Test 05/12/16 04:00 05/12/16 08:02 05/12/16 11:23 05/12/16 17:34 Albumin 2.9 L Anion Gap 12 Basophils # 0.0 Basophils % 0.2 Blood Urea Nitrogen 40 H Calcium Level 7.5 L Carbon Dioxide Level 30 Chloride Level 100 Creatinine 1.55 H Eosinophils # 0.2 Eosinophils % 1.6 Glucose Level 76 # Hematocrit 29.9 L Hemoglobin 9.5 L Lymphocytes # 2.3 Lymphocytes % 15.7 Mean Corpuscular Hemoglobin 29.6 Mean Corpuscular Hemoglobin Concent 31.8 L Mean Corpuscular Volume 93.1 Mean Platelet Volume 10.6 H Monocytes # 1.5 H Monocytes % 10.3 Neutrophils # 10.2 H Neutrophils % 70.9 Nucleated Red Blood Cells # 0.0 Nucleated Red Blood Cells % 0.0 Phosphorus Level 3.1 Platelet Count 175 # Potassium Level 3.6 Red Blood Count 3.21 L Red Cell Distribution Width 14.6 H Sodium Level 138 White Blood Count 14.4 H Bedside Glucose 78 120 168 Medications Medications Current Medications Acetaminophen (Tylenol Supp) 650 mg Q6H PRN [place] PAIN LEVEL 1-3 OR FEVER Last administered on 05/07/16 00:51; Admin Dose 650 MG; Start 05/04/16 at 10:00 Acetaminophen/ Hydrocodone Bitart ([place] (5/325)) 1 tab Q6H PRN PO MODERATE PAIN LEVEL 4-6 Last administered on 05/12/16 08:30; Admin Dose 1 TAB; Start 05/04/16 at 10:00 Acetaminophen/ Hydrocodone Bitart ([place] (5/325)) 2 tab Q6H PRN PO SEVERE PAIN LEVEL 7-10; Start 05/04/16 at 10:00 Morphine Sulfate (morphine) 2 mg Q4H PRN IV SEVERE PAIN LEVEL 7-10 Last administered on 05/08/16 02:45; Admin Dose 2 MG; Start 05/04/16 at 10:00 Magnesium Hydroxide (Milk Of Mag) 30 ml DAILY PRN PO CONSTIPATION; Start at 10:00 Bisacodyl (Dulcolax Supp) 10 mg DAILY PRN [place] CONSTIPATION; Start 05/04/16 at 10: 00 Pantoprazole (Protonix Iv) 40 mg DAILY@06 IV Last administered on 05/12/16 05: 55; Admin Dose 40 MG; Start 05/05/16 at 06:00 Nitroglycerin (Nitroglycerin (Sl Tab) 0.4 Mg) 1 tab Q5M PRN SL CHEST PAIN; Start 05/04/16 at 10:00 Miscellaneous Information 1 ea NOTE XX ; Start 05/04/16 at 18:30 Glucose (Glutose) 15 gm Q15M PRN PO DECREASED GLUCOSE; Start 05/04/16 at 18:30 Glucose (Glutose) 22.5 gm Q15M PRN PO DECREASED GLUCOSE; Start 05/04/16 at 18:30 Glucagon (Glucagen) 1 mg Q15M PRN IM DECREASED GLUCOSE; Start 05/04/16 at 18:30 Glucose 15 gm 15 gm Q15M PRN BUCCAL DECREASED GLUCOSE; Start 05/04/16 at 18:30 Albumin Human 250 ml @ 500 mls/hr PRN PRN IV CVP< 8, OR SBP<90 Last administered on 05/07/16 02:12; Admin Dose 500 MLS/HR; Start 05/06/16 at 19:00 Hydromorphone HCl (Dilaudid) 0.2 mg Q15M PRN IV PAIN LEVEL 1-5 Last administered on 05/08/16 15:13; Admin Dose 0.2 MG; Start 05/06/16 at 19:00 Hydromorphone HCl (Dilaudid) 0.4 mg Q15M PRN IV PAIN LEVEL 6-10; Start 05/06/16 at 19:00 Hydromorphone HCl (Dilaudid) 0.2 mg Q1H PRN IV PAIN LEVEL 1-5; Start 05/06/16 at 19:00 Hydromorphone HCl (Dilaudid) 0.4 mg Q1H PRN IV PAIN LEVEL 6-10; Start 05/06/16 at 19:00 Oxycodone/ Acetaminophen (Percocet (5/ 325)) 1 tab Q3H PRN PO PAIN LEVEL 1-5; Start 05/06/16 at 19:00 Oxycodone/ Acetaminophen (Percocet (5/ 325)) 2 tab Q3H PRN PO PAIN LEVEL 6-10; Start 05/06/16 at 19:00 Ondansetron HCl (Zofran Inj) 4 mg Q6H PRN IV NAUSEA AND/OR VOMITING Last administered on 05/10/16 12:22; Admin Dose 4 MG; Start 05/06/16 at 19:00 Sucralfate 1 gm 1 gm Q6 PO Last administered on 05/12/16 17:31; Admin Dose 1 GM; Start 05/07/16 at 00:00 Magnesium Sulfate/ Dextrose (Magnesium Sulfate 1 Gm/D5W) 100 ml @ 100 mls/hr PRN PRN IVPB PENDING LAB VALUE; Start 05/06/16 at 19:00 Dextrose (D50w Syringe) 25 ml Q15M PRN IV Till BS 80 mg/dL or above x2; Start 05/06/16 at 19:00 Dextrose 50 ml 50 ml Q15M PRN IV Till BS 80 mg/dL or above x2; Start 05/06/16 at 19:00 Cefepime HCl (Maxipime 1gm/50 ml (Pmx)) 50 ml @ 100 mls/hr Q24H IVPB Last administered on 05/12/16 08:30; Admin Dose 100 MLS/HR; Start 05/09/16 at 09:00 Insulin Glargine (Lantus) 20 unit DAILY@20 SC Last administered on 05/11/16 20 :42; Admin Dose 20 UNIT; Start 05/08/16 at 20:00 Acetaminophen/ Hydrocodone Bitart ([place] (5/325)) 1 tab Q4H PRN PO pain; Start 05/08/16 at 16:00 Acetaminophen (Tylenol Tab) 650 mg Q6H PRN PO PAIN AND OR ELEVATED TEMP; Start 05/09/16 at 16:00 Atorvastatin Calcium (Lipitor) 80 mg HS NGT Last administered on 05/11/16 20: 46; Admin Dose 80 MG; Start 05/10/16 at 21:00 Heparin Sodium (Porcine) (Heparin (5000 Units/0.5 ml)) 5,000 unit BID SC Last administered on 05/12/16 08:47; Admin Dose 5,000 UNIT; Start 05/10/16 at 21:00 Diagnostic Test (Pha) 1 ea 1 ea 02 XX ; Start 05/11/16 at 02:00 Dextrose/Sodium Chloride (D5-1/2ns) 1,000 ml @ 40 mls/hr Q24H IV Last administered on 05/12/16 11:21; Admin Dose 40 MLS/HR; Start 05/11/16 at 10:00 Aspirin (Aspirin) 162 mg DAILY PO Last administered on 05/12/16 08:28; Admin Dose 162 MG; Start 05/12/16 at 09:00 Carvedilol (Coreg) 3.125 mg BID PO Last administered on 05/12/16 08:29; Admin Dose 3.125 MG; Start 05/12/16 at 09:00 Vancomycin HCl (Vancomycin Oral Syringe) 250 mg Q6 PO Last administered on 05/12 17:33; Admin Dose 250 MG; Start 05/12/16 at 12:30 Lactobacillus Acidophilus/ Rhamnosus (Culturelle) 1 cap BID PO ; Start 05/12/16 at 21:00 JIM WHITE MD May 12, 2016 21:26
[2016-05-12] MEDS: ATORVASTATIN 80 MG TAB NGT SCH (22:43)
[2016-05-12] MEDS: INSULIN GLARGINE [LANtus] 3 ML PEN SC SCH (22:51)
[2016-05-13] VITALS (12 sets, daily range): BP systolic 139–178; BP diastolic 70–78; PULSE 76–92; RESP 17–20
[2016-05-13] MEDS: LACTOBACILLUS RHAMNOSUS CAP PO SCH ×3 (00:44→21:18)
[2016-05-13] MEDS: SUCRALFATE (100 MG/ML) 10ML CUP PO SCH ×5 (00:44→23:34)
[2016-05-13] MEDS: VANCOMYCIN HCL 250 MG/5ML POSYG PO SCH ×5 (00:44→23:34)
[2016-05-13] MEDS: ACCUCHECK XX SCH (02:00)
[2016-05-13] MEDS: PANTOPRAZOLE 40 MG INJ IV SCH (06:30)
--- NOTE | 2016-05-13 07:33 | PN ---
DATE: CARDIOLOGY FOLLOWUP SUBJECTIVE: Discussed with the staff. Discussed with the family at the bedside. The patient remai ns on chest tubes . Remains in sinus rhythm. He denies any significant pain at this poi nt to me. Denies shortness of breath to me. MEDICATIONS: Reviewed, which include 1. Lipitor 80. 2. Heparin subcutaneous. 3. Aspirin 81. 4. Insulin. 5. . PHYSICAL EXAMINATION VITAL SIGNS: Temperature 99.8, heart of 78, blood pressure 143/98, respiratory rate of 30, saturati ng 97%. HEAD, EARS, EYES, NOSE, AND THROAT: Normocephalic, atraumatic. Pupils are equal. CHEST: Status post sternotomy. Status post chest tube in place. CARDIOVASCULAR: . PULMONARY: With no wheezes heard. GASTROINTESTINAL: Soft. No rebound or guarding. EXTREMITIES: Positive lower extremity edema. NEUROLOGICAL: He is awake. Responds appropriately. PSYCHIATRIC: Appears to be calm. LABORATORY: Shows WBC of 14.4, hemoglobin of 9.5, platelets of 175. Sodium 138, potassium 3.6, BUN of 40, creatinine of 1.55, glucose of 76. ASSESSMENT AND PLAN 1. ST-elevation myocardial infarction. 2. Status post emergent cardiac catheterization and urgent coronary bypass graft. 3. Multivessel coronary artery disease. 4. Status post shock. Currently, blood pressure is improved and hypertensive. 5. Renal failure, acute, is improving now. 6. Diabetes. 7. Dyslipidemia. 8. Anemia. 9. Thrombocytopenia. 10. Fever. RECOMMENDATIONS: We will increase the dose of aspirin to 160 mg improved. We will start the patient on low dose of carvedilol as well. Diuresis, as per renal. Chest tube management as per CT surgery. Statin will be continued. More than minutes of critical care time was spent managing this patient, excluding procedures. Dictated By: NENA GORMAN MD AV/ROLF Conf#: [id number] DID#: [id number] CC: JANICE RIVERA MD;*EndCC*
[2016-05-13] MEDS: DEXTROSE 5%-0.45% NACL 1,000 ML IV SCH (07:46)
[2016-05-13] MEDS: INSULIN ASPART [NOVOLOG] 3 ML PEN SC SCH ×4 (07:55→21:43)
[2016-05-13 09:09] LABS: ADD SCAN DIFF NO
[2016-05-13 09:12] LABS: BASOPHILS % 0.3 % (0.0-2.0); EOSINOPHILS # 0.3 10^3/ul (0.0-0.5); EOSINOPHILS % 2.3 % (0.0-7.0); HEMATOCRIT 33.4 % (37.0-47.0); HEMOGLOBIN 10.7 g/dl (12.0-16.0); LYMPHOCYTES # 2.1 10^3/ul (0.8-2.9); LYMPHOCYTES % 18.6 % (15.0-51.0); MEAN CORPUSCULAR HEMOGLOBIN 29.7 pg (29.0-33.0); MEAN CORPUSCULAR VOLUME 92.8 fl (82.0-101.0); MEAN PLATELET VOLUME 9.9 fl (7.4-10.4); MONOCYTE # 1.4 10^3/ul (0.3-0.9); MONOCYTES % 12.1 % (0.0-11.0); NEUTROPHIL # 7.5 10^3/ul (1.6-7.5); PLATELET COUNT 281 10^3/UL (140-415); RED CELL DISTRIBUTION WIDTH 14.3 % (11.5-14.5); WHITE BLOOD COUNT 11.5 10^3/ul (4.8-10.8)
[2016-05-13 09:25] LABS: ALBUMIN 2.6 g/dl (3.3-4.9)
[2016-05-13 09:28] LABS: CREATININE 1.23 mg/dl (0.44-1.00)
[2016-05-13 09:29] LABS: CALCIUM 7.6 mg/dl (8.4-10.2); MAGNESIUM 2.2 mg/dl (1.7-2.5); PHOSPHORUS 2.9 mg/dl (2.5-4.9)
[2016-05-13] MEDS: ASPIRIN 81 MG TAB PO SCH (09:31)
[2016-05-13] MEDS: CEFEPIME 1GM/50 ML (PMX) 50 ML IVPB SCH (09:32)
[2016-05-13] MEDS: HEPARIN 5,000 UNIT/0.5 ML SYG SC SCH ×2 (09:42→21:41)
--- NOTE | 2016-05-13 14:31 | PN ---
DATE: 05/13/2016 SUBJECTIVE: The patient is stable this morning. Denies any shortness of breath. PHYSICAL EXAMINATION: VITAL SIGNS: Temperature 98, pulse 89, blood pressure 160/70, O2 saturation 96% on 3 L nasal cannul a. NECK: Supple. No JVD or lymphadenopathy. CARDIAC: S1, S2, no added sounds or murmurs. CHEST: Diminished air entry bilaterally. ABDOMEN: Soft, nontender. No guarding or rebound. EXTREMITIES: No cyanosis, clubbing, 1+ edema. NEUROLOGIC: Generalized weakness. IMPRESSION AND PLAN: 1. Status post vent dependent respiratory failure. 2. ST elevation myocardial infarction. 3. Status post cardiac catheterization followed by coronary artery bypass graft surgery. 4. Renal insufficiency, now improving. 5. Hypertension. 6. Hyperlipidemia. PLAN: The patient to continue with: 1. Cardiac recommendations. 2. Continue supplemental O2. 3. Decrease oxygen as tolerated. 4. Continue activities as tolerated. Dictated By: MARGARITO MILLER/ROLF Conf#: [id number] DID#: [id number]
--- NOTE | 2016-05-13 17:08 | CONS ---
Date/Time of Note Date/Time of Note DATE: 05/13/16 TIME: 17:07 Assessment/Plan Assessment/Plan Additional Assessment/Plan 1. Acute kidney injury, oliguric, likely secondary to acute tubular necrosis from ischemic acute tubular necrosis in the setting of ST elevation myocardial infarction. 2. 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 Acute respiratory failure, ventilator dependent. 4. Uncontrolled diabetes mellitus with hemoglobin A1c 8.7. 5. Dyslipidemia. 6. Normocytic anemia. 7. Status post intra-aortic balloon pump placement. Plan: Cr improved to 1.23, good urine output encourage po intake no need for HD will follow up Consultation Date/Type/Reason Admit Date/Time May 04, 2016 at 08:40 Initial Consult Date 05/08/16 Type of Consultation: NEPHROLOGY Referring Provider: JANICE RIVERA 24 HR Interval Summary Free Text/Dictation making good urine, Cr better, no plan for HD today, stable on telemetry floor Exam/Review of Systems Vital Signs Vitals Vital Signs Date Time Temp Pulse Resp B/P Pulse Ox O2 Delivery O2 Flow Rate FiO2 05/13/16 16:48 76 05/13/16 16:15 97.7 20 178/78 98 05/13/16 08:10 Nasal Cannula 3.0 05/09/16 20:00 40 Intake and Output 05/12/16 05/12/16 05/13/16 15:00 23:00 07:00 Intake Total 740 ml 450 ml 300 ml Output Total 543 ml 235 ml 600 ml Balance 197 ml 215 ml -300 ml Results Result Diagram: 05/13/16 0845 05/13/16 0845 Results 24 hrs Laboratory Tests Test 05/12/16 17:34 05/12/16 22:38 05/13/16 08:41 05/13/16 08:45 Bedside Glucose 168 121 85 Albumin 2.6 L Anion Gap 11 Basophils # 0.0 Basophils % 0.3 Blood Urea Nitrogen 32 H Calcium Level 7.6 L Carbon Dioxide Level 28 Chloride Level 104 Creatinine 1.23 H Eosinophils # 0.3 Eosinophils % 2.3 Glucose Level 101 Hematocrit 33.4 L Hemoglobin 10.7 L Lymphocytes # 2.1 Lymphocytes % 18.6 Magnesium Level 2.2 Mean Corpuscular Hemoglobin 29.7 Mean Corpuscular Hemoglobin Concent 32.0 Mean Corpuscular Volume 92.8 Mean Platelet Volume 9.9 Monocytes # 1.4 H Monocytes % 12.1 H Neutrophils # 7.5 Neutrophils % 65.0 Nucleated Red Blood Cells # 0.0 Nucleated Red Blood Cells % 0.0 Phosphorus Level 2.9 Platelet Count 281 # Potassium Level 4.0 Red Blood Count 3.60 L Red Cell Distribution Width 14.3 Sodium Level 139 White Blood Count 11.5 #H Test 05/13/16 11:37 Bedside Glucose 130 Medications Medications Current Medications Acetaminophen (Tylenol Supp) 650 mg Q6H PRN [place] PAIN LEVEL 1-3 OR FEVER Last administered on 05/07/16 00:51; Admin Dose 650 MG; Start 05/04/16 at 10:00 Acetaminophen/ Hydrocodone Bitart ([place] (5/325)) 1 tab Q6H PRN PO MODERATE PAIN LEVEL 4-6 Last administered on 05/12/16 08:30; Admin Dose 1 TAB; Start 05/04/16 at 10:00 Acetaminophen/ Hydrocodone Bitart ([place] (5/325)) 2 tab Q6H PRN PO SEVERE PAIN LEVEL 7-10; Start 05/04/16 at 10:00 Morphine Sulfate (morphine) 2 mg Q4H PRN IV SEVERE PAIN LEVEL 7-10 Last administered on 05/08/16 02:45; Admin Dose 2 MG; Start 05/04/16 at 10:00 Magnesium Hydroxide (Milk Of Mag) 30 ml DAILY PRN PO CONSTIPATION; Start at 10:00 Bisacodyl (Dulcolax Supp) 10 mg DAILY PRN [place] CONSTIPATION; Start 05/04/16 at 10: 00 Pantoprazole (Protonix Iv) 40 mg DAILY@06 IV Last administered on 05/13/16 06: 30; Admin Dose 40 MG; Start 05/05/16 at 06:00 Nitroglycerin (Nitroglycerin (Sl Tab) 0.4 Mg) 1 tab Q5M PRN SL CHEST PAIN; Start 05/04/16 at 10:00 Miscellaneous Information 1 ea NOTE XX ; Start 05/04/16 at 18:30 Glucose (Glutose) 15 gm Q15M PRN PO DECREASED GLUCOSE; Start 05/04/16 at 18:30 Glucose (Glutose) 22.5 gm Q15M PRN PO DECREASED GLUCOSE; Start 05/04/16 at 18:30 Glucagon (Glucagen) 1 mg Q15M PRN IM DECREASED GLUCOSE; Start 05/04/16 at 18:30 Glucose 15 gm 15 gm Q15M PRN BUCCAL DECREASED GLUCOSE; Start 05/04/16 at 18:30 Albumin Human 250 ml @ 500 mls/hr PRN PRN IV CVP< 8, OR SBP<90 Last administered on 05/07/16 02:12; Admin Dose 500 MLS/HR; Start 05/06/16 at 19:00 Hydromorphone HCl (Dilaudid) 0.2 mg Q15M PRN IV PAIN LEVEL 1-5 Last administered on 05/08/16 15:13; Admin Dose 0.2 MG; Start 05/06/16 at 19:00 Hydromorphone HCl (Dilaudid) 0.4 mg Q15M PRN IV PAIN LEVEL 6-10; Start 05/06/16 at 19:00 Hydromorphone HCl (Dilaudid) 0.2 mg Q1H PRN IV PAIN LEVEL 1-5; Start 05/06/16 at 19:00 Hydromorphone HCl (Dilaudid) 0.4 mg Q1H PRN IV PAIN LEVEL 6-10; Start 05/06/16 at 19:00 Oxycodone/ Acetaminophen (Percocet (5/ 325)) 1 tab Q3H PRN PO PAIN LEVEL 1-5; Start 05/06/16 at 19:00 Oxycodone/ Acetaminophen (Percocet (5/ 325)) 2 tab Q3H PRN PO PAIN LEVEL 6-10; Start 05/06/16 at 19:00 Ondansetron HCl (Zofran Inj) 4 mg Q6H PRN IV NAUSEA AND/OR VOMITING Last administered on 05/10/16 12:22; Admin Dose 4 MG; Start 05/06/16 at 19:00 Sucralfate 1 gm 1 gm Q6 PO Last administered on 05/13/16 12:22; Admin Dose 1 GM; Start 05/07/16 at 00:00 Magnesium Sulfate/ Dextrose (Magnesium Sulfate 1 Gm/D5W) 100 ml @ 100 mls/hr PRN PRN IVPB PENDING LAB VALUE; Start 05/06/16 at 19:00 Dextrose (D50w Syringe) 25 ml Q15M PRN IV Till BS 80 mg/dL or above x2; Start 05/06/16 at 19:00 Dextrose 50 ml 50 ml Q15M PRN IV Till BS 80 mg/dL or above x2; Start 05/06/16 at 19:00 Cefepime HCl (Maxipime 1gm/50 ml (Pmx)) 50 ml @ 100 mls/hr Q24H IVPB Last administered on 05/13/16 09:32; Admin Dose 100 MLS/HR; Start 05/09/16 at 09:00 Insulin Glargine (Lantus) 20 unit DAILY@20 SC Last administered on 05/12/16 22 :51; Admin Dose 20 UNIT; Start 05/08/16 at 20:00 Acetaminophen/ Hydrocodone Bitart ([place] (5/325)) 1 tab Q4H PRN PO pain; Start 05/08/16 at 16:00 Acetaminophen (Tylenol Tab) 650 mg Q6H PRN PO PAIN AND OR ELEVATED TEMP; Start 05/09/16 at 16:00 Atorvastatin Calcium (Lipitor) 80 mg HS NGT Last administered on 05/12/16 22: 43; Admin Dose 80 MG; Start 05/10/16 at 21:00 Heparin Sodium (Porcine) (Heparin (5000 Units/0.5 ml)) 5,000 unit BID SC Last administered on 05/13/16 09:42; Admin Dose 5,000 UNIT; Start 05/10/16 at 21:00 Diagnostic Test (Pha) 1 ea 1 ea 02 XX ; Start 05/11/16 at 02:00 Dextrose/Sodium Chloride (D5-1/2ns) 1,000 ml @ 40 mls/hr Q24H IV Last administered on 05/13/16 07:46; Admin Dose 40 MLS/HR; Start 05/11/16 at 10:00 Aspirin (Aspirin) 162 mg DAILY PO Last administered on 05/13/16 09:31; Admin Dose 162 MG; Start 05/12/16 at 09:00 Carvedilol (Coreg) 3.125 mg BID PO Last administered on 05/13/16 09:33; Admin Dose 3.125 MG; Start 05/12/16 at 09:00 Vancomycin HCl (Vancomycin Oral Syringe) 250 mg Q6 PO Last administered on 05/13 12:24; Admin Dose 250 MG; Start 05/12/16 at 12:30 Lactobacillus Acidophilus/ Rhamnosus (Culturelle) 1 cap BID PO Last administered on 05/13/16 09:32; Admin Dose 1 CAP; Start 05/12/16 at 21:00 JIM WHITE MD May 13, 2016 17:07
--- NOTE | 2016-05-13 19:38 | PN ---
Date/Time of Note Date/Time of Note DATE: 05/13/16 TIME: 19:30 Assessment/Plan VTE Prophylaxis VTE Prophylaxis Intervention: heparin Lines/Catheters Urinary Cath still in place: No Assessment/Plan Chief Complaint/Hosp Course 1. 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 Uncontrolled Diabetes: A1c: 8.7: improved Continue insulin regimen 3. Sepsis with fevers and leukocytosis secondary to C. difficile colitis Patient has remained afebrile today Continue Vanco p.o. 4. ATN: improving Nephrology on the case 5. Anemia of chronic disease Monitor 6. Respiratory failure now extubated with persistent bilateral effusions Continue chest tube drainage Pulmonology on the case Prophylaxis: Heparin Problems: Subjective 24 Hr Interval Summary Constitutional: no complaints Exam/Review of Systems Vital Signs Vitals Vital Signs Date Time Temp Pulse Resp B/P Pulse Ox O2 Delivery O2 Flow Rate FiO2 05/13/16 18:08 3.0 05/13/16 16:48 76 05/13/16 16:15 97.7 20 178/78 98 05/13/16 08:10 Nasal Cannula 05/09/16 20:00 40 Intake and Output 05/12/16 05/12/16 05/13/16 15:00 23:00 07:00 Intake Total 740 ml 450 ml 300 ml Output Total 543 ml 235 ml 600 ml Balance 197 ml 215 ml -300 ml Exam Constitutional: alert Respiratory: clear to auscultation Cardiovascular: regular rate and rhythm Gastrointestinal: soft, No distended Musculoskeletal: nl extremities to inspection Results Result Diagram: 05/13/16 0845 05/13/16 0845 Results 24 hrs Laboratory Tests Test 05/12/16 22:38 05/13/16 08:41 05/13/16 08:45 05/13/16 11:37 Bedside Glucose 121 85 130 Albumin 2.6 L Anion Gap 11 Basophils # 0.0 Basophils % 0.3 Blood Urea Nitrogen 32 H Calcium Level 7.6 L Carbon Dioxide Level 28 Chloride Level 104 Creatinine 1.23 H Eosinophils # 0.3 Eosinophils % 2.3 Glucose Level 101 Hematocrit 33.4 L Hemoglobin 10.7 L Lymphocytes # 2.1 Lymphocytes % 18.6 Magnesium Level 2.2 Mean Corpuscular Hemoglobin 29.7 Mean Corpuscular Hemoglobin Concent 32.0 Mean Corpuscular Volume 92.8 Mean Platelet Volume 9.9 Monocytes # 1.4 H Monocytes % 12.1 H Neutrophils # 7.5 Neutrophils % 65.0 Nucleated Red Blood Cells # 0.0 Nucleated Red Blood Cells % 0.0 Phosphorus Level 2.9 Platelet Count 281 # Potassium Level 4.0 Red Blood Count 3.60 L Red Cell Distribution Width 14.3 Sodium Level 139 White Blood Count 11.5 #H Test 05/13/16 17:29 Bedside Glucose 179 Medications Medications Current Medications Acetaminophen (Tylenol Supp) 650 mg Q6H PRN [place] PAIN LEVEL 1-3 OR FEVER Last administered on 05/07/16 00:51; Admin Dose 650 MG; Start 05/04/16 at 10:00 Acetaminophen/ Hydrocodone Bitart ([place] (5/325)) 1 tab Q6H PRN PO MODERATE PAIN LEVEL 4-6 Last administered on 05/12/16 08:30; Admin Dose 1 TAB; Start 05/04/16 at 10:00 Acetaminophen/ Hydrocodone Bitart ([place] (5/325)) 2 tab Q6H PRN PO SEVERE PAIN LEVEL 7-10; Start 05/04/16 at 10:00 Morphine Sulfate (morphine) 2 mg Q4H PRN IV SEVERE PAIN LEVEL 7-10 Last administered on 05/08/16 02:45; Admin Dose 2 MG; Start 05/04/16 at 10:00 Magnesium Hydroxide (Milk Of Mag) 30 ml DAILY PRN PO CONSTIPATION; Start at 10:00 Bisacodyl (Dulcolax Supp) 10 mg DAILY PRN [place] CONSTIPATION; Start 05/04/16 at 10: 00 Pantoprazole (Protonix Iv) 40 mg DAILY@06 IV Last administered on 05/13/16 06: 30; Admin Dose 40 MG; Start 05/05/16 at 06:00 Nitroglycerin (Nitroglycerin (Sl Tab) 0.4 Mg) 1 tab Q5M PRN SL CHEST PAIN; Start 05/04/16 at 10:00 Miscellaneous Information 1 ea NOTE XX ; Start 05/04/16 at 18:30 Glucose (Glutose) 15 gm Q15M PRN PO DECREASED GLUCOSE; Start 05/04/16 at 18:30 Glucose (Glutose) 22.5 gm Q15M PRN PO DECREASED GLUCOSE; Start 05/04/16 at 18:30 Glucagon (Glucagen) 1 mg Q15M PRN IM DECREASED GLUCOSE; Start 05/04/16 at 18:30 Glucose 15 gm 15 gm Q15M PRN BUCCAL DECREASED GLUCOSE; Start 05/04/16 at 18:30 Albumin Human 250 ml @ 500 mls/hr PRN PRN IV CVP< 8, OR SBP<90 Last administered on 05/07/16 02:12; Admin Dose 500 MLS/HR; Start 05/06/16 at 19:00 Hydromorphone HCl (Dilaudid) 0.2 mg Q15M PRN IV PAIN LEVEL 1-5 Last administered on 05/08/16 15:13; Admin Dose 0.2 MG; Start 05/06/16 at 19:00 Hydromorphone HCl (Dilaudid) 0.4 mg Q15M PRN IV PAIN LEVEL 6-10; Start 05/06/16 at 19:00 Hydromorphone HCl (Dilaudid) 0.2 mg Q1H PRN IV PAIN LEVEL 1-5; Start 05/06/16 at 19:00 Hydromorphone HCl (Dilaudid) 0.4 mg Q1H PRN IV PAIN LEVEL 6-10; Start 05/06/16 at 19:00 Oxycodone/ Acetaminophen (Percocet (5/ 325)) 1 tab Q3H PRN PO PAIN LEVEL 1-5; Start 05/06/16 at 19:00 Oxycodone/ Acetaminophen (Percocet (5/ 325)) 2 tab Q3H PRN PO PAIN LEVEL 6-10; Start 05/06/16 at 19:00 Ondansetron HCl (Zofran Inj) 4 mg Q6H PRN IV NAUSEA AND/OR VOMITING Last administered on 05/10/16 12:22; Admin Dose 4 MG; Start 05/06/16 at 19:00 Sucralfate 1 gm 1 gm Q6 PO Last administered on 05/13/16 17:31; Admin Dose 1 GM; Start 05/07/16 at 00:00 Magnesium Sulfate/ Dextrose (Magnesium Sulfate 1 Gm/D5W) 100 ml @ 100 mls/hr PRN PRN IVPB PENDING LAB VALUE; Start 05/06/16 at 19:00 Dextrose (D50w Syringe) 25 ml Q15M PRN IV Till BS 80 mg/dL or above x2; Start 05/06/16 at 19:00 Dextrose 50 ml 50 ml Q15M PRN IV Till BS 80 mg/dL or above x2; Start 05/06/16 at 19:00 Cefepime HCl (Maxipime 1gm/50 ml (Pmx)) 50 ml @ 100 mls/hr Q24H IVPB Last administered on 05/13/16 09:32; Admin Dose 100 MLS/HR; Start 05/09/16 at 09:00 Insulin Glargine (Lantus) 20 unit DAILY@20 SC Last administered on 05/12/16 22 :51; Admin Dose 20 UNIT; Start 05/08/16 at 20:00 Acetaminophen/ Hydrocodone Bitart ([place] (5/325)) 1 tab Q4H PRN PO pain; Start 05/08/16 at 16:00 Acetaminophen (Tylenol Tab) 650 mg Q6H PRN PO PAIN AND OR ELEVATED TEMP; Start 05/09/16 at 16:00 Atorvastatin Calcium (Lipitor) 80 mg HS NGT Last administered on 05/12/16 22: 43; Admin Dose 80 MG; Start 05/10/16 at 21:00 Heparin Sodium (Porcine) (Heparin (5000 Units/0.5 ml)) 5,000 unit BID SC Last administered on 05/13/16 09:42; Admin Dose 5,000 UNIT; Start 05/10/16 at 21:00 Diagnostic Test (Pha) 1 ea 1 ea 02 XX ; Start 05/11/16 at 02:00 Dextrose/Sodium Chloride (D5-1/2ns) 1,000 ml @ 40 mls/hr Q24H IV Last administered on 05/13/16 07:46; Admin Dose 40 MLS/HR; Start 05/11/16 at 10:00 Aspirin (Aspirin) 162 mg DAILY PO Last administered on 05/13/16 09:31; Admin Dose 162 MG; Start 05/12/16 at 09:00 Carvedilol (Coreg) 3.125 mg BID PO Last administered on 05/13/16 09:33; Admin Dose 3.125 MG; Start 05/12/16 at 09:00 Vancomycin HCl (Vancomycin Oral Syringe) 250 mg Q6 PO Last administered on 05/13 17:54; Admin Dose 250 MG; Start 05/12/16 at 12:30 Lactobacillus Acidophilus/ Rhamnosus (Culturelle) 1 cap BID PO Last administered on 05/13/16 09:32; Admin Dose 1 CAP; Start 05/12/16 at 21:00 HEATHER TEE May 13, 2016 19:37
[2016-05-13] MEDS: INSULIN GLARGINE [LANtus] 3 ML PEN SC SCH (20:00)
--- NOTE | 2016-05-13 20:17 | PN ---
Date/Time of Note Date/Time of Note DATE: 05/13/16 TIME: 20:16 Assessment/Plan Lines/Catheters Michael in Place (from [facility] [[email or web address] No Assessment/Plan Chief Complaint/Hosp Course Impression: STEMI Multi-vessel coronary artery disease with left main involvement Chest pain resolved after IABP SP Urgent CABG Pt fully awake, follows command well moves all extremity to command 2D Echo with Tamponade, good fxn CT 590 cc Pleural tube and pacing wires DCed Continue CT Sxn above explained to the family Problems: Subjective 24 Hr Interval Summary Constitutional: improved Pain Control: mild Exam/Review of Systems Vital Signs Vitals Vital Signs Date Time Temp Pulse Resp B/P Pulse Ox O2 Delivery O2 Flow Rate FiO2 05/13/16 19:52 98.2 83 17 152/70 100 05/13/16 18:08 3.0 05/13/16 08:10 Nasal Cannula 05/09/16 20:00 40 Intake and Output 05/12/16 05/12/16 05/13/16 15:00 23:00 07:00 Intake Total 740 ml 450 ml 300 ml Output Total 543 ml 235 ml 600 ml Balance 197 ml 215 ml -300 ml Exam Neck: non-tender, supple Cardiovascular: nl pulses, regular rate and rhythm Gastrointestinal: nl liver, spleen, non-tender, soft Results Result Diagram: 05/13/16 0845 05/13/16 0845 BEVERLEY NEGRETE MD May 13, 2016 20:17
[2016-05-13] MEDS: ATORVASTATIN 80 MG TAB NGT SCH (21:18)
[2016-05-14] VITALS (13 sets, daily range): BP systolic 140–176; BP diastolic 67–78; PULSE 78–91; RESP 18–22
[2016-05-14] MEDS: ACCUCHECK XX SCH (02:00)
[2016-05-14] MEDS: VANCOMYCIN HCL 250 MG/5ML POSYG PO SCH ×4 (06:20→23:25)
[2016-05-14] MEDS: PANTOPRAZOLE 40 MG INJ IV SCH (06:20)
[2016-05-14] MEDS: SUCRALFATE (100 MG/ML) 10ML CUP PO SCH ×4 (06:20→23:25)
[2016-05-14] MEDS: INSULIN ASPART [NOVOLOG] 3 ML PEN SC SCH ×4 (07:55→20:33)
--- NOTE | 2016-05-14 08:33 | PN ---
DATE: 05/14/2016 CARDIOLOGY FOLLOWUP SUBJECTIVE: The patient with no chest pain or pressure. She was able to walk yesterday. Discussed with the son, discussed with the surgeons. Rhythm strip was reviewed. The patient remains in sinu s rhythm. MEDICATIONS: Reviewed, which include: 1. Vancomycin. 2. Aspirin. 3. Coreg 3.125. 4. Lipitor. 5. Insulin. 6. Cefepime. 7. Carafate. PHYSICAL EXAMINATION: VITAL SIGNS: Temperature 98.2, heart rate of 76, blood pressure 158/73, respiratory rate of 22, sat urating 96%. HEENT: Normocephalic, atraumatic. No acute distress. Pupils are equal. NECK: Supple. Right foot in place. CARDIOVASCULAR: Regular rate and rhythm, systolic murmur. CHEST: Status post sternotomy. Status post chest tube still in place. PULMONARY: With no wheezes heard. GASTROINTESTINAL: Soft, nontender. EXTREMITIES: Trivial edema. NEUROLOGIC: Awake, responds appropriately. PSYCHIATRIC: Appears to be calm and pleasant. LABORATORY: Most recent one from yesterday shows sodium 139, potassium 4, BUN of 32, creatinine 1.2 3, glucose of 101. ASSESSMENT AND PLAN: 1. ST-elevation myocardial infarction status post urgent coronary bypass graft. 2. Multivessel coronary artery disease. 3. Sepsis and fever, leukocytosis with Clostridium difficile. 4. Acute renal failure, currently improved. 5. Anemia. 6. Diabetes. 7. Hypertension. 8. Dyslipidemia. RECOMMENDATIONS: We will continue with the aspirin. I will increase the Coreg. Start JESICA inhibito r once okay from renal standpoint. Continue the postop care. Consider removing of the chest tube a nd the Cordis once ok with surgery. Dictated By: NENA GORMAN MD AV/NTS Conf#: [id number] DID#: [id number] CC: HEATHER TEE MD;*End*
[2016-05-14] MEDS: CEFEPIME 1GM/50 ML (PMX) 50 ML IVPB SCH (08:52)
[2016-05-14] MEDS: LACTOBACILLUS RHAMNOSUS CAP PO SCH ×2 (08:53→20:26)
[2016-05-14] MEDS: ASPIRIN 81 MG TAB PO SCH (08:54)
[2016-05-14] MEDS: HEPARIN 5,000 UNIT/0.5 ML SYG SC SCH ×2 (09:13→20:45)
[2016-05-14] MEDS: DEXTROSE 5%-0.45% NACL 1,000 ML IV SCH (10:18)
[2016-05-14 10:19] LABS: ADD SCAN DIFF NO
[2016-05-14 10:28] LABS: BASOPHIL # 0.1 10^3/ul (0.0-0.1); BASOPHILS % 0.4 % (0.0-2.0); EOSINOPHILS # 0.3 10^3/ul (0.0-0.5); EOSINOPHILS % 2.4 % (0.0-7.0); HEMOGLOBIN 10.7 g/dl (12.0-16.0); LYMPHOCYTES # 2.4 10^3/ul (0.8-2.9); LYMPHOCYTES % 18.3 % (15.0-51.0); MEAN CORPUSCULAR HEMOGLOBIN 30.2 pg (29.0-33.0); MEAN CORPUSCULAR HGB CONC 32.4 g/dl (32.0-37.0); MEAN CORPUSCULAR VOLUME 93.2 fl (82.0-101.0); MEAN PLATELET VOLUME 9.8 fl (7.4-10.4); MONOCYTE # 1.2 10^3/ul (0.3-0.9); MONOCYTES % 8.9 % (0.0-11.0); NEUTROPHILS % 68.4 % (39.0-77.0); PLATELET COUNT 371 10^3/UL (140-415); RED BLOOD COUNT 3.54 10^6/ul (4.20-5.40); RED CELL DISTRIBUTION WIDTH 14.3 % (11.5-14.5); WHITE BLOOD COUNT 13.2 10^3/ul (4.8-10.8)
[2016-05-14 10:46] LABS: ALBUMIN 2.8 g/dl (3.3-4.9); POTASSIUM 4.2 mmol/L (3.5-5.1)
[2016-05-14 10:49] LABS: CREATININE 0.97 mg/dl (0.44-1.00)
[2016-05-14 10:50] LABS: CALCIUM 7.6 mg/dl (8.4-10.2); PHOSPHORUS 2.6 mg/dl (2.5-4.9)
--- NOTE | 2016-05-14 11:49 | PN ---
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 Chest pain resolved after IABP SP Urgent CABG Pt fully awake, follows command well moves all extremity to command 2D Echo with Tamponade, good fxn CT 250 cc Pleural tube and pacing wires DCed Continue CT Sxn one more day above explained to the family Problems: Subjective 24 Hr Interval Summary Constitutional: improved Pain Control: mild Exam/Review of Systems Vital Signs Vitals Vital Signs Date Time Temp Pulse Resp B/P Pulse Ox O2 Delivery O2 Flow Rate FiO2 05/14/16 11:30 98.4 75 22 150/71 98 05/14/16 04:35 3.0 05/13/16 08:10 Nasal Cannula Intake and Output 05/13/16 05/13/16 05/14/16 15:00 23:00 07:00 Intake Total 50 ml 1000 ml Output Total 7 ml Balance 50 ml 993 ml Exam ENMT: mucosa pink and moist, nl external ears & nose, nl lips & teeth, nl nasal mucosa & septum Neck: non-tender, supple Respiratory: clear to auscultation, normal air movement Cardiovascular: nl pulses, regular rate and rhythm Results Result Diagram: 05/14/16 1015 05/14/16 1015 BEVERLEY NEGRETE MD May 14, 2016 11:49
--- NOTE | 2016-05-14 15:21 | PN ---
DATE: REASON FOR FOLLOWUP: Shortness of breath. The patient is stable this morning. OBJECTIVE: VITAL SIGNS: Temperature 98, pulse 91, blood pressure 150/71, O2 saturation 96% on 3 liters. NECK: Supple. No JVD or lymphadenopathy. CARDIAC: S1, S2, no added sounds or murmurs. CHEST: Diminished air entry bilaterally, but no rales or wheezes. ABDOMEN: Soft, nontender. No guarding or rebound. EXTREMITIES: No cyanosis, clubbing. 1+ edema. NEUROLOGIC: Generalized weakness. IMPRESSION AND PLAN: 1. Status post coronary artery graft surgery, remains stable. 2. History of ST elevation myocardial infarction. 3. Status post C. difficile sepsis. 4. Improved renal failure. RECOMMENDATIONS: Continue with beta alexandra. Initiation of JESICA inhibitor. Continue with chest tub e drainage. Consider removal of chest tube and Cordis. Also, continue incentive spirometry. Dictated By: MARGARITO MILLER/ROLF Conf#: [id number] DID#: [id number]
--- NOTE | 2016-05-14 15:33 | CONS ---
Date/Time of Note Date/Time of Note DATE: 05/14/16 TIME: 15:32 Assessment/Plan Assessment/Plan Additional Assessment/Plan 1. Acute kidney injury, oliguric, likely secondary to acute tubular necrosis from ischemic acute tubular necrosis in the setting of ST elevation myocardial infarction. 2. 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 Acute respiratory failure, ventilator dependent. 4. Uncontrolled diabetes mellitus with hemoglobin A1c 8.7. 5. Dyslipidemia. 6. Normocytic anemia. 7. Status post intra-aortic balloon pump placement. Plan: Cr improved to 1.23, good urine output encourage po intake no need for HD will follow up Consultation Date/Type/Reason Admit Date/Time May 04, 2016 at 08:40 Initial Consult Date Type of Consultation: NEPHROLOGY Referring Provider: JANICE RIVERA 24 HR Interval Summary Free Text/Dictation creatinine normal, good urine output Exam/Review of Systems Vital Signs Vitals Vital Signs Date Time Temp Pulse Resp B/P Pulse Ox O2 Delivery O2 Flow Rate FiO2 05/14/16 15:24 98.5 78 18 165/70 97 05/14/16 08:30 Nasal Cannula 3.0 Intake and Output 05/13/16 05/13/16 05/14/16 15:00 23:00 07:00 Intake Total 50 ml 1000 ml Output Total 7 ml Balance 50 ml 993 ml Exam Extubated NECK: No jugular venous distention. LUNGS: Bilateral coarse breath sounds. HEART: S1, S2, tachycardia. No murmur. ABDOMEN: Soft, nontender, nondistended. EXTREMITIES: 1+ to 2+ pitting edema. Michael catheter in place. NEUROLOGICAL: Uncooperative due to the sedation. PSYCHIATRIC: Not able to assess. SKIN: No rash. Results Result Diagram: 05/14/16 1015 05/14/16 1015 Results 24 hrs Laboratory Tests Test 05/13/16 17:29 05/13/16 20:52 05/14/16 03:51 05/14/16 08:25 Bedside Glucose 179 189 76 73 Test 05/14/16 10:15 05/14/16 12:21 Albumin 2.8 L Anion Gap 11 Basophils # 0.1 Basophils % 0.4 Blood Urea Nitrogen 24 H Calcium Level 7.6 L Carbon Dioxide Level 26 Chloride Level 104 Creatinine 0.97 Eosinophils # 0.3 Eosinophils % 2.4 Glucose Level 125 Hematocrit 33.0 L Hemoglobin 10.7 L Lymphocytes # 2.4 Lymphocytes % 18.3 Mean Corpuscular Hemoglobin 30.2 Mean Corpuscular Hemoglobin Concent 32.4 Mean Corpuscular Volume 93.2 Mean Platelet Volume 9.8 Monocytes # 1.2 H Monocytes % 8.9 Neutrophils # 9.0 H Neutrophils % 68.4 Nucleated Red Blood Cells # 0.0 Nucleated Red Blood Cells % 0.0 Phosphorus Level 2.6 Platelet Count 371 # Potassium Level 4.2 Red Blood Count 3.54 L Red Cell Distribution Width 14.3 Sodium Level 137 White Blood Count 13.2 H Bedside Glucose 129 Medications Medications Current Medications Acetaminophen (Tylenol Supp) 650 mg Q6H PRN OR PAIN LEVEL 1-3 OR FEVER Last administered on 05/07/16 00:51; Admin Dose 650 MG; Start 05/04/16 at 10:00 Acetaminophen/ Hydrocodone Bitart ([place] (5/325)) 1 tab Q6H PRN PO MODERATE PAIN LEVEL 4-6 Last administered on 05/12/16 08:30; Admin Dose 1 TAB; Start 05/04/16 at 10:00 Acetaminophen/ Hydrocodone Bitart ([place] (5/325)) 2 tab Q6H PRN PO SEVERE PAIN LEVEL 7-10; Start 05/04/16 at 10:00 Morphine Sulfate (morphine) 2 mg Q4H PRN IV SEVERE PAIN LEVEL 7-10 Last administered on 05/08/16 02:45; Admin Dose 2 MG; Start 05/04/16 at 10:00 Magnesium Hydroxide (Milk Of Mag) 30 ml DAILY PRN PO CONSTIPATION; Start at 10:00 Bisacodyl (Dulcolax Supp) 10 mg DAILY PRN OR CONSTIPATION; Start 05/04/16 at 10: 00 Pantoprazole (Protonix Iv) 40 mg DAILY@06 IV Last administered on 05/14/16 06: 20; Admin Dose 40 MG; Start 05/05/16 at 06:00 Nitroglycerin (Nitroglycerin (Sl Tab) 0.4 Mg) 1 tab Q5M PRN SL CHEST PAIN; Start 05/04/16 at 10:00 Miscellaneous Information 1 ea NOTE XX ; Start 05/04/16 at 18:30 Glucose (Glutose) 15 gm Q15M PRN PO DECREASED GLUCOSE; Start 05/04/16 at 18:30 Glucose (Glutose) 22.5 gm Q15M PRN PO DECREASED GLUCOSE; Start 05/04/16 at 18:30 Glucagon (Glucagen) 1 mg Q15M PRN IM DECREASED GLUCOSE; Start 05/04/16 at 18:30 Glucose 15 gm 15 gm Q15M PRN BUCCAL DECREASED GLUCOSE; Start 05/04/16 at 18:30 Albumin Human 250 ml @ 500 mls/hr PRN PRN IV CVP< 8, OR SBP<90 Last administered on 05/07/16 02:12; Admin Dose 500 MLS/HR; Start 05/06/16 at 19:00 Hydromorphone HCl (Dilaudid) 0.2 mg Q15M PRN IV PAIN LEVEL 1-5 Last administered on 05/08/16 15:13; Admin Dose 0.2 MG; Start 05/06/16 at 19:00 Hydromorphone HCl (Dilaudid) 0.4 mg Q15M PRN IV PAIN LEVEL 6-10; Start 05/06/16 at 19:00 Hydromorphone HCl (Dilaudid) 0.2 mg Q1H PRN IV PAIN LEVEL 1-5; Start 05/06/16 at 19:00 Hydromorphone HCl (Dilaudid) 0.4 mg Q1H PRN IV PAIN LEVEL 6-10; Start 05/06/16 at 19:00 Oxycodone/ Acetaminophen (Percocet (5/ 325)) 1 tab Q3H PRN PO PAIN LEVEL 1-5; Start 05/06/16 at 19:00 Oxycodone/ Acetaminophen (Percocet (5/ 325)) 2 tab Q3H PRN PO PAIN LEVEL 6-10; Start 05/06/16 at 19:00 Ondansetron HCl (Zofran Inj) 4 mg Q6H PRN IV NAUSEA AND/OR VOMITING Last administered on 05/10/16 12:22; Admin Dose 4 MG; Start 05/06/16 at 19:00 Sucralfate 1 gm 1 gm Q6 PO Last administered on 05/14/16 12:24; Admin Dose 1 GM; Start 05/07/16 at 00:00 Magnesium Sulfate/ Dextrose (Magnesium Sulfate 1 Gm/D5W) 100 ml @ 100 mls/hr PRN PRN IVPB PENDING LAB VALUE; Start 05/06/16 at 19:00 Dextrose (D50w Syringe) 25 ml Q15M PRN IV Till BS 80 mg/dL or above x2; Start 05/06/16 at 19:00 Dextrose 50 ml 50 ml Q15M PRN IV Till BS 80 mg/dL or above x2; Start 05/06/16 at 19:00 Cefepime HCl (Maxipime 1gm/50 ml (Pmx)) 50 ml @ 100 mls/hr Q24H IVPB Last administered on 05/14/16 08:52; Admin Dose 100 MLS/HR; Start 05/09/16 at 09:00 Insulin Glargine (Lantus) 20 unit DAILY@20 SC Last administered on 05/13/16 20 :00; Admin Dose 20 UNIT; Start 05/08/16 at 20:00 Acetaminophen/ Hydrocodone Bitart ([place] (5/325)) 1 tab Q4H PRN PO pain; Start 05/08/16 at 16:00 Acetaminophen (Tylenol Tab) 650 mg Q6H PRN PO PAIN AND OR ELEVATED TEMP; Start 05/09/16 at 16:00 Atorvastatin Calcium (Lipitor) 80 mg HS NGT Last administered on 05/13/16 21: 18; Admin Dose 80 MG; Start 05/10/16 at 21:00 Heparin Sodium (Porcine) (Heparin (5000 Units/0.5 ml)) 5,000 unit BID SC Last administered on 05/14/16 09:13; Admin Dose 5,000 UNIT; Start 05/10/16 at 21:00 Diagnostic Test (Pha) 1 ea 1 ea 02 XX Last administered on 05/14/16 02:00; Admin Dose 1 EA; Start 05/11/16 at 02:00 Dextrose/Sodium Chloride (D5-1/2ns) 1,000 ml @ 40 mls/hr Q24H IV Last administered on 05/14/16 10:18; Admin Dose 40 MLS/HR; Start 05/11/16 at 10:00 Aspirin (Aspirin) 162 mg DAILY PO Last administered on 05/14/16 08:54; Admin Dose 162 MG; Start 05/12/16 at 09:00 Vancomycin HCl (Vancomycin Oral Syringe) 250 mg Q6 PO Last administered on 05/14 12:25; Admin Dose 250 MG; Start 05/12/16 at 12:30 Lactobacillus Acidophilus/ Rhamnosus (Culturelle) 1 cap BID PO Last administered on 05/14/16 08:53; Admin Dose 1 CAP; Start 05/12/16 at 21:00 Carvedilol (Coreg) 6.25 mg BID PO Last administered on 05/14/16 08:53; Admin Dose 6.25 MG; Start 05/14/16 at 09:00 JIM WHITE MD May 14, 2016 15:33
--- NOTE | 2016-05-14 17:30 | PN ---
Date/Time of Note Date/Time of Note DATE: 05/14/16 TIME: 17:29 Assessment/Plan VTE Prophylaxis VTE Prophylaxis Intervention: heparin Lines/Catheters Urinary Cath still in place: No Assessment/Plan Chief Complaint/Hosp Course 1. 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 Uncontrolled Diabetes: A1c: 8.7: improved Continue insulin regimen 3. Sepsis with fevers and leukocytosis secondary to C. difficile colitis Patient has remained afebrile today Continue Vanco p.o. 4. ATN: improving Nephrology on the case 5. Anemia of chronic disease Monitor 6. Respiratory failure now extubated with persistent bilateral effusions Continue chest tube drainage, CT surgeon is recommending 1 more day of chest tube drainage Pulmonology on the case Prophylaxis: Heparin Problems: Subjective 24 Hr Interval Summary Constitutional: no complaints Exam/Review of Systems Vital Signs Vitals Vital Signs Date Time Temp Pulse Resp B/P Pulse Ox O2 Delivery O2 Flow Rate FiO2 05/14/16 16:00 80 05/14/16 15:24 98.5 18 165/70 97 05/14/16 08:30 Nasal Cannula 3.0 Intake and Output 05/13/16 05/13/16 05/14/16 15:00 23:00 07:00 Intake Total 50 ml 1000 ml Output Total 7 ml Balance 50 ml 993 ml Exam Constitutional: alert Respiratory: clear to auscultation Cardiovascular: regular rate and rhythm Gastrointestinal: soft, No distended Musculoskeletal: nl extremities to inspection Results Result Diagram: 05/14/16 1015 05/14/16 1015 Results 24 hrs Laboratory Tests Test 05/13/16 20:52 05/14/16 03:51 05/14/16 08:25 05/14/16 10:15 Bedside Glucose 189 76 73 Albumin 2.8 L Anion Gap 11 Basophils # 0.1 Basophils % 0.4 Blood Urea Nitrogen 24 H Calcium Level 7.6 L Carbon Dioxide Level 26 Chloride Level 104 Creatinine 0.97 Eosinophils # 0.3 Eosinophils % 2.4 Glucose Level 125 Hematocrit 33.0 L Hemoglobin 10.7 L Lymphocytes # 2.4 Lymphocytes % 18.3 Mean Corpuscular Hemoglobin 30.2 Mean Corpuscular Hemoglobin Concent 32.4 Mean Corpuscular Volume 93.2 Mean Platelet Volume 9.8 Monocytes # 1.2 H Monocytes % 8.9 Neutrophils # 9.0 H Neutrophils % 68.4 Nucleated Red Blood Cells # 0.0 Nucleated Red Blood Cells % 0.0 Phosphorus Level 2.6 Platelet Count 371 # Potassium Level 4.2 Red Blood Count 3.54 L Red Cell Distribution Width 14.3 Sodium Level 137 White Blood Count 13.2 H Test 05/14/16 12:21 Bedside Glucose 129 Medications Medications Current Medications Acetaminophen (Tylenol Supp) 650 mg Q6H PRN [place] PAIN LEVEL 1-3 OR FEVER Last administered on 05/07/16 00:51; Admin Dose 650 MG; Start 05/04/16 at 10:00 Acetaminophen/ Hydrocodone Bitart ([place] (5/325)) 1 tab Q6H PRN PO MODERATE PAIN LEVEL 4-6 Last administered on 05/12/16 08:30; Admin Dose 1 TAB; Start 05/04/16 at 10:00 Acetaminophen/ Hydrocodone Bitart ([place] (5/325)) 2 tab Q6H PRN PO SEVERE PAIN LEVEL 7-10; Start 05/04/16 at 10:00 Morphine Sulfate (morphine) 2 mg Q4H PRN IV SEVERE PAIN LEVEL 7-10 Last administered on 05/08/16 02:45; Admin Dose 2 MG; Start 05/04/16 at 10:00 Magnesium Hydroxide (Milk Of Mag) 30 ml DAILY PRN PO CONSTIPATION; Start at 10:00 Bisacodyl (Dulcolax Supp) 10 mg DAILY PRN [place] CONSTIPATION; Start 05/04/16 at 10: 00 Pantoprazole (Protonix Iv) 40 mg DAILY@06 IV Last administered on 05/14/16 06: 20; Admin Dose 40 MG; Start 05/05/16 at 06:00 Nitroglycerin (Nitroglycerin (Sl Tab) 0.4 Mg) 1 tab Q5M PRN SL CHEST PAIN; Start 05/04/16 at 10:00 Miscellaneous Information 1 ea NOTE XX ; Start 05/04/16 at 18:30 Glucose (Glutose) 15 gm Q15M PRN PO DECREASED GLUCOSE; Start 05/04/16 at 18:30 Glucose (Glutose) 22.5 gm Q15M PRN PO DECREASED GLUCOSE; Start 05/04/16 at 18:30 Glucagon (Glucagen) 1 mg Q15M PRN IM DECREASED GLUCOSE; Start 05/04/16 at 18:30 Glucose 15 gm 15 gm Q15M PRN BUCCAL DECREASED GLUCOSE; Start 05/04/16 at 18:30 Albumin Human 250 ml @ 500 mls/hr PRN PRN IV CVP< 8, OR SBP<90 Last administered on 05/07/16 02:12; Admin Dose 500 MLS/HR; Start 05/06/16 at 19:00 Hydromorphone HCl (Dilaudid) 0.2 mg Q15M PRN IV PAIN LEVEL 1-5 Last administered on 05/08/16 15:13; Admin Dose 0.2 MG; Start 05/06/16 at 19:00 Hydromorphone HCl (Dilaudid) 0.4 mg Q15M PRN IV PAIN LEVEL 6-10; Start 05/06/16 at 19:00 Hydromorphone HCl (Dilaudid) 0.2 mg Q1H PRN IV PAIN LEVEL 1-5; Start 05/06/16 at 19:00 Hydromorphone HCl (Dilaudid) 0.4 mg Q1H PRN IV PAIN LEVEL 6-10; Start 05/06/16 at 19:00 Oxycodone/ Acetaminophen (Percocet (5/ 325)) 1 tab Q3H PRN PO PAIN LEVEL 1-5; Start 05/06/16 at 19:00 Oxycodone/ Acetaminophen (Percocet (5/ 325)) 2 tab Q3H PRN PO PAIN LEVEL 6-10; Start 05/06/16 at 19:00 Ondansetron HCl (Zofran Inj) 4 mg Q6H PRN IV NAUSEA AND/OR VOMITING Last administered on 05/10/16 12:22; Admin Dose 4 MG; Start 05/06/16 at 19:00 Sucralfate 1 gm 1 gm Q6 PO Last administered on 05/14/16 12:24; Admin Dose 1 GM; Start 05/07/16 at 00:00 Magnesium Sulfate/ Dextrose (Magnesium Sulfate 1 Gm/D5W) 100 ml @ 100 mls/hr PRN PRN IVPB PENDING LAB VALUE; Start 05/06/16 at 19:00 Dextrose (D50w Syringe) 25 ml Q15M PRN IV Till BS 80 mg/dL or above x2; Start 05/06/16 at 19:00 Dextrose 50 ml 50 ml Q15M PRN IV Till BS 80 mg/dL or above x2; Start 05/06/16 at 19:00 Cefepime HCl (Maxipime 1gm/50 ml (Pmx)) 50 ml @ 100 mls/hr Q24H IVPB Last administered on 05/14/16 08:52; Admin Dose 100 MLS/HR; Start 05/09/16 at 09:00 Insulin Glargine (Lantus) 20 unit DAILY@20 SC Last administered on 05/13/16 20 :00; Admin Dose 20 UNIT; Start 05/08/16 at 20:00 Acetaminophen/ Hydrocodone Bitart ([place] (5/325)) 1 tab Q4H PRN PO pain; Start 05/08/16 at 16:00 Acetaminophen (Tylenol Tab) 650 mg Q6H PRN PO PAIN AND OR ELEVATED TEMP; Start 05/09/16 at 16:00 Atorvastatin Calcium (Lipitor) 80 mg HS NGT Last administered on 05/13/16 21: 18; Admin Dose 80 MG; Start 05/10/16 at 21:00 Heparin Sodium (Porcine) (Heparin (5000 Units/0.5 ml)) 5,000 unit BID SC Last administered on 05/14/16 09:13; Admin Dose 5,000 UNIT; Start 05/10/16 at 21:00 Diagnostic Test (Pha) 1 ea 1 ea 02 XX Last administered on 05/14/16 02:00; Admin Dose 1 EA; Start 05/11/16 at 02:00 Dextrose/Sodium Chloride (D5-1/2ns) 1,000 ml @ 40 mls/hr Q24H IV Last administered on 05/14/16 10:18; Admin Dose 40 MLS/HR; Start 05/11/16 at 10:00 Aspirin (Aspirin) 162 mg DAILY PO Last administered on 05/14/16 08:54; Admin Dose 162 MG; Start 05/12/16 at 09:00 Vancomycin HCl (Vancomycin Oral Syringe) 250 mg Q6 PO Last administered on 05/14 12:25; Admin Dose 250 MG; Start 05/12/16 at 12:30 Lactobacillus Acidophilus/ Rhamnosus (Culturelle) 1 cap BID PO Last administered on 05/14/16 08:53; Admin Dose 1 CAP; Start 05/12/16 at 21:00 Carvedilol (Coreg) 6.25 mg BID PO Last administered on 05/14/16 08:53; Admin Dose 6.25 MG; Start 05/14/16 at 09:00 HEATHER TEE May 14, 2016 17:30
[2016-05-14] MEDS ORDERED: LABETALOL HCL 20MG INJ IV PRN (18:30)
[2016-05-14] MEDS: ATORVASTATIN 80 MG TAB NGT SCH (20:26)
[2016-05-14] MEDS: INSULIN GLARGINE [LANtus] 3 ML PEN SC SCH (20:35)
[2016-05-15] VITALS (12 sets, daily range): BP systolic 141–194; BP diastolic 62–84; PULSE 71–85; RESP 18–20
[2016-05-15] MEDS: ACCUCHECK XX SCH (02:00)
[2016-05-15] MEDS: SUCRALFATE (100 MG/ML) 10ML CUP PO SCH ×4 (05:26→23:39)
[2016-05-15] MEDS: VANCOMYCIN HCL 250 MG/5ML POSYG PO SCH ×4 (05:28→23:39)
[2016-05-15] MEDS: PANTOPRAZOLE 40 MG INJ IV SCH (05:28)
[2016-05-15] MEDS: INSULIN ASPART [NOVOLOG] 3 ML PEN SC SCH ×4 (07:55→20:06)
[2016-05-15] MEDS: ASPIRIN 81 MG TAB PO SCH (08:38)
[2016-05-15] MEDS: LACTOBACILLUS RHAMNOSUS CAP PO SCH ×2 (08:38→20:07)
[2016-05-15] MEDS: HEPARIN 5,000 UNIT/0.5 ML SYG SC SCH ×2 (08:41→20:24)
[2016-05-15] MEDS: CEFEPIME 1GM/50 ML (PMX) 50 ML IVPB SCH (08:48)
[2016-05-15] MEDS ORDERED: LISINOPRIL 10 MG TAB PO SCH (09:30)
--- NOTE | 2016-05-15 10:15 | PN ---
DATE: 05/15/2016 CARDIOLOGY FOLLOWUP SUBJECTIVE: Discussed with the staff. Rhythm strip was reviewed. Discussed with the patient's dari ghter. The patient with no chest pain or pressure, is feeling better. MEDICATIONS: Reviewed. PHYSICAL EXAMINATION: VITAL SIGNS: Temperature 97.8, heart rate of 86, blood pressure 165/ , respiration rate of 20, saturating 98%. GENERAL: Normocephalic, atraumatic. Pupils are equal. CHEST: Status post sternotomy. CARDIOVASCULAR: Regular rate and rhythm, systolic murmur. PULMONARY: With no wheezes. GASTROINTESTINAL: Soft, nontender. EXTREMITIES: Trivial edema. NEUROLOGIC: Awake and alert. PSYCHIATRIC: Calm, pleasant. LABORATORY: WBC of 13.2, hemoglobin 10.7, platelets 371. ASSESSMENT AND PLAN: 1. Status post ST-elevation myocardial infarction, status post urgent coronary bypass graft. 2. Acute renal failure, currently has resolved. 3. Respiratory failure, resolved now. 4. Hypertension. 5. Diabetes. 6. Dyslipidemia. RECOMMENDATIONS: Continue with the Coreg. I will add JESICA inhibitor to her regimen as well. Aspiri n will be continued. Continue postop care and remove the chest tube once okay with CT Surgery. Dictated By: NENA GORMAN MD AV/ROLF Conf#: [id number] DID#: [id number] CC: HEATHER TEE MD;*End*
--- NOTE | 2016-05-15 10:32 | PN ---
Date/Time of Note Date/Time of Note DATE: 05/15/16 TIME: 10:30 Assessment/Plan Lines/Catheters IV Catheter Type (from Nrsg): Central Line Michael in Place (from Nrsg): No Assessment/Plan Chief Complaint/Hosp Course Impression: STEMI Multi-vessel coronary artery disease with left main involvement Chest pain resolved after IABP SP Urgent CABG Pt fully awake, follows command well moves all extremity to command 2D Echo with Tamponade, good fxn CT draige decreasing Pleural tube and pacing wires DCed Will DC CT Sxn above explained to the family Problems: Subjective 24 Hr Interval Summary Constitutional: improved Pain Control: mild Exam/Review of Systems Vital Signs Vitals Vital Signs Date Time Temp Pulse Resp B/P Pulse Ox O2 Delivery O2 Flow Rate FiO2 05/15/16 09:23 74 05/15/16 07:17 97.8 20 165/66 98 05/15/16 05:27 3.0 05/14/16 21:00 Nasal Cannula Intake and Output 05/14/16 05/14/16 05/15/16 15:00 23:00 07:00 Intake Total 650 ml 1250 ml Output Total 250 ml 100 ml Balance 400 ml 1150 ml Exam Respiratory: clear to auscultation, normal air movement Cardiovascular: nl pulses, regular rate and rhythm Gastrointestinal: nl liver, spleen, non-tender, soft Results Result Diagram: 05/14/16 1015 05/14/16 1015 BEVERLEY NEGRETE MD May 15, 2016 10:31
[2016-05-15] MEDS: DEXTROSE 5%-0.45% NACL 1,000 ML IV SCH (11:01)
--- NOTE | 2016-05-15 11:42 | CONS ---
Date/Time of Note Date/Time of Note DATE: 05/15/16 TIME: 11:40 Assessment/Plan Assessment/Plan Additional Assessment/Plan 1. Acute kidney injury, oliguric, likely secondary to acute tubular necrosis from ischemic acute tubular necrosis in the setting of ST elevation myocardial infarction. 2. 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 Acute respiratory failure, ventilator dependent. 4. Uncontrolled diabetes mellitus with hemoglobin A1c 8.7. 5. Dyslipidemia. 6. Normocytic anemia. 7. Status post intra-aortic balloon pump placement. Plan: Cr improved to normal, electrolytes stable, good urine output encourage po intake will follow up Consultation Date/Type/Reason Admit Date/Time May 04, 2016 at 08:40 Initial Consult Date Type of Consultation: NEPHROLOGY Referring Provider: JANICE RIVERA 24 HR Interval Summary Free Text/Dictation chest tube discontinued, Cr normal, electrolytes stable, doing better, no chest pain, no SOB Exam/Review of Systems Vital Signs Vitals Vital Signs Date Time Temp Pulse Resp B/P Pulse Ox O2 Delivery O2 Flow Rate FiO2 05/15/16 11:17 98.1 78 18 141/62 97 05/15/16 05:27 3.0 05/14/16 21:00 Nasal Cannula Intake and Output 05/14/16 05/14/16 05/15/16 15:00 23:00 07:00 Intake Total 650 ml 1250 ml Output Total 250 ml 100 ml Balance 400 ml 1150 ml Exam alert, awake, followign commands NECK: No jugular venous distention. LUNGS: Bilateral coarse breath sounds. HEART: S1, S2, tachycardia. No murmur. ABDOMEN: Soft, nontender, nondistended. EXTREMITIES: 1+ edema SKIN: No rash. Results Result Diagram: 05/14/16 1015 05/14/16 1015 Results 24 hrs Laboratory Tests Test 05/14/16 12:21 05/14/16 17:43 05/14/16 20:28 05/15/16 08:03 Bedside Glucose 129 154 205 120 Test 05/15/16 11:13 Bedside Glucose 154 Medications Medications Current Medications Acetaminophen (Tylenol Supp) 650 mg Q6H PRN [place] PAIN LEVEL 1-3 OR FEVER Last administered on 05/07/16 00:51; Admin Dose 650 MG; Start 05/04/16 at 10:00 Acetaminophen/ Hydrocodone Bitart ([place] (5/325)) 1 tab Q6H PRN PO MODERATE PAIN LEVEL 4-6 Last administered on 05/12/16 08:30; Admin Dose 1 TAB; Start 05/04/16 at 10:00 Acetaminophen/ Hydrocodone Bitart ([place] (5/325)) 2 tab Q6H PRN PO SEVERE PAIN LEVEL 7-10; Start 05/04/16 at 10:00 Morphine Sulfate (morphine) 2 mg Q4H PRN IV SEVERE PAIN LEVEL 7-10 Last administered on 05/08/16 02:45; Admin Dose 2 MG; Start 05/04/16 at 10:00 Magnesium Hydroxide (Milk Of Mag) 30 ml DAILY PRN PO CONSTIPATION; Start at 10:00 Bisacodyl (Dulcolax Supp) 10 mg DAILY PRN [place] CONSTIPATION; Start 05/04/16 at 10: 00 Pantoprazole (Protonix Iv) 40 mg DAILY@06 IV Last administered on 05/15/16 05: 28; Admin Dose 40 MG; Start 05/05/16 at 06:00 Nitroglycerin (Nitroglycerin (Sl Tab) 0.4 Mg) 1 tab Q5M PRN SL CHEST PAIN; Start 05/04/16 at 10:00 Miscellaneous Information 1 ea NOTE XX ; Start 05/04/16 at 18:30 Glucose (Glutose) 15 gm Q15M PRN PO DECREASED GLUCOSE; Start 05/04/16 at 18:30 Glucose (Glutose) 22.5 gm Q15M PRN PO DECREASED GLUCOSE; Start 05/04/16 at 18:30 Glucagon (Glucagen) 1 mg Q15M PRN IM DECREASED GLUCOSE; Start 05/04/16 at 18:30 Glucose 15 gm 15 gm Q15M PRN BUCCAL DECREASED GLUCOSE; Start 05/04/16 at 18:30 Albumin Human 250 ml @ 500 mls/hr PRN PRN IV CVP< 8, OR SBP<90 Last administered on 05/07/16 02:12; Admin Dose 500 MLS/HR; Start 05/06/16 at 19:00 Hydromorphone HCl (Dilaudid) 0.2 mg Q15M PRN IV PAIN LEVEL 1-5 Last administered on 05/08/16 15:13; Admin Dose 0.2 MG; Start 05/06/16 at 19:00 Hydromorphone HCl (Dilaudid) 0.4 mg Q15M PRN IV PAIN LEVEL 6-10; Start 05/06/16 at 19:00 Hydromorphone HCl (Dilaudid) 0.2 mg Q1H PRN IV PAIN LEVEL 1-5; Start 05/06/16 at 19:00 Hydromorphone HCl (Dilaudid) 0.4 mg Q1H PRN IV PAIN LEVEL 6-10; Start 05/06/16 at 19:00 Oxycodone/ Acetaminophen (Percocet (5/ 325)) 1 tab Q3H PRN PO PAIN LEVEL 1-5; Start 05/06/16 at 19:00 Oxycodone/ Acetaminophen (Percocet (5/ 325)) 2 tab Q3H PRN PO PAIN LEVEL 6-10; Start 05/06/16 at 19:00 Ondansetron HCl (Zofran Inj) 4 mg Q6H PRN IV NAUSEA AND/OR VOMITING Last administered on 05/10/16 12:22; Admin Dose 4 MG; Start 05/06/16 at 19:00 Sucralfate 1 gm 1 gm Q6 PO Last administered on 05/15/16 11:15; Admin Dose 1 GM; Start 05/07/16 at 00:00 Magnesium Sulfate/ Dextrose (Magnesium Sulfate 1 Gm/D5W) 100 ml @ 100 mls/hr PRN PRN IVPB PENDING LAB VALUE; Start 05/06/16 at 19:00 Dextrose (D50w Syringe) 25 ml Q15M PRN IV Till BS 80 mg/dL or above x2; Start 05/06/16 at 19:00 Dextrose 50 ml 50 ml Q15M PRN IV Till BS 80 mg/dL or above x2; Start 05/06/16 at 19:00 Cefepime HCl (Maxipime 1gm/50 ml (Pmx)) 50 ml @ 100 mls/hr Q24H IVPB Last administered on 05/15/16 08:48; Admin Dose 100 MLS/HR; Start 05/09/16 at 09:00 Insulin Glargine (Lantus) 20 unit DAILY@20 SC Last administered on 05/14/16 20 :35; Admin Dose 20 UNIT; Start 05/08/16 at 20:00 Acetaminophen/ Hydrocodone Bitart ([place] (5/325)) 1 tab Q4H PRN PO pain; Start 05/08/16 at 16:00 Acetaminophen (Tylenol Tab) 650 mg Q6H PRN PO PAIN AND OR ELEVATED TEMP; Start 05/09/16 at 16:00 Atorvastatin Calcium (Lipitor) 80 mg HS NGT Last administered on 05/14/16 20: 26; Admin Dose 80 MG; Start 05/10/16 at 21:00 Heparin Sodium (Porcine) (Heparin (5000 Units/0.5 ml)) 5,000 unit BID SC Last administered on 05/15/16 08:41; Admin Dose 5,000 UNIT; Start 05/10/16 at 21:00 Diagnostic Test (Pha) 1 ea 1 ea 02 XX Last administered on 05/14/16 02:00; Admin Dose 1 EA; Start 05/11/16 at 02:00 Dextrose/Sodium Chloride (D5-1/2ns) 1,000 ml @ 40 mls/hr Q24H IV Last administered on 05/15/16 11:01; Admin Dose 40 MLS/HR; Start 05/11/16 at 10:00 Aspirin (Aspirin) 162 mg DAILY PO Last administered on 05/15/16 08:38; Admin Dose 162 MG; Start 05/12/16 at 09:00 Vancomycin HCl (Vancomycin Oral Syringe) 250 mg Q6 PO Last administered on 05/15 11:19; Admin Dose 250 MG; Start 05/12/16 at 12:30 Lactobacillus Acidophilus/ Rhamnosus (Culturelle) 1 cap BID PO Last administered on 05/15/16 08:38; Admin Dose 1 CAP; Start 05/12/16 at 21:00 Carvedilol (Coreg) 6.25 mg BID PO Last administered on 05/15/16 08:38; Admin Dose 6.25 MG; Start 05/14/16 at 09:00 Labetalol HCl (Labetalol) 20 mg Q4H PRN IV ELEVATED BLOOD PRESSURE; Start 05/14 at 18:30 Lisinopril (Zestril) 10 mg DAILY PO Last administered on 05/15/16 11:15; Admin Dose 10 MG; Start 05/15/16 at 09:30 JIM WHITE MD May 15, 2016 11:42
[2016-05-15 13:15] LABS: ADD SCAN DIFF NO
[2016-05-15 13:25] LABS: BASOPHILS % 0.4 % (0.0-2.0); EOSINOPHILS # 0.3 10^3/ul (0.0-0.5); EOSINOPHILS % 2.3 % (0.0-7.0); HEMATOCRIT 31.1 % (37.0-47.0); LYMPHOCYTES # 2.1 10^3/ul (0.8-2.9); LYMPHOCYTES % 18.9 % (15.0-51.0); MEAN CORPUSCULAR HEMOGLOBIN 30.4 pg (29.0-33.0); MEAN CORPUSCULAR HGB CONC 32.2 g/dl (32.0-37.0); MEAN CORPUSCULAR VOLUME 94.5 fl (82.0-101.0); MEAN PLATELET VOLUME 10.1 fl (7.4-10.4); MONOCYTES % 8.8 % (0.0-11.0); NEUTROPHIL # 7.6 10^3/ul (1.6-7.5); NEUTROPHILS % 68.1 % (39.0-77.0); PLATELET COUNT 446 10^3/UL (140-415); RED BLOOD COUNT 3.29 10^6/ul (4.20-5.40); RED CELL DISTRIBUTION WIDTH 14.1 % (11.5-14.5); WHITE BLOOD COUNT 11.2 10^3/ul (4.8-10.8)
[2016-05-15 13:28] LABS: ALBUMIN 2.8 g/dl (3.3-4.9); POTASSIUM 4.2 mmol/L (3.5-5.1)
[2016-05-15 13:31] LABS: CREATININE 0.81 mg/dl (0.44-1.00)
[2016-05-15 13:32] LABS: CALCIUM 7.8 mg/dl (8.4-10.2); PHOSPHORUS 2.6 mg/dl (2.5-4.9)
--- NOTE | 2016-05-15 13:42 | PN ---
DATE: 05/15/2016 SUBJECTIVE: The patient is stable this morning. Denies any chest pain or shortness of breath. PHYSICAL EXAMINATION: VITAL SIGNS: Temperature 98, pulse 75, blood pressure 141/97 on 3 L nasal cannula. NECK: Supple. No JVD or lymphadenopathy. CARDIAC: S1, S2, no added sounds or murmurs. CHEST: Diminished air entry bilaterally. ABDOMEN: Soft, nontender. No guarding or rebound. EXTREMITIES: No cyanosis, clubbing, 1+ edema. NEUROLOGIC: Generalized weakness. IMPRESSION AND PLAN: 1. Status post ST elevation myocardial infarction with coronary artery bypass graft on 05/06/2016. 2. Status post respiratory failure. 3. Hyperlipidemia. 4. Resolving renal injury. PLAN: 1. Continue supplemental O2. 2. Encourage out of bed. 3. Consider acute rehabilitation evaluation. Dictated By: MARGARITO MILLER/ORLF Conf#: [id number] DID#: [id number]
--- NOTE | 2016-05-15 16:30 | PN ---
Date/Time of Note Date/Time of Note DATE: 05/15/16 TIME: 16:26 Assessment/Plan VTE Prophylaxis VTE Prophylaxis Intervention: heparin Lines/Catheters Urinary Cath still in place: No Assessment/Plan Chief Complaint/Hosp Course 1. 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 Uncontrolled Diabetes: A1c: 8.7: improved Continue insulin regimen 3. Sepsis with fevers and leukocytosis secondary to C. difficile colitis Patient has remained afebrile today Continue Vanco p.o. 4. ATN: improving Nephrology on the case 5. Anemia of chronic disease Monitor 6. Respiratory failure now extubated with persistent bilateral effusions Chest tube removed today, monitor overnight Pulmonology on the case Dispo-DC to home with home health in a.m. versus transfer to [facility] Prophylaxis: Heparin Problems: Subjective 24 Hr Interval Summary Constitutional: no complaints Exam/Review of Systems Vital Signs Vitals Vital Signs Date Time Temp Pulse Resp B/P Pulse Ox O2 Delivery O2 Flow Rate FiO2 05/15/16 15:20 98.2 84 18 156/68 99 05/15/16 08:00 Nasal Cannula 3.0 Intake and Output 05/14/16 05/14/16 05/15/16 15:00 23:00 07:00 Intake Total 650 ml 1250 ml Output Total 250 ml 100 ml Balance 400 ml 1150 ml Exam Constitutional: alert Respiratory: clear to auscultation Cardiovascular: regular rate and rhythm Gastrointestinal: soft, No distended Musculoskeletal: nl extremities to inspection Results Result Diagram: 05/15/16 1242 05/15/16 1242 Results 24 hrs Laboratory Tests Test 05/14/16 17:43 05/14/16 20:28 05/15/16 08:03 05/15/16 11:13 Bedside Glucose 154 205 120 154 Test 05/15/16 12:42 Albumin 2.8 L Anion Gap 11 Basophils # 0.0 Basophils % 0.4 Blood Urea Nitrogen 19 Calcium Level 7.8 L Carbon Dioxide Level 27 Chloride Level 104 Creatinine 0.81 Eosinophils # 0.3 Eosinophils % 2.3 Glucose Level 119 Hematocrit 31.1 L Hemoglobin 10.0 L Lymphocytes # 2.1 Lymphocytes % 18.9 Mean Corpuscular Hemoglobin 30.4 Mean Corpuscular Hemoglobin Concent 32.2 Mean Corpuscular Volume 94.5 Mean Platelet Volume 10.1 Monocytes # 1.0 H Monocytes % 8.8 Neutrophils # 7.6 H Neutrophils % 68.1 Nucleated Red Blood Cells # 0.0 Nucleated Red Blood Cells % 0.0 Phosphorus Level 2.6 Platelet Count 446 #H Potassium Level 4.2 Red Blood Count 3.29 L Red Cell Distribution Width 14.1 Sodium Level 138 White Blood Count 11.2 H Medications Medications Current Medications Acetaminophen (Tylenol Supp) 650 mg Q6H PRN [place] PAIN LEVEL 1-3 OR FEVER Last administered on 05/07/16 00:51; Admin Dose 650 MG; Start 05/04/16 at 10:00 Acetaminophen/ Hydrocodone Bitart ([place] (5/325)) 1 tab Q6H PRN PO MODERATE PAIN LEVEL 4-6 Last administered on 05/12/16 08:30; Admin Dose 1 TAB; Start 05/04/16 at 10:00 Acetaminophen/ Hydrocodone Bitart ([place] (5/325)) 2 tab Q6H PRN PO SEVERE PAIN LEVEL 7-10; Start 05/04/16 at 10:00 Morphine Sulfate (morphine) 2 mg Q4H PRN IV SEVERE PAIN LEVEL 7-10 Last administered on 05/08/16 02:45; Admin Dose 2 MG; Start 05/04/16 at 10:00 Magnesium Hydroxide (Milk Of Mag) 30 ml DAILY PRN PO CONSTIPATION; Start at 10:00 Bisacodyl (Dulcolax Supp) 10 mg DAILY PRN [place] CONSTIPATION; Start 05/04/16 at 10: 00 Pantoprazole (Protonix Iv) 40 mg DAILY@06 IV Last administered on 05/15/16 05: 28; Admin Dose 40 MG; Start 05/05/16 at 06:00 Nitroglycerin (Nitroglycerin (Sl Tab) 0.4 Mg) 1 tab Q5M PRN SL CHEST PAIN; Start 05/04/16 at 10:00 Miscellaneous Information 1 ea NOTE XX ; Start 05/04/16 at 18:30 Glucose (Glutose) 15 gm Q15M PRN PO DECREASED GLUCOSE; Start 05/04/16 at 18:30 Glucose (Glutose) 22.5 gm Q15M PRN PO DECREASED GLUCOSE; Start 05/04/16 at 18:30 Glucagon (Glucagen) 1 mg Q15M PRN IM DECREASED GLUCOSE; Start 05/04/16 at 18:30 Glucose 15 gm 15 gm Q15M PRN BUCCAL DECREASED GLUCOSE; Start 05/04/16 at 18:30 Albumin Human 250 ml @ 500 mls/hr PRN PRN IV CVP< 8, OR SBP<90 Last administered on 05/07/16 02:12; Admin Dose 500 MLS/HR; Start 05/06/16 at 19:00 Hydromorphone HCl (Dilaudid) 0.2 mg Q15M PRN IV PAIN LEVEL 1-5 Last administered on 05/08/16 15:13; Admin Dose 0.2 MG; Start 05/06/16 at 19:00 Hydromorphone HCl (Dilaudid) 0.4 mg Q15M PRN IV PAIN LEVEL 6-10; Start 05/06/16 at 19:00 Hydromorphone HCl (Dilaudid) 0.2 mg Q1H PRN IV PAIN LEVEL 1-5; Start 05/06/16 at 19:00 Hydromorphone HCl (Dilaudid) 0.4 mg Q1H PRN IV PAIN LEVEL 6-10; Start 05/06/16 at 19:00 Oxycodone/ Acetaminophen (Percocet (5/ 325)) 1 tab Q3H PRN PO PAIN LEVEL 1-5; Start 05/06/16 at 19:00 Oxycodone/ Acetaminophen (Percocet (5/ 325)) 2 tab Q3H PRN PO PAIN LEVEL 6-10; Start 05/06/16 at 19:00 Ondansetron HCl (Zofran Inj) 4 mg Q6H PRN IV NAUSEA AND/OR VOMITING Last administered on 05/10/16 12:22; Admin Dose 4 MG; Start 05/06/16 at 19:00 Sucralfate 1 gm 1 gm Q6 PO Last administered on 05/15/16 11:15; Admin Dose 1 GM; Start 05/07/16 at 00:00 Magnesium Sulfate/ Dextrose (Magnesium Sulfate 1 Gm/D5W) 100 ml @ 100 mls/hr PRN PRN IVPB PENDING LAB VALUE; Start 05/06/16 at 19:00 Dextrose (D50w Syringe) 25 ml Q15M PRN IV Till BS 80 mg/dL or above x2; Start 05/06/16 at 19:00 Dextrose 50 ml 50 ml Q15M PRN IV Till BS 80 mg/dL or above x2; Start 05/06/16 at 19:00 Cefepime HCl (Maxipime 1gm/50 ml (Pmx)) 50 ml @ 100 mls/hr Q24H IVPB Last administered on 05/15/16 08:48; Admin Dose 100 MLS/HR; Start 05/09/16 at 09:00 Insulin Glargine (Lantus) 20 unit DAILY@20 SC Last administered on 05/14/16 20 :35; Admin Dose 20 UNIT; Start 05/08/16 at 20:00 Acetaminophen/ Hydrocodone Bitart ([place] (5/325)) 1 tab Q4H PRN PO pain; Start 05/08/16 at 16:00 Acetaminophen (Tylenol Tab) 650 mg Q6H PRN PO PAIN AND OR ELEVATED TEMP; Start 05/09/16 at 16:00 Atorvastatin Calcium (Lipitor) 80 mg HS NGT Last administered on 05/14/16 20: 26; Admin Dose 80 MG; Start 05/10/16 at 21:00 Heparin Sodium (Porcine) (Heparin (5000 Units/0.5 ml)) 5,000 unit BID SC Last administered on 05/15/16 08:41; Admin Dose 5,000 UNIT; Start 05/10/16 at 21:00 Diagnostic Test (Pha) 1 ea 1 ea 02 XX Last administered on 05/14/16 02:00; Admin Dose 1 EA; Start 05/11/16 at 02:00 Dextrose/Sodium Chloride (D5-1/2ns) 1,000 ml @ 40 mls/hr Q24H IV Last administered on 05/15/16 11:01; Admin Dose 40 MLS/HR; Start 05/11/16 at 10:00 Aspirin (Aspirin) 162 mg DAILY PO Last administered on 05/15/16 08:38; Admin Dose 162 MG; Start 05/12/16 at 09:00 Vancomycin HCl (Vancomycin Oral Syringe) 250 mg Q6 PO Last administered on 05/15 11:19; Admin Dose 250 MG; Start 05/12/16 at 12:30 Lactobacillus Acidophilus/ Rhamnosus (Culturelle) 1 cap BID PO Last administered on 05/15/16 08:38; Admin Dose 1 CAP; Start 05/12/16 at 21:00 Carvedilol (Coreg) 6.25 mg BID PO Last administered on 05/15/16 08:38; Admin Dose 6.25 MG; Start 05/14/16 at 09:00 Labetalol HCl (Labetalol) 20 mg Q4H PRN IV ELEVATED BLOOD PRESSURE; Start 05/14 at 18:30 Lisinopril (Zestril) 10 mg DAILY PO Last administered on 05/15/16 11:15; Admin Dose 10 MG; Start 05/15/16 at 09:30 HEATHER TEE May 15, 2016 16:29
[2016-05-15] MEDS: ATORVASTATIN 80 MG TAB NGT SCH (20:07)
[2016-05-15] MEDS: INSULIN GLARGINE [LANtus] 3 ML PEN SC SCH (20:24)
[2016-05-16] VITALS (11 sets, daily range): BP systolic 138–166; BP diastolic 65–86; PULSE 71–88; RESP 19–22
[2016-05-16] MEDS: ACCUCHECK XX SCH (01:15)
[2016-05-16] MEDS: VANCOMYCIN HCL 250 MG/5ML POSYG PO SCH ×3 (05:23→17:24)
[2016-05-16] MEDS: PANTOPRAZOLE (EC) 40 MG TAB PO SCH (05:23)
[2016-05-16] MEDS: SUCRALFATE (100 MG/ML) 10ML CUP PO SCH ×3 (05:23→17:24)
[2016-05-16 07:07] LABS: ALBUMIN 2.6 g/dl (3.3-4.9)
[2016-05-16 07:08] LABS: POTASSIUM 3.6 mmol/L (3.5-5.1)
[2016-05-16 07:10] LABS: ALBUMIN/GLOBULIN RATIO 0.92; BILIRUBIN,INDIRECT 0.3 mg/dl (0-1.1); BILIRUBIN,TOTAL 0.3 mg/dl (0.2-1.3); CREATININE 0.75 mg/dl (0.44-1.00); TOTAL PROTEIN 5.4 g/dl (6.1-8.1)
[2016-05-16 07:11] LABS: CALCIUM 7.7 mg/dl (8.4-10.2)
[2016-05-16] MEDS: INSULIN ASPART [NOVOLOG] 3 ML PEN SC SCH ×4 (07:27→20:43)
[2016-05-16] MEDS: LISINOPRIL 20 MG TAB PO SCH (08:50)
[2016-05-16] MEDS: CEFEPIME 1GM/50 ML (PMX) 50 ML IVPB SCH (08:50)
[2016-05-16] MEDS: ASPIRIN 81 MG TAB PO SCH (08:50)
[2016-05-16] MEDS: LACTOBACILLUS RHAMNOSUS CAP PO SCH ×2 (08:50→20:44)
[2016-05-16] MEDS: HEPARIN 5,000 UNIT/0.5 ML SYG SC SCH ×2 (09:00→20:48)
[2016-05-16] MEDS: DEXTROSE 5%-0.45% NACL 1,000 ML IV SCH (09:05)
--- NOTE | 2016-05-16 10:02 | PN ---
DATE: 05/16/2016 CARDIOLOGY FOLLOWUP SUBJECTIVE: Discussed with the staff. Rhythm strip was reviewed. The patient remains in sinus rhy thm. Discussed with the family at the bedside. The patient denies any chest pain or pressure to me . Chest tube has been removed. Breathing has remained stable. MEDICATIONS: Reviewed. PHYSICAL EXAMINATION: VITAL SIGNS: Temperature 97.3, heart rate of 79, blood pressure 160/73, respiration rate of 19, sat urating 98%. HEENT: Normocephalic, atraumatic. Pupils are equal. NECK: in place. CARDIOVASCULAR: Regular rate and rhythm. PULMONARY: With no wheezes heard anteriorly. GASTROINTESTINAL: Soft, nontender. EXTREMITIES: Positive lower extremity edema. NEUROLOGIC: Awake, responds appropriately. PSYCHIATRIC: Appears to be calm. LABORATORY: Sodium 140, potassium 3.6, BUN of 16, creatinine 0.75, glucose of 163. ASSESSMENT AND PLAN: 1. Status post ST elevation myocardial infarction. 2. Status post urgent coronary artery bypass graft. 3. Hypertension. 4. Diabetes 5. Dyslipidemia. 6. History of renal failure, currently is back to her normal. RECOMMENDATIONS: I will increase the lisinopril to 40 mg daily. Coreg will be continued at the curr ent dose and to be increased if blood pressure remains elevated by tomorrow. Aspirin will be contin ued. Diabetic management as per internal medicine. Statin will be continued. Dictated By: NENA GORMAN MD AV/ROLF Conf#: [id number] DID#: [id number] CC: HEATHER TEE MD;*End*
--- NOTE | 2016-05-16 10:28 | CONS ---
Date/Time of Note Date/Time of Note DATE: 05/16/16 TIME: 10:21 Assessment/Plan Assessment/Plan Additional Assessment/Plan 1. Acute kidney injury, oliguric, likely secondary to acute tubular necrosis from ischemic acute tubular necrosis in the setting of ST elevation myocardial infarction. 2. 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 Acute respiratory failure, ventilator dependent. 4. Uncontrolled diabetes mellitus with hemoglobin A1c 8.7. 5. Dyslipidemia. 6. Normocytic anemia. 7. Status post intra-aortic balloon pump placement. Plan: Cr improved to normal, electrolytes stable, good urine output encourage po intake will follow up Consultation Date/Type/Reason Admit Date/Time May 04, 2016 at 08:40 Initial Consult Date Type of Consultation: NEPHROLOGY Referring Provider: JANICE RIVERA 24 HR Interval Summary Free Text/Dictation remained stable,afebrile,BP stable Exam/Review of Systems Vital Signs Vitals Vital Signs Date Time Temp Pulse Resp B/P Pulse Ox O2 Delivery O2 Flow Rate FiO2 05/16/16 08:21 71 05/16/16 07:58 97.3 19 166/73 98 05/16/16 07:40 Nasal Cannula 3.0 05/16/16 01:46 27 Intake and Output 05/15/16 05/15/16 05/16/16 15:00 23:00 07:00 Intake Total 50 ml 1160 ml 1080 ml Output Total 0 ml Balance 50 ml 1160 ml 1080 ml Exam alert, awake, followign commands NECK: No jugular venous distention. LUNGS: Bilateral coarse breath sounds. HEART: S1, S2, tachycardia. No murmur. ABDOMEN: Soft, nontender, nondistended. EXTREMITIES: 1+ edema SKIN: No rash. Results Result Diagram: 05/15/16 1242 05/16/16 0550 Results 24 hrs Laboratory Tests Test 05/15/16 11:13 05/15/16 12:42 05/15/16 17:30 05/15/16 20:05 Bedside Glucose 154 168 129 Albumin 2.8 L Anion Gap 11 Basophils # 0.0 Basophils % 0.4 Blood Urea Nitrogen 19 Calcium Level 7.8 L Carbon Dioxide Level 27 Chloride Level 104 Creatinine 0.81 Eosinophils # 0.3 Eosinophils % 2.3 Glucose Level 119 Hematocrit 31.1 L Hemoglobin 10.0 L Lymphocytes # 2.1 Lymphocytes % 18.9 Mean Corpuscular Hemoglobin 30.4 Mean Corpuscular Hemoglobin Concent 32.2 Mean Corpuscular Volume 94.5 Mean Platelet Volume 10.1 Monocytes # 1.0 H Monocytes % 8.8 Neutrophils # 7.6 H Neutrophils % 68.1 Nucleated Red Blood Cells # 0.0 Nucleated Red Blood Cells % 0.0 Phosphorus Level 2.6 Platelet Count 446 #H Potassium Level 4.2 Red Blood Count 3.29 L Red Cell Distribution Width 14.1 Sodium Level 138 White Blood Count 11.2 H Test 05/16/16 05:50 05/16/16 07:22 Alanine Aminotransferase (ALT/SGPT) 54 Albumin 2.6 L Albumin/Globulin Ratio 0.92 Alkaline Phosphatase 279 H Anion Gap 13 Aspartate Amino Transf (AST/SGOT) 64 H Blood Urea Nitrogen 16 Calcium Level 7.7 L Carbon Dioxide Level 25 Chloride Level 106 Creatinine 0.75 Direct Bilirubin 0.00 Globulin 2.80 Glucose Level 163 Indirect Bilirubin 0.3 Potassium Level 3.6 Sodium Level 140 Total Bilirubin 0.3 Total Protein 5.4 L Bedside Glucose 94 Medications Medications Current Medications Acetaminophen (Tylenol Supp) 650 mg Q6H PRN [place] PAIN LEVEL 1-3 OR FEVER Last administered on 05/07/16 00:51; Admin Dose 650 MG; Start 05/04/16 at 10:00 Acetaminophen/ Hydrocodone Bitart ([place] (5/325)) 1 tab Q6H PRN PO MODERATE PAIN LEVEL 4-6 Last administered on 05/12/16 08:30; Admin Dose 1 TAB; Start 05/04/16 at 10:00 Acetaminophen/ Hydrocodone Bitart ([place] (5/325)) 2 tab Q6H PRN PO SEVERE PAIN LEVEL 7-10; Start 05/04/16 at 10:00 Morphine Sulfate (morphine) 2 mg Q4H PRN IV SEVERE PAIN LEVEL 7-10 Last administered on 05/08/16 02:45; Admin Dose 2 MG; Start 05/04/16 at 10:00 Magnesium Hydroxide (Milk Of Mag) 30 ml DAILY PRN PO CONSTIPATION; Start at 10:00 Bisacodyl (Dulcolax Supp) 10 mg DAILY PRN [place] CONSTIPATION; Start 05/04/16 at 10: 00 Nitroglycerin (Nitroglycerin (Sl Tab) 0.4 Mg) 1 tab Q5M PRN SL CHEST PAIN; Start 05/04/16 at 10:00 Miscellaneous Information 1 ea NOTE XX ; Start 05/04/16 at 18:30 Glucose (Glutose) 15 gm Q15M PRN PO DECREASED GLUCOSE; Start 05/04/16 at 18:30 Glucose (Glutose) 22.5 gm Q15M PRN PO DECREASED GLUCOSE; Start 05/04/16 at 18:30 Glucagon (Glucagen) 1 mg Q15M PRN IM DECREASED GLUCOSE; Start 05/04/16 at 18:30 Glucose 15 gm 15 gm Q15M PRN BUCCAL DECREASED GLUCOSE; Start 05/04/16 at 18:30 Albumin Human 250 ml @ 500 mls/hr PRN PRN IV CVP< 8, OR SBP<90 Last administered on 05/07/16 02:12; Admin Dose 500 MLS/HR; Start 05/06/16 at 19:00 Hydromorphone HCl (Dilaudid) 0.2 mg Q15M PRN IV PAIN LEVEL 1-5 Last administered on 05/08/16 15:13; Admin Dose 0.2 MG; Start 05/06/16 at 19:00 Hydromorphone HCl (Dilaudid) 0.4 mg Q15M PRN IV PAIN LEVEL 6-10; Start 05/06/16 at 19:00 Hydromorphone HCl (Dilaudid) 0.2 mg Q1H PRN IV PAIN LEVEL 1-5; Start 05/06/16 at 19:00 Hydromorphone HCl (Dilaudid) 0.4 mg Q1H PRN IV PAIN LEVEL 6-10; Start 05/06/16 at 19:00 Oxycodone/ Acetaminophen (Percocet (5/ 325)) 1 tab Q3H PRN PO PAIN LEVEL 1-5; Start 05/06/16 at 19:00 Oxycodone/ Acetaminophen (Percocet (5/ 325)) 2 tab Q3H PRN PO PAIN LEVEL 6-10; Start 05/06/16 at 19:00 Ondansetron HCl (Zofran Inj) 4 mg Q6H PRN IV NAUSEA AND/OR VOMITING Last administered on 05/10/16 12:22; Admin Dose 4 MG; Start 05/06/16 at 19:00 Sucralfate 1 gm 1 gm Q6 PO Last administered on 05/16/16 05:23; Admin Dose 1 GM; Start 05/07/16 at 00:00 Magnesium Sulfate/ Dextrose (Magnesium Sulfate 1 Gm/D5W) 100 ml @ 100 mls/hr PRN PRN IVPB PENDING LAB VALUE; Start 05/06/16 at 19:00 Dextrose (D50w Syringe) 25 ml Q15M PRN IV Till BS 80 mg/dL or above x2; Start 05/06/16 at 19:00 Dextrose 50 ml 50 ml Q15M PRN IV Till BS 80 mg/dL or above x2; Start 05/06/16 at 19:00 Cefepime HCl (Maxipime 1gm/50 ml (Pmx)) 50 ml @ 100 mls/hr Q24H IVPB Last administered on 05/16/16 08:50; Admin Dose 100 MLS/HR; Start 05/09/16 at 09:00 Insulin Glargine (Lantus) 20 unit DAILY@20 SC Last administered on 05/15/16 20 :24; Admin Dose 20 UNIT; Start 05/08/16 at 20:00 Acetaminophen/ Hydrocodone Bitart ([place] (5/325)) 1 tab Q4H PRN PO pain; Start 05/08/16 at 16:00 Acetaminophen (Tylenol Tab) 650 mg Q6H PRN PO PAIN AND OR ELEVATED TEMP; Start 05/09/16 at 16:00 Atorvastatin Calcium (Lipitor) 80 mg HS NGT Last administered on 05/15/16 20: 07; Admin Dose 80 MG; Start 05/10/16 at 21:00 Heparin Sodium (Porcine) (Heparin (5000 Units/0.5 ml)) 5,000 unit BID SC Last administered on 05/16/16 09:00; Admin Dose 5,000 UNIT; Start 05/10/16 at 21:00 Diagnostic Test (Pha) 1 ea 1 ea 02 XX Last administered on 05/14/16 02:00; Admin Dose 1 EA; Start 05/11/16 at 02:00 Dextrose/Sodium Chloride (D5-1/2ns) 1,000 ml @ 40 mls/hr Q24H IV Last administered on 05/15/16 11:01; Admin Dose 40 MLS/HR; Start 05/11/16 at 10:00 Aspirin (Aspirin) 162 mg DAILY PO Last administered on 05/16/16 08:50; Admin Dose 162 MG; Start 05/12/16 at 09:00 Vancomycin HCl (Vancomycin Oral Syringe) 250 mg Q6 PO Last administered on 05/16 05:23; Admin Dose 250 MG; Start 05/12/16 at 12:30 Lactobacillus Acidophilus/ Rhamnosus (Culturelle) 1 cap BID PO Last administered on 05/16/16 08:50; Admin Dose 1 CAP; Start 05/12/16 at 21:00 Carvedilol (Coreg) 6.25 mg BID PO Last administered on 05/16/16 08:50; Admin Dose 6.25 MG; Start 05/14/16 at 09:00 Labetalol HCl (Labetalol) 20 mg Q4H PRN IV ELEVATED BLOOD PRESSURE Last administered on 05/15/16 19:38; Admin Dose 20 MG; Start 05/14/16 at 18:30 Pantoprazole (Protonix Tab) 40 mg DAILY@06 PO Last administered on 05/16/16 05 :23; Admin Dose 40 MG; Start 05/16/16 at 06:00 Lisinopril (Zestril) 40 mg DAILY PO Last administered on 05/16/16 08:50; Admin Dose 40 MG; Start 05/16/16 at 09:00 JIM WHITE MD May 16, 2016 10:28
--- NOTE | 2016-05-16 17:00 | PN ---
Date/Time of Note Date/Time of Note DATE: 05/16/16 TIME: 16:55 Assessment/Plan VTE Prophylaxis VTE Prophylaxis Intervention: heparin Lines/Catheters Urinary Cath still in place: No Assessment/Plan Chief Complaint/Hosp Course 1. 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 Uncontrolled Diabetes: A1c: 8.7: improved Continue insulin regimen 3. Sepsis with fevers and leukocytosis secondary to C. difficile colitis Patient with hematochezia today, stool sample obtained ID consult Continue Vanco p.o. 4. ATN: improving Nephrology on the case 5. Anemia of chronic disease Monitor 6. Respiratory failure now extubated with persistent bilateral effusions Chest tube removed, follow-up with CT surgery recommendations Pulmonology on the case Prophylaxis: Heparin Problems: Subjective 24 Hr Interval Summary Gastrointestinal: diarrhea Exam/Review of Systems Vital Signs Vitals Vital Signs Date Time Temp Pulse Resp B/P Pulse Ox O2 Delivery O2 Flow Rate FiO2 05/16/16 12:15 85 05/16/16 11:50 97.5 19 161/86 96 05/16/16 08:30 2.0 05/16/16 07:40 Nasal Cannula 05/16/16 01:46 27 Intake and Output 05/15/16 05/15/16 05/16/16 15:00 23:00 07:00 Intake Total 50 ml 1160 ml 1080 ml Output Total 0 ml Balance 50 ml 1160 ml 1080 ml Exam Constitutional: alert Respiratory: clear to auscultation Cardiovascular: regular rate and rhythm Gastrointestinal: soft, No distended Musculoskeletal: nl extremities to inspection Results Result Diagram: 05/15/16 1242 05/16/16 0550 Results 24 hrs Laboratory Tests Test 05/15/16 17:30 05/15/16 20:05 05/16/16 05:50 05/16/16 07:22 Bedside Glucose 168 129 94 Alanine Aminotransferase (ALT/SGPT) 54 Albumin 2.6 L Albumin/Globulin Ratio 0.92 Alkaline Phosphatase 279 H Anion Gap 13 Aspartate Amino Transf (AST/SGOT) 64 H Blood Urea Nitrogen 16 Calcium Level 7.7 L Carbon Dioxide Level 25 Chloride Level 106 Creatinine 0.75 Direct Bilirubin 0.00 Globulin 2.80 Glucose Level 163 Indirect Bilirubin 0.3 Potassium Level 3.6 Sodium Level 140 Total Bilirubin 0.3 Total Protein 5.4 L Test 05/16/16 11:33 Bedside Glucose 155 Medications Medications Current Medications Acetaminophen (Tylenol Supp) 650 mg Q6H PRN [place] PAIN LEVEL 1-3 OR FEVER Last administered on 05/07/16 00:51; Admin Dose 650 MG; Start 05/04/16 at 10:00 Acetaminophen/ Hydrocodone Bitart ([place] (5/325)) 1 tab Q6H PRN PO MODERATE PAIN LEVEL 4-6 Last administered on 05/12/16 08:30; Admin Dose 1 TAB; Start 05/04/16 at 10:00 Acetaminophen/ Hydrocodone Bitart ([place] (5/325)) 2 tab Q6H PRN PO SEVERE PAIN LEVEL 7-10; Start 05/04/16 at 10:00 Morphine Sulfate (morphine) 2 mg Q4H PRN IV SEVERE PAIN LEVEL 7-10 Last administered on 05/08/16 02:45; Admin Dose 2 MG; Start 05/04/16 at 10:00 Magnesium Hydroxide (Milk Of Mag) 30 ml DAILY PRN PO CONSTIPATION; Start at 10:00 Bisacodyl (Dulcolax Supp) 10 mg DAILY PRN [place] CONSTIPATION; Start 05/04/16 at 10: 00 Nitroglycerin (Nitroglycerin (Sl Tab) 0.4 Mg) 1 tab Q5M PRN SL CHEST PAIN; Start 05/04/16 at 10:00 Miscellaneous Information 1 ea NOTE XX ; Start 05/04/16 at 18:30 Glucose (Glutose) 15 gm Q15M PRN PO DECREASED GLUCOSE; Start 05/04/16 at 18:30 Glucose (Glutose) 22.5 gm Q15M PRN PO DECREASED GLUCOSE; Start 05/04/16 at 18:30 Glucagon (Glucagen) 1 mg Q15M PRN IM DECREASED GLUCOSE; Start 05/04/16 at 18:30 Glucose 15 gm 15 gm Q15M PRN BUCCAL DECREASED GLUCOSE; Start 05/04/16 at 18:30 Albumin Human 250 ml @ 500 mls/hr PRN PRN IV CVP< 8, OR SBP<90 Last administered on 05/07/16 02:12; Admin Dose 500 MLS/HR; Start 05/06/16 at 19:00 Hydromorphone HCl (Dilaudid) 0.2 mg Q15M PRN [place] PAIN LEVEL 1-5 Last administered on 05/08/16 15:13; Admin Dose 0.2 MG; Start 05/06/16 at 19:00 Hydromorphone HCl (Dilaudid) 0.4 mg Q15M PRN IV PAIN LEVEL 6-10; Start 05/06/16 at 19:00 Hydromorphone HCl (Dilaudid) 0.2 mg Q1H PRN IV PAIN LEVEL 1-5; Start 05/06/16 at 19:00 Hydromorphone HCl (Dilaudid) 0.4 mg Q1H PRN IV PAIN LEVEL 6-10; Start 05/06/16 at 19:00 Oxycodone/ Acetaminophen (Percocet (5/ 325)) 1 tab Q3H PRN PO PAIN LEVEL 1-5; Start 05/06/16 at 19:00 Oxycodone/ Acetaminophen (Percocet (5/ 325)) 2 tab Q3H PRN PO PAIN LEVEL 6-10; Start 05/06/16 at 19:00 Ondansetron HCl (Zofran Inj) 4 mg Q6H PRN IV NAUSEA AND/OR VOMITING Last administered on 05/10/16 12:22; Admin Dose 4 MG; Start 05/06/16 at 19:00 Sucralfate 1 gm 1 gm Q6 PO Last administered on 05/16/16 11:45; Admin Dose 1 GM; Start 05/07/16 at 00:00 Magnesium Sulfate/ Dextrose (Magnesium Sulfate 1 Gm/D5W) 100 ml @ 100 mls/hr PRN PRN IVPB PENDING LAB VALUE; Start 05/06/16 at 19:00 Dextrose (D50w Syringe) 25 ml Q15M PRN IV Till BS 80 mg/dL or above x2; Start 05/06/16 at 19:00 Dextrose 50 ml 50 ml Q15M PRN IV Till BS 80 mg/dL or above x2; Start 05/06/16 at 19:00 Cefepime HCl (Maxipime 1gm/50 ml (Pmx)) 50 ml @ 100 mls/hr Q24H IVPB Last administered on 05/16/16 08:50; Admin Dose 100 MLS/HR; Start 05/09/16 at 09:00 Insulin Glargine (Lantus) 20 unit DAILY@20 SC Last administered on 05/15/16 20 :24; Admin Dose 20 UNIT; Start 05/08/16 at 20:00 Acetaminophen/ Hydrocodone Bitart ([place] (5/325)) 1 tab Q4H PRN PO pain; Start 05/08/16 at 16:00 Acetaminophen (Tylenol Tab) 650 mg Q6H PRN PO PAIN AND OR ELEVATED TEMP; Start 05/09/16 at 16:00 Atorvastatin Calcium (Lipitor) 80 mg HS NGT Last administered on 05/15/16 20: 07; Admin Dose 80 MG; Start 05/10/16 at 21:00 Heparin Sodium (Porcine) (Heparin (5000 Units/0.5 ml)) 5,000 unit BID SC Last administered on 05/16/16 09:00; Admin Dose 5,000 UNIT; Start 05/10/16 at 21:00 Diagnostic Test (Pha) 1 ea 1 ea 02 XX Last administered on 05/14/16 02:00; Admin Dose 1 EA; Start 05/11/16 at 02:00 Dextrose/Sodium Chloride (D5-1/2ns) 1,000 ml @ 40 mls/hr Q24H IV Last administered on 05/15/16 11:01; Admin Dose 40 MLS/HR; Start 05/11/16 at 10:00 Aspirin (Aspirin) 162 mg DAILY PO Last administered on 05/16/16 08:50; Admin Dose 162 MG; Start 05/12/16 at 09:00 Vancomycin HCl (Vancomycin Oral Syringe) 250 mg Q6 PO Last administered on 05/16 11:46; Admin Dose 250 MG; Start 05/12/16 at 12:30 Lactobacillus Acidophilus/ Rhamnosus (Culturelle) 1 cap BID PO Last administered on 05/16/16 08:50; Admin Dose 1 CAP; Start 05/12/16 at 21:00 Carvedilol (Coreg) 6.25 mg BID PO Last administered on 05/16/16 08:50; Admin Dose 6.25 MG; Start 05/14/16 at 09:00 Labetalol HCl (Labetalol) 20 mg Q4H PRN IV ELEVATED BLOOD PRESSURE Last administered on 05/15/16 19:38; Admin Dose 20 MG; Start 05/14/16 at 18:30 Pantoprazole (Protonix Tab) 40 mg DAILY@06 PO Last administered on 05/16/16 05 :23; Admin Dose 40 MG; Start 05/16/16 at 06:00 Lisinopril (Zestril) 40 mg DAILY PO Last administered on 05/16/16 08:50; Admin Dose 40 MG; Start 05/16/16 at 09:00 HEATHER TEE May 16, 2016 16:59
[2016-05-16] MEDS: ATORVASTATIN 80 MG TAB NGT SCH (20:44)
[2016-05-16] MEDS: INSULIN GLARGINE [LANtus] 3 ML PEN SC SCH (20:49)
[2016-05-17] VITALS (12 sets, daily range): BP systolic 143–185; BP diastolic 68–81; PULSE 72–92; RESP 18–76
[2016-05-17] MEDS: SUCRALFATE (100 MG/ML) 10ML CUP PO SCH ×4 (00:07→18:04)
[2016-05-17] MEDS: VANCOMYCIN HCL 250 MG/5ML POSYG PO SCH ×4 (00:07→18:06)
[2016-05-17] MEDS: ACCUCHECK XX SCH (02:00)
[2016-05-17] MEDS: PANTOPRAZOLE (EC) 40 MG TAB PO SCH (06:48)
[2016-05-17] MEDS: DEXTROSE 5%-0.45% NACL 1,000 ML IV SCH (06:55)
[2016-05-17 06:56] LABS: ADD SCAN DIFF NO
[2016-05-17 06:58] LABS: BASOPHIL # 0.1 10^3/ul (0.0-0.1); BASOPHILS % 0.5 % (0.0-2.0); EOSINOPHILS # 0.3 10^3/ul (0.0-0.5); EOSINOPHILS % 2.6 % (0.0-7.0); HEMATOCRIT 28.6 % (37.0-47.0); HEMOGLOBIN 9.3 g/dl (12.0-16.0); LYMPHOCYTES # 2.2 10^3/ul (0.8-2.9); MEAN CORPUSCULAR HEMOGLOBIN 30.5 pg (29.0-33.0); MEAN CORPUSCULAR HGB CONC 32.5 g/dl (32.0-37.0); MEAN CORPUSCULAR VOLUME 93.8 fl (82.0-101.0); MEAN PLATELET VOLUME 9.4 fl (7.4-10.4); MONOCYTE # 0.8 10^3/ul (0.3-0.9); MONOCYTES % 6.4 % (0.0-11.0); NEUTROPHIL # 8.2 10^3/ul (1.6-7.5); NEUTROPHILS % 70.4 % (39.0-77.0); PLATELET COUNT 554 10^3/UL (140-415); RED BLOOD COUNT 3.05 10^6/ul (4.20-5.40); RED CELL DISTRIBUTION WIDTH 14.1 % (11.5-14.5); WHITE BLOOD COUNT 11.7 10^3/ul (4.8-10.8)
[2016-05-17 07:19] LABS: POTASSIUM 3.8 mmol/L (3.5-5.1)
[2016-05-17 07:22] LABS: CREATININE 0.72 mg/dl (0.44-1.00)
[2016-05-17 07:23] LABS: MAGNESIUM 1.7 mg/dl (1.7-2.5)
[2016-05-17] MEDS: INSULIN ASPART [NOVOLOG] 3 ML PEN SC SCH ×4 (07:55→21:00)
[2016-05-17] MEDS: LACTOBACILLUS RHAMNOSUS CAP PO SCH ×2 (09:05→21:31)
[2016-05-17] MEDS: LISINOPRIL 20 MG TAB PO SCH (09:06)
[2016-05-17] MEDS: ASPIRIN 81 MG TAB PO SCH (09:06)
[2016-05-17] MEDS: CEFEPIME 1GM/50 ML (PMX) 50 ML IVPB SCH (09:07)
[2016-05-17] MEDS: HEPARIN 5,000 UNIT/0.5 ML SYG SC SCH ×2 (09:16→21:46)
--- NOTE | 2016-05-17 12:02 | CONS ---
Date/Time of Note Date/Time of Note DATE: 05/17/16 TIME: 12:01 Assessment/Plan Assessment/Plan Additional Assessment/Plan 1. Acute kidney injury, oliguric, likely secondary to acute tubular necrosis from ischemic acute tubular necrosis in the setting of ST elevation myocardial infarction. 2. 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 Acute respiratory failure, ventilator dependent. 4. Uncontrolled diabetes mellitus with hemoglobin A1c 8.7. 5. Dyslipidemia. 6. Normocytic anemia. 7. Status post intra-aortic balloon pump placement. Plan: Cr improved to normal, electrolytes stable, good urine output encourage po intake will follow up Consultation Date/Type/Reason Admit Date/Time May 04, 2016 at 08:40 Initial Consult Date Type of Consultation: NEPHROLOGY Referring Provider: JANICE RIVERA 24 HR Interval Summary Free Text/Dictation pt stable Exam/Review of Systems Vital Signs Vitals Vital Signs Date Time Temp Pulse Resp B/P Pulse Ox O2 Delivery O2 Flow Rate FiO2 05/17/16 11:41 98.2 86 19 144/71 94 05/17/16 04:13 Room Air 05/16/16 18:01 21 05/16/16 08:30 2.0 Intake and Output 05/16/16 05/16/16 05/17/16 15:00 23:00 07:00 Intake Total 300 ml 1000 ml Balance 300 ml 1000 ml Exam alert, awake, followign commands NECK: No jugular venous distention. LUNGS: Bilateral coarse breath sounds. HEART: S1, S2, tachycardia. No murmur. ABDOMEN: Soft, nontender, nondistended. EXTREMITIES: 1+ edema SKIN: No rash. Results Result Diagram: 05/17/16 0650 05/17/16 0650 Results 24 hrs Laboratory Tests Test 05/16/16 12:17 05/16/16 17:00 05/16/16 20:42 05/17/16 06:50 Stool Occult Blood POSITIVE Bedside Glucose 124 160 Anion Gap 12 Basophils # 0.1 Basophils % 0.5 Blood Urea Nitrogen 15 Calcium Level 8.0 L Carbon Dioxide Level 27 Chloride Level 107 Creatinine 0.72 Eosinophils # 0.3 Eosinophils % 2.6 Glucose Level 49 #*L Hematocrit 28.6 L Hemoglobin 9.3 L Lymphocytes # 2.2 Lymphocytes % 19.0 Magnesium Level 1.7 Mean Corpuscular Hemoglobin 30.5 Mean Corpuscular Hemoglobin Concent 32.5 Mean Corpuscular Volume 93.8 Mean Platelet Volume 9.4 Monocytes # 0.8 Monocytes % 6.4 Neutrophils # 8.2 H Neutrophils % 70.4 Nucleated Red Blood Cells # 0.0 Nucleated Red Blood Cells % 0.0 Phosphorus Level 3.0 Platelet Count 554 #H Potassium Level 3.8 Red Blood Count 3.05 L Red Cell Distribution Width 14.1 Sodium Level 142 White Blood Count 11.7 H Test 05/17/16 07:36 05/17/16 08:17 05/17/16 11:42 Bedside Glucose 62 L 90 137 Medications Medications Current Medications Acetaminophen (Tylenol Supp) 650 mg Q6H PRN [place] PAIN LEVEL 1-3 OR FEVER Last administered on 05/07/16 00:51; Admin Dose 650 MG; Start 05/04/16 at 10:00 Acetaminophen/ Hydrocodone Bitart ([place] (5/325)) 1 tab Q6H PRN PO MODERATE PAIN LEVEL 4-6 Last administered on 05/12/16 08:30; Admin Dose 1 TAB; Start 05/04/16 at 10:00 Acetaminophen/ Hydrocodone Bitart ([place] (5/325)) 2 tab Q6H PRN PO SEVERE PAIN LEVEL 7-10; Start 05/04/16 at 10:00 Morphine Sulfate (morphine) 2 mg Q4H PRN IV SEVERE PAIN LEVEL 7-10 Last administered on 05/08/16 02:45; Admin Dose 2 MG; Start 05/04/16 at 10:00 Magnesium Hydroxide (Milk Of Mag) 30 ml DAILY PRN PO CONSTIPATION; Start at 10:00 Bisacodyl (Dulcolax Supp) 10 mg DAILY PRN [place] CONSTIPATION; Start 05/04/16 at 10: 00 Nitroglycerin (Nitroglycerin (Sl Tab) 0.4 Mg) 1 tab Q5M PRN SL CHEST PAIN; Start 05/04/16 at 10:00 Miscellaneous Information 1 ea NOTE XX ; Start 05/04/16 at 18:30 Glucose (Glutose) 15 gm Q15M PRN PO DECREASED GLUCOSE; Start 05/04/16 at 18:30 Glucose (Glutose) 22.5 gm Q15M PRN PO DECREASED GLUCOSE; Start 05/04/16 at 18:30 Glucagon (Glucagen) 1 mg Q15M PRN IM DECREASED GLUCOSE; Start 05/04/16 at 18:30 Glucose 15 gm 15 gm Q15M PRN BUCCAL DECREASED GLUCOSE; Start 05/04/16 at 18:30 Albumin Human 250 ml @ 500 mls/hr PRN PRN IV CVP< 8, OR SBP<90 Last administered on 05/07/16 02:12; Admin Dose 500 MLS/HR; Start 05/06/16 at 19:00 Hydromorphone HCl (Dilaudid) 0.2 mg Q15M PRN IV PAIN LEVEL 1-5 Last administered on 05/08/16 15:13; Admin Dose 0.2 MG; Start 05/06/16 at 19:00 Hydromorphone HCl (Dilaudid) 0.4 mg Q15M PRN IV PAIN LEVEL 6-10; Start 05/06/16 at 19:00 Hydromorphone HCl (Dilaudid) 0.2 mg Q1H PRN IV PAIN LEVEL 1-5; Start 05/06/16 at 19:00 Hydromorphone HCl (Dilaudid) 0.4 mg Q1H PRN IV PAIN LEVEL 6-10; Start 05/06/16 at 19:00 Oxycodone/ Acetaminophen (Percocet (5/ 325)) 1 tab Q3H PRN PO PAIN LEVEL 1-5; Start 05/06/16 at 19:00 Oxycodone/ Acetaminophen (Percocet (5/ 325)) 2 tab Q3H PRN PO PAIN LEVEL 6-10; Start 05/06/16 at 19:00 Ondansetron HCl (Zofran Inj) 4 mg Q6H PRN IV NAUSEA AND/OR VOMITING Last administered on 05/10/16 12:22; Admin Dose 4 MG; Start 05/06/16 at 19:00 Sucralfate 1 gm 1 gm Q6 PO Last administered on 05/17/16 06:48; Admin Dose 1 GM; Start 05/07/16 at 00:00 Magnesium Sulfate/ Dextrose (Magnesium Sulfate 1 Gm/D5W) 100 ml @ 100 mls/hr PRN PRN IVPB PENDING LAB VALUE; Start 05/06/16 at 19:00 Dextrose (D50w Syringe) 25 ml Q15M PRN IV Till BS 80 mg/dL or above x2; Start 05/06/16 at 19:00 Dextrose 50 ml 50 ml Q15M PRN IV Till BS 80 mg/dL or above x2; Start 05/06/16 at 19:00 Cefepime HCl (Maxipime 1gm/50 ml (Pmx)) 50 ml @ 100 mls/hr Q24H IVPB Last administered on 05/17/16 09:07; Admin Dose 100 MLS/HR; Start 05/09/16 at 09:00 Acetaminophen/ Hydrocodone Bitart ([place] (5/325)) 1 tab Q4H PRN PO pain; Start 05/08/16 at 16:00 Acetaminophen (Tylenol Tab) 650 mg Q6H PRN PO PAIN AND OR ELEVATED TEMP; Start 05/09/16 at 16:00 Atorvastatin Calcium (Lipitor) 80 mg HS NGT Last administered on 05/16/16 20: 44; Admin Dose 80 MG; Start 05/10/16 at 21:00 Heparin Sodium (Porcine) (Heparin (5000 Units/0.5 ml)) 5,000 unit BID SC Last administered on 05/17/16 09:16; Admin Dose 5,000 UNIT; Start 05/10/16 at 21:00 Diagnostic Test (Pha) 1 ea 1 ea 02 XX Last administered on 05/14/16 02:00; Admin Dose 1 EA; Start 05/11/16 at 02:00 Dextrose/Sodium Chloride (D5-1/2ns) 1,000 ml @ 40 mls/hr Q24H IV Last administered on 05/17/16 06:55; Admin Dose 40 MLS/HR; Start 05/11/16 at 10:00 Aspirin (Aspirin) 162 mg DAILY PO Last administered on 05/17/16 09:06; Admin Dose 162 MG; Start 05/12/16 at 09:00 Vancomycin HCl (Vancomycin Oral Syringe) 250 mg Q6 PO Last administered on 05/17 06:48; Admin Dose 250 MG; Start 05/12/16 at 12:30 Lactobacillus Acidophilus/ Rhamnosus (Culturelle) 1 cap BID PO Last administered on 05/17/16 09:05; Admin Dose 1 CAP; Start 05/12/16 at 21:00 Carvedilol (Coreg) 6.25 mg BID PO Last administered on 05/17/16 09:06; Admin Dose 6.25 MG; Start 05/14/16 at 09:00 Labetalol HCl (Labetalol) 20 mg Q4H PRN IV ELEVATED BLOOD PRESSURE Last administered on 05/15/16 19:38; Admin Dose 20 MG; Start 05/14/16 at 18:30 Pantoprazole (Protonix Tab) 40 mg DAILY@06 PO Last administered on 05/17/16 06 :48; Admin Dose 40 MG; Start 05/16/16 at 06:00 Lisinopril (Zestril) 40 mg DAILY PO Last administered on 05/17/16 09:06; Admin Dose 40 MG; Start 05/16/16 at 09:00 Insulin Glargine (Lantus) 10 unit DAILY@20 SC ; Start 05/17/16 at 20:00 JIM WHITE MD May 17, 2016 12:02
--- NOTE | 2016-05-17 16:01 | PN ---
Date/Time of Note Date/Time of Note DATE: 05/17/16 TIME: 15:59 Assessment/Plan VTE Prophylaxis VTE Prophylaxis Intervention: heparin Lines/Catheters Urinary Cath still in place: No Assessment/Plan Chief Complaint/Hosp Course 1. 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 Uncontrolled Diabetes: A1c: 8.7: improved Continue insulin regimen 3. Sepsis with fevers and leukocytosis secondary to C. difficile colitis Patient with hematochezia today, stool sample obtained and is occult blood positive ID consult Continue Vanco p.o. 4. ATN: improving Nephrology on the case 5. Anemia of chronic disease Monitor 6. Respiratory failure now extubated with persistent bilateral effusions Chest tube removed, follow-up with CT surgery recommendations Pulmonology on the case Prophylaxis: Heparin Problems: Subjective 24 Hr Interval Summary Constitutional: no complaints Exam/Review of Systems Vital Signs Vitals Vital Signs Date Time Temp Pulse Resp B/P Pulse Ox O2 Delivery O2 Flow Rate FiO2 05/17/16 15:34 98.0 76 76 182/72 95 05/17/16 04:13 Room Air 05/16/16 18:01 21 05/16/16 08:30 2.0 Intake and Output 05/16/16 05/16/16 05/17/16 15:00 23:00 07:00 Intake Total 300 ml 1000 ml Balance 300 ml 1000 ml Exam GENERAL: NAD HEENT: NCAT LUNGS: Clear to auscultation bilaterally CARDIOVASCULAR: S1, S2 heard. No rubs or gallops. ABDOMEN: Soft, nontender, nondistended. Normal bowel sounds. No rebound or guarding. NEUROLOGIC: No focal deficits EXT- No c/c/e Results Result Diagram: 05/17/16 0650 05/17/16 0650 Results 24 hrs Laboratory Tests Test 05/16/16 17:00 05/16/16 20:42 05/17/16 06:50 05/17/16 07:36 Bedside Glucose 124 160 62 L Anion Gap 12 Basophils # 0.1 Basophils % 0.5 Blood Urea Nitrogen 15 Calcium Level 8.0 L Carbon Dioxide Level 27 Chloride Level 107 Creatinine 0.72 Eosinophils # 0.3 Eosinophils % 2.6 Glucose Level 49 #*L Hematocrit 28.6 L Hemoglobin 9.3 L Lymphocytes # 2.2 Lymphocytes % 19.0 Magnesium Level 1.7 Mean Corpuscular Hemoglobin 30.5 Mean Corpuscular Hemoglobin Concent 32.5 Mean Corpuscular Volume 93.8 Mean Platelet Volume 9.4 Monocytes # 0.8 Monocytes % 6.4 Neutrophils # 8.2 H Neutrophils % 70.4 Nucleated Red Blood Cells # 0.0 Nucleated Red Blood Cells % 0.0 Phosphorus Level 3.0 Platelet Count 554 #H Potassium Level 3.8 Red Blood Count 3.05 L Red Cell Distribution Width 14.1 Sodium Level 142 White Blood Count 11.7 H Test 05/17/16 08:17 05/17/16 11:42 Bedside Glucose 90 137 Medications Medications Current Medications Acetaminophen (Tylenol Supp) 650 mg Q6H PRN [place] PAIN LEVEL 1-3 OR FEVER Last administered on 05/07/16 00:51; Admin Dose 650 MG; Start 05/04/16 at 10:00 Acetaminophen/ Hydrocodone Bitart ([place] (5/325)) 1 tab Q6H PRN PO MODERATE PAIN LEVEL 4-6 Last administered on 05/12/16 08:30; Admin Dose 1 TAB; Start 05/04/16 at 10:00 Acetaminophen/ Hydrocodone Bitart ([place] (5/325)) 2 tab Q6H PRN PO SEVERE PAIN LEVEL 7-10; Start 05/04/16 at 10:00 Morphine Sulfate (morphine) 2 mg Q4H PRN IV SEVERE PAIN LEVEL 7-10 Last administered on 05/08/16 02:45; Admin Dose 2 MG; Start 05/04/16 at 10:00 Magnesium Hydroxide (Milk Of Mag) 30 ml DAILY PRN PO CONSTIPATION; Start at 10:00 Bisacodyl (Dulcolax Supp) 10 mg DAILY PRN [place] CONSTIPATION; Start 05/04/16 at 10: 00 Nitroglycerin (Nitroglycerin (Sl Tab) 0.4 Mg) 1 tab Q5M PRN SL CHEST PAIN; Start 05/04/16 at 10:00 Miscellaneous Information 1 ea NOTE XX ; Start 05/04/16 at 18:30 Glucose (Glutose) 15 gm Q15M PRN PO DECREASED GLUCOSE; Start 05/04/16 at 18:30 Glucose (Glutose) 22.5 gm Q15M PRN PO DECREASED GLUCOSE; Start 05/04/16 at 18:30 Glucagon (Glucagen) 1 mg Q15M PRN IM DECREASED GLUCOSE; Start 05/04/16 at 18:30 Glucose 15 gm 15 gm Q15M PRN BUCCAL DECREASED GLUCOSE; Start 05/04/16 at 18:30 Albumin Human 250 ml @ 500 mls/hr PRN PRN IV CVP< 8, OR SBP<90 Last administered on 05/07/16 02:12; Admin Dose 500 MLS/HR; Start 05/06/16 at 19:00 Hydromorphone HCl (Dilaudid) 0.2 mg Q15M PRN IV PAIN LEVEL 1-5 Last administered on 05/08/16 15:13; Admin Dose 0.2 MG; Start 05/06/16 at 19:00 Hydromorphone HCl (Dilaudid) 0.4 mg Q15M PRN IV PAIN LEVEL 6-10; Start 05/06/16 at 19:00 Hydromorphone HCl (Dilaudid) 0.2 mg Q1H PRN IV PAIN LEVEL 1-5; Start 05/06/16 at 19:00 Hydromorphone HCl (Dilaudid) 0.4 mg Q1H PRN IV PAIN LEVEL 6-10; Start 05/06/16 at 19:00 Oxycodone/ Acetaminophen (Percocet (5/ 325)) 1 tab Q3H PRN PO PAIN LEVEL 1-5; Start 05/06/16 at 19:00 Oxycodone/ Acetaminophen (Percocet (5/ 325)) 2 tab Q3H PRN PO PAIN LEVEL 6-10; Start 05/06/16 at 19:00 Ondansetron HCl (Zofran Inj) 4 mg Q6H PRN IV NAUSEA AND/OR VOMITING Last administered on 05/10/16 12:22; Admin Dose 4 MG; Start 05/06/16 at 19:00 Sucralfate 1 gm 1 gm Q6 PO Last administered on 05/17/16 13:14; Admin Dose 1 GM; Start 05/07/16 at 00:00 Magnesium Sulfate/ Dextrose (Magnesium Sulfate 1 Gm/D5W) 100 ml @ 100 mls/hr PRN PRN IVPB PENDING LAB VALUE; Start 05/06/16 at 19:00 Dextrose (D50w Syringe) 25 ml Q15M PRN IV Till BS 80 mg/dL or above x2; Start 05/06/16 at 19:00 Dextrose 50 ml 50 ml Q15M PRN IV Till BS 80 mg/dL or above x2; Start 05/06/16 at 19:00 Cefepime HCl (Maxipime 1gm/50 ml (Pmx)) 50 ml @ 100 mls/hr Q24H IVPB Last administered on 05/17/16 09:07; Admin Dose 100 MLS/HR; Start 05/09/16 at 09:00 Acetaminophen/ Hydrocodone Bitart ([place] (5/325)) 1 tab Q4H PRN PO pain; Start 05/08/16 at 16:00 Acetaminophen (Tylenol Tab) 650 mg Q6H PRN PO PAIN AND OR ELEVATED TEMP; Start 05/09/16 at 16:00 Atorvastatin Calcium (Lipitor) 80 mg HS NGT Last administered on 05/16/16 20: 44; Admin Dose 80 MG; Start 05/10/16 at 21:00 Heparin Sodium (Porcine) (Heparin (5000 Units/0.5 ml)) 5,000 unit BID SC Last administered on 05/17/16 09:16; Admin Dose 5,000 UNIT; Start 05/10/16 at 21:00 Diagnostic Test (Pha) 1 ea 1 ea 02 XX Last administered on 05/14/16 02:00; Admin Dose 1 EA; Start 05/11/16 at 02:00 Dextrose/Sodium Chloride (D5-1/2ns) 1,000 ml @ 40 mls/hr Q24H IV Last administered on 05/17/16 06:55; Admin Dose 40 MLS/HR; Start 05/11/16 at 10:00 Aspirin (Aspirin) 162 mg DAILY PO Last administered on 05/17/16 09:06; Admin Dose 162 MG; Start 05/12/16 at 09:00 Vancomycin HCl (Vancomycin Oral Syringe) 250 mg Q6 PO Last administered on 05/17 13:14; Admin Dose 250 MG; Start 05/12/16 at 12:30 Lactobacillus Acidophilus/ Rhamnosus (Culturelle) 1 cap BID PO Last administered on 05/17/16 09:05; Admin Dose 1 CAP; Start 05/12/16 at 21:00 Carvedilol (Coreg) 6.25 mg BID PO Last administered on 05/17/16 09:06; Admin Dose 6.25 MG; Start 05/14/16 at 09:00 Labetalol HCl (Labetalol) 20 mg Q4H PRN IV ELEVATED BLOOD PRESSURE Last administered on 05/15/16 19:38; Admin Dose 20 MG; Start 05/14/16 at 18:30 Pantoprazole (Protonix Tab) 40 mg DAILY@06 PO Last administered on 05/17/16 06 :48; Admin Dose 40 MG; Start 05/16/16 at 06:00 Lisinopril (Zestril) 40 mg DAILY PO Last administered on 05/17/16 09:06; Admin Dose 40 MG; Start 05/16/16 at 09:00 Insulin Glargine (Lantus) 10 unit DAILY@20 SC ; Start 05/17/16 at 20:00 HEATHER TEE May 17, 2016 16:01
[2016-05-17] MEDS ORDERED: MAGNESIUM SULFATE 2 GM/50 ML 50 ML IVPB ONE (16:30)
[2016-05-17] MEDS ORDERED: POTASSIUM CHLORIDE (SR) 20 MEQ TAB PO STA (17:47)
[2016-05-17] MEDS ORDERED: FUROSEMIDE 20 MG INJ IV ONE (18:00)
[2016-05-17] MEDS: SPIRONOLACTONE 25 MG TAB PO SCH (18:20)
--- NOTE | 2016-05-17 18:32 | PN ---
DATE: 05/17/2016 CARDIOLOGY FOLLOWUP Discussed with the staff. The rhythm strip was reviewed. SUBJECTIVE: The patient remains in sinus rhythm. No chest pain or pressure. No rectal bleed. Wor kup is being done. Denies any chest pain or pressure. MEDICATIONS: Reviewed. PHYSICAL EXAMINATION: VITAL SIGNS: Temperature 98, heart rate of 87, blood pressure 180/72, respiratory rate of 19, satur ating 95%. HEENT: Normocephalic, atraumatic. In no acute distress. Pupils are equal. CHEST: A sternotomy. CARDIOVASCULAR: Regular rate and rhythm, systolic murmur. PULMONARY: No wheezes. GASTROINTESTINAL: Soft, nontender. EXTREMITIES: Trivial edema. NEUROLOGIC: Awake, responds appropriately. PSYCHIATRIC: Appeared calm. LABORATORY: WBC 11.7, hemoglobin 9.3, platelets of 554. Sodium 142, potassium 3.8, BUN of 15, crea tinine 0.72. Glucose of 49 this morning; most recent glucose 115. ASSESSMENT AND PLAN 1. ST elevation myocardial infarction. 2. Status post urgent bypass surgery. 3. Hypertension. 4. Renal failure - normalized now. 5. Diabetes. 6. Hypertension, not good control. 7. Dyslipidemia. RECOMMENDATIONS: I will increase the Coreg. I will give a dose of Lasix today and start the patien t on Aldactone. Continue with the rest of her cardiac care. GI workup and treatment as per interna l medicine. We will follow the patient p.r.n. The patient to follow with Dr. Goodwin as an outpati ent. Dictated By: NENA GORMAN MD AV/NTS Conf#: [id number] DID#: [id number] CC: HEATHER TEE MD;*EndCC*
[2016-05-17] MEDS ORDERED: INSULIN GLARGINE [LANtus] 3 ML PEN SC SCH (20:00)
[2016-05-17] MEDS: ATORVASTATIN 80 MG TAB NGT SCH (21:31)
[2016-05-18] VITALS (8 sets, daily range): BP systolic 102–147; BP diastolic 52–83; PULSE 67–81; RESP 17–20
[2016-05-18] MEDS: VANCOMYCIN HCL 250 MG/5ML POSYG PO SCH ×3 (01:02→12:02)
[2016-05-18] MEDS: SUCRALFATE (100 MG/ML) 10ML CUP PO SCH ×3 (01:02→12:02)
[2016-05-18] MEDS: ACCUCHECK XX SCH (02:00)
[2016-05-18] MEDS: PANTOPRAZOLE (EC) 40 MG TAB PO SCH (05:50)
[2016-05-18 05:52] LABS: ADD SCAN DIFF NO
[2016-05-18 05:57] LABS: BASOPHIL # 0.1 10^3/ul (0.0-0.1); BASOPHILS % 0.7 % (0.0-2.0); EOSINOPHILS # 0.2 10^3/ul (0.0-0.5); EOSINOPHILS % 2.2 % (0.0-7.0); HEMATOCRIT 30.5 % (37.0-47.0); HEMOGLOBIN 9.7 g/dl (12.0-16.0); LYMPHOCYTES # 2.5 10^3/ul (0.8-2.9); LYMPHOCYTES % 25.3 % (15.0-51.0); MEAN CORPUSCULAR HEMOGLOBIN 29.7 pg (29.0-33.0); MEAN CORPUSCULAR HGB CONC 31.8 g/dl (32.0-37.0); MEAN CORPUSCULAR VOLUME 93.3 fl (82.0-101.0); MEAN PLATELET VOLUME 9.8 fl (7.4-10.4); MONOCYTE # 0.7 10^3/ul (0.3-0.9); NEUTROPHIL # 6.3 10^3/ul (1.6-7.5); NEUTROPHILS % 64.2 % (39.0-77.0); PLATELET COUNT 582 10^3/UL (140-415); RED BLOOD COUNT 3.27 10^6/ul (4.20-5.40); RED CELL DISTRIBUTION WIDTH 14.1 % (11.5-14.5); WHITE BLOOD COUNT 9.8 10^3/ul (4.8-10.8)
[2016-05-18 06:20] LABS: CREATININE 0.84 mg/dl (0.44-1.00)
[2016-05-18 06:21] LABS: CALCIUM 8.4 mg/dl (8.4-10.2); MAGNESIUM 2.1 mg/dl (1.7-2.5)
[2016-05-18] MEDS: HEPARIN 5,000 UNIT/0.5 ML SYG SC SCH (09:33)
[2016-05-18] MEDS: INSULIN ASPART [NOVOLOG] 3 ML PEN SC SCH ×2 (09:33→11:50)
[2016-05-18] MEDS: ASPIRIN 81 MG TAB PO SCH (09:35)
[2016-05-18] MEDS: LISINOPRIL 20 MG TAB PO SCH (09:35)
[2016-05-18] MEDS: LACTOBACILLUS RHAMNOSUS CAP PO SCH (09:35)
[2016-05-18] MEDS: SPIRONOLACTONE 25 MG TAB PO SCH (09:36)
[2016-05-18] MEDS: DEXTROSE 5%-0.45% NACL 1,000 ML IV SCH (10:00)
[2016-05-18] MEDS ORDERED: METR500T14 PO (11:12)
[2016-05-18] MEDS ORDERED: ASPI-664 PO (11:12)
[2016-05-18] MEDS ORDERED: LISI20TA11 PO (11:12)
[2016-05-18] MEDS ORDERED: ALDS PO (11:12)
[2016-05-18] MEDS ORDERED: ATOR80TA75 PO (11:12)
[2016-05-18] MEDS ORDERED: NIT4 SL (11:12)
[2016-05-18] MEDS ORDERED: CARV12.579 PO (11:12)
[2016-05-18] MEDS ORDERED: METF500T4 PO (11:12)
[2016-05-18] MEDS ORDERED: GLIP5TAB13 PO (11:12)
--- NOTE | 2016-05-18 11:45 | PDOCDIS ---
Discharge Instructions CONDITION Patient Condition: Good HOME CARE INSTRUCTIONS: Special Diet: DIABETIC ACTIVITY: Activity Restrictions: No Restrictions FOLLOW UP/APPOINTMENTS Appointments F/U WITH YOUR PCP IN 1-2 WEEKS HEATHER TEE May 18, 2016 11:44
--- NOTE | 2016-05-18 12:09 | CONS ---
Date/Time of Note Date/Time of Note DATE: 05/18/16 TIME: 12:08 Assessment/Plan Assessment/Plan Additional Assessment/Plan 1. Acute kidney injury, oliguric, likely secondary to acute tubular necrosis from ischemic acute tubular necrosis in the setting of ST elevation myocardial infarction. 2. 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 Acute respiratory failure, ventilator dependent. 4. Uncontrolled diabetes mellitus with hemoglobin A1c 8.7. 5. Dyslipidemia. 6. Normocytic anemia. Plan: Cr improved to normal, electrolytes stable, good urine output encourage po intake will follow up Consultation Date/Type/Reason Admit Date/Time May 04, 2016 at 08:40 Initial Consult Date Type of Consultation: NEPHROLOGY Referring Provider: JANICE RIVERA 24 HR Interval Summary Free Text/Dictation doing ok, BP stable Exam/Review of Systems Vital Signs Vitals Vital Signs Date Time Temp Pulse Resp B/P Pulse Ox O2 Delivery O2 Flow Rate FiO2 05/18/16 08:25 67 05/18/16 07:49 98.1 20 147/73 93 05/17/16 04:13 Room Air 05/16/16 18:01 21 05/16/16 08:30 2.0 Intake and Output 05/17/16 05/17/16 05/18/16 15:00 23:00 07:00 Intake Total 50 ml 700 ml 350 ml Output Total 600 ml 400 ml Balance 50 ml 100 ml -50 ml Exam alert, awake, followign commands NECK: No jugular venous distention. LUNGS: Bilateral coarse breath sounds. HEART: S1, S2, tachycardia. No murmur. ABDOMEN: Soft, nontender, nondistended. EXTREMITIES: 1+ edema SKIN: No rash. Results Result Diagram: 05/18/16 0506 05/18/16 0506 Results 24 hrs Laboratory Tests Test 05/17/16 17:32 05/17/16 21:30 05/18/16 05:06 05/18/16 09:26 Bedside Glucose 115 127 152 Anion Gap 14 Basophils # 0.1 Basophils % 0.7 Blood Urea Nitrogen 14 Calcium Level 8.4 Carbon Dioxide Level 27 Chloride Level 105 Creatinine 0.84 Eosinophils # 0.2 Eosinophils % 2.2 Glucose Level 129 # Hematocrit 30.5 L Hemoglobin 9.7 L Lymphocytes # 2.5 Lymphocytes % 25.3 Magnesium Level 2.1 Mean Corpuscular Hemoglobin 29.7 Mean Corpuscular Hemoglobin Concent 31.8 L Mean Corpuscular Volume 93.3 Mean Platelet Volume 9.8 Monocytes # 0.7 Monocytes % 7.0 Neutrophils # 6.3 Neutrophils % 64.2 Nucleated Red Blood Cells # 0.0 Nucleated Red Blood Cells % 0.0 Platelet Count 582 H Potassium Level 4.0 Red Blood Count 3.27 L Red Cell Distribution Width 14.1 Sodium Level 142 White Blood Count 9.8 Medications Medications Current Medications Acetaminophen (Tylenol Supp) 650 mg Q6H PRN [place] PAIN LEVEL 1-3 OR FEVER Last administered on 05/07/16 00:51; Admin Dose 650 MG; Start 05/04/16 at 10:00 Acetaminophen/ Hydrocodone Bitart ([place] (5/325)) 1 tab Q6H PRN PO MODERATE PAIN LEVEL 4-6 Last administered on 05/12/16 08:30; Admin Dose 1 TAB; Start 05/04/16 at 10:00 Acetaminophen/ Hydrocodone Bitart ([place] (5/325)) 2 tab Q6H PRN PO SEVERE PAIN LEVEL 7-10; Start 05/04/16 at 10:00 Morphine Sulfate (morphine) 2 mg Q4H PRN IV SEVERE PAIN LEVEL 7-10 Last administered on 05/08/16 02:45; Admin Dose 2 MG; Start 05/04/16 at 10:00 Magnesium Hydroxide (Milk Of Mag) 30 ml DAILY PRN PO CONSTIPATION; Start at 10:00 Bisacodyl (Dulcolax Supp) 10 mg DAILY PRN [place] CONSTIPATION; Start 05/04/16 at 10: 00 Nitroglycerin (Nitroglycerin (Sl Tab) 0.4 Mg) 1 tab Q5M PRN SL CHEST PAIN; Start 05/04/16 at 10:00 Miscellaneous Information 1 ea NOTE XX ; Start 05/04/16 at 18:30 Glucose (Glutose) 15 gm Q15M PRN PO DECREASED GLUCOSE; Start 05/04/16 at 18:30 Glucose (Glutose) 22.5 gm Q15M PRN PO DECREASED GLUCOSE; Start 05/04/16 at 18:30 Glucagon (Glucagen) 1 mg Q15M PRN IM DECREASED GLUCOSE; Start 05/04/16 at 18:30 Glucose 15 gm 15 gm Q15M PRN BUCCAL DECREASED GLUCOSE; Start 05/04/16 at 18:30 Albumin Human 250 ml @ 500 mls/hr PRN PRN IV CVP< 8, OR SBP<90 Last administered on 05/07/16 02:12; Admin Dose 500 MLS/HR; Start 05/06/16 at 19:00 Hydromorphone HCl (Dilaudid) 0.2 mg Q15M PRN IV PAIN LEVEL 1-5 Last administered on 05/08/16 15:13; Admin Dose 0.2 MG; Start 05/06/16 at 19:00 Hydromorphone HCl (Dilaudid) 0.4 mg Q15M PRN IV PAIN LEVEL 6-10; Start 05/06/16 at 19:00 Hydromorphone HCl (Dilaudid) 0.2 mg Q1H PRN IV PAIN LEVEL 1-5; Start 05/06/16 at 19:00 Hydromorphone HCl (Dilaudid) 0.4 mg Q1H PRN IV PAIN LEVEL 6-10; Start 05/06/16 at 19:00 Oxycodone/ Acetaminophen (Percocet (5/ 325)) 1 tab Q3H PRN PO PAIN LEVEL 1-5; Start 05/06/16 at 19:00 Oxycodone/ Acetaminophen (Percocet (5/ 325)) 2 tab Q3H PRN PO PAIN LEVEL 6-10; Start 05/06/16 at 19:00 Ondansetron HCl (Zofran Inj) 4 mg Q6H PRN IV NAUSEA AND/OR VOMITING Last administered on 05/10/16 12:22; Admin Dose 4 MG; Start 05/06/16 at 19:00 Sucralfate 1 gm 1 gm Q6 PO Last administered on 05/18/16 12:02; Admin Dose 1 GM; Start 05/07/16 at 00:00 Magnesium Sulfate/ Dextrose (Magnesium Sulfate 1 Gm/D5W) 100 ml @ 100 mls/hr PRN PRN IVPB PENDING LAB VALUE; Start 05/06/16 at 19:00 Dextrose (D50w Syringe) 25 ml Q15M PRN IV Till BS 80 mg/dL or above x2; Start 05/06/16 at 19:00 Dextrose (D50w Syringe) 50 ml Q15M PRN IV Till BS 80 mg/dL or above x2; Start 05/06/16 at 19:00 Acetaminophen/ Hydrocodone Bitart ([place] (5/325)) 1 tab Q4H PRN PO pain; Start 05/08/16 at 16:00 Acetaminophen (Tylenol Tab) 650 mg Q6H PRN PO PAIN AND OR ELEVATED TEMP; Start 05/09/16 at 16:00 Atorvastatin Calcium (Lipitor) 80 mg HS NGT Last administered on 05/17/16 21: 31; Admin Dose 80 MG; Start 05/10/16 at 21:00 Heparin Sodium (Porcine) (Heparin (5000 Units/0.5 ml)) 5,000 unit BID SC Last administered on 05/18/16 09:33; Admin Dose 5,000 UNIT; Start 05/10/16 at 21:00 Diagnostic Test (Pha) 1 ea 1 ea 02 XX Last administered on 05/14/16 02:00; Admin Dose 1 EA; Start 05/11/16 at 02:00 Dextrose/Sodium Chloride (D5-1/2ns) 1,000 ml @ 40 mls/hr Q24H IV Last administered on 05/17/16 06:55; Admin Dose 40 MLS/HR; Start 05/11/16 at 10:00 Aspirin (Aspirin) 162 mg DAILY PO Last administered on 05/18/16 09:35; Admin Dose 162 MG; Start 05/12/16 at 09:00 Vancomycin HCl (Vancomycin Oral Syringe) 250 mg Q6 PO Last administered on 05/18 12:02; Admin Dose 250 MG; Start 05/12/16 at 12:30 Lactobacillus Acidophilus/ Rhamnosus (Culturelle) 1 cap BID PO Last administered on 05/18/16 09:35; Admin Dose 1 CAP; Start 05/12/16 at 21:00 Labetalol HCl (Labetalol) 20 mg Q4H PRN IV ELEVATED BLOOD PRESSURE Last administered on 05/15/16 19:38; Admin Dose 20 MG; Start 05/14/16 at 18:30 Pantoprazole (Protonix Tab) 40 mg DAILY@06 PO Last administered on 05/18/16 05 :50; Admin Dose 40 MG; Start 05/16/16 at 06:00 Lisinopril (Zestril) 40 mg DAILY PO Last administered on 05/18/16 09:35; Admin Dose 40 MG; Start 05/16/16 at 09:00 Insulin Glargine (Lantus) 10 unit DAILY@20 SC Last administered on 05/17/16 21 :50; Admin Dose 10 UNIT; Start 05/17/16 at 20:00 Carvedilol (Coreg) 12.5 mg BID PO Last administered on 05/18/16 09:35; Admin Dose 12.5 MG; Start 05/17/16 at 21:00 Spironolactone (Aldactone) 25 mg DAILY PO Last administered on 05/18/16 09:36 ; Admin Dose 25 MG; Start 05/17/16 at 18:00 JIM WHITE MD May 18, 2016 12:08
--- NOTE | 2016-05-18 13:45 | PN ---
DATE: 05/18/2016 PULMONARY FOLLOWUP SUBJECTIVE: The patient is stable this morning, mild weakness but overall denies chest pain or shor tness of breath. PHYSICAL EXAMINATION VITAL SIGNS: Temperature 97, pulse 72, blood pressure 147/80, O2 saturation 96% on 3 L nasal cannul a. NECK: Supple. No JVD or lymphadenopathy. CARDIAC: S1, S2, no added sounds or murmurs. CHEST: Diminished air entry bilaterally. ABDOMEN: Soft, nontender. No guarding or rebound. EXTREMITIES: No cyanosis, clubbing, 1+ edema. NEUROLOGIC: Generalized weakness. LABORATORY DATA: White count 9.8, hemoglobin 9.7, platelets 582. Chemistry within normal limits. IMPRESSION: 1. Status post acute myocardial infarction. 2. History of respiratory failure. 3. Hyperlipidemia. 4. Resolving renal status. PLAN: 1. The patient discharged home to follow up with cardiology and primary care team in 1 to 2 weeks' time. 2. Encourage activity. 3. Encourage incentive spirometry. Dictated By: MARGARITO MILLER/ROLF Conf#: [id number] DID#: [id number]
--- NOTE | 2016-05-19 10:44 | DS ---
DATE OF ADMISSION: 05/04/2016 DATE OF DISCHARGE: 05/18/2016 DISCHARGE DIAGNOSES: 1. ST elevation myocardial infarction status post unsuccessful emergent catheterization with arlin gs of multivessel obstructive coronary artery disease, status post coronary artery bypass graft done 05/06/2016. The patient is now stable for discharge. We will discharge with aspirin, beta alexandra , and statin. 2. Respiratory failure with bilateral effusions status post chest tube placement and removal, now s table. The patient was intubated during the hospitalization and now extubated. 3. Sepsis secondary to Clostridium difficile colitis, now improved. Discharge with Flagyl p.o. The patient is status post vancomycin p.o. during the hospitalization. 4. Newly diagnosed diabetes with A1c of 8.7, stable with insulin during this hospitalization. He w ill be discharged with Metformin and glipizide, and I have advised lifestyle changes. The patient h as also spoken to range rider, and we will check her blood sugars at home. 5. Acute tubular necrosis, improved. 6. Anemia of chronic disease, stable. HOSPITAL COURSE: The patient is a 75-year-old female with a history of obesity, dyslipidemia. The patient presented to the ED with chest pain. She was found to have an ST elevation myocardial infa rction. The patient was taken for emergent cardiac catheterization. During the catheterization, th e patient was found to have multivessel coronary artery disease including 90 to 95% distal left main blockage LAD ostial to proximal with 90% blockage, ____ with 80%, circumflex with 95%. RCA had 95% stenosis. The patient was felt to require a bypass surgery as she had significant coronary artery disease with significant blockade. The patient was admitted to the ICU where she was put on a hepar in drip, nitro drip, as well as aortic balloon pump. CT surgery was consulted, and the patient unde rwent a CABG by Dr. Kruse on 05/06/2016. The patient did have acute kidney injury likely second joceline to acute tubular necrosis from ischemic acute tubular necrosis in the setting of ST elevation NM . The patient's creatinine did normalize. The patient did require intubation and did have persiste nt bilateral effusions. She did have a chest tube placed for fluid removal. Ultimately, the patien t's respiratory status improved. She was extubated, and chest tubes were ultimately removed. The p atient did have Clostridium difficile colitis. She did have sepsis as a result of it. She did have an ID consultation. At one point she did have some blood-tinged stool, but this resolved. She had no history of blood in her stool otherwise. Hemoglobin did stabilize. She did have anemia of cafeteria or lunchroom checker reji disease. The patient was on vancomycin p.o. for the Clostridium difficile colitis. Sepsis did resolve. The patient was cleared for discharge per CT surgery. On day of discharge, the patient's vitals, labs, physical exam were stable. She had no acute complaints. Questions were answered. CONDITION ON DISCHARGE: Stable. DISPOSITION: To home. MEDICATIONS: The patient was given new prescriptions for 1. Aspirin 162 mg daily. 2. Lipitor 80 mg daily. 3. Coreg 12.5 b.i.d. 4. Glipizide 5 mg p.o. q. a.c. with breakfast. 5. Lisinopril 40 mg daily. 6. Metformin 500 mg ____ dinner. 7. Flagyl 500 mg q. 8 hours for 8 days. 8. Nitroglycerin as needed. 9. Aldactone 25 mg daily. The patient was given a glucometer by the range rider. The patient has no reported home medic ations. FOLLOWUP: The patient is to follow up with her PCP in 1 to 2 weeks and with the in flight crew member as wel l as CT surgeon. Greater than 30 minutes was spent coordinating discharge of patient. Dictated By: HEATHER TEE MD BS/NTS Conf#: [id number] DID#: [id number]
== END 2016-05-18 14:20 | disposition home or self-care (01) | DRG 233 ==
LOC: E/R 08:08 → ICU 08:40 → UNDOADMIN 10:47 → ICU 10:47 → TEL 05-12 20:19
PROVIDERS: ADMIT Hospitalist; ATTEND Hospitalist
PROC: 02100Z9 Bypass Coronary Artery, One Artery from Left Internal Mammary, Open Approach (ICD-10-PCS; 2016-05-04)
PROC: B211YZZ Fluoroscopy of Multiple Coronary Arteries using Other Contrast (ICD-10-PCS; 2016-05-06)
PROC: 06BQ4ZZ Excision of Left Saphenous Vein, Percutaneous Endoscopic Approach (ICD-10-PCS; 2016-05-06)
PROC: 5A02210 Assistance with Cardiac Output using Balloon Pump, Continuous (ICD-10-PCS; 2016-05-06)
PROC: 5A1945Z Respiratory Ventilation, 24-96 Consecutive Hours (ICD-10-PCS; 2016-05-06)
PROC: 5A1221Z Performance of Cardiac Output, Continuous (ICD-10-PCS; 2016-05-06)
PROC: 021309W Bypass Coronary Artery, Four or More Arteries from Aorta with Autologous Venous Tissue, Open Approach (ICD-10-PCS; principal; 2016-05-06 09:30)
DX: I21.02 ST elevation (STEMI) myocardial infarction involving left anterior descending coronary artery (principal); A41.9 Sepsis, unspecified organism; N17.0 Acute kidney failure with tubular necrosis; J96.01 Acute respiratory failure with hypoxia; R57.0 Cardiogenic shock; A04.7 Enterocolitis due to Clostridium difficile; J90 Pleural effusion, not elsewhere classified; E11.65 Type 2 diabetes mellitus with hyperglycemia; D53.9 Nutritional anemia, unspecified; I10 Essential (primary) hypertension; E78.5 Hyperlipidemia, unspecified; I25.10 Atherosclerotic heart disease of native coronary artery without angina pectoris; D69.6 Thrombocytopenia, unspecified; D63.8 Anemia in other chronic diseases classified elsewhere
CPT/HCPCS: 36415; 36430; 36592; 36600; 71010; 76775; 80048; 80053; 80061; 80069; 80076; 81001; 81003; 82270; 82550; 82553; 82570; 82803; 82962; 83036; 83690; 83735; 84100; 84132; 84300; 84436; 84443; 84479; 84484; 85025; 85610; 85730; 86644; 86850; 86900; 86901; 86920; 87040; 87070; 87075; 87081; 87086; 87102; 87116; 89190; 92526; 92610; 93005; 93306; 93312; 93325; 93454; 93880; 94002; 94003; 94770; 96374; 96375; 97116; 97162; 97530; J1940; C1726; C1887; C1894; C9113; J0171; J0360; J0610; J0690; J0692; J1170; J1265; J1644; J1815; J2001; J2150; J2250; J2260; J2270; J2370; J2405; J2440; J2720; J3010; J3370; J3475; J3480; J7030; J7040; J7042; J7070; P9016; P9035; P9045; P9047; P9059; Q9967

== ENCOUNTER 2016-05-24 22:42 | Emergency (ER) | payer MEDICARE, OTHER ==
[~2016-05-24] VITALS: Ht 152.4 cm; Wt 51.5 kg
[~2016-05-24 22:42] MED LIST: ALDS PO; ASPI-664 PO; ATOR80TA75 PO; CARV12.579 PO; GLIP5TAB13 PO; LISI20TA11 PO; METF500T4 PO; METR500T14 PO; NIT4 SL
[2016-05-24 22:47] VITALS: Ht 152.4 cm; Wt 51.5 kg
--- NOTE | 2016-05-25 00:42 | ERA ---
ER Documentation Chief Complaint Date/Time DATE: 05/25/16 TIME: 00:42 Chief Complaint Left leg wound HPI The patient is a 75-year-old female, presenting to the ER because of left leg from recent CABG on May 06, 2016. She denies any fever, chills, neck pain, chest pain, abdominal pain. She vomited twice today mostly mucus. She denied dysuria, diarrhea. He does not smoke nor drink. Past medical history: CAD, history of C. difficile colitis, diabetes mellitus, history of acute kidney injury, anemia Past surgical history: CABG on May 06, 2016 ROS All systems reviewed and are negative except as per history of present illness. Medications Home Meds Active Scripts Bacitracin* (Bacitracin Oint (UD)*) 1 Applic Oint, 1 APPLIC TOP ONCE for 10 Days , PKT APPLY TO Prov:DELORES COX MD 05/25/16 Sulfamethoxazole-Trimethoprim* (Bactrim* DS) 800-160 Mg Tab, 1 TAB PO BID for 10 Days, TAB Prov:DELORES COX MD 05/25/16 Cephalexin* (Keflex*) 500 Mg Capsule, 500 MG PO QID for 10 Days, CAP Prov:DELORES COX MD 05/25/16 Glipizide* (Glipizide*) 5 Mg Tablet, 5 MG PO AC BREAKFAST, #30 TAB 1 Refill Prov:HEATHER TEE 05/18/16 Metformin* (Glucophage*) 500 Mg Tab, 500 MG PO WITH BREAKFAST DINNE, #30 TAB Prov:HEATHER TEE 05/18/16 Metronidazole (Flagyl) 500 Mg Tab, 500 MG PO Q8 for 8 Days, TAB Prov:HEATHER TEE 05/18/16 Atorvastatin* (Atorvastatin*) 80 Mg Tablet, 80 MG PO HS, #60 TAB 1 Refill Prov:HEATHER TEE 05/18/16 Spironolactone* (Aldactone*) 5 Mg/Ml (COMPOUNDED) Susp, 25 MG PO DAILY, #30 Prov:HEATHER TEE 05/18/16 Nitroglycerin* (Nitrostat*) 0.4 Mg Tab.subl, 1 TAB SL Q5M Y for CHEST PAIN, #60 Prov:HEATHER TEE 05/18/16 Lisinopril* (Lisinopril*) 20 Mg Tablet, 40 MG PO DAILY, #60 TAB 1 Refill Prov:HEATHER TEE 05/18/16 Carvedilol* (Carvedilol*) 12.5 Mg Tablet, 12.5 MG PO BID, #60 TAB 1 Refill Prov:HEATHER TEE 05/18/16 Aspirin* (Aspirin* (EC)) 81 Mg Tablet.dr, 162 MG PO DAILY, #90 EA Prov:HEATHER TEE 05/18/16 Allergies Allergies: Coded Allergies: No Known Allergy (Unverified , 05/04/16) PMhx/Soc History of Surgery: Yes (CABG 05/04/2016) Anesthesia Reaction: No Hx Neurological Disorder: No Hx Respiratory Disorders: No Hx Cardiac Disorders: Yes (HTN,high cholesterol,acut VT) Hx Psychiatric Problems: No Hx Miscellaneous Medical Probl: Yes (DM) Hx Alcohol Use: No Hx Substance Use: No Hx Tobacco Use: No Smoking Status: Never smoker Physical Exam Vitals Vital Signs Date Time Temp Pulse Resp B/P Pulse Ox O2 Delivery O2 Flow Rate FiO2 05/25/16 01:00 83 14 143/63 97 Room Air 05/25/16 00:33 81 16 142/67 97 Room Air 05/24/16 22:47 97.8 87 20 161/118 97 Physical Exam Const: No acute distress. Head: Atraumatic. Eyes: Normal Conjunctiva. ENT: Normal External Ears, Nose and Mouth. Neck: Full range of motion. No meningismus. Resp: Clear to auscultation bilaterally. Cardio: Regular rate and rhythm, no murmurs. Abd: Soft, non distended, normal bowel sounds, non tender. Skin: No petechiae or rashes. Back: No midline or flank tenderness. Ext: Left leg with minimal erythema at the left medial tibia wound, no discharge, no calf tenderness Neur: Awake and alert. No focal deficit Psych: Normal Mood and Affect. Procedures/MDM MEDICAL MAKING DECISION: The patient is a 75-year-old female, presenting with postoperative wound check. He was cleaned and dressed with bacitracin. The differential diagnoses considered include but are not limited to cellulitis, abscess, DVT Departure Diagnosis: Primary Impression: Encounter for postoperative wound check Condition: Good Comments She was treated empirically with Bactrim DS and Keflex I discussed the findings with the patient. I advised the patient to follow-up with the primary physician in about 1-2 days, sooner if needed and return if any concern. DELORES COX MD May 25, 2016 00:42
[2016-05-25 01:00] VITALS: BP 143/63; PULSE 83; RESP 14
[2016-05-25] MEDS ORDERED: CEPH-443 PO (01:20)
[2016-05-25] MEDS ORDERED: BACTDS PO (01:21)
[2016-05-25] MEDS ORDERED: BACITUD TOP (01:21)
== END 2016-05-25 01:59 | disposition home or self-care (01) ==
LOC: E/R 22:42
DX: Z48.01 Encounter for change or removal of surgical wound dressing (principal); L53.9 Erythematous condition, unspecified; I10 Essential (primary) hypertension; E11.9 Type 2 diabetes mellitus without complications; I25.10 Atherosclerotic heart disease of native coronary artery without angina pectoris; Z95.1 Presence of aortocoronary bypass graft; Z79.84 Long term (current) use of oral hypoglycemic drugs; Z79.82 Long term (current) use of aspirin
CPT/HCPCS: 99284